=== PATIENT | female | born 1955 | race Caucasian/White ===

== ENCOUNTER → 2016-07-12 | Outpatient (CLI) | payer MEDICARE, MEDICAID ==
[~2016-07-12] MED LIST: ALEN70TA47 PO; ALPR1TAB7 PO; AMLO5TAB2 PO; ASP325TEC; ASPI-587 PO; CLON2TAB3; CLOP75TA; CODE-54 PO; CYCL10TA9 PO; DEXL60CA5 PO; ENAL2.5T; FLUT16SP22 NS; HYDR200T46 PO; IBP600T1 PO; LANS30CA; LINA145C PO; LORA10TA7 PO; METO-333 PO; MULT-974 PO; NIAC1000; NIAC1000 PO; NTR.4SL SL; OMEP20CA12 PO; OMG1KC PO; ONDA4TAB8 PO; Oxycodone Hcl/Acetaminophen PO; PRAV40TA; PRAV80TA2 PO; TIZA4CAP PO; TIZA4TAB55; TOPI25CA2 PO; TRAM-21 PO; VIT400TA2
--- OUTSIDE RECORDS SUMMARY | 2016-07-12 13:10 | XMS REPORT | Continuity of Care Document ---
Author Author [facility] Organization [facility] Address Unknown Phone Unavailable Care Team Providers Care Rn Telephone Triage Name Role Phone Romel Dukes PCP [phone] Source Comments Some departments are not documenting in the electronic medical record. If you do not see the information that you expected, contact Release of Information in the Health Information Management department at [phone] for further assistance in locating additional records.[facility] Active Allergies and Adverse Reactions Allergen Noted Date Severity Reactions Comments Hydrocodone 10/10/2010 High NAUSEA AND VOMITING hydrocodone cause immediate nausea and emesis upon ingestion. Makes her feel 'Funky' for a period of time afterward she says. Current Medications Prescription Sig. Disp. Refills Start End Date Status Date clopidogrel (PLAVIX) 75 Take 75 mg by mouth Active mg PO daily. alendronate (FOSAMAX) 70 Take 70 mg by mouth every Active mg PO tablet 7 days. VITAMIN B COMPLEX (B Take by mouth daily. Active COMPLEX-VITAMIN B12 PO) NIACIN (NIASPAN) 1,000 mg Take by mouth at bedtime Active PO tablet daily. other medication Take 1 Each by mouth as Active Needed. Nitroglycerine 0.4 mg sublingual as needed pravastatin (PRAVACHOL) Take 80 mg by mouth at Active 80 mg PO tablet bedtime daily. acetaminophen/codeine Take 1 Tab by mouth three Active (TYLENOL NO.3) 300/30 mg times daily as needed. PO tablet 0-1-2-3x qd tizanidine (ZANAFLEX) 4 Take 4 mg by mouth twice Active mg PO capsule daily. aspirin 81 mg chewable Take 81 mg by mouth Active tablet daily. loratadine (CLARITIN) 10 Take 10 mg by mouth Active mg tablet daily. fluticasone (FLONASE) 50 Apply 2 Sprays to each Active mcg/actuation nasal spray nostril as directed daily. Dexlansoprazole Take by mouth daily. Active (DEXILANT) 60 mg CpDM DOCOSAHEXANOIC ACID/EPA Take 1,000 mg by mouth Active (FISH OIL PO) twice daily. MULTIVITAMIN PO Take 1 Tab by mouth Active daily. Women's Health Complete Ultra Multivitamin diphenhydrAMINE Take 25 mg by mouth every Active (BENADRYL) 25 mg capsule 6 hours as needed. cyclobenzaprine Take 1 Tab by mouth at 90 Tab 1 07/14/19 Active (FLEXERIL) 10 mg tablet bedtime daily. 14 ACETAMINOPHEN/DIPHENHYDRA Take 1 Tab by mouth at Active MINE (TYLENOL PM PO) bedtime as needed. ALPRAZolam (XANAX) 1 mg Take 1 mg by mouth three Active tablet times daily as needed. 2-3x qd hydroxychloroquine Take 200 mg by mouth as Active (PLAQUENIL) 200 mg tablet Needed. 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 Social History Tobacco Use Types Packs/Day Years Used Date Current Every Day Smoker Cigarettes 0.25 40 Smokeless Tobacco: Never Used Tobacco Cessation: Ready to Quit: No Comments: 6 CIGARETTES PER DAY Alcohol Use Drinks/Week oz/Week Comments Yes once every 3-4 months Last Filed Vital Signs Vital Sign Reading Time Taken Blood Pressure 108/70 07/14/2013 3:44 PM [employer]IVIL DIVISION DEPUTY [employer]ERIFF Pulse 95 07/14/2013 3:44 PM [employer] Temperature 36.4 C (97.6 F) 07/14/2013 3:44 PM [employer]ER[employer] Respiratory Rate 15 07/14/2013 3:44 PM [employer]ER[employer] Height 1.6 m (5' 3") 07/14/2013 3:44 PM [employer] Weight 73.301 kg (161 lb 9.6 oz) 07/14/2013 3:44 PM [employer] Body Mass Index 28.63 07/14/2013 3:44 PM [employer] Oxygen Saturation 98% 05/22/2011 2:33 PM [employer] Plan of Care Health Maintenance Due Date Last Done Comments Physical (Comprehensive) 1961 Exam Pertussis Vaccine 1965 Tetanus Vaccine 1971 Cervical Cancer Screening 1975 Breast Cancer Screening 1994 Colorectal Cancer 2004 Screening Shingles Vaccine 2014 Influenza Vaccine 02/17/2016 Results from Last 3 Months Not on file
--- NOTE | 2016-07-12 13:26 | Diagnostic Imaging Report ---
Indication: Left foot pain x2 months 3 views of the left foot show no fracture, dislocation or other abnormalities. Impression: Negative left foot Dictated by: Dictated on workstation # [id number]
== END ==
LOC: RAD 13:06
PROVIDERS: ATTEND Family Medicine
DX: M79.672 Pain in left foot (principal)
CPT/HCPCS: 73630

== ENCOUNTER 2017-01-29 05:38 | Outpatient (CLI) | payer MEDICARE, MEDICAID ==
[~2017-01-29] VITALS: Ht 160 cm; Wt 67.1 kg
[2017-01-30] MEDS ORDERED: ACET-2469 PO (10:35)
[2017-01-30] MEDS ORDERED: TRAM-42 PO (10:35)
[2017-01-30] MEDS ORDERED: METO-270 PO (10:35)
[2017-01-30] MEDS ORDERED: SUCR1TAB36 PO (11:32)
== END 2017-01-29 11:15 ==
LOC: PREOP 05:38
PROVIDERS: ATTEND Surgery
DX: Z01.818 Encounter for other preprocedural examination (principal); K21.9 Gastro-esophageal reflux disease without esophagitis; Z80.0 Family history of malignant neoplasm of digestive organs

== ENCOUNTER 2017-01-30 10:23 | Day surgery (SDC) | payer MEDICARE, MEDICAID ==
[2017-01-30] MEDS ORDERED: LACTATED RINGERS 1,000 ML IV ONE (10:25)
--- OUTSIDE RECORDS SUMMARY | 2017-01-30 10:27 | XMS REPORT | Clinical Summary ---
Author Author [facility] Organization [facility] Address Unknown Phone Unavailable Care Team Providers Care Mattress And Foundation Sewer Name Role Phone PCP Unavailable Source Comments Some departments are not documenting in the electronic medical record. If you do not see the information that you expected, contact Release of Information in the Health Information Management department at [phone] for further assistance in locating additional records.[facility] Allergies Active Allergy Reactions Severity Noted Date Comments Hydrocodone NAUSEA AND VOMITING High 10/10/2010 hydrocodone cause immediate nausea and emesis upon [...] Tab 1 07/14/19 Active (FLEXERIL) 10 mg bedtime daily. 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 Family History Medical History Relation Name Comments Arthritis-rheumatoid Brother Cancer Father Arthritis-osteo Mother Diabetes Mother Heart Disease Mother Hypertension Mother Hypothyroid Mother Stroke Mother Cancer Sister Diabetes Sister Relation Name Status Comments Brother Father Mother Sister Social History Tobacco Use Types Packs/Day Years Used Date Current Every Day Smoker Cigarettes 0.25 40 Smokeless Tobacco: Never Used Tobacco Cessation: Ready to Quit: No Comments: 6 CIGARETTES PER DAY Alcohol Use Drinks/Week oz/Week Comments Yes once every 3-4 months Sex Assigned at Date Recorded Not on file Last Filed Vital Signs Vital Sign Reading Time Taken Blood Pressure 108/70 07/14/2013 3:44 PM ACLS SPECIALIST Pulse 95 07/14/2013 3:44 PM ACLS SPECIALIST Temperature 36.4 C (97.6 F) 07/14/2013 3:44 PM ACLS SPECIALIST Respiratory Rate 15 07/14/2013 3:44 PM ACLS SPECIALIST Oxygen Saturation 98% 05/22/2011 2:33 PM ACLS SPECIALIST Inhaled Oxygen - - Concentration Weight 73.3 kg (161 lb 9.6 oz) 07/14/2013 3:44 PM ACLS SPECIALIST Height 160 cm (5' 3") 07/14/2013 3:44 PM ACLS SPECIALIST Body Mass Index 28.63 07/14/2013 3:44 PM ACLS SPECIALIST Plan of Treatment Health Maintenance Due Date Last Done Comments HEPATITIS C SCREENING 1954 PHYSICAL (COMPREHENSIVE) 1961 EXAM PERTUSSIS VACCINE 1965 TETANUS VACCINE 1971 CERVICAL CANCER SCREENING 1984 BREAST CANCER SCREENING 1994 COLORECTAL CANCER 2004 SCREENING SHINGLES VACCINE 2014 INFLUENZA VACCINE 02/16/2017 Results Not on filefrom Last 3 Months
[2017-01-30 10:30] VITALS: BP 132/67
--- NOTE | 2017-01-30 10:32 | Progress Note-Pre Operative ---
Pre-Operative Progress Note H&P Reviewed The H&P was reviewed, patient examined and no changes noted. Date Seen by Provider: Jan 30, 2017 Time Seen by Provider: 10:32 Date H&P Reviewed: Jan 30, 2017 Time H&P Reviewed: 10:32 Pre-Operative Diagnosis: GERD, History of Hiatal hernia repair, family history colon cancer SOCO BLANCAS DO Jan 30, 2017 10:32
[2017-01-30] MEDS ORDERED: MIDAZOLAM 2 MG/2 ML (VERSED) VIAL ONE (10:34)
[2017-01-30] MEDS ORDERED: ACET-2469 PO (10:35)
[2017-01-30] MEDS ORDERED: TRAM-42 PO (10:35)
[2017-01-30] MEDS ORDERED: METO-270 PO (10:35)
[2017-01-30] MEDS ORDERED: ONDANSETRON 4 MG/2 ML (SDV) Z0FRAN ONE (10:37)
[2017-01-30] MEDS ORDERED: proPOfol 200 MG/20 ML (DIPRIVAN) VIAL IV ONE (10:38)
[2017-01-30] MEDS ORDERED: ONDANSETRON 4 MG/2 ML (SDV) Z0FRAN IV ONE (10:45)
[2017-01-30] MEDS ORDERED: LACTATED RINGERS 1,000 ML IV SCH (11:00)
[2017-01-30] MEDS ORDERED: HURRICAINE EXT TUBE (BENZOCAINE) XX ONE (11:00)
--- NOTE | 2017-01-30 11:31 | Progress Note-Post Operative ---
Post-Operative Progess Note Surgeon (s)/Ceo & Board Director (s) Surgeon SOCO BLANCAS DO Ceo & Board Director: na Pre-Operative Diagnosis GERD, History of Hiatal hernia repair, family history colon cancer Post-Operative Diagnosis slight gastrtis, descending colon polyp, diverticulosis Procedure & Operative Findings Date of Procedure 01/30/17 Procedure Performed/Findings egd c biopsy and colonoscopy with hot bx polypectomy Anesthesia Type per title i coordinator Estimated Blood Loss Estimated blood loss (mL): none Specimens/Packing Specimens Removed antrum, descending colon polyp SOCO BLANCAS DO Jan 30, 2017 11:31
[2017-01-30] MEDS ORDERED: SUCR1TAB36 PO (11:32)
--- NOTE | 2017-01-30 11:33 | Discharge Inst-Simple/Standard ---
Discharge Inst-Standard Discharge Medications New, Converted or Re-Newed RX: Transmitted to Pharmacy Patient Instructions/Follow Up Plan of Care/Instructions/FU: 2 weeks [place] Activity as Tolerated: Yes Discharge Diet: Regular Diet SOCO BLANCAS DO Jan 30, 2017 11:33
[2017-01-30 12:00] VITALS: BP 121/61
[2017-01-30 12:45] VITALS: BP 124/69
[2017-01-30 13:00] VITALS: BP 124/69
[2017-01-30] MEDS ORDERED: HURRICAINE EXT TUBE (BENZOCAINE) ONE (15:21)
--- NOTE | 2017-01-30 19:29 | OPERATIVE REPORT ---
DATE OF SERVICE: PREOPERATIVE DIAGNOSIS: 1. Gastroesophageal reflux disease. 2. History of hiatal hernia repair. 3. Family history of colon cancer. POSTOPERATIVE DIAGNOSIS: 1. Slight gastritis. 2. Descending colon polyp. 3. Diverticulosis. PROCEDURE: EGD with biopsy and colonoscopy with hot biopsy polypectomy descending colon. SURGEON: Soco Ozuna DO ANESTHESIA: Per BILLING CUSTOMER SERVICE REPRESENTATIVE. ESTIMATED BLOOD LOSS: None. COMPLICATIONS: None. INDICATIONS: The patient is a 61-year-old female with slightly worsening reflux symptoms. She is on Dexilant which does not seem to keep it still under control. She has a family history of colon cancer, is due for colonoscopy. She understands risks, benefits and wishes to proceed. Consent was signed and on the chart. DESCRIPTION OF PROCEDURE: The patient was taken to the endoscopy suite, placed in left lateral recumbent position. Timeout was performed. Scope was inserted in the mouth, down the esophagus, stomach and into the duodenum without difficulty. There were no polyps, mass or ulcerations within the duodenum. Scope was slowly retracted back into the stomach, which had slight erythematous changes. Biopsy of the antrum was obtained. The scope was retroflexed noting no other pathology. Scope was returned to its normal position, slowly withdrawn to the distal esophagus which had no erythematous changes, polyps, masses or ulcerations. Scope was slowly retracted back noting no other pathology until completely removed. Digital rectal exam was performed and there were no palpable polyps, masses or ulcerations. Scope was inserted in the rectum and advanced all the way to the cecum with minimal difficulty. Prep was adequate. Scope was then slowly retracted back. There were no polyps, masses or ulcerations within the cecum, ascending, transverse colon. Within the descending colon near the splenic flexure, a small polyp was present, which hot biopsy polypectomy was performed. Scope was continued to be slowly retracted back to the sigmoid where some minimal amount of diverticulosis was present. There were no polyps, masses or ulcerations. Scope was continued to be slowly retracted back to the rectum, where it was also retroflexed without any other pathology. Scope was returned to its normal position, slowly withdrawn until completely removed. The patient tolerated procedure well without any complications. She was taken to recovery in stable condition. RECOMMENDATIONS: The patient will need high fiber diet. We recommend adding Carafate 1 gram four times a day at this time. We will have her follow up in the office in 3 weeks to discuss pathology and see how her symptoms are doing at that time. The patient will need repeat colonoscopy in 5 years due to family history of colon cancer and polyps. If she has any problems prior to that, she should be reevaluated at that time. Job ID: [id number] DocumentID: [id number] Dictated Date: 01/30/2017 11:36:44 Drinking Water Technician Date: 01/30/2017 19:28:56 Dictated By: SOCO OZUNA DO
== END 2017-01-30 13:00 | disposition home or self-care (01) ==
LOC: ENDO 10:23
PROVIDERS: ATTEND Surgery
DX: Z12.11 Encounter for screening for malignant neoplasm of colon (principal); D12.3 Benign neoplasm of transverse colon; K57.30 Diverticulosis of large intestine without perforation or abscess without bleeding; K21.9 Gastro-esophageal reflux disease without esophagitis; K44.9 Diaphragmatic hernia without obstruction or gangrene; K29.70 Gastritis, unspecified, without bleeding; Z80.0 Family history of malignant neoplasm of digestive organs; I25.10 Atherosclerotic heart disease of native coronary artery without angina pectoris; I10 Essential (primary) hypertension; E78.5 Hyperlipidemia, unspecified; J44.9 Chronic obstructive pulmonary disease, unspecified; F17.210 Nicotine dependence, cigarettes, uncomplicated; Z79.899 Other long term (current) drug therapy; Z95.5 Presence of coronary angioplasty implant and graft

== ENCOUNTER → 2017-04-09 | Outpatient (CLI) | payer MEDICARE, MEDICAID ==
[~2017-04-09] VITALS: Ht 160 cm; Wt 68.0 kg
[~2017-04-09] MED LIST changes: +ACET-2469 PO; +METO-270 PO; +REGADENOSON 0.4 MG/5 ML SYR (LEXISCAN) IV ONE; +SUCR1TAB36 PO; +TRAM-42 PO
[2017-04-09] MEDS: CATHETER FLUSH 10 ML SYR IV PRN ×2 (08:16→09:19)
[2017-04-09 09:16] VITALS: BP 101/64
--- NOTE | 2017-04-10 10:42 | STRESS TEST ---
DATE OF SERVICE: 04/09/2017 LEXISCAN MYOVIEW STRESS TEST REPORT REFERRING PHYSICIAN: Dr. Dukes. TEST DATE: 04/09/2017. Baseline heart rate is 55. Baseline blood pressure 101/64. Baseline EKG is sinus rhythm with no ischemic changes. In summary, the patient was injected with 10.82 mCi of technetium-99 Myoview and the resting images were obtained. Then, the patient received 0.4 mg of Lexiscan, followed by 29.0 mCi of technetium-99 Myoview. Throughout the test, there were no EKG changes. The resting and stress images were reviewed and compared in the short axis, horizontal long axis, and vertical long axis views. Review of the images showed good radiotracer uptake with no significant ischemia or infarction on SPECT images. SSS is 1, SDS 1, TID value 1.11. On the gated images, the left ventricle appeared to be in normal size with normal contractility. Calculated ejection fraction 71%. CONCLUSION: 1. The patient tolerated Lexiscan well. 2. No ischemia or infarction on SPECT images. 3. Normal left ventricular size with normal contractility. Calculated ejection fraction is 71%. Job ID: [id number] DocumentID: [id number] Dictated Date: 04/10/2017 07:23:56 Risk Engineer Date: 04/10/2017 07:53:26 Dictated By: JOAN SEVERINO MD
== END ==
LOC: CARD 07:47
PROVIDERS: ATTEND Physician Assistant
DX: I25.10 Atherosclerotic heart disease of native coronary artery without angina pectoris (principal); I65.23 Occlusion and stenosis of bilateral carotid arteries; I10 Essential (primary) hypertension; E78.4 Other hyperlipidemia
CPT/HCPCS: 78452; 93017

== ENCOUNTER → 2017-04-12 | Outpatient (CLI) | payer MEDICARE, MEDICAID ==
[~2017-04-12] MED LIST changes: -REGADENOSON 0.4 MG/5 ML SYR (LEXISCAN) IV ONE
== END ==
LOC: RAD 08:51
PROVIDERS: ATTEND Family Medicine
DX: Z12.31 Encounter for screening mammogram for malignant neoplasm of breast (principal)
CPT/HCPCS: 77067

== ENCOUNTER → 2017-04-12 | Outpatient (CLI) | payer MEDICARE, MEDICAID | LOC: CARD 08:47 | PROVIDERS: ATTEND Physician Assistant | DX: I25.10 Atherosclerotic heart disease of native coronary artery without angina pectoris (principal); I65.23 Occlusion and stenosis of bilateral carotid arteries; I10 Essential (primary) hypertension; E78.4 Other hyperlipidemia | CPT/HCPCS: 93306 ==

== ENCOUNTER → 2018-05-24 | Outpatient (CLI) | payer MEDICARE, MEDICAID ==
[~2018-05-24] MED LIST changes: -METO-270 PO; +METO-387 PO
--- NOTE | 2018-05-24 15:42 | Diagnostic Imaging Report ---
INDICATION: Chronic bilateral knee pain. TIME OF EXAM: 2:57 p.m. EXAMINATION: Multiple views of bilateral knees were obtained. FINDINGS: Joint spaces are well maintained. The articular surfaces are smooth. No fracture or dislocation is seen. No effusion is detected. There is a small lucency noted in the proximal tibia medial side at the plateau in the left knee which is most likely chronic, as there is no effusion. No other suspicious abnormality is seen. IMPRESSION: There is a lucency in the proximal tibia, medial side of the left knee. This may be a chronic finding but if patient does have pain at this location, CT of the left knee would be useful for further evaluation to rule out an acute fracture. This is unlikely as no joint effusion is present. Dictated by: Dictated on workstation # [id number]
== END ==
LOC: RAD 14:05
PROVIDERS: ATTEND Internal Medicine Rheumatology
DX: M17.0 Bilateral primary osteoarthritis of knee (principal)

== ENCOUNTER → 2018-10-01 | Outpatient (CLI) | payer MEDICARE, MEDICAID ==
--- NOTE | 2018-10-01 16:53 | Diagnostic Imaging Report ---
INDICATION: Headache and positive rheumatoid test. TECHNIQUE: PA and lateral views of the chest were obtained at 1402 hours. COMPARISON: 10/21/2009. FINDINGS: The heart is normal in size. The mediastinal silhouette appears unremarkable. There is hyperinflation, compatible with COPD. There is no focal infiltrate, pneumothorax, or pleural fluid. There are mild chronic appearing increased interstitial markings. There is a stable calcified granuloma in the right middle lobe. IMPRESSION: COPD changes and chronic changes as above. No acute consolidation or pleural fluid. Dictated by: Dictated on workstation # [id number]
== END ==
LOC: RAD 13:39
PROVIDERS: ATTEND Family Medicine
DX: J44.9 Chronic obstructive pulmonary disease, unspecified (principal); J84.10 Pulmonary fibrosis, unspecified; M05.752 Rheumatoid arthritis with rheumatoid factor of left hip without organ or systems involvement
CPT/HCPCS: 71046

== ENCOUNTER → 2018-10-30 | Outpatient (CLI) | payer MEDICARE, MEDICAID ==
--- NOTE | 2018-10-30 12:05 | Diagnostic Imaging Report ---
PROCEDURE: US Gallbladder. TECHNIQUE: Multiple Real-time grayscale images were obtained over the right upper quadrant in various projections. INDICATION: Vomiting. FINDINGS: The previous gallbladder ultrasound exam performed on 07/12/2009 failed to show any evidence for an acute abnormality of the gallbladder. On this study, there is still no evidence for cholelithiasis or acute cholecystitis and the common bile duct is not dilated. The liver and right kidney are generally unremarkable. The pancreas and aorta are obscured by bowel gas. IMPRESSION: 1. There is no evidence for cholelithiasis or acute cholecystitis. 2. If clinical concern regarding an acute abnormality of the gallbladder persists and further imaging is desired, then a Nuclear Medicine hepatobiliary scan would be recommended. Dictated by: Dictated on workstation # [id number]
== END ==
LOC: RAD 07:02
PROVIDERS: ATTEND Family Medicine
DX: R11.2 Nausea with vomiting, unspecified (principal)
CPT/HCPCS: 76705

== ENCOUNTER → 2018-11-18 | Outpatient (CLI) | payer MEDICARE, MEDICAID ==
[~2018-11-18] MED LIST changes: +CATHETER FLUSH 10 ML SYR IV PRN
--- NOTE | 2018-11-18 21:00 | Diagnostic Imaging Report ---
INDICATION: Right upper quadrant pain EXAMINATION: HIDA scan dated 11/18/2018 FINDINGS: Correlation made to sonogram dated 10/30/2018 After uneventful administration of 5.31 mCi of technetium 99m Choletec intravenously subsequent imaging is performed. Prompt homogeneous uptake seen throughout the liver. The gallbladder and small bowel loops are seen in less than 45 minutes. Subsequent administration of 8 ounces of Ensure was ingested and continued imaging performed. An ejection fraction is calculated at 89.5%. IMPRESSION: 1. No obstruction 2. Normal ejection fraction. Dictated by: Dictated on workstation # [id number]
== END ==
LOC: CARD 12:21
PROVIDERS: ATTEND Family Medicine
DX: R10.11 Right upper quadrant pain (principal)
CPT/HCPCS: 78227

== ENCOUNTER 2018-12-12 05:48 | Outpatient (CLI) | payer MEDICARE, MEDICAID ==
[~2018-12-12] VITALS: Ht 160 cm; Wt 59.4 kg
[~2018-12-12 05:48] MED LIST changes: -CATHETER FLUSH 10 ML SYR IV PRN
[2018-12-12] MEDS ORDERED: CETI10TA17 PO (13:51)
[2018-12-12] MEDS ORDERED: NIAC10002 PO (13:51)
[2018-12-12] MEDS ORDERED: ACET-789 PO (13:51)
[2018-12-12] MEDS ORDERED: ALEN70TA2 PO (13:51)
[2018-12-12] MEDS ORDERED: FLUT9.9S NS (13:51)
[2018-12-12] MEDS ORDERED: ASPI-999 PO (13:51)
[2018-12-12] MEDS ORDERED: HYDR200T46 PO (13:51)
[2018-12-12] MEDS ORDERED: TOPI50TA13 PO (13:51)
[2018-12-12] MEDS ORDERED: NITR0.4T39 SL (13:51)
[2018-12-12] MEDS ORDERED: ALPR1TAB7 PO (13:51)
[2018-12-12] MEDS ORDERED: TRAM50TA2 PO (13:51)
[2018-12-12] MEDS ORDERED: DEXL60CA PO (13:51)
[2018-12-12] MEDS ORDERED: ROSU20TA2 PO (13:51)
[2018-12-12] MEDS ORDERED: MULT-178 PO (13:51)
[2018-12-12] MEDS ORDERED: TIZA4TAB3 PO (13:51)
[2018-12-12] MEDS ORDERED: OMEG-160 PO (13:51)
== END 2018-12-12 14:28 | disposition home or self-care (01) ==
LOC: PREOP 05:48
PROVIDERS: ATTEND Surgery
DX: Z01.818 Encounter for other preprocedural examination (principal)

== ENCOUNTER 2018-12-18 08:24 | Day surgery (SDC) | payer MEDICARE, MEDICAID ==
[~2018-12-18] VITALS: Ht 160 cm; Wt 59.4 kg
[2018-12-18] VITALS (11 sets, daily range): BP systolic 86–115; BP diastolic 45–85
[~2018-12-18 08:24] MED LIST changes: +ACET-789 PO; +ALEN70TA2 PO; +ASPI-999 PO; +CETI10TA17 PO; +DEXL60CA PO; +FLUT9.9S NS; +MULT-178 PO; +NIAC10002 PO; +NITR0.4T39 SL; +OMEG-160 PO; +ROSU20TA2 PO; +TIZA4TAB3 PO; +TOPI50TA13 PO; +TRAM50TA2 PO
[2018-12-18] MEDS ORDERED: ceFAZolin INJECTION 1,000 MG in WATER (STERILE) FOR INJECTION 10 ML IV ONE (08:45)
[2018-12-18] MEDS: LACTATED RINGERS 1,000 ML IV PRN ×2 (09:00→12:19)
[2018-12-18 09:07] LABS: BASOPHILS % (AUTO) 1 % (0-10); EOSINOPHILS # (AUTO) 0.3 10^3/uL (0.0-0.3); EOSINOPHILS % (AUTO) 4 % (0-10); HEMATOCRIT 38 % (35-52); HEMOGLOBIN 12.2 G/DL (11.5-16.0); LYMPHOCYTES # (AUTO) 2.5 X 10^3 (1.0-4.0); LYMPHOCYTES % (AUTO) 33 % (12-44); MEAN CORPUSCULAR HEMOGLOBIN 29 PG (25-34); MEAN CORPUSCULAR HGB CONC 32 G/DL (32-36); MEAN CORPUSCULAR VOLUME 90 FL (80-99); MEAN PLATELET VOLUME 9.6 FL (7.4-10.4); MONOCYTES # (AUTO) 0.5 X 10^3 (0.0-1.0); MONOCYTES % (AUTO) 6 % (0-12); NEUTROPHILS # (AUTO) 4.1 X 10^3 (1.8-7.8); NEUTROPHILS % (AUTO) 56 % (42-75); PLATELET COUNT 218 10^3/uL (130-400); RED CELL DISTRIBUTION WIDTH 14.3 % (10.0-14.5); WHITE BLOOD COUNT 7.4 10^3/uL (4.3-11.0)
--- NOTE | 2018-12-18 09:51 | Progress Note-Pre Operative ---
Pre-Operative Progress Note H&P Reviewed The H&P was reviewed, patient examined and no changes noted. Date Seen by Provider: Dec 18, 2018 Time Seen by Provider: 09:49 Date H&P Reviewed: Dec 18, 2018 Time H&P Reviewed: 09:50 Pre-Operative Diagnosis: ruq abdominal pain, nausea, hyperfunctioning gallbladder SOCO LBANCAS DO Dec 18, 2018 09:51
[2018-12-18] MEDS ORDERED: IOPAMIDOL 61% 30 ML (ISOVUE 300) VIAL IV ONE (10:34)
[2018-12-18] MEDS ORDERED: BUP/EPI 0.5% 1:200,000 (SENSORCAINE) 30 ML VIAL ONE (10:34)
[2018-12-18] MEDS ORDERED: fentaNYL INJECTION 100 MCG/2 ML AMP ONE ×2 (10:46→10:55)
[2018-12-18] MEDS ORDERED: ONDANSETRON 4 MG/2 ML (SDV) Z0FRAN ONE ×2 (10:46→10:55)
[2018-12-18] MEDS ORDERED: FAMOTIDINE 20MG/2ML IV (PEPCID) ONE (10:47)
[2018-12-18] MEDS ORDERED: LIDOCAINE PF 2% 5 ML (XYLOCAINE) VIAL ONE (10:55)
[2018-12-18] MEDS ORDERED: DEXAMETHASONE 10 MG/ML (DECADRON) 1 ML VIAL ONE (10:55)
[2018-12-18] MEDS ORDERED: SEVOFLURANE (ULTANE) 15 ML INHAL SOLN ONE (10:55)
[2018-12-18] MEDS ORDERED: MIDAZOLAM 2 MG/2 ML (VERSED) VIAL ONE (10:55)
[2018-12-18] MEDS ORDERED: ROCURONIUM 10 MG/ML 5 ML SYRINGE IV ONE (10:55)
[2018-12-18] MEDS ORDERED: proPOfol 200 MG/20 ML (DIPRIVAN) VIAL IV ONE (10:55)
[2018-12-18] MEDS ORDERED: ONDANSETRON 4 MG/2 ML (SDV) Z0FRAN IV ONE (11:00)
[2018-12-18] MEDS ORDERED: fentaNYL INJECTION 100 MCG/2 ML AMP IV ONE (11:00)
[2018-12-18] MEDS ORDERED: FAMOTIDINE 20MG/2ML IV (PEPCID) IV ONE (11:00)
[2018-12-18] MEDS ORDERED: PHENYLEPHRINE 100 MCG/ML 10 ML (ANESTHESIA) SYR ONE (11:12)
[2018-12-18] MEDS ORDERED: HYDROmorphone 2 MG/ML VIAL (DILAUDID) ONE ×2 (11:24→12:09)
[2018-12-18] MEDS ORDERED: NEOSTIGMINE 3 MG/3 ML VIAL ONE (11:38)
[2018-12-18] MEDS ORDERED: GLYCOPYRROLATE 0.2 MG/ML (ROBINUL) 2 ML VIAL ONE (11:38)
[2018-12-18] MEDS ORDERED: SUGAMMADEX 500 MG/5 ML VIAL (BRIDION) IV ONE (11:42)
--- NOTE | 2018-12-18 11:59 | Progress Note-Post Operative ---
Post-Operative Progess Note Surgeon (s)/Watch Repairer Apprentice (s) Surgeon SOCO BLANCAS DO Watch Repairer Apprentice: Dr. Contreras Pre-Operative Diagnosis ruq abdominal pain, nausea, hyperfunctioning gallbladder Post-Operative Diagnosis same Procedure & Operative Findings Date of Procedure 12/18/18 Procedure Performed/Findings lap mariam c ioc Anesthesia Type gen Estimated Blood Loss Estimated blood loss (mL): min Specimens/Packing Specimens Removed gallbladder SOCO BLANCAS DO Dec 18, 2018 11:59
[2018-12-18] MEDS ORDERED: OXYC1TAB87 PO (12:01)
[2018-12-18] MEDS ORDERED: DOCU-143 PO (12:01)
--- NOTE | 2018-12-18 12:05 | Discharge Inst-Simple/Standard ---
Discharge Inst-Standard Discharge Medications New, Converted or Re-Newed RX: RX on Chart Patient Instructions/Follow Up Plan of Care/Instructions/FU: 2 weeks [place] Activity as Tolerated: No Discharge Diet: Regular Diet Other Inst to Patient Follow up Appt: Make appointment for 2 weeks. Instructions: No lifting greater than 10 pounds. No strenuous activity. May shower in 24 hours, no tub bath or soaking. Use incentive spirometer at home as directed. No Smoking Skin/Wound Care: You have special glue over incisions it will fall off on its own. Symptoms to Report: Appetite Changes, Extremity Discoloration, Numbness/Tingling, Swelling Increased, Bleeding Excessive, Eyesight Changes, Pain Increased, Urine Color Change, Constipation(Persistent), Fever over 101 degree F, Pain/Pressure in chest, Urinating Difficulty, Cough Up/Vomit Blood, Heart Beat Irreg/Pounding, Pain/Pressure in jaw, Vaginal Bleeding Increase, Cramps in feet or legs, Lightheadedness, Pain/Pressure in shoulder, Diarrhea(Persistent), Memory Changes Suddenly, Questions/Concerns, Weight gain consecutive days, Dizziness/Fainting, Nausea/Vomiting, Shortness of Breath, Weight gain over 2 pounds. If eyes or skin turn yellow notify physician. If questions or concerns contact your physician Or seek help at emergency department. SOCO BLANCAS DO Dec 18, 2018 12:04
[2018-12-18] MEDS ORDERED: ONDANSETRON 4 MG/2 ML (SDV) Z0FRAN IVP PRN (12:15)
[2018-12-18] MEDS ORDERED: HYDROmorphone 2 MG/ML VIAL (DILAUDID) IV ONE (12:15)
[2018-12-18] MEDS: PROMETHAZINE INJ 25 MG/ML (PHENERGAN) AMP IVP ONE ×2 (12:25→13:22)
--- NOTE | 2018-12-18 13:31 | Anesthesia-General Post-Op ---
General Patient Condition Mental Status/LOC: Same as Preop Cardiovascular: Satisfactory Nausea/Vomiting: Absent Respiratory: Satisfactory Pain: Controlled Complications: Absent Post Op Complications Complications None Follow Up Care/Instructions Patient Instructions None needed. Anesthesia/Patient Condition Patient Condition Patient is doing well, no complaints, stable vital signs, no apparent adverse anesthesia problems. No complications reported per nursing. CORTNEY CORTEZ CRNA Dec 18, 2018 13:31
--- NOTE | 2018-12-18 13:36 | Diagnostic Imaging Report ---
INDICATION: Abdominal pain. FINDINGS: 8.3 seconds of fluoroscopy and multiple digital images were obtained in surgery during a surgical cholangiogram. Images show cannulation of the cystic duct with contrast injected that passes through the common duct into the duodenum. There was some leak of contrast at the cannulation entry site of the cystic duct. There were no filling defects seen. IMPRESSION: Cystic duct appears to be patent. There are no intraluminal filling defects seen. Dictated by: Dictated on workstation # [id number]
--- NOTE | 2018-12-18 13:40 | NUR ---
minimal drainage noted from umbilical incision, covered with gauze et opsite, and upper abd inicision, covered with bandaid.
--- NOTE | 2018-12-18 19:36 | OPERATIVE REPORT ---
DATE OF SERVICE: 12/18/2018 PREOPERATIVE DIAGNOSES: Right upper quadrant abdominal pain, nausea hyperfunctioning gallbladder. POSTOPERATIVE DIAGNOSES: Right upper quadrant abdominal pain, nausea hyperfunctioning gallbladder. PROCEDURE PERFORMED: Laparoscopic cholecystectomy with intraoperative cholangiogram. SURGEON: Soco Ozuna DO. SURGICAL AIDES TEACHER: Quinton Contreras DO, assisted in retraction, dissection and closure. ANESTHESIA: General. ESTIMATED BLOOD LOSS: Minimal. COMPLICATIONS: None. INDICATIONS: The patient is a 63-year-old female who has been having significant nausea and right upper quadrant abdominal pain. She was found to have a hyperfunctioning gallbladder with ejection fraction greater than 80%. The patient was discussed risks and benefits of having laparoscopic cholecystectomy performed. She understands risks and benefits and wished to proceed with the procedure. DESCRIPTION OF PROCEDURE: The patient was taken to the operating suite. She was prepped and draped in sterile fashion. Timeout was performed. Midline incision was made just above the umbilicus. Cautery was used to dissect down to the fascia, which was then scored, grasped and elevated. Abdomen was entered. An #0 Vicryl was placed in a [id number] fashion for closure at the end of the case. A balloon trocar was inserted into the abdomen and pneumoperitoneum was achieved. Under direct visualization of the laparoscope, a 5-mm trocar was placed in subxiphoid region. Under direct visualization of the laparoscope, two 5-mm trocars were placed in the right upper quadrant. Gallbladder was grasped, elevated. Several adhesions were present to the gallbladder, which were then taken down with [place]. The cystic duct and cystic artery were then dissected around. Clips were placed on the proximal and distal portion of the cystic artery and distal portion of the cystic duct. The duct was then partially transected. Arrow catheter was inserted and cholangiogram was performed. There were no filling defects. Contrast made its way into the duodenum without difficulty. The catheter was removed. Clips were placed on the proximal portion of the cystic duct and then the duct and artery were then transected. Hook cautery was used to dissect the gallbladder from the gallbladder fossa achieving hemostasis. Once removed, it was placed in an Endobag and removed through 12 mm trocar site. Abdomen was inspected noting some intra-abdominal adhesions and the adhesions above the liver. No other pathology noted. The abdomen was then desufflated and the trocars were removed. The #0 Vicryl that was placed beginning of the case was then tied closing the fascial defect. The skin was then closed using 4-0 Monocryl in subcuticular fashion. The abdomen was washed and dried and Skin Affix was placed over the incisions. The patient tolerated procedure well without any complications. She was taken to recovery room in stable condition. Job ID: [id number] DocumentID: [id number] Dictated Date: 12/18/2018 12:09:00 Independent Contractor Date: 12/18/2018 19:35:51 Dictated By: SOCO OZUNA DO
== END 2018-12-18 14:30 | disposition home or self-care (01) ==
LOC: SDC 08:24
PROVIDERS: ATTEND Surgery
DX: K80.10 Calculus of gallbladder with chronic cholecystitis without obstruction (principal); K82.8 Other specified diseases of gallbladder; I25.10 Atherosclerotic heart disease of native coronary artery without angina pectoris; I10 Essential (primary) hypertension; E78.2 Mixed hyperlipidemia; J44.9 Chronic obstructive pulmonary disease, unspecified; K21.9 Gastro-esophageal reflux disease without esophagitis; I65.23 Occlusion and stenosis of bilateral carotid arteries; I73.9 Peripheral vascular disease, unspecified; F17.210 Nicotine dependence, cigarettes, uncomplicated; I25.2 Old myocardial infarction; M19.91 Primary osteoarthritis, unspecified site; F41.9 Anxiety disorder, unspecified; Z11.2 Encounter for screening for other bacterial diseases; Z88.5 Allergy status to narcotic agent; Z80.3 Family history of malignant neoplasm of breast; Z79.899 Other long term (current) drug therapy
CPT/HCPCS: 36415; 85025; 87081; 88304

== ENCOUNTER 2019-01-01 03:36 | Emergency (ER) | payer MEDICARE, MEDICAID ==
[~2019-01-01] VITALS: Ht 160 cm; Wt 56.7 kg
[~2019-01-01 03:36] MED LIST changes: +DOCU-143 PO; +OXYC1TAB87 PO
[2019-01-01] MEDS ORDERED: ASPIRIN 81 MG CHEW (CHILDREN'S ASA) ONE (03:38)
[2019-01-01] MEDS ORDERED: NITROGLYCERIN 0.4 MG SL TABS BTL 25'S SL ONE (03:38)
--- OUTSIDE RECORDS SUMMARY | 2019-01-01 03:43 | XMS REPORT | Clinical Summary ---
Author Author [facility] Organization [facility] Address Unknown Phone Unavailable Care Team Providers Care Marketing Sales Supervisor Name Role Phone Karuna Morales MD Unavailable Nadine Garcia MD Unavailable Trevon Harrison MD Unavailable Romel Dukes MD PCP Source Comments Some departments are not documenting in the electronic medical record. If you d o not see the information that you expected, contact Release of Information in [facility] [employer] Information Management department at [phone] for further assistan ce in locating additional records.[facility] Allergies Comments Active Allergy Reactions Severity Noted Date hydrocodone cause immediate nausea and emesis upon ingestion. Makes her feel 'Funky' for a period of time afterward she says. Hydrocodone NAUSEA AND High 10/10/2010 VOMITING Medications End Date Status Medication Sig Dispensed Refills Start Date Active clopidogrel (PLAVIX) 75 Take 75 mg by 0 mg PO mouth daily. Active alendronate (FOSAMAX) 70 Take 70 mg by 0 mg PO tablet mouth every 7 days. Active VITAMIN B COMPLEX (B Take by 0 COMPLEX-VITAMIN B12 PO) mouth daily. Active NIACIN (NIASPAN) 1,000 mg Take by 0 PO tablet mouth at bedtime daily. Active other medication Take 1 Each 0 by mouth as Needed. Nitroglycerin e 0.4 mg sublingual as needed Active pravastatin (PRAVACHOL) Take 80 mg by 0 80 mg PO tablet mouth at bedtime daily. Active acetaminophen/codeine Take 1 Tab by 0 (TYLENOL NO.3) 300/30 mg mouth three PO tablet times daily as needed. 0-1-2-3x qd Active tizanidine (ZANAFLEX) 4 Take 4 mg by 0 mg PO capsule mouth twice daily. Active aspirin 81 mg chewable Take 81 mg by 0 tablet mouth daily. Active loratadine (CLARITIN) 10 Take 10 mg by 0 mg tablet mouth daily. Active fluticasone (FLONASE) 50 Apply 2 0 mcg/actuation nasal spray Sprays to each nostril as directed daily. Active Dexlansoprazole Take by 0 (DEXILANT) 60 mg CpDM mouth daily. Active DOCOSAHEXANOIC ACID/EPA Take 1,000 mg 0 (FISH OIL PO) by mouth twice daily. Active MULTIVITAMIN PO Take 1 Tab by 0 mouth daily. Women's Health Complete Ultra Multivitamin Active diphenhydrAMINE Take 25 mg by 0 (BENADRYL) 25 mg capsule mouth every 6 hours as needed. Active cyclobenzaprine Take 1 Tab by 90 Tab 1 (FLEXERIL) 10 mg mouth at 4 tabletIndications: Muscle bedtime pain daily. Active ACETAMINOPHEN/DIPHENHYDRA Take 1 Tab by 0 MINE (TYLENOL PM PO) mouth at bedtime as needed. Active ALPRAZolam (XANAX) 1 mg Take 1 mg by 0 tablet mouth three times daily as needed. 2-3x qd Active hydroxychloroquine Take 200 mg 0 (PLAQUENIL) 200 mg tablet by mouth as Needed. 8 tabs q week as of 07-14-13 Active traMADol (ULTRAM) 50 mg TAKE TWO 270 Tab 1 tablet TABLETS BY 4 MOUTH THREE TIMES A DAY Active Problems Problem Noted Date Pruritus of [...] Comments Brother Father Mother Sister Social History Date Tobacco Use Types Packs/Day Years Used Current Every Day Smoker Cigarettes 0.25 40 Smokeless Tobacco: Never Used Tobacco Cessation: Ready to Quit: No Comments: 6 CIGARETTES PER DAY Drinks/Week oz/Week Comments Alcohol Use once every 3-4 months Yes Sex Assigned at Date Recorded Not on file Industry Job Start Date Occupation Not on file Not on file Not on file Travel End Travel History Travel Start No recent travel history available. Last Filed Vital Signs Reading Time Taken Comments Vital Sign 108/70 07/14/2013 3:44 PM IMPROVEMENT ANALYST Blood Pressure 95 07/14/2013 3:44 PM IMPROVEMENT ANALYST Pulse 36.4 C (97.6 F) 07/14/2013 3:44 PM IMPROVEMENT ANALYST Temperature 15 07/14/2013 3:44 PM IMPROVEMENT ANALYST Respiratory Rate 98% 05/22/2011 2:33 PM IMPROVEMENT ANALYST Oxygen Saturation - - Inhaled Oxygen Concentration 73.3 kg (161 lb 9.6 oz) 07/14/2013 3:44 PM IMPROVEMENT ANALYST with shoes Weight 160 cm (5' 3") 07/14/2013 3:44 PM IMPROVEMENT ANALYST Height 28.63 07/14/2013 3:44 PM IMPROVEMENT ANALYST Body Mass Index Plan of Treatment Health Maintenance Due Date Last Done Comments HEPATITIS C SCREENING 1955 PHYSICAL (COMPREHENSIVE) 1961 EXAM HIV SCREENING 1969 DTAP/TDAP VACCINES (1 - 1972 Tdap) CERVICAL CANCER SCREENING 1984 BREAST CANCER SCREENING 1994 COLORECTAL CANCER 2004 SCREENING SHINGLES RECOMBINANT 2004 VACCINE (1 of 2) INFLUENZA VACCINE 03/18/2019 Results Not on filefrom Last 3 Months
[2019-01-01] MEDS ORDERED: ASPIRIN 81 MG CHEW (CHILDREN'S ASA) PO ONE (03:45)
[2019-01-01] MEDS ORDERED: NITROGLYCERIN 0.4 MG SL TABS BTL 25'S SL PRN (03:45)
--- NOTE | 2019-01-01 04:05 | ED Chest Pain ---
General Stated Complaint: CP Source: patient, spouse (MARCELLA ALBA DO) History of Present Illness Date Seen by Provider: Jan 01, 2019 Time Seen by Provider: 03:42 Initial Comments PT ARRIVES VIA POV FROM HOME, WITH C/O CHEST PAIN --WOKE HER UP AT 0245 PT TOOK NTG X 1 AND PAIN EASED, THEN RETURNED, SO CAME TO ER RATES PAIN 9/10 AT WORST, IS NOW 2/10 PAIN OCCASIONALLY RADIATES TO BACK, BETWEEN SHOULDER BLADES NOTHING WORSENS PAIN , IMPROVED WITH NTG SLIGHT SHORTNESS OF BREATH + SWEATS/CLAMMY + NAUSEA, NO VOMITING NO SWELLING IN LEGS./ FEET OR PAIN IN CALVES PT HAS HAD MT X 2 AND STENTS X 4 THIS FEELS SAME HER PRIOR MT'S PT CONTINUES TO SMOKE 1 TO 1 1/2 PPD PT HAD LAP CHOLECYSTECTOMY [address] BLANCAS PCP: DR. WOLF DRAG SAWYER: DR. MATHEW SURGEON: DR. BLANCAS (MARCELLA ALBA DO) Allergies and Home Medications Allergies Coded Allergies: hydrocodone (Verified Allergy, Intermediate, MAKES STOMACH VERY SICK, 12/12/18) Home Medications Alendronate Sodium 70 Mg Tablet, 70 MG PO WEEK, (Reported) Alprazolam 1 Mg Tablet, 1 MG PO TID, (Reported) Aspirin 81 Mg Tab.chew, 81 MG PO DAILY, (Reported) Cetirizine HCl 10 Mg Tablet, 10 MG PO DAILY, (Reported) Dexlansoprazole 60 Mg Justin.bp, 60 MG PO DAILY, (Reported) Docusate Sodium 100 Mg Capsule, 100 MG PO DAILY Prescribed by: SOCO BLANCAS on 12/18/18 1201 Fluticasone Propionate 9.9 Ml Vivian.susp, 2 SPRAY NS DAILY, (Reported) 1 SPRAY EACH NARE DAILY Hydroxychloroquine Sulfate 200 Mg Tablet, 200 MG PO BID, (Reported) Metoprolol Succinate 25 Mg Tab.er.24h, 25 MG PO DAILY, (Reported) Multivitamin 1 Each Tablet, 1 EACH PO DAILY, (Reported) Niacin 1,000 Mg Tablet.er, 1,000 MG PO HS, (Reported) Nitroglycerin 0.4 Mg Tab.subl, 0.4 MG SL UD PRN for CHEST PAIN, (Reported) [place]-3/Dha/Epa/Fish Oil 1 Each Capsule, 1 EACH PO BID, (Reported) Oxycodone HCl/Acetaminophen 1 Each Tablet, 1 TAB PO Q4H Prescribed by: SOCO BLANCAS on 12/18/18 1201 Rosuvastatin Calcium 20 Mg Tablet, 20 MG PO HS, (Reported) Tizanidine HCl 4 Mg Tablet, 4 MG PO TID, (Reported) Topiramate 50 Mg Tablet, 50 MG PO BID, (Reported) Patient Home Medication List Home Medication List Reviewed: Yes (DANIEL KOROMA) Review of Systems Review of Systems Constitutional: no symptoms reported Respiratory: See HPI, Shortness of Air Cardiovascular: See HPI, Chest Pain; Denies Edema, Denies Lightheadedness, Denies Palpitations, Denies Syncope Gastrointestinal: See HPI; Denies Abdominal Pain; Nausea; Denies Vomiting Genitourinary: No Symptoms Reported Musculoskeletal: see HPI, back pain Skin: no symptoms reported Psychiatric/Neurological: No Symptoms Reported Endocrine: No Symptoms Reported Hematologic/Lymphatic: No Symptoms Reported (MARCELLA ALBA DO) Past Ofykxlu-Nsykie-Lsrblp Hx Patient Social History Alcohol Use: Rarely Uses Recreational Drug Use: No Smoking Status: Current Everyday Smoker (1 TO 06 18/2 P PD) Type Used: Cigarettes (1 TO 2 PPD) 2nd Hand Smoke Exposure: Yes Recent Foreign Travel: No Contact w/Someone Who Travel: No Recent Hopitalizations: No (MARCELLA ALBA DO) Seasonal Allergies Seasonal Allergies: Yes (TAKES SHOTS) (MARCELLA ALBA DO) Past Medical History Surgeries: Yes (RIGHT SHOULDER TIGHT-TWICE; FINGER; BILAT FOOT; HIATAL HERNIA REPAIR; CARDIAC CATHS --STENTS X 4 ; EGD/COLONOSCOPY/POLYPECTOMY) Abdominal, Cardiac, Coronary Stent, Gallbladder, Hysterectomy, Orthopedic Respiratory: Yes (MILD) COPD Currently Using CPAP: No Currently Using BIPAP: No Cardiac: Yes (MT X 2 WITH STENTS X 4 ) Coronary Artery Disease, Heart Attack, High Cholesterol, Hypertension Neurological: No 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 Disorders: No Female 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 Disorders: Denies 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 History: Hysterectomy, Menopausal Sexually Transmitted Disease: No HIV/AIDS: No Genitourinary: No Gastrointestinal: Yes (HIATAL HERNIA REPAIR; CHOLECYSTECTOMY 12/2018; EGD/COLONOSCOPY/POLYPECTOMY, DIVERTICULOSIS NOTED ON COLONOSCOPY--NO HX OF ACUTE DIVERTICULITIS) Gastroesophageal Reflux, Chronic Constipation, Diverticulosis, Polyps, Hiatal Hernia, Gall Bladder Disease Musculoskeletal: Yes Osteoporosis, Arthritis, Fibromyalgia, Chronic Back Pain Endocrine: No HEENT: Yes (READING GLASSES) Cataract Loss of Vision: Denies Hearing Impairment: Denies Cancer: No Psychosocial: Yes Anxiety Integumentary: No Blood Disorders: No Adverse Reaction/Blood Tranf: No (N/A) (TIFFANIE,MARCELLA Alanis ) Family Medical History Alcoholism Arthritis 19 MOTHER G8 BROTHER Cancer of mouth 19 FATHER (THROAT CANCER) Cardiovascular disease 19 MOTHER Completed stroke 19 MOTHER Diabetes mellitus 19 MOTHER FH: breast cancer Hypertension G8 BROTHER Thyroid disease 19 MOTHER No Family History of: AIDS Asthma Physical Exam Vital Signs Vital Signs - First Documented 01/01/19 03:40 Temp 96.4 Pulse 64 Resp 16 B/P (MAP) 98/68 (78) O2 Delivery Room Air (DANIEL KOROMA) Vital Signs Capillary Refill : (TIFFANIEMARCELLA Alanis ) Height, Weight, BMI Height: 5'3.00" Weight: 131lbs. 0.0oz. 59.741469qs; 23.2 BMI Method:Stated General Appearance: No Apparent Distress, WD/WN, Other (REEKS OF CIGARETTES) Respiratory: Normal Breath Sounds, No Accessory Muscle Use, No Respiratory Distress Cardiovascular: Regular Rate, Rhythm, No Edema, No JVD, No Murmur, Normal Peripheral Pulses Gastrointestinal: Non Tender, Soft Extremity: Normal Capillary Refill, Normal Inspection, Normal Range of Motion, Non Tender, No Calf Tenderness, No Pedal Edema Neurologic/Psychiatric: Alert, Oriented x3, No Motor/Sensory Deficits, Normal Mood/Affect, evp global multimedia sales II-XII Norm as Tested Skin: Normal Color, Warm/Dry (TIFFANIEMARCELLA Alanis ) Progress/Results/Core Measures Results/Orders Lab Results Laboratory Tests Test 01/01/19 04:30 01/01/19 06:35 Range/Units White Blood Count 8.0 4.3-11.0 10^3/uL Red Blood Count 4.00 L 4.35-5.85 10^6/uL Hemoglobin 11.8 11.5-16.0 G/DL Hematocrit 36 35-52 % Mean Corpuscular Volume 90 80-99 FL Mean Corpuscular Hemoglobin 30 25-34 PG Mean Corpuscular Hemoglobin Concent 33 32-36 G/DL Red Cell Distribution Width 13.8 10.0-14.5 % Platelet Count 219 130-400 10^3/uL Mean Platelet Volume 9.9 7.4-10.4 FL Neutrophils (%) (Auto) 56 42-75 % Lymphocytes (%) (Auto) 35 12-44 % Monocytes (%) (Auto) 7 0-12 % Eosinophils (%) (Auto) 3 0-10 % Basophils (%) (Auto) 0 0-10 % Neutrophils # (Auto) 4.5 1.8-7.8 X 10^3 Lymphocytes # (Auto) 2.8 1.0-4.0 X 10^3 Monocytes # (Auto) 0.5 0.0-1.0 X 10^3 Eosinophils # (Auto) 0.2 0.0-0.3 10^3/uL Basophils # (Auto) 0.0 0.0-0.1 10^3/uL Prothrombin Time 13.0 12.2-14.7 SEC INR Comment 1.0 0.8-1.4 Activated Partial Thromboplast Time 30 24-35 SEC Sodium Level 140 135-145 MMOL/L Potassium Level 3.7 3.6-5.0 MMOL/L Chloride Level 109 H 98-107 MMOL/L Carbon Dioxide Level 20 L 21-32 MMOL/L Anion Gap 11 5-14 MMOL/L Blood Urea Nitrogen 12 7-18 MG/DL Creatinine 0.94 0.60-1.30 MG/DL Estimat Glomerular Filtration Rate 60 BUN/Creatinine Ratio 13 Glucose Level 98 70-105 MG/DL Calcium Level 9.5 8.5-10.1 MG/DL Corrected Calcium 9.3 8.5-10.1 MG/DL Magnesium Level 2.3 1.8-2.4 MG/DL Total Bilirubin 0.2 0.1-1.0 MG/DL Aspartate Amino Transf (AST/SGOT) 26 5-34 U/L Alanine Aminotransferase (ALT/SGPT) 11 0-55 U/L Alkaline Phosphatase 76 40-136 U/L Myoglobin 34.3 10.0-92.0 NG/ML Troponin I < 0.028 < 0.028 <0.028 NG/ML B-Type Natriuretic Peptide 15.3 <100.0 PG/ML Total Protein 6.8 6.4-8.2 GM/DL Albumin 4.2 3.2-4.5 GM/DL Amylase Level 81 25-125 U/L Lipase 22 8-78 U/L (DANIEL KOROMA) Medications Given in ED Current Medications Medications Dose Ordered Sig/Aayush Route Start Time Stop Time Status Last Admin Dose Admin Aspirin 324 mg ONCE ONCE PO 01/01/19 03:45 01/01/19 03:46 DC 01/01/19 03:45 324 MG Ondansetron HCl 4 mg ONCE ONCE IVP 01/01/19 04:45 01/01/19 04:46 DC 01/01/19 04:41 4 MG Sodium Chloride 1,000 ml @ 0 mls/hr Q0M ONCE IV 01/01/19 04:32 01/01/19 04:33 DC 01/01/19 04:40 1,000 MLS/HR (DANIEL KOROMA) Vital Signs/I&O 01/01/19 01/01/19 03:40 03:40 Temp 96.4 Pulse 64 Resp 16 B/P (MAP) 98/68 (78) O2 Delivery Room Air (DANIEL KOROMA) Progress Progress Note : Progress Note INITIAL SYSTOLIC BP 98, SO NTG HELD, GIVEN IV FLUIDS PAIN RESOLVED SHORTLY AFTER ARRIVAL WITHOUT TREATMENT. 1830--CARE TURNED OVER TO DR. KOROMA, REPEAT TROPONIN AND CT CHEST ANGIOGRAM PENDING AT THIS TIME. PT REMAINS SYMPTOM-FREE AT THIS TIME. (MARCELLA ALBA DO) Progress Note #1: Time: 06:31 Progress Note Assumed care of the patient from Dr. Alba. Patient presents to ER for chest pain reminiscent of her previous coronary disease radiating to her back starting at 2:45 AM. Went away with nitroglycerin and then came back. We'll hear the ER she was not given any nitroglycerin because of her borderline blood pressure and her pain is spontaneously resolved. She is comfortable laying in bed without unaddressed concerns at this time. She is status post cholecystectomy to a CT angiogram of the chest was ordered and pending. A 3 hour rule out troponin was ordered and pending @ 0730. Progress Note #2: Time: 07:16 Progress Note The patient is still pain free. We will allow her follow-up with cardiology outpatient. (DANIEL KOROMA) Initial ECG Impression Date: Jan 01, 2019 Initial ECG Impression Time: 03:42 Initial ECG Rate: 60 Initial ECG Rhythm: Normal Sinus Initial ECG Comparisson: Unchanged (EXCEPT FOR DECREASED VOLTAGE OVERALL. ) EKG : EKG Time: 04:51 Rate: 49 Rhythm: Normal Sinus ECG Comparisson: Unchanged (MARCELLA ALBA DO) Diagnostic Imaging Comments CXR--NO ACUTE PROCESS, PENDING RADIOLOGIST REVIEW Reviewed: Reviewed by Me (MARCELLA ALBA DO) Diagonstic Imaging: CT (angiogram) Plain Films/CT/US/NM/MRI: chest Comments No acute mass, pulmonary embolism or cardiopulmonary process. Doses for pulmonary embolism. Extensive centrilobular emphysematous changes particularly of the right lung apex. He does appear to have a slightly progressed from the previous examination. There is dependent ground glass opacities with suggestion of intralobular septal thickening at the lung bases. Findings suggest mild pulmonary vascular congestion. Please correlate clinically. no pleural effusion. [facility] [place], [place] NAME: [facility] REC#: [id number] PT STATUS: REG ER : 1955 PHYSICIAN: MARCELLA ALBA DO ADMIT DATE: 01/01/19/ER Draft Date of Exam:01/01/19 CT ANGIO CHEST W PROCEDURE: CT angiography of the chest with contrast. TECHNIQUE: Multiple contiguous axial images were obtained through the chest after uneventful bolus administration of intravenous contrast. 2D reconstructed CTA MIP acquisitions were also performed. Auto Exposure Controls were utilized during the CT exam to meet ALARA standards for radiation dose reduction. INDICATION: Chest pain There is emphysematous changes present. No mass or infiltrate is seen. There is no effusion or pneumothorax. There is no aortic aneurysm or dissection. There is no pulmonary embolus. There is no acute bony abnormality. IMPRESSION: COPD. No acute abnormality is seen. Dictated on workstation # [id number] Dict: 01/01/19 0645 Trans: 01/01/19 0649 [facility] [id number] Interpreted by: BAKARI ASH MD Electronically signed by: Reviewed: Reviewed Night Mainor Study, Reviewed by Me (DANIEL KOROMA) Departure Impression Primary Impression: Chest pain Qualified Codes: R07.9 - Chest pain, unspecified Disposition: 01 HOME, SELF-CARE Condition: Improved Departure-Patient Inst. Decision time for Depature: 07:16 (DANIEL KOROMA) Referrals: JOAN MATHEW MD, FLOYD R MD (PCP/Family) Primary Care Physician Patient Instructions: Chest Pain (DC) Add. Discharge Instructions: Call Dr. Mathew in his clinic today and request an appointment this week. MARCELLA ALBA DO Jan 01, 2019 04:05 DANIEL KOROMA Jan 01, 2019 06:33
[2019-01-01] MEDS ORDERED: NS IV 1000 ML 1,000 ML IV ONE (04:32)
[2019-01-01 04:38] LABS: BASOPHILS % (AUTO) 0 % (0-10); EOSINOPHILS # (AUTO) 0.2 10^3/uL (0.0-0.3); EOSINOPHILS % (AUTO) 3 % (0-10); HEMATOCRIT 36 % (35-52); HEMOGLOBIN 11.8 G/DL (11.5-16.0); LYMPHOCYTES # (AUTO) 2.8 X 10^3 (1.0-4.0); LYMPHOCYTES % (AUTO) 35 % (12-44); MEAN CORPUSCULAR HEMOGLOBIN 30 PG (25-34); MEAN CORPUSCULAR HGB CONC 33 G/DL (32-36); MEAN CORPUSCULAR VOLUME 90 FL (80-99); MEAN PLATELET VOLUME 9.9 FL (7.4-10.4); MONOCYTES # (AUTO) 0.5 X 10^3 (0.0-1.0); MONOCYTES % (AUTO) 7 % (0-12); NEUTROPHILS # (AUTO) 4.5 X 10^3 (1.8-7.8); NEUTROPHILS % (AUTO) 56 % (42-75); PLATELET COUNT 219 10^3/uL (130-400); RED CELL DISTRIBUTION WIDTH 13.8 % (10.0-14.5)
[2019-01-01] MEDS ORDERED: ONDANSETRON 4 MG/2 ML (SDV) Z0FRAN IVP ONE (04:45)
[2019-01-01 04:59] LABS: ALANINE AMINOTRANSFERASE 11 U/L (0-55); ALBUMIN 4.2 GM/DL (3.2-4.5); ALKALINE PHOSPHATASE 76 U/L (40-136); AMYLASE 81 U/L (25-125); BILIRUBIN,TOTAL 0.2 MG/DL (0.1-1.0); BUN/CREATININE RATIO 13; CALCIUM 9.5 MG/DL (8.5-10.1); CARBON DIOXIDE 20 MMOL/L (21-32); CHLORIDE 109 MMOL/L (98-107); CREATININE SERUM 0.94 MG/DL (0.60-1.30); GFR ESTIMATED 60; GLUCOSE 98 MG/DL (70-105); LIPASE 22 U/L (8-78); MAGNESIUM 2.3 MG/DL (1.8-2.4); POTASSIUM 3.7 MMOL/L (3.6-5.0); SODIUM 140 MMOL/L (135-145); TOTAL PROTEIN 6.8 GM/DL (6.4-8.2)
--- NOTE | 2019-01-01 06:12 | Diagnostic Imaging Report ---
Clinical indication: Patient with chest pain. Exam: Portable chest x-ray upright view. Comparisons: Chest x-ray 2 views dated 10/01/2018. Chest x-rays dated 10/01/2018 and 10/21/2009. Findings: Lungs/pleura: Stable appearance of the lung parenchyma with increased lung markings noted. Stable increased lung markings in the periphery of the right upper lobe region which is also noted on comparison chest x-ray dated 10/01/2018 and chest x-ray dated 10/21/2009. Otherwise, lungs are clear. There is no pneumothorax. There is no pleural effusion. Mediastinum: Unremarkable. Pulmonary vasculature: Unremarkable. Heart: Unremarkable. Bones/extrathoracic soft tissue: There are degenerative spurs involving the thoracic spine. Surgical clips are seen overlying the right upper quadrant which could be related to cholecystectomy changes. Impression: Stable chest x-ray exam with no interval radiographic evidence of acute cardiopulmonary process. Dictated by: Dictated on workstation # [id number]
--- NOTE | 2019-01-01 06:49 | Diagnostic Imaging Report ---
PROCEDURE: CT angiography of the chest with contrast. TECHNIQUE: Multiple contiguous axial images were obtained through the chest after uneventful bolus administration of intravenous contrast. 2D reconstructed CTA MIP acquisitions were also performed. Auto Exposure Controls were utilized during the CT exam to meet ALARA standards for radiation dose reduction. INDICATION: Chest pain There is emphysematous changes present. No mass or infiltrate is seen. There is no effusion or pneumothorax. There is no aortic aneurysm or dissection. There is no pulmonary embolus. There is no acute bony abnormality. IMPRESSION: COPD. No acute abnormality is seen. Dictated by: Dictated on workstation # [id number]
[2019-01-01 07:36] VITALS: BP 100/52
== END 2019-01-01 07:36 | disposition home or self-care (01) ==
LOC: EDUNIT# 03:36 → ER 03:39
DX: R07.9 Chest pain, unspecified (principal); I25.2 Old myocardial infarction; J44.9 Chronic obstructive pulmonary disease, unspecified; I10 Essential (primary) hypertension; E78.00 Pure hypercholesterolemia, unspecified; I25.10 Atherosclerotic heart disease of native coronary artery without angina pectoris; K21.9 Gastro-esophageal reflux disease without esophagitis; M81.0 Age-related osteoporosis without current pathological fracture; M79.7 Fibromyalgia; F41.9 Anxiety disorder, unspecified; F17.210 Nicotine dependence, cigarettes, uncomplicated; Z86.010 Personal history of colon polyps; Z95.5 Presence of coronary angioplasty implant and graft; Z90.49 Acquired absence of other specified parts of digestive tract; Z88.5 Allergy status to narcotic agent; Z79.82 Long term (current) use of aspirin; Z79.51 Long term (current) use of inhaled steroids; Z90.710 Acquired absence of both cervix and uterus; Z98.890 Other specified postprocedural states; Z82.49 Family history of ischemic heart disease and other diseases of the circulatory system; Z80.3 Family history of malignant neoplasm of breast; Z80.8 Family history of malignant neoplasm of other organs or systems
CPT/HCPCS: 36415; 71045; 71275; 80053; 82150; 83690; 83735; 83874; 83880; 84484; 85025; 85610; 85730; 93005; 93041; 96361; 96374

== ENCOUNTER → 2019-01-16 | Outpatient (CLI) | payer MEDICARE, MEDICAID ==
[~2019-01-16] MED LIST changes: -TIZA4TAB3 PO; +TIZA4TAB4 PO
== END ==
LOC: CARD 11:13
PROVIDERS: ATTEND Physician Assistant
DX: I35.8 Other nonrheumatic aortic valve disorders (principal); I25.10 Atherosclerotic heart disease of native coronary artery without angina pectoris; J44.9 Chronic obstructive pulmonary disease, unspecified; I65.29 Occlusion and stenosis of unspecified carotid artery; K21.9 Gastro-esophageal reflux disease without esophagitis; I10 Essential (primary) hypertension
CPT/HCPCS: 93306

== ENCOUNTER → 2019-02-05 | Outpatient (CLI) | payer MEDICARE, MEDICAID ==
[~2019-02-05] VITALS: Ht 160 cm; Wt 57.2 kg
[~2019-02-05] MED LIST changes: +CATHETER FLUSH 10 ML SYR IV PRN; +REGADENOSON 0.4 MG/5 ML SYR (LEXISCAN) IV ONE
[2019-02-05 09:37] VITALS: BP 131/64
[2019-02-05 09:38] VITALS: BP 125/56
--- NOTE | 2019-02-05 15:46 | STRESS TEST ---
DATE OF SERVICE: 02/05/2019 LEXISCAN MYOVIEW STRESS TEST REPORT REFERRING PHYSICIAN: Romel Dukes MD Baseline heart rate is 53. Baseline blood pressure 125/59. Baseline EKG is sinus rhythm with no ischemic changes. In summary, the patient was injected with 10.22 mCi of technetium-99 Myoview and the resting images were obtained. Then, the patient received 0.4 mg of Lexiscan followed by 30.5 mCi of technetium-99 Myoview. Throughout the test, there were no EKG changes. The resting and stress images were reviewed and compared in the short axis, horizontal long axis, and vertical long axis views. Review of the images showed breast attenuation with typical female pattern. No significant ischemia or infarction was seen. SSS is 0. TID value 0.97. On the gated images, the left ventricle appeared to be small with good contractility. Calculated ejection fraction 75%. CONCLUSION: 1. The patient tolerated Lexiscan well. 2. Breast attenuation with typical female pattern. No significant ischemia or infarction on SPECT images. 3. Small left ventricular size with good contractility. Calculated ejection fraction 75%. Job ID: [id number] DocumentID: [id number] Dictated Date: 02/05/2019 15:29:56 Engineer Intern Date: 02/05/2019 15:46:18 Dictated By: JOAN SEVERINO MD
== END ==
LOC: CARD 07:29
PROVIDERS: ATTEND Physician Assistant
DX: I25.10 Atherosclerotic heart disease of native coronary artery without angina pectoris (principal); J44.9 Chronic obstructive pulmonary disease, unspecified; I65.23 Occlusion and stenosis of bilateral carotid arteries; K21.9 Gastro-esophageal reflux disease without esophagitis; I10 Essential (primary) hypertension
CPT/HCPCS: 78452; 93017

== ENCOUNTER → 2019-03-10 | Outpatient (CLI) | payer MEDICARE, MEDICAID ==
[~2019-03-10] MED LIST changes: -CATHETER FLUSH 10 ML SYR IV PRN; -REGADENOSON 0.4 MG/5 ML SYR (LEXISCAN) IV ONE
--- NOTE | 2019-03-10 17:07 | Diagnostic Imaging Report ---
INDICATION: Chest wall pain FINDINGS: Three views of the left ribs do not show any displaced fractures. There is no effusion or pneumothorax. IMPRESSION: Negative left ribs. Dictated by: Dictated on workstation # [id number]
== END ==
LOC: RAD 16:19
PROVIDERS: ATTEND Family Medicine
DX: R07.89 Other chest pain (principal)
CPT/HCPCS: 71100

== ENCOUNTER 2019-03-11 05:35 | Outpatient (CLI) | payer MEDICARE, MEDICAID ==
[~2019-03-11] VITALS: Ht 160 cm; Wt 56.8 kg
== END 2019-03-11 12:27 | disposition home or self-care (01) ==
LOC: PREOP 05:35
PROVIDERS: ATTEND Surgery
DX: Z01.818 Encounter for other preprocedural examination (principal)

== ENCOUNTER 2019-03-18 08:20 | Day surgery (SDC) | payer MEDICARE, MEDICAID ==
[~2019-03-18] VITALS: Ht 165.1 cm; Wt 56.8 kg
[2019-03-18] MEDS ORDERED: LACTATED RINGERS 1,000 ML IV ONE (08:27)
[2019-03-18] MEDS ORDERED: LACTATED RINGERS 1,000 ML IV STA (08:30)
[2019-03-18] MEDS ORDERED: HURRICAINE EXT TUBE (BENZOCAINE) XX PRN (08:30)
[2019-03-18 08:35] VITALS: BP 118/60
[2019-03-18] MEDS ORDERED: TRAM-42 PO (08:52)
[2019-03-18] MEDS ORDERED: AMLO5TAB9 PO (08:52)
[2019-03-18] MEDS ORDERED: ACET-789 PO (08:54)
[2019-03-18] MEDS ORDERED: FAMOTIDINE 20MG/2ML IV (PEPCID) IV ONE (09:15)
[2019-03-18] MEDS ORDERED: ONDANSETRON 4 MG/2 ML (SDV) Z0FRAN IV ONE (09:15)
--- NOTE | 2019-03-18 09:31 | Progress Note-Pre Operative ---
Pre-Operative Progress Note H&P Reviewed The H&P was reviewed, patient examined and no changes noted. Date Seen by Provider: Mar 18, 2019 Time Seen by Provider: 09:31 Date H&P Reviewed: Mar 18, 2019 Time H&P Reviewed: 09:31 Pre-Operative Diagnosis: gerd chest pain SOCO BLANCAS DO Mar 18, 2019 09:31
[2019-03-18] MEDS ORDERED: PROPOFOL INJECTION 50 ML IV ONE (10:22)
[2019-03-18] MEDS ORDERED: ONDANSETRON 4 MG/2 ML (SDV) Z0FRAN ONE (10:23)
[2019-03-18] MEDS ORDERED: MIDAZOLAM 2 MG/2 ML (VERSED) VIAL ONE (10:23)
[2019-03-18] MEDS ORDERED: HURRICAINE EXT TUBE (BENZOCAINE) ONE (10:45)
[2019-03-18 10:55] VITALS: BP 80/47
[2019-03-18 11:00] VITALS: BP 90/50
--- NOTE | 2019-03-18 11:04 | Progress Note-Post Operative ---
Post-Operative Progess Note Surgeon (s)/Medical Radiation Tech (s) Surgeon SOCO BLANCAS DO Medical Radiation Tech: NA Pre-Operative Diagnosis gerd chest pain Post-Operative Diagnosis severe gastritis with linear ulcerations Procedure & Operative Findings Date of Procedure 03/18/19 Procedure Performed/Findings EGD with biopsy at antrum Anesthesia Type Per INTENSIVE CARE UNIT NURSE Estimated Blood Loss Estimated blood loss (mL): scant Specimens/Packing Specimens Removed Biopsy of ulcerations SOCO BLANCAS DO Mar 18, 2019 11:04
[2019-03-18 11:05] VITALS: BP 87/51
[2019-03-18] MEDS ORDERED: SUCR1TAB36 PO (11:11)
--- NOTE | 2019-03-18 11:15 | Discharge Inst-Simple/Standard ---
Discharge Inst-Standard Discharge Medications New, Converted or Re-Newed RX: RX on Chart Patient Instructions/Follow Up Plan of Care/Instructions/FU: 2 weeks Sulma Activity as Tolerated: Yes Discharge Diet: Regular Diet (GERD/ULCER DIET) SOCO BLANCAS DO Mar 18, 2019 11:14
[2019-03-18 11:30] VITALS: BP 101/55
[2019-03-18 11:35] VITALS: BP 101/55
--- NOTE | 2019-03-18 12:47 | Anesthesia-General Post-Op ---
MAC Patient Condition Mental Status/LOC: Same as Preop Cardiovascular: Satisfactory Nausea/Vomiting: Absent Respiratory: Satisfactory Pain: Controlled Complications: Absent Post Op Complications Complications None Follow Up Care/Instructions Patient Instructions None needed. Anesthesiology Discharge Order Discharge Order Patient is doing well, no complaints, stable vital signs, no apparent adverse anesthesia problems. No complications reported per nursing. MOODY KIM CRNA Mar 18, 2019 12:47
--- NOTE | 2019-03-18 15:35 | OPERATIVE REPORT ---
DATE OF SERVICE: 03/18/2019 PREOPERATIVE DIAGNOSES: Gastroesophageal reflux disease and chest pain. POSTOPERATIVE DIAGNOSIS: Severe gastritis with linear ulcerations. PROCEDURE: EGD with biopsy and biopsies of the antrum. SURGEON: Soco Ozuna DO ANESTHESIA: Per WARD NURSE. ESTIMATED BLOOD LOSS: Scant. COMPLICATIONS: None. INDICATIONS: The patient is a 64-year-old female with gastroesophageal reflux and chest pain. She understands risks and benefits of procedure and wished to proceed with procedure. Consent was signed in the chart. DESCRIPTION OF PROCEDURE: The patient was taken to the endoscopy suite, placed in left lateral recumbent position. Timeout was performed. Scope was inserted in mouth, down the esophagus, stomach and into the duodenum without difficulty. There were no polyps, masses or ulcerations within the duodenum. Scope was slowly retracted back into the stomach where it was further insufflation, multiple linear ulcerations and gastritis appearance. Biopsies were obtained. Scope was retroflexed noting no other pathology. Scope was returned to its normal position, slowly withdrawn to the distal esophagus, which had normal appearance. No polyps, masses or ulcerations. Scope was slowly retracted back until completely removed. The patient tolerated procedure well without any complications. She was taken to recovery room in stable condition. RECOMMENDATIONS: The patient will follow up in 2 weeks to discuss pathology results. We will also add Carafate 1 gram four times a day and see how she is doing. At that point, we will continue on Dexilant. Further recommendations pending biopsy results and how she is doing. We will consider repeating EGD in the near future to reevaluate. Job ID: [id number] DocumentID: [id number] Dictated Date: 03/18/2019 11:17:14 Die Designer Date: 03/18/2019 15:34:45 Dictated By: SOCO OZUNA DO [facility]
== END 2019-03-18 11:40 | disposition home or self-care (01) ==
LOC: ENDO 08:20
PROVIDERS: ATTEND Surgery
DX: K25.3 Acute gastric ulcer without hemorrhage or perforation (principal); K21.9 Gastro-esophageal reflux disease without esophagitis; I25.10 Atherosclerotic heart disease of native coronary artery without angina pectoris; I10 Essential (primary) hypertension; E78.2 Mixed hyperlipidemia; J44.9 Chronic obstructive pulmonary disease, unspecified; I73.9 Peripheral vascular disease, unspecified; I65.29 Occlusion and stenosis of unspecified carotid artery; I25.2 Old myocardial infarction; G43.909 Migraine, unspecified, not intractable, without status migrainosus; F41.9 Anxiety disorder, unspecified; M79.7 Fibromyalgia; Z88.6 Allergy status to analgesic agent; Z79.899 Other long term (current) drug therapy; Z79.82 Long term (current) use of aspirin; Z90.710 Acquired absence of both cervix and uterus; Z82.49 Family history of ischemic heart disease and other diseases of the circulatory system; Z80.3 Family history of malignant neoplasm of breast; Z82.3 Family history of stroke; Z83.3 Family history of diabetes mellitus; Z80.8 Family history of malignant neoplasm of other organs or systems; Z95.5 Presence of coronary angioplasty implant and graft; Z90.49 Acquired absence of other specified parts of digestive tract; Z87.891 Personal history of nicotine dependence

== ENCOUNTER 2021-03-26 13:13 | Emergency (ER) | payer MEDICARE, MEDICAID ==
[~2021-03-26] VITALS: Ht 160 cm; Wt 58.0 kg
[~2021-03-26 13:13] MED LIST changes: -ACET-2469 PO; +ACET-3075 PO; +AMLO-250 PO; -METO-387 PO; +MTP25TSR PO; -TRAM50TA2 PO; +TRM50T PO
[2021-03-26 13:30] VITALS: BP 142/59
[2021-03-26] MEDS ORDERED: oxyCODONE/APAP 5/325MG (PERCOCET 5) TABLET PO ONE (14:15)
--- NOTE | 2021-03-26 14:19 | ED Back Pain ---
General Chief Complaint: Back Problems Stated Complaint: BACK PAIN Nursing Triage Note: MID BACK PAIN X3 MONTHS Source of Information: Patient Exam Limitations: No Limitations History of Present Illness Date Seen by Provider: Mar 26, 2021 Time Seen by Provider: 14:16 Initial Comments To ER left-sided back pain for 3 months. It is always present and is worsened by twisting turning and moving. She is been taking ibuprofen without much relief. She denies any cough or shortness of breath. She denies any urinary symptoms. She denies any fevers or chills or personal history of cancer. The pain does not radiate. She has a prescription for tramadol which she has taken a few of but it also does not help. Location: T-Spine Timing/Duration: 1-2 Days Severity: Moderate Pain/Injury Location: Back Method of Injury: Unknown Associated Symptoms: lower back pain Allergies and Home Medications Allergies Coded Allergies: hydrocodone (Verified Allergy, Intermediate, MAKES STOMACH VERY SICK, 03/11/19) Patient Home Medication List Home Medication List Reviewed: Yes Acetaminophen with Codeine (Tylenol with Codeine #3 Tablet) 1 Each Tablet, 1 EACH PO NEEDED PRN for PAIN-MODERATE, (Reported) Entered as Reported by: MAITE HUITRON on 03/18/19 0854 Alendronate Sodium (Fosamax) 70 Mg Tablet, 70 MG PO WEEK, (Reported) Entered as Reported by: CHRISTY SALDANA on 12/12/18 135 Alprazolam (Alprazolam) 1 Mg Tablet, 1 MG PO TID, (Reported) Entered as Reported by: CHRISTY SALDANA on 12/12/18 1351 Amlodipine Besylate (Amlodipine Besylate) 5 Mg Tablet, 5 MG PO DAILY, (Reported) Entered as Reported by: MAITE HUITRON on 03/18/19 0852 Aspirin (Aspirin) 81 Mg Tab.chew, 81 MG PO DAILY, (Reported) Entered as Reported by: CHRISTY SALDANA on 12/12/18 1351 Cetirizine HCl (Cetirizine HCl) 10 Mg Tablet, 10 MG PO DAILY, (Reported) Entered as Reported by: CHRISTY SALDANA on 12/12/18 1351 Dexlansoprazole (Dexilant) 60 Mg , 60 MG PO DAILY, (Reported) Entered as Reported by: CHRISTY SALDANA on 12/12/18 135 Fluticasone Propionate (Flonase Allergy Relief) 9.9 Ml [place].susp, 2 SPRAY NS DAILY, (Reported) Entered as Reported by: CHRISTY SALDANA on 12/12/18 135 Hydroxychloroquine Sulfate (Hydroxychloroquine Sulfate) 200 Mg Tablet, 200 MG PO BID, (Reported) Entered as Reported by: CHRISTY SALDANA on 12/12/18 135 Metoprolol Succinate (Metoprolol Succinate) 25 Mg Tab.er.24h, 25 MG PO DAILY, (Reported) Entered as Reported by: IGOR LAYNE on 01/30/17 1035 Multivitamin (Multiple Vitamins) 1 Each Tablet, 1 EACH PO DAILY, (Reported) Entered as Reported by: CHRISTY SALDANA on 12/12/18 135 Niacin (Niacin) 1,000 Mg Tablet.er, 1,000 MG PO HS, (Reported) Entered as Reported by: CHRISTY SALDANA on 12/12/18 135 Nitroglycerin (Nitroglycerin) 0.4 Mg Tab.subl, 0.4 MG SL UD PRN for CHEST PAIN, (Reported) Entered as Reported by: CHRISTY SALDANA on 12/12/18 135 [place]-3/Dha/Epa/Fish Oil (Fish Oil 1,000 mg Softgel) 1 Each Capsule, 1 EACH PO BID, (Reported) Entered as Reported by: CHRISTY SALDANA on 12/12/18 135 Rosuvastatin Calcium (Crestor) 20 Mg Tablet, 20 MG PO HS, (Reported) Entered as Reported by: CHRISTY SALDANA on 12/12/18 135 Sucralfate (Carafate) 1 Gm Tablet, 1 GM PO QID Prescribed by: SOCO BLANCAS on 03/18/19 1111 Tizanidine HCl (Tizanidine HCl) 4 Mg Tablet, 4 MG PO TID, (Reported) Entered as Reported by: CHRISTY SALDANA on 12/12/18 135 Topiramate (Topiramate) 50 Mg Tablet, 50 MG PO BID, (Reported) Entered as Reported by: CHIRSTY SALDANA on 12/12/18 1351 Tramadol HCl (Ultram) 50 Mg Tablet, 50 MG PO Q4H PRN for PAIN-MODERATE, (Reported) Entered as Reported by: MAITE HUITRON on 03/18/19 0852 Review of Systems Constitutional: see HPI EENTM: see HPI Respiratory: no symptoms reported Cardiovascular: no symptoms reported Genitourinary: no symptoms reported Musculoskeletal: see HPI, back pain Skin: no symptoms reported Psychiatric/Neurological: No Symptoms Reported Past Ixdxkub-Mzccpy-Rzqmkp Hx Patient Social History Smoking Status: Current Everyday Smoker Substance use?: No Alcohol Use?: No Immunizations Up To Date Second COVID19 Vaccination Bogdan: 09/05 COVID19 Vaccine 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: [employer] Seasonal Allergies Seasonal Allergies: Yes (TAKES SHOTS) Past Medical History Surgeries: Yes (BILAT FEET, RIGHT SHOULDER X2, LAP GRAZYNA, BLADDER TIE UP) Abdominal, Cardiac, Coronary Stent, Gallbladder, Hysterectomy, Orthopedic Respiratory: Yes (MILD) COPD Currently Using CPAP: No Currently Using BIPAP: No Cardiac: Yes ([place] X 2 WITH STENTS X 4 ) Coronary Artery Disease, Heart Attack, High Cholesterol, Hypertension Neurological: No 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 Disorders: No Female 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 Disorders: 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, 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 Sexually Transmitted Disease: No HIV/AIDS: No Genitourinary: No Gastrointestinal: Yes Gastroesophageal Reflux, Chronic Constipation, Diverticulosis, Polyps, Hiatal Hernia, Gall Bladder Disease Musculoskeletal: Yes Osteoporosis, Arthritis, Fibromyalgia, Chronic Back Pain Endocrine: No HEENT: Yes (READING GLASSES) Cataract Loss of Vision: Denies Hearing Impairment: Denies Cancer: No Psychosocial: Yes Anxiety Integumentary: No Blood Disorders: No Adverse Reaction/Blood Tranf: No (N/A) Family Medical History Alcoholism Arthritis 19 MOTHER G8 BROTHER Cancer of mouth 19 FATHER (THROAT CANCER) Cardiovascular disease 19 MOTHER Completed stroke 19 MOTHER Diabetes mellitus 19 MOTHER FH: breast cancer Hypertension G8 BROTHER Thyroid disease 19 MOTHER No Family History of: AIDS Asthma Physical Exam Vital Signs Vital Signs - First Documented 03/26/21 13:30 Temp 36.6 Pulse 73 Resp 16 B/P (MAP) 142/59 (86) Pulse Ox 99 O2 Delivery Room Air Capillary Refill : Less Than 3 Seconds Height, Weight, BMI Height: 5'3.00" Weight: 126lbs. 0.0oz. 57.793165rv; 22.00 BMI Method:Stated General Appearance: No Apparent Distress, WD/WN, Thin Neck: Full Range of Motion, Normal Inspection Cardiovascular: Regular Rate, Rhythm, Normal Peripheral Pulses Respiratory: No Accessory Muscle Use, No Respiratory Distress Gastrointestinal: Normal Bowel Sounds, Non Tender, Soft Extremity: Normal Capillary Refill, Normal Inspection Neurologic/Psychiatric: Alert, Oriented x3 Skin: Normal Color, Warm/Dry Progress/Results/Core Measures Results/Orders My Orders Orders - JEZ WATKINS APRN Oxycodone/Apap 5/325mg Tablet (Percocet (03/26/21 14:15) Chest Pa/Lat (2 View) (03/26/21 14:07) T-Spine 3v-Ap, Lat, Swimmers (03/26/21 14:07) Lumbar Spine - 2-3 Views (03/26/21 14:07) Medications Given in ED Current Medications Medications Dose Ordered Sig/Aayush Route Start Time Stop Time Status Last Admin Dose Admin Oxycodone/ Acetaminophen 1 tab ONCE ONCE PO 03/26/21 14:15 03/26/21 14:16 DC 03/26/21 14:41 1 TAB Vital Signs/I&O 03/26/21 13:30 Temp 36.6 Pulse 73 Resp 16 B/P (MAP) 142/59 (86) Pulse Ox 99 O2 Delivery Room Air Blood Pressure Mean: 86 Departure Communication (Admissions) NAME: BLANE [facility]OS[facility] REC#: [id number] PT STATUS: REG ER : 1955 PHYSICIAN: JEZ WATKINS APRN ADMIT DATE: 03/26/21/ER Draft Date of Exam:03/26/21 CHEST PA/LAT (2 VIEW) EXAM: PA and lateral chest at 2:27 INDICATION: Mid back pain The heart size is within normal limits and stable when compared to 10/01/2018. In the interval since the prior study, a faint 1.3 cm area of increased density has developed along the periphery of the right midlung. In reviewing the CTA chest exam of 01/01/2019, there did appear to be a small focus of scar formation in this region. Whether the scar formation correspondences to this finding however is not certain. A nonemergent repeat CT chest exam would be recommended. The lungs are otherwise clear. There is no sign of failure, pneumonia or of pleural effusion. The mediastinum is not widened. The osseous structures are intact. IMPRESSION: 1. There is no acute cardiopulmonary abnormality noted. 2. The small area of increased density along the periphery of the right upper lobe may well be secondary to scar formation. Recommendations as above. Dictated on workstation # [id number] Dict: 03/26/21 1441 Trans: 03/26/21 1454 [facility] [id number] Interpreted by: PATTY ABERNATHY MD Electronically signed by: Impression Primary Impression: Mid back pain on left side Disposition: HOME, SELF-CARE Condition: Stable Departure-Patient Inst. Decision time for Depature: 15:14 Referrals: [facility] (PCP/Family) Primary Care Physician Patient Instructions: Upper Back Pain (DC), Upper Back Pain ED Add. Discharge Instructions: Follow-up with your doctor next week for further evaluation which may include MRI. All discharge instructions reviewed with patient and/or family. Voiced understanding. Scripts Oxycodone HCl/Acetaminophen (Percocet 5-325 mg Tablet) 1 Each Tablet 1 TAB PO Q4H for PAIN-MODERATE MDD 6 TABS for 7 Days, #10 TAB Prov: JEZ WATKINS APRN 03/26/21 Images Torso/Trunk 1 - JEZ WATKINS APRN Mar 26, 2021 14:19
--- NOTE | 2021-03-26 14:54 | Diagnostic Imaging Report ---
EXAM: PA and lateral chest at 2:27 INDICATION: Mid back pain The heart size is within normal limits and stable when compared to 10/01/2018. In the interval since the prior study, a faint 1.3 cm area of increased density has developed along the periphery of the right midlung. In reviewing the CTA chest exam of 01/01/2019, there did appear to be a small focus of scar formation in this region. Whether the scar formation correspondences to this finding however is not certain. The possibility underlying neoplastic mass should still be considered.. A nonemergent repeat CT chest exam would be recommended. The lungs are otherwise clear. There is no sign of failure, pneumonia or of pleural effusion. The mediastinum is not widened. The osseous structures are intact. IMPRESSION: 1. There is no acute cardiopulmonary abnormality noted. 2. The small area of increased density along the periphery of the right upper lobe may well be secondary to scar formation. Neoplastic disease cannot be entirely excluded however. Recommendations as above. Dictated by: Dictated on workstation # [id number]
--- NOTE | 2021-03-26 15:08 | Diagnostic Imaging Report ---
EXAM: Thoracic spine INDICATION: Mid back pain 3 views were obtained. The lateral view shows the vertebral body heights and alignment to be generally within normal limits and similar to the chest exam performed on 10/01/2018. The intervertebral spaces are fairly well-maintained. There is no fracture or acute bony abnormality evident. There is no sign of a paraspinal mass. Incidental note is again made of the irregular parenchymal density along the periphery of the right midlung that was seen on the chest exam performed in conjunction with this study. IMPRESSION: There is no acute bony abnormality of the thoracic spine. Dictated by: Dictated on workstation # [id number]
--- NOTE | 2021-03-26 15:12 | Diagnostic Imaging Report ---
EXAM: Lumbar spine at 2:31 PM INDICATION: Back pain 3 views were obtained. The lateral view shows the vertebral body heights and alignment to be within normal limits and similar to the prior MRI lumbar spine exam of 10/21/2014. There does appear to have been further narrowing of the disc space at L5-S1 in the interval since the prior study. The other intervertebral spaces are well-maintained. There is no fracture, dislocation or acute bony abnormality appreciated. There is no sign of a paraspinal mass. There is mild symmetrical sclerosis of the sacroiliac joints. IMPRESSION: 1. There is no evidence for an acute bony abnormality. 2. The degenerative disc disease at the L5-S1 levels has progressed somewhat since the prior exam. 3. If there is clinical concern regarding spinal stenosis or nerve root encroachment, then MRI would be recommended for additional study. Dictated by: Dictated on workstation # [id number]
[2021-03-26] MEDS ORDERED: OXYC1TAB87 PO (15:15)
== END 2021-03-26 15:23 | disposition home or self-care (01) ==
LOC: EDUNIT# 13:13 → ER 13:14
DX: M54.9 Dorsalgia, unspecified (principal); J44.9 Chronic obstructive pulmonary disease, unspecified; I25.2 Old myocardial infarction; I10 Essential (primary) hypertension; E78.00 Pure hypercholesterolemia, unspecified; I25.10 Atherosclerotic heart disease of native coronary artery without angina pectoris; K21.9 Gastro-esophageal reflux disease without esophagitis; F41.9 Anxiety disorder, unspecified; F17.290 Nicotine dependence, other tobacco product, uncomplicated; Z79.82 Long term (current) use of aspirin; Z79.899 Other long term (current) drug therapy
CPT/HCPCS: 71046; 72072; 72100

== ENCOUNTER → 2021-03-30 | Outpatient (CLI) | payer MEDICARE, MEDICAID ==
--- NOTE | 2021-03-30 13:13 | Diagnostic Imaging Report ---
INDICATION: Mid back pain. TECHNIQUE: Multiplanar, multisequence imaging of the thoracic spine was performed without contrast. FINDINGS: Curvature and alignment of the thoracic spine is normal. There is some edema in the inferior half of the T10 vertebral body, particularly on the left side. Findings are suggestive of an inferior endplate fracture. No volume loss or compression is seen. There is no retropulsion. Remaining vertebrae show normal stature and normal marrow signal. There is some generalized degenerative disc disease with disc desiccation. No focal disc protrusion is identified. There is no central canal or neural foraminal stenosis. The thoracic spinal cord does show normal homogeneous signal intensity and normal morphology. The paraspinous tissues are unremarkable apart from a small cortical cyst in the right kidney. IMPRESSION: Findings suggestive of an inferior endplate fracture of the T10 vertebral body without evidence of retropulsion or volume loss. The study is otherwise unremarkable. Dictated by: Dictated on workstation # [id number]
== END ==
LOC: RAD 12:30
PROVIDERS: ATTEND Internal Medicine
DX: M54.9 Dorsalgia, unspecified (principal)
CPT/HCPCS: 72146

== ENCOUNTER → 2021-05-03 | Outpatient (CLI) | payer MEDICARE, MEDICAID ==
--- NOTE | 2021-05-03 15:12 | Diagnostic Imaging Report ---
INDICATION: Postmenopausal screening COMPARISON: 09/03/2008 FINDINGS: AP Spine L1-L4: [BMD (g/cm2): 0.891] [T-Score: -2.6] [Z-Score: -0.7] [BMD Previous: 0.906] [BMD % Change: -1.7] LT Hip Neck: [BMD (g/cm2): 0.698] [T-Score: -2.4] [Z-Score: -0.7] LT Hip Total: [BMD (g/cm2):0.721] [T-Score:-2.3] [Z-Score: -0.8] [BMD Previous: 0.743] [BMD % Change: -3.0] RT Hip Neck: [BMD (g/cm2):0.673] [T-Score:-2.6] [Z-Score:-0.9] RT Hip Total: [BMD (g/cm2):0.756] [T-score:-2.0] [Z-Score:-0.5] [BMD Previous:0.775] [BMD % Change:-2.5] *Indicates significant change from prior examination based on 95% confidence level. World Health Organization criteria for BMD interpretation classify patients as Normal (T-score at or above -1.0), Osteopenic (T-score between -1.0 and -2.5) or Osteoporotic (T-score at or below -2.5). LIMITATIONS AND MODIFICATION: None. FRACTURE RISK (FRAX SCORE): The ten year probability of (%): Major Osteoporotic Fracture: [13.9] Hip Fracture: [3.6] IMPRESSION: 1. Osteoporosis. 2. No significant change in bone mineral density since prior examination. 3. See below National Osteoporosis Foundation guidelines on when to potentially initiate pharmacologic therapy. Based on the National Osteoporosis Foundation Guidelines, pharmacologic treatment should be initiated in any of the following, unless clinical conditions suggest otherwise: * Any patient with prior fragility fracture of the hip or vertebrae. A spine fracture indicates 5X risk for subsequent spine fracture and 2X risk for subsequent hip fracture. * Osteoporosis (T-score <-2.5). * Postmenopausal women and men age 50 and older with low bone mass/osteopenia (T-score between -1.0 and -2.5) by DXA and 10-year major osteoporotic fracture greater than 20% or a 10-year probability of hip fracture greater than 3%. These fracture risks are supplied above in the FRAX score, if applicable. * Clinician judgement and/or patient preferences may indicate treatment for people with 10-year fracture probabilities above or below these levels. Dictated by: Dictated on workstation # [id number]
== END ==
LOC: RAD 14:30
PROVIDERS: ATTEND Pediatrics
DX: Z13.820 Encounter for screening for osteoporosis (principal); M81.0 Age-related osteoporosis without current pathological fracture; M80.88XA Other osteoporosis with current pathological fracture, vertebra(e), initial encounter for fracture
CPT/HCPCS: 77080

== ENCOUNTER → 2021-05-05 | Outpatient (CLI) | payer MEDICARE, MEDICAID ==
--- NOTE | 2021-05-05 10:58 | Diagnostic Imaging Report ---
PROCEDURE: MRI lumbar spine. TECHNIQUE: Multiplanar, multisequence MRI of the lumbar spine was performed without contrast. INDICATION: Back pain. Radiculopathy. COMPARISON: MR thoracic spine dated 03/30/2021 FINDINGS: For the purposes of this exam, last well-formed disc space is denoted L5-S1 level. Static alignment is maintained. There is no significant anterolisthesis or retrolisthesis. There is no evidence of jumped facets. Vertebral body heights are maintained. Evaluation marrow signal demonstrates moderate-sized area of abnormal signal involving the right pedicle at L4. There is extension into the posterior superior margins of the L4 vertebral body on the right. There is also extension into the superior and inferior articular processes. The lesion in question measures 2.6 x 1.9 cm. Similar-appearing area of abnormal marrow signal is also identified involving the left pedicle of L2. Area in question measures 1.1 x 1.4 cm (image 4, series 4). Note is made of subtle surrounding soft tissue edema at the L4 level. Included portions of the sacrum show 1.1 x 2.2 cm lesion extending across the S2-S3 level (image 11, series 4). Intervertebral disc heights are fairly well-maintained. Visualized portions of distal cord are unremarkable. Conus terminates at approximately the L1 level. No abnormal intrathecal filling defects are seen. Pre and paravertebral soft tissue structures are unremarkable. Axial images show mild multilevel posterior disc bulging as well as multilevel ligamentum flavum laxity and facet arthropathy. There is, however no significant spinal canal or neural foraminal stenosis throughout. IMPRESSION: 1. Abnormal marrow signal involving the sacrum, L2, and L4 vertebral bodies. Findings are most suspicious for metastatic disease. The lesion at L4 does appear amenable to image guided biopsy. Correlation with known primary is recommended. 2. Mild multilevel degenerative changes, but no significant spinal canal or neural foraminal stenosis. Dictated by: Dictated on workstation # [id number]
== END ==
LOC: RAD 09:23
PROVIDERS: ATTEND Internal Medicine
DX: M47.26 Other spondylosis with radiculopathy, lumbar region (principal); M89.9 Disorder of bone, unspecified
CPT/HCPCS: 72148

== ENCOUNTER → 2021-06-17 | Outpatient (CLI) | payer MEDICARE, MEDICAID ==
[~2021-06-17] MED LIST changes: +TIZA-186 PO; -TIZA4TAB4 PO
--- NOTE | 2021-06-17 13:26 | Diagnostic Imaging Report ---
TIME OF EXAM: 06/17/2021 12:30 PM REASON FOR EXAM: Lung cancer screening. 30 pack-year smoking history. COMPARISON: 01/01/2019. TECHNIQUE: Low Dose CT helical images obtained through the chest. Sagittal and coronal reformats were obtained and reviewed. Dose reduction techniques were utilized. CTDI vol: 2.22 mGy FINDINGS: Nodules: -- A) 2.0 x 1.8 cm, spiculated noncalcified solid right upper lobe nodule (image 99, series 2) Lungs: Paraseptal and centrilobular emphysema is seen throughout both lungs, greatest in the apices. Prominent bulla is seen in the right apex. Subpleural reticular opacities are seen throughout the lungs with suggestion of early honeycombing. Mild bronchiectasis is seen in the lung bases. No central endoluminal airway lesion is seen. Heart and Mediastinum: Heart size is within normal limits. Small amount of coronary calcifications are present. Aortic atherosclerosis is present without aneurysm. No pericardial effusion is present. Calcified mediastinal and right hilar lymph nodes are seen. No pathologically enlarged lymphadenopathy in the chest. Normal size and attenuation of the visualized thyroid gland. Pleura: Normal pleural spaces. No effusion or pneumothorax. No pleural nodularity or mass. Abdomen: A hypoattenuating mass is seen in the left lobe of the liver measuring 5.7 x 3.3 cm with associated capsular retraction. Bones and soft tissues: There is a lytic lesion within the right 10th rib laterally. A lytic lesion is seen in the body of the sternum with disruption of the cortex anteriorly. Compression deformities are seen involving the T8 and T10 vertebral bodies with sclerosis throughout these vertebral bodies. There is generalized osteopenia. Old left-sided rib fracture is seen. IMPRESSION: 1. Spiculated soft tissue nodule in the right upper lobe measuring 2.0 x 1.8 cm. This is highly concerning for lung malignancy. Recommend lung biopsy and PET/CT to further evaluate. 2. Findings concerning for osseous metastatic disease with suspicious lesions in the sternum, right 10th rib, and T8 and T10 vertebral bodies. Recommend attention on follow-up. MRI of the thoracic spine with and without contrast may be considered to further evaluate. 3. Suspicious lesion in the left lobe of the liver measuring 5.7 x 3.3 cm, concerning for metastatic disease to the liver. Recommend liver protocol CT or MRI of the abdomen to further evaluate. Result code: Category 4: Suspicious Follow up: PET/CT and/or tissue sampling Dictated by: Dictated on workstation # [id number]
== END ==
LOC: RAD 12:15
PROVIDERS: ATTEND Pediatrics
DX: Z12.2 Encounter for screening for malignant neoplasm of respiratory organs (principal); R91.1 Solitary pulmonary nodule; F17.210 Nicotine dependence, cigarettes, uncomplicated
CPT/HCPCS: 71271

== ENCOUNTER 2021-06-27 00:11 | Emergency (ER) | payer MEDICARE, MEDICAID ==
[2021-06-27] MEDS ORDERED: morphine INJ 10 MG/ML 1ML (SYR OR VIAL) IVP STA ×2 (00:20→00:43)
[2021-06-27] MEDS ORDERED: KETOROLAC 30 MG/ML VIAL IVP ONE (00:30)
--- NOTE | 2021-06-27 01:56 | ED General ---
General Chief Complaint: General Problems/Pain Stated Complaint: BACK PAIN Nursing Triage Note: TO ED [facility]IA [facility] WITH BACK PAIN. HX LUNG CA WITH METS TO BONE. HAS TAKEN 30MG PO MORPHINE AND "1/2 TAB OF OXYCODONE". Source of Information: Patient, Old Records Exam Limitations: No Limitations History of Present Illness Date Seen by Provider: Jun 27, 2021 Time Seen by Provider: 00:17 Initial Comments This is 66-year-old woman with lung cancer with metastatic disease to bone presents to the emergency room with uncontrolled pain. She is [facility] with Dr. Colon. Her pain is primarily in the mid back and wrapping around to the right chest wall. She has been taking her long-acting morphine and took 1/2 tablet of Percocet. Her pain is not controlled with these measures. She has a PET scan scheduled for Sunday and an appointment with Dr. Colon scheduled for Sunday. She reports no associated trauma. Review of prior imaging notes lesions to the sacrum, L2, L4, sternum, right 10th rib, T8, T10, liver, and chest. Allergies and Home Medications Allergies Coded Allergies: hydrocodone (Verified Allergy, Intermediate, MAKES STOMACH VERY SICK, 03/11/19) Patient Home Medication List Home Medication List Reviewed: Yes Acetaminophen with Codeine (Tylenol with Codeine #3 Tablet) 1 Each Tablet, 1 EACH PO NEEDED PRN for PAIN-MODERATE, (Reported) Entered as Reported by: MAITE HUITRON on 03/18/19 0854 Alendronate Sodium (Fosamax) 70 Mg Tablet, 70 MG PO WEEK, (Reported) Entered as Reported by: CHRISTY SALDANA on 12/12/18 1351 Alprazolam (Alprazolam) 1 Mg Tablet, 1 MG PO TID, (Reported) Entered as Reported by: CHRISTY SALDANA on 12/12/18 1351 Amlodipine Besylate (Amlodipine Besylate) 5 Mg Tablet, 5 MG PO DAILY, (Reported) Entered as Reported by: MAITE HUITRON on 03/18/19 0852 Aspirin (Aspirin) 81 Mg Tab.chew, 81 MG PO DAILY, (Reported) Entered as Reported by: CHRISTY SALDANA on 12/12/18 1351 Cetirizine HCl (Cetirizine HCl) 10 Mg Tablet, 10 MG PO DAILY, (Reported) Entered as Reported by: CHRISTY SALDANA on 12/12/18 135 Dexlansoprazole (Dexilant) 60 Mg Justin., 60 MG PO DAILY, (Reported) Entered as Reported by: CHRISTY SALDANA on 12/12/18 135 Fluticasone Propionate (Flonase Allergy Relief) 9.9 Ml [place].susp, 2 SPRAY NS DAILY, (Reported) Entered as Reported by: CHRISTY SALDANA on 12/12/18 135 Hydroxychloroquine Sulfate (Hydroxychloroquine Sulfate) 200 Mg Tablet, 200 MG PO BID, (Reported) Entered as Reported by: CHRISTY SALDANA on 12/12/18 135 Metoprolol Succinate (Metoprolol Succinate) 25 Mg Tab.er.24h, 25 MG PO DAILY, (Reported) Entered as Reported by: IGOR LAYNE on 01/30/17 1035 Multivitamin (Multiple Vitamins) 1 Each Tablet, 1 EACH PO DAILY, (Reported) Entered as Reported by: CHRISTY SALDANA on 12/12/18 135 Niacin (Niacin) 1,000 Mg Tablet.er, 1,000 MG PO HS, (Reported) Entered as Reported by: CHRISTY SALDANA on 12/12/18 135 Nitroglycerin (Nitroglycerin) 0.4 Mg Tab.subl, 0.4 MG SL UD PRN for CHEST PAIN, (Reported) Entered as Reported by: CHRISTY SALDANA on 12/12/18 135 Thendara-3/Dha/Epa/Fish Oil (Fish Oil 1,000 mg Softgel) 1 Each Capsule, 1 EACH PO BID, (Reported) Entered as Reported by: CHRISTY SALDANA on 12/12/18 135 Oxycodone HCl/Acetaminophen (Percocet 5-325 mg Tablet) 1 Each Tablet, 1 TAB PO Q4H Prescribed by: JEZ WATKINS on 03/26/21 1516 Rosuvastatin Calcium (Crestor) 20 Mg Tablet, 20 MG PO HS, (Reported) Entered as Reported by: CHRISTY SALDANA on 12/12/18 135 Sucralfate (Carafate) 1 Gm Tablet, 1 GM PO QID Prescribed by: SOCO BLANCAS on 03/18/19 1111 Tizanidine HCl (Tizanidine HCl) 4 Mg Tablet, 4 MG PO TID, (Reported) Entered as Reported by: CHRISTY SALDANA on 12/12/18 1351 Topiramate (Topiramate) 50 Mg Tablet, 50 MG PO BID, (Reported) Entered as Reported by: CHRISTY SALDANA on 12/12/18 1351 Tramadol HCl (Ultram) 50 Mg Tablet, 50 MG PO Q4H PRN for PAIN-MODERATE, (Reported) Entered as Reported by: MAITE HUITRON on 03/18/19 0852 Review of Systems Review of Systems Constitutional: no symptoms reported EENTM: no symptoms reported Respiratory: see HPI Cardiovascular: no symptoms reported Gastrointestinal: no symptoms reported Genitourinary: no symptoms reported : No Musculoskeletal: see HPI Skin: no symptoms reported Psychiatric/Neurological: No Symptoms Reported Hematologic/Lymphatic: See HPI Immunological/Allergic: see HPI Past Nmdmeot-Wigucc-Gafzre Hx Patient Social History Tobacco Use?: Yes Tobacco type used: Cigarettes Smoking Status: Current Everyday Smoker Substance use?: No Alcohol Use?: No Immunizations Up To Date Second COVID19 Vaccination Bogdan: 09/05 Seasonal Allergies Seasonal Allergies: Yes (TAKES SHOTS) Past Medical History Surgeries: Yes (BILAT FEET, RIGHT SHOULDER X2, LAP GRAZYNA, BLADDER TIE UP) Abdominal, Cardiac, Coronary Stent, Gallbladder, Hysterectomy, Orthopedic Respiratory: Yes (MILD) COPD Currently Using CPAP: No Currently Using BIPAP: No Cardiac: Yes (MA X 2 WITH STENTS X 4 ) Coronary Artery Disease, Heart Attack, High Cholesterol, Hypertension Neurological: No 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 Disorders: No Female 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 Disorders: Denies 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, 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 Sexually Transmitted Disease: No HIV/AIDS: No Genitourinary: No Gastrointestinal: Yes Gastroesophageal Reflux, Chronic Constipation, Diverticulosis, Polyps, Hiatal Hernia, Gall Bladder Disease Musculoskeletal: Yes Osteoporosis, Arthritis, Fibromyalgia, Chronic Back Pain Endocrine: No HEENT: Yes (READING GLASSES) Cataract Loss of Vision: Denies Hearing Impairment: Denies Cancer: Yes Lung (With bone metastases) Psychosocial: Yes Anxiety Integumentary: No Blood Disorders: No Adverse Reaction/Blood Tranf: No (N/A) Family Medical History Alcoholism Arthritis 19 MOTHER G8 BROTHER Cancer of mouth 19 FATHER (THROAT CANCER) Cardiovascular disease 19 MOTHER Completed stroke 19 MOTHER Diabetes mellitus 19 MOTHER FH: breast cancer Hypertension G8 BROTHER Thyroid disease 19 MOTHER No Family History of: AIDS Asthma Physical Exam Vital Signs Vital Signs - First Documented 06/27/21 00:11 Temp 36.8 Pulse 80 Resp 20 B/P (MAP) 112/72 (85) Pulse Ox 92 O2 Delivery Room Air Capillary Refill : Less Than 3 Seconds Height, Weight, BMI Height: 5'3.00" Weight: 126lbs. 0.0oz. 57.432312wt; 22.00 BMI Method:Stated General Appearance: WD/WN, Moderate Distress HEENT: Normal ENT Inspection Neck: Normal Inspection Respiratory: Lungs Clear, Normal Breath Sounds, Other (Right lateral chest wall tender to palpation) Cardiovascular: Regular Rate, Rhythm, No Edema, No Murmur Gastrointestinal: Non Tender, Soft Back: Vertebral Tenderness Extremity: Normal Inspection, No Pedal Edema Neurologic/Psychiatric: Alert, Oriented x3, Normal Mood/Affect, cementer oil well II-XII Norm as Tested, Motor Weakness (Lower extremity weakness, stated as chronic or subacute and unchanged.) Skin: Normal Color, Warm/Dry Progress/Results/Core Measures Suspected Sepsis SIRS Temperature: Pulse: 80 Respiratory Rate: 20 Blood Pressure 112 /72 Mean: 85 Results/Orders My Orders Orders - DARIELA US MD Ketorolac Injection (Toradol Injection) (06/27/21 00:30) Morphine Injection (Morphine Injection (06/27/21 00:20) Morphine Injection (Morphine Injection (06/27/21 00:43) Medications Given in ED Vital Signs/I&O 06/27/21 06/27/21 00:11 02:06 Temp 36.8 36.8 Pulse 80 80 Resp 20 15 B/P (MAP) 112/72 (85) 113/76 Pulse Ox 92 95 O2 Delivery Room Air Room Air Capillary Refill : Less Than 3 Seconds Blood Pressure Mean: 85 Progress Note : Progress Note Patient was treated with Toradol and 2 doses of morphine 5 mg each. This did eventually control her pain. She had no trauma, no neurologic deficits, and imaging scheduled for later in the week. We therefore did not obtain any imaging here. Medication dosage change was adjusted until she can follow-up at the Cancer Center. Departure Impression Primary Impression: Pain of metastatic malignancy Disposition: 01 HOME, SELF-CARE Condition: Improved Departure-Patient Inst. Decision time for Depature: 01:50 Referrals: NEVAEH BLOUNT DPM (PCP) Primary Care Physician [facility]EL[facility] (Family) Primary Care Physician Patient Instructions: Chronic Pain (DC), Cancer Pain Syndromes (DC) Add. Discharge Instructions: Drink plenty of clear liquids to stay well-hydrated and use MiraLAX (polyethylene glycol) to prevent constipation from your pain medication use. Continue to use the long-acting morphine twice daily on a schedule. For breakthrough pain you may use the oxycodone (Percocet) up to 2 tablets every 4 hours as needed. You may also use ibuprofen in the short-term up to 600 mg every 6 hours as needed. Please discuss these medication recommendations with your oncologist at your appointment on Sunday. They may desire to change these dosing recommendations. Call with questions or concerns. Return to the ER if you have worsening symptoms. All discharge instructions reviewed with patient and/or family. Voiced understanding. Copy Copies To 1: JYOTSNA COLON MD Copies To 2: GO BLOUNT JOSHUA T MD Jun 27, 2021 01:56
[2021-06-27 02:06] VITALS: BP 113/76
== END 2021-06-27 02:06 | disposition home or self-care (01) ==
LOC: EDUNIT# 00:12 → ER 00:14
DX: G89.3 Neoplasm related pain (acute) (chronic) (principal); C79.51 Secondary malignant neoplasm of bone; J44.9 Chronic obstructive pulmonary disease, unspecified; I25.2 Old myocardial infarction; I10 Essential (primary) hypertension; E78.00 Pure hypercholesterolemia, unspecified; I25.10 Atherosclerotic heart disease of native coronary artery without angina pectoris; K21.9 Gastro-esophageal reflux disease without esophagitis; F41.9 Anxiety disorder, unspecified; M54.9 Dorsalgia, unspecified; F17.210 Nicotine dependence, cigarettes, uncomplicated; Z79.82 Long term (current) use of aspirin; Z79.891 Long term (current) use of opiate analgesic; Z79.899 Other long term (current) drug therapy
CPT/HCPCS: 96374; 96375; 96376; 99283

== ENCOUNTER → 2021-06-28 | Outpatient (CLI) | payer MEDICARE, MEDICAID ==
--- NOTE | 2021-06-28 16:32 | Diagnostic Imaging Report ---
INDICATION: Lumbar lesion as well as a spiculated lung nodule. This study is performed for further evaluation. TECHNIQUE: The serum blood glucose level at the time of injection was 118 mg/dL. The patient was administered 13.4 mCi of F-18 FDG intravenously and whole body PET imaging was performed. In addition, noncontrast CT was performed for attenuation correction and anatomic correlation. COMPARISON: No prior PET studies are available for comparison. Correlation is made with the recent CT chest screening study from 06/17/2021 as well as prior MRI thoracic and lumbar spine studies in March and April 2021. FINDINGS: There is symmetric activity throughout the brain. There are numerous hypermetabolic lesions involving osseous structures, in particular the cervical spine as well as the thoracic and lumbar spine. There are numerous hypermetabolic lesions involving the iliac bones bilaterally as well as the sacrum and right femur. There is abnormal activity involving bilateral ribs as well as the sternum. Findings are consistent with widespread osseous metastatic disease. A spiculated mass in the right upper lobe is 19 mm in size. This is hypermetabolic with an SUV max of 11.0. There is also a hypermetabolic lesion in the right hilum with an SUV max of 11.3. No other pulmonary parenchymal areas of hypermetabolism are identified. Imaging through the abdomen and pelvis does show a hypermetabolic mass in the left lobe of the liver with an SUV max of approximately 18. A separate mass more inferiorly in the left lobe is also noted which shows hypermetabolic activity. No other suspicious region of hypermetabolism in the abdomen or pelvis is identified. Imaging through the lower extremities does show an indeterminate focus of hypermetabolism in the musculature of the left upper thigh with an SUV max of 8.6; however, no definite CT correlate is identified. The remainder of the lower extremities is unremarkable. IMPRESSION: Hypermetabolic right upper lobe lung mass, consistent with primary lung neoplasm. There are hypermetabolic lymph nodes in the right hilum, consistent with metastatic disease. There is also diffuse osseous metastatic disease as well as hepatic metastatic disease. Dictated by: Dictated on workstation # [id number]
== END ==
LOC: RAD 11:15
PROVIDERS: ATTEND Pediatrics
DX: C34.11 Malignant neoplasm of upper lobe, right bronchus or lung (principal); C77.1 Secondary and unspecified malignant neoplasm of intrathoracic lymph nodes; C78.7 Secondary malignant neoplasm of liver and intrahepatic bile duct; M89.9 Disorder of bone, unspecified
CPT/HCPCS: 78816; A9552

== ENCOUNTER → 2021-07-01 | Outpatient (CLI) | payer MEDICARE, MEDICAID ==
--- NOTE | 2021-07-01 17:53 | Diagnostic Imaging Report ---
EXAMINATION: MRI thoracic spine without contrast. TECHNIQUE: Multiplanar, multisequence MRI of the thoracic spine was performed without intravenous contrast. HISTORY: Tumor, cord compression. COMPARISON: 04/17/2021. FINDINGS: The alignment of the thoracic spine is normal. There is abnormal T1 signal seen throughout the thoracic spine, greatest within the T8 and T10 vertebral bodies. There is a compression fracture of the T8 vertebral body with 50% loss of height. There is mild compression deformity of the T10 vertebral body with 25% loss of height. There is no intra-axial or extra-axial fluid collection or mass. The spinal cord signal intensity is normal. Intervertebral discs have normal height and signal intensity. Limited views of the chest and abdomen show no soft tissue abnormality. The aorta is normal. There is mild central canal stenosis at T7-T8 secondary to retropulsion of the T8 vertebral body. There is moderate central canal stenosis at the level of T10 with infiltrative appearance seen along the posterior aspect of the T10 vertebral body. Moderate left foraminal stenosis at T10-T11. IMPRESSION: 1. Multifocal T1 hypointense lesions throughout the spine which are highly concerning for osseous metastatic disease. 2. Moderate central canal stenosis at T10 secondary to compression from retropulsion and tumor. Evaluation of tumor infiltration is limited without IV contrast. 3. Likely pathologic compression deformities of the T8 and T10 vertebral bodies. Dictated by: Dictated on workstation # [id number]
--- NOTE | 2021-07-01 18:30 | Diagnostic Imaging Report ---
PROCEDURE: MRI lumbar spine. TECHNIQUE: Multiplanar, multisequence MRI of the lumbar spine was performed without contrast. INDICATION: Cord compression, metastatic disease. COMPARISON: 05/05/2021. FINDINGS: Worsening metastatic lesions are now seen in predominantly identified involving the T11, T12, L2, L3, L4 and L5 vertebral bodies. There is a pathologic fracture involving the superior endplates of L4 and L5. There is no retropulsion. There is a large lesion involving the S2 sacral segment which was previously measured at approximately 22 x 10 mm now measures 45 x 17 mm. The visualized conus medullaris and nerve roots are grossly unremarkable. No obvious cord mass or nerve root impingement is identified. There is no inflammatory change or paraspinous fluid collection. IMPRESSION: 1. Worsening metastatic disease involving the visualized thoracic, lumbar and sacral spine. Not mentioned above, there is new involvement involving the spinous process of L4 as well as the bilateral pedicles of L2 and L4. 2. Pathologic fractures involving the superior endplates of L4 and L5. 3. No obvious nerve root impingement or central canal stenosis. Dictated by: Dictated on workstation # [id number]
== END ==
LOC: RAD 16:15
PROVIDERS: ATTEND Nurse Practitioner Family
DX: C53.1 Malignant neoplasm of exocervix (principal); C79.51 Secondary malignant neoplasm of bone; M48.56XA Collapsed vertebra, not elsewhere classified, lumbar region, initial encounter for fracture
CPT/HCPCS: 72146; 72148

== ENCOUNTER → 2021-07-04 | Outpatient (CLI) | payer MEDICARE, MEDICAID ==
[~2021-07-04] MED LIST changes: +GADOTERATE 0.5 MMOL/ML (CLARISCAN) 15 ML VIAL IV ONE
--- NOTE | 2021-07-04 13:54 | Diagnostic Imaging Report ---
PROCEDURE: MR imaging of the brain with and without contrast. TECHNIQUE: Multiplanar, multisequence MR imaging of the brain was performed with and without contrast. INDICATION: Right leg weakness. COMPARISON: none FINDINGS: No acute ischemia, mass, or hemorrhage. No abnormal enhancement. Small amount of scattered T2 hyperintense signal seen in the periventricular and subcortical white matter. The ventricles, cortical sulci, and basilar cisterns are symmetric and unremarkable. The sellar and suprasellar regions have a normal appearance. The brainstem and posterior fossa are unremarkable. The paranasal sinuses and mastoid air cells demonstrate normal signal characteristics. The globes and orbits are symmetric and unremarkable. The scalp and calvarium have a normal appearance. IMPRESSION: 1. No acute ischemia, mass, or hemorrhage. No abnormal enhancement. 2. Small amount of scattered T2 hyperintense signal, which may represent sequelae of migraine and/or chronic microvascular disease. Dictated by: Dictated on workstation # [id number]
== END ==
LOC: RAD 12:30
PROVIDERS: ATTEND Internal Medicine Hematology & Oncology
DX: G83.13 Monoplegia of lower limb affecting right nondominant side (principal)
CPT/HCPCS: 70553

== ENCOUNTER 2021-07-07 08:50 | Outpatient (CLI) | payer MEDICARE, MEDICAID ==
[2021-07-07] VITALS (11 sets, daily range): BP systolic 120–149; BP diastolic 42–74
[~2021-07-07] VITALS: Ht 160 cm; Wt 54.4 kg
[~2021-07-07 08:50] MED LIST changes: -GADOTERATE 0.5 MMOL/ML (CLARISCAN) 15 ML VIAL IV ONE
[2021-07-07] MEDS ORDERED: NS IV 1000 ML 1,000 ML IV STA (09:18)
[2021-07-07 09:25] LABS: BASOPHILS % (AUTO) 0 % (0-10); EOSINOPHILS # (AUTO) 0.4 10^3/uL (0.0-0.3); EOSINOPHILS % (AUTO) 3 % (0-10); HEMATOCRIT 36 % (35-52); HEMOGLOBIN 11.4 g/dL (11.5-16.0); LYMPHOCYTES # (AUTO) 2.4 10^3/uL (1.0-4.0); LYMPHOCYTES % (AUTO) 17 % (12-44); MEAN CORPUSCULAR HEMOGLOBIN 27 pg (25-34); MEAN CORPUSCULAR HGB CONC 32 g/dL (32-36); MEAN CORPUSCULAR VOLUME 86 fL (80-99); MEAN PLATELET VOLUME 9.5 fL (9.0-12.2); MONOCYTES # (AUTO) 0.8 10^3/uL (0.0-1.0); MONOCYTES % (AUTO) 6 % (0-12); NEUTROPHILS # (AUTO) 10.3 10^3/uL (1.8-7.8); NEUTROPHILS % (AUTO) 73 % (42-75); PLATELET COUNT 272 10^3/uL (130-400); WHITE BLOOD COUNT 14.1 10^3/uL (4.3-11.0)
[2021-07-07] MEDS ORDERED: LIDOCAINE 1% INJ 20 ML VIAL INJ ONE (09:30)
[2021-07-07] MEDS ORDERED: fentaNYL INJ 100 MCG/2 ML AMP IVP ONE (09:30)
[2021-07-07] MEDS ORDERED: MIDAZOLAM 2 MG/2 ML (VERSED) VIAL IVP ONE (09:30)
[2021-07-07 09:45] LABS: PROTHROMBIN TIME PATIENT 13.4 SEC (12.2-14.7)
[2021-07-07 10:09] LABS: BAND NEUTROPHILS 0 %; BASOPHILS % (MANUAL) 0 %; EOSINOPHILS % (MANUAL) 2 %; LYMPHOCYTES % (MANUAL) 19 %; MONOCYTES % (MANUAL) 3 %; MYELOCYTES % 2 %; NEUTROPHILS % (MANUAL) 74 %
[2021-07-07 10:10] LABS: ELLIPT/OVALOCYTES SLIGHT
[2021-07-07] MEDS ORDERED: fentaNYL INJ 100 MCG/2 ML AMP ONE (10:13)
[2021-07-07] MEDS ORDERED: NS IV 1000 ML 1,000 ML ONE (10:14)
[2021-07-07] MEDS ORDERED: MIDAZOLAM 2 MG/2 ML (VERSED) VIAL ONE (10:14)
[2021-07-07] MEDS ORDERED: LIDOCAINE 1% INJ 20 ML VIAL ONE (10:14)
[2021-07-07] MEDS ORDERED: HYDROcodone/APAP 5 MG/325 MG (LORTAB) TAB PO PRN (11:00)
--- NOTE | 2021-07-07 12:41 | Diagnostic Imaging Report ---
INDICATION: RT ILIAC BONE BX TECHNIQUE: All CT scans use one or more of the following dose optimizing techniques: automated exposure control, MA and/or KvP adjustment based on patient size and exam type or iterative reconstruction. The patient was brought to the CT suite, placed on the table in the supine position. Axial imaging through the pelvis was performed to evaluate appropriate entry site. The procedure was performed utilizing conscious sedation with radiology nursing and constant patient monitoring. The patient was given a total of 2 mg of Versed intravenously and 100 mcg of fentanyl intravenously. Total procedure time was approximately 15 minutes. The right lower quadrant was prepped and draped in the usual sterile fashion. A small amount of 1% lidocaine was utilized for local anesthesia. An 18-gauge coaxial Temno needle was advanced into the destructive lytic lesion in the right iliac bone. Numerous core biopsies were obtained. The needle was then repositioned and additional core biopsies were performed. The needle was removed and hemostasis was obtained. The patient tolerated the procedure well and left the department in stable condition. IMPRESSION: Successful CT-guided core biopsy of a destructive lytic lesion in the right iliac bone, utilizing conscious sedation. Pathology results are currently pending. Dictated by: Dictated on workstation # [id number]
== END 2021-07-07 14:05 ==
LOC: SDC 08:50
PROVIDERS: ATTEND Internal Medicine Hematology & Oncology
DX: C80.1 Malignant (primary) neoplasm, unspecified (principal); C78.7 Secondary malignant neoplasm of liver and intrahepatic bile duct; M89.9 Disorder of bone, unspecified
CPT/HCPCS: 36415; 77012; 85007; 85027; 85610; 85730

== ENCOUNTER → 2021-07-18 | Outpatient (RCR) | payer MEDICARE, MEDICAID ==
[2021-07-01 13:33] LABS: BASOPHILS # (AUTO) 0.1 10^3/uL (0.0-0.1); BASOPHILS % (AUTO) 1 % (0-10); EOSINOPHILS # (AUTO) 0.2 10^3/uL (0.0-0.3); EOSINOPHILS % (AUTO) 2 % (0-10); HEMATOCRIT 34 % (35-52); LYMPHOCYTES # (AUTO) 1.7 10^3/uL (1.0-4.0); LYMPHOCYTES % (AUTO) 17 % (12-44); MEAN CORPUSCULAR HEMOGLOBIN 28 pg (25-34); MEAN CORPUSCULAR HGB CONC 32 g/dL (32-36); MEAN CORPUSCULAR VOLUME 87 fL (80-99); MEAN PLATELET VOLUME 9.7 fL (9.0-12.2); MONOCYTES # (AUTO) 0.6 10^3/uL (0.0-1.0); MONOCYTES % (AUTO) 6 % (0-12); NEUTROPHILS # (AUTO) 7.4 10^3/uL (1.8-7.8); NEUTROPHILS % (AUTO) 74 % (42-75); PLATELET COUNT 257 10^3/uL (130-400); WHITE BLOOD COUNT 10.1 10^3/uL (4.3-11.0)
[2021-07-01 13:56] LABS: ALBUMIN 3.9 GM/DL (3.2-4.5); BILIRUBIN,TOTAL 0.2 MG/DL (0.1-1.0); CALCIUM 9.7 MG/DL (8.5-10.1); CREATININE SERUM 1.08 MG/DL (0.60-1.30); POTASSIUM 3.8 MMOL/L (3.6-5.0); TOTAL PROTEIN 7.2 GM/DL (6.4-8.2)
--- NOTE | 2021-07-07 12:05 | Pre-Op Note & Conscious Sedat ---
Pre-Operative Progress Note H&P Reviewed The H&P was reviewed, patient examined and no changes noted. Date H&P Reviewed: Jul 07, 2021 Time H&P Reviewed: 10:00 Pre-Op Diagnosis: Iliac bone lesion Conscious Sedation Pre-Proced Time 10:00 ASA Score 2 For ASA 3 and 4: Consider anesthesia and medical clearance. Also, for patients with a history of failed moderate sedation consider anesthesia. Airway Lungs Heart ASA score ASA 1: a normal healthy patient ASA 2: a patient with a mild systemic disease (mid diabetes, controlled hypertension, obesity ASA 3: a patient with a severe systemic disease that limits activity (angina, COPD, prior Myocardial infarction) ASA 4: a patient with an incapacitating disease that is a constant threat to life (CHF, renal failure) ASA 5: a moribund patient not expected to survive 24 hrs. (ruptured aneurysm) ASA 6: a declared brain- patient whose organs are being harvested. For emergent operations, add the letter E after the classification Mallampati Classification Grade 2 Sedation Plan Analgesia, Amnesia, Plan communicated to team members, Discussed options with p atient/fam, Discussed risks with patient/fam The patient is an appropriate candidate to undergo the planned procedure, sedation, and anesthesia. The patient immediately re-assessed prior to indication. SINGH EUGENE MD Jul 07, 2021 12:04
[~2021-07-18] MED LIST changes: +LOSA25TA41 PO; +morphine er
== END | disposition home or self-care (01) ==
LOC: ONC 07-01 13:07
PROVIDERS: ATTEND Internal Medicine Hematology & Oncology
DX: Z51.0 Encounter for antineoplastic radiation therapy (principal); C34.11 Malignant neoplasm of upper lobe, right bronchus or lung; C79.51 Secondary malignant neoplasm of bone; C78.7 Secondary malignant neoplasm of liver and intrahepatic bile duct; I25.10 Atherosclerotic heart disease of native coronary artery without angina pectoris; E78.2 Mixed hyperlipidemia; I10 Essential (primary) hypertension; E66.9 Obesity, unspecified; K21.9 Gastro-esophageal reflux disease without esophagitis; Z90.710 Acquired absence of both cervix and uterus
CPT/HCPCS: 80053; 82378; 85025; G0463; 77290; 77295; 77300; 77334; 77336; 77417; 77470; 99204; 99214

== ENCOUNTER 2021-07-19 13:35 | Outpatient (RCR) | payer MEDICARE, MEDICAID ==
[~2021-07-19 13:35] MED LIST changes: -LOSA25TA41 PO; -morphine er
[2021-07-20] MEDS ORDERED: morphine er (16:07)
[2021-07-21] MEDS ORDERED: LOSA25TA41 PO (12:37)
== END 2021-08-15 | disposition home or self-care (01) ==
LOC: ONC 13:35
PROVIDERS: ATTEND Internal Medicine Hematology & Oncology
DX: C34.90 Malignant neoplasm of unspecified part of unspecified bronchus or lung (principal); C79.51 Secondary malignant neoplasm of bone; C78.7 Secondary malignant neoplasm of liver and intrahepatic bile duct; I25.10 Atherosclerotic heart disease of native coronary artery without angina pectoris; J44.9 Chronic obstructive pulmonary disease, unspecified; E78.2 Mixed hyperlipidemia; I10 Essential (primary) hypertension; E66.9 Obesity, unspecified; K21.9 Gastro-esophageal reflux disease without esophagitis; Z90.710 Acquired absence of both cervix and uterus

== ENCOUNTER 2021-07-20 15:38 | Outpatient (CLI) | payer MEDICARE, MEDICAID ==
[~2021-07-20] VITALS: Ht 160 cm; Wt 50.3 kg
[2021-07-20] MEDS ORDERED: morphine er (16:07)
[2021-07-21] MEDS ORDERED: LOSA25TA41 PO (12:37)
== END 2021-07-20 16:27 | disposition home or self-care (01) ==
LOC: PREOP 15:38
PROVIDERS: ATTEND Surgery
DX: Z01.818 Encounter for other preprocedural examination (principal)

== ENCOUNTER 2021-07-21 11:15 | Day surgery (SDC) | payer MEDICARE, MEDICAID ==
[2021-07-21] VITALS (8 sets, daily range): BP systolic 92–111; BP diastolic 47–73
[~2021-07-21] VITALS: Ht 160 cm; Wt 50.3 kg
[~2021-07-21 11:15] MED LIST changes: +morphine er
--- NOTE | 2021-07-21 11:38 | Progress Note-Pre Operative ---
Pre-Operative Progress Note H&P Reviewed The H&P was reviewed, patient examined and no changes noted. Date Seen by Provider: Jul 21, 2021 Time Seen by Provider: 11:38 Date H&P Reviewed: Jul 21, 2021 Time H&P Reviewed: 11:38 Pre-Operative Diagnosis: lung cancer SOCO BLANCAS DO Jul 21, 2021 11:38
[2021-07-21] MEDS ORDERED: ceFAZolin INJECTION 1,000 MG VIAL IV ONE ×2 (11:45→12:00)
[2021-07-21] MEDS ORDERED: LACTATED RINGERS 1,000 ML IV PRN (12:00)
[2021-07-21] MEDS ORDERED: FAMOTIDINE 20MG/2ML IV (PEPCID) ONE (12:28)
[2021-07-21] MEDS ORDERED: ONDANSETRON 4 MG/2 ML (SDV) Z0FRAN ONE (12:28)
[2021-07-21] MEDS ORDERED: ONDANSETRON 4 MG/2 ML (SDV) Z0FRAN IVP ONE (12:30)
[2021-07-21] MEDS ORDERED: FAMOTIDINE 20MG/2ML IV (PEPCID) IVP ONE (12:30)
[2021-07-21] MEDS ORDERED: LOSA25TA41 PO (12:37)
--- NOTE | 2021-07-21 14:23 | Discharge Inst-Simple/Standard ---
Discharge Inst-Standard Patient Instructions/Follow Up Plan of Care/Instructions/FU: 2 weeks otto Activity as Tolerated: No Discharge Diet: Regular Diet Other Inst to Patient Follow up Appt: Make appointment for 2 week. Instructions: No lifting greater than 10 pounds. No strenuous activity. May shower in 24 hours, no tub bath or soaking. Use incentive spirometer at home as directed. No Smoking Skin/Wound Care: You have special glue over your incision that will fall off on it's own. Symptoms to Report: Appetite Changes, Extremity Discoloration, Numbness/Tingling, Swelling Increased, Bleeding Excessive, Eyesight Changes, Pain Increased, Urine Color Change, Constipation(Persistent), Fever over 101 degree F, Pain/Pressure in chest, Urinating Difficulty, Cough Up/Vomit Blood, Heart Beat Irreg/Pounding, Pain/Pressure in jaw, Vaginal Bleeding Increase, Cramps in feet or legs, Lightheadedness, Pain/Pressure in shoulder, Diarrhea(Persistent), Memory Changes Suddenly, Questions/Concerns, Weight gain consecutive days, Dizziness/Fainting, Nausea/Vomiting, Shortness of Breath, Weight gain over 2 pounds If questions or concerns contact your physician Or seek help at emergency department. SOCO BLANCAS DO Jul 21, 2021 14:23
--- NOTE | 2021-07-21 14:25 | Progress Note-Post Operative ---
Post-Operative Progess Note Surgeon (s)/Sewing Machine Adjuster (s) Surgeon SOCO BLANCAS DO Sewing Machine Adjuster: na Pre-Operative Diagnosis lung cancer Post-Operative Diagnosis same Procedure & Operative Findings Date of Procedure 07/21/21 Procedure Performed/Findings PROCEDURE: Right internal jugular port placement using ultrasound guidance. COMPLICATIONS: None. INDICATIONS: The patient is a 66 year old female with lung cancer. Patient understands the risks and benefits of port placement and wished to proceed with the procedure. Consent was signed on the chart. PROCEDURE: The patient was taken to the operating suite, was prepped and draped in the sterile fashion. A surgical pause was performed. Ultrasound was used to locate the internal jugular vein. Once located anesthetic was infiltrated above it. Using micro-access kit, the right internal vein was accessed. Dark nonpulsatile blood was withdrawn. The wire was inserted. Fluoroscopy assured proper placement. The needle was removed. The micro-access dilator was advanced over the wire and the wire was removed. The regular wire was inserted and fluoroscopy assured proper placement. The wire was then secured. Local anesthetic was used to anesthetize from the neck for tunneling down to the right chest and for pocket creation. A 15 blade scalpel was used to make an incision over the right chest. Cautery was used to dissect down to the pectoral fascia. A pocket was created with blunt dissection. The dilator sheath was then advanced over the wire under fluoroscopy and the dilator and wire were removed. The Groshong catheter was inserted through the sheath and the sheath was then removed. The Groshong wire was removed. The catheter was then tunneled to the right chest pocket. Fluoroscopy was used to cut to length and this was then attached to the port which was then placed within the pocket. The port was then accessed without difficulty. It was then flushed with saline and then heparin. The subcutaneous tissues were then reapproximated using 3-0 Vicryl. The areas were then washed and dried. Skin Affix was placed over incision. The insertion point of the neck Skin Affix was placed over the incision. The patient tolerated the procedure well without complication and was taken to recovery room in stable condition. Chest x-ray is pending. Anesthesia Type mac c local Estimated Blood Loss Estimated blood loss (mL): minimal Specimens/Packing Specimens Removed SOCO Veronica DO Jul 21, 2021 14:25
[2021-07-21] MEDS ORDERED: ONDANSETRON 4 MG/2 ML (SDV) Z0FRAN IVP PRN (14:30)
[2021-07-21] MEDS ORDERED: morphine INJ 10 MG/ML 1ML (SYR OR VIAL) IVP ONE (14:30)
--- NOTE | 2021-07-21 14:30 | Anesthesia-General Post-Op ---
MAC Patient Condition Mental Status/LOC: Same as Preop Cardiovascular: Satisfactory Nausea/Vomiting: Absent Respiratory: Satisfactory Pain: Controlled Complications: Absent Post Op Complications Complications None Follow Up Care/Instructions Patient Instructions None needed. Anesthesiology Discharge Order Discharge Order Patient is doing well, no complaints, stable vital signs, no apparent adverse anesthesia problems. NAHEED BAUM DO Jul 21, 2021 14:30
[2021-07-21] MEDS ORDERED: morphine INJ 10 MG/ML 1ML (SYR OR VIAL) ONE (14:32)
--- NOTE | 2021-07-21 14:40 | Diagnostic Imaging Report ---
INDICATION: Fluoroscopy for port placement. Fluoroscopy was provided in the OR during port placement. 20 seconds of fluoroscopic time was utilized. A single image was obtained demonstrating right chest wall port with tip overlying SVC. IMPRESSION: Fluoroscopy for port placement. Dictated by: Dictated on workstation # [id number]
--- NOTE | 2021-07-21 14:45 | Diagnostic Imaging Report ---
INDICATION: Port placement. TIME OF EXAM: 02:44 p.m. COMPARISON: Correlation is made with prior radiograph from 01/01/2019. FINDINGS: Right chest wall port has tip at the SVC-right atrial junction. No pneumothorax is identified. There appears to be some minimal infiltrate in the right midlung field and left base. No effusion is identified. IMPRESSION: Right chest wall port placement, as described. No pneumothorax is detected. Dictated by: Dictated on workstation # [id number]
== END 2021-07-21 15:35 ==
LOC: SDC 11:15
PROVIDERS: ATTEND Surgery
DX: C34.90 Malignant neoplasm of unspecified part of unspecified bronchus or lung (principal); I87.2 Venous insufficiency (chronic) (peripheral); C78.7 Secondary malignant neoplasm of liver and intrahepatic bile duct; I10 Essential (primary) hypertension; I25.10 Atherosclerotic heart disease of native coronary artery without angina pectoris; J44.9 Chronic obstructive pulmonary disease, unspecified; F17.210 Nicotine dependence, cigarettes, uncomplicated; M19.90 Unspecified osteoarthritis, unspecified site; Z79.899 Other long term (current) drug therapy; Z95.5 Presence of coronary angioplasty implant and graft; Z79.891 Long term (current) use of opiate analgesic; Z79.82 Long term (current) use of aspirin
CPT/HCPCS: 36561; 71045; 76000; 87081; C1788

== ENCOUNTER 2021-08-17 22:07 | Emergency (ER) | payer MEDICARE, MEDICAID ==
[~2021-08-17] VITALS: Ht 160 cm; Wt 50.3 kg
[~2021-08-17 22:07] MED LIST changes: +LOSA25TA41 PO
[2021-08-17] MEDS ORDERED: ONDANSETRON 4 MG/2 ML (SDV) Z0FRAN IVP ONE (22:15)
[2021-08-17] MEDS ORDERED: LACTATED RINGERS 1,000 ML IV ONE (22:15)
[2021-08-17 22:42] LABS: BASOPHILS % (AUTO) 0 % (0-10); EOSINOPHILS % (AUTO) 0 % (0-10); HEMATOCRIT 32 % (35-52); HEMOGLOBIN 10.1 g/dL (11.5-16.0); LYMPHOCYTES # (AUTO) 0.6 10^3/uL (1.0-4.0); LYMPHOCYTES % (AUTO) 6 % (12-44); MEAN CORPUSCULAR HEMOGLOBIN 27 pg (25-34); MEAN CORPUSCULAR HGB CONC 32 g/dL (32-36); MEAN CORPUSCULAR VOLUME 85 fL (80-99); MEAN PLATELET VOLUME 9.5 fL (9.0-12.2); MONOCYTES # (AUTO) 0.7 10^3/uL (0.0-1.0); MONOCYTES % (AUTO) 6 % (0-12); NEUTROPHILS # (AUTO) 9.1 10^3/uL (1.8-7.8); NEUTROPHILS % (AUTO) 87 % (42-75); PLATELET COUNT 257 10^3/uL (130-400); WHITE BLOOD COUNT 10.4 10^3/uL (4.3-11.0)
[2021-08-17 22:51] LABS: ALBUMIN 3.3 GM/DL (3.2-4.5)
[2021-08-17 22:52] LABS: POTASSIUM 3.6 MMOL/L (3.6-5.0)
[2021-08-17 22:53] LABS: CALCIUM 8.3 MG/DL (8.5-10.1)
[2021-08-17 22:54] LABS: TOTAL PROTEIN 6.3 GM/DL (6.4-8.2)
[2021-08-17 22:56] LABS: BILIRUBIN,TOTAL 0.4 MG/DL (0.1-1.0)
[2021-08-17 22:57] LABS: ANISOCYTOSIS MODERATE; BAND NEUTROPHILS 1 %; BASOPHILS % (MANUAL) 0 %; EOSINOPHILS % (MANUAL) 0 %; LYMPHOCYTES % (MANUAL) 4 %; METAMYELOCYTES % 1 %; MICROCYTOSIS SLIGHT; MONOCYTES % (MANUAL) 4 %; NEUTROPHILS % (MANUAL) 90 %; POLYCHROMASIA SLIGHT
[2021-08-17 22:58] LABS: CREATININE SERUM 0.57 MG/DL (0.60-1.30); ELLIPT/OVALOCYTES SLIGHT
[2021-08-17 23:00] LABS: MAGNESIUM 1.9 MG/DL (1.6-2.4)
[2021-08-17] MEDS ORDERED: PROMETHAZINE INJ 25 MG/ML (PHENERGAN) AMP IVP ONE (23:00)
--- NOTE | 2021-08-17 23:04 | ED GI ---
General Chief Complaint: Abdominal/GI Problems Stated Complaint: VOMITING, DIARRHEA Nursing Triage Note: n/v/d decreased po intake x1 day. Source of Information: Patient Exam Limitations: No Limitations (BRITNI VEE STUDENT) History of Present Illness Date Seen by Provider: Aug 17, 2021 Time Seen by Provider: 22:40 Initial Comments This is a 66 YO female with lung cancer who presents to the ED with N/V/D and diffuse abdominal pain for the past 24 hours. States she can only keep a few sips of liquid down without vomiting. Denies sick contacts or unusual foods. Has not taken any OTC medications for her symptoms. Last chemo treatment was 3 weeks ago and was due for chemo today, but rescheduled due to feeling ill. Denies CP, SOB, or fever but notes chills and foul-smelling urine. Timing/Duration: 24 Hours Location: Generalized Abdomen (BRITNI VEE STUDENT) Allergies and Home Medications Allergies Coded Allergies: hydrocodone (Verified Allergy, Intermediate, MAKES STOMACH VERY SICK, 03/11/19) Patient Home Medication List Home Medication List Reviewed: Yes (DARIELA US MD) Alendronate Sodium (Fosamax) 70 Mg Tablet, 70 MG PO WEEK, (Reported) Entered as Reported by: CHRITSY SALDANA on 12/12/18 135 Alprazolam (Alprazolam) 1 Mg Tablet, 1 MG PO TID, (Reported) Entered as Reported by: CHRISTY SALDANA on 12/12/18 135 Aspirin (Aspirin) 81 Mg Tab.chew, 81 MG PO DAILY, (Reported) Entered as Reported by: CHRISTY SALDANA on 12/12/18 1351 Cefdinir (Cefdinir) 300 Mg Capsule, 300 MG PO BID Prescribed by: DARIELA GEORGES on 08/18/21 0007 Dexlansoprazole (Dexilant) 60 Mg , 60 MG PO DAILY, (Reported) Entered as Reported by: CHRISTY SALDANA on 12/12/18 135 Fluticasone Propionate (Flonase Allergy Relief) 9.9 Ml [place].susp, 2 SPRAY NS DAILY, (Reported) Entered as Reported by: CHRISTY SALDANA on 12/12/18 1351 Hydroxychloroquine Sulfate (Hydroxychloroquine Sulfate) 200 Mg Tablet, 200 MG PO BID, (Reported) Entered as Reported by: CHRISTY SALDANA on 12/12/18 1351 Losartan Potassium (Losartan Potassium) 25 Mg Tablet, 25 MG PO DAILY, (Reported) Entered as Reported by: KIP ENRIQUE on 07/21/21 1237 Metoprolol Succinate (Metoprolol Succinate) 25 Mg Tab.er.24h, 25 MG PO DAILY, (Reported) Entered as Reported by: IGOR LAYNE on 01/30/17 1035 Nitroglycerin (Nitroglycerin) 0.4 Mg Tab.subl, 0.4 MG SL UD PRN for CHEST PAIN, (Reported) Entered as Reported by: CHRISTY SALDANA on 12/12/18 1351 [place]-3/Dha/Epa/Fish Oil (Fish Oil 1,000 mg Softgel) 1 Each Capsule, 1 EACH PO BID, (Reported) Entered as Reported by: CHRISTY SALDANA on 12/12/18 1351 Oxycodone HCl/Acetaminophen (Percocet 5-325 mg Tablet) 1 Each Tablet, 1 TAB PO Q4H Prescribed by: JEZ WATKINS on 03/26/21 1516 Rosuvastatin Calcium (Crestor) 20 Mg Tablet, 20 MG PO HS, (Reported) Entered as Reported by: CHRISTY SALDANA on 12/12/18 1351 [morphine er] , 60, (Reported) Entered as Reported by: GILDA BROUSSARD on 07/20/21 1607 Review of Systems Review of Systems Constitutional: chills; No fever EENTM: No Blurred Vision, No Double Vision Respiratory: Denies Cough, Denies Shortness of Air Cardiovascular: Denies Chest Pain, Denies Edema Gastrointestinal: See HPI, Abdominal Pain, Diarrhea, Nausea, Vomiting Genitourinary: See HPI; Denies Burning; Other (foul-smelling urine) Musculoskeletal: No back pain, No joint pain Skin: No pruritus, No rash Psychiatric/Neurological: Denies Headache, Denies Numbness Endocrine: No Symptoms Reported Hematologic/Lymphatic: See HPI (BRITNI VEE MED STUDENT) All Other Systems Reviewed Negative Unless Noted: Yes (Negative excepted noted.) (BRITNI VEE MED STUDENT) Past Aynpdmj-Srelbh-Nsxkqj Hx Patient Social History Tobacco Use?: Yes Use of E-Cig and/or Vaping dev: No Substance use?: No Alcohol Use?: No Pt feels they are or have been: No (BRITNI VEE STUDENT) Immunizations Up To Date First/Initial COVID19 Vaccinat: STATES 2 VACCINES PLUS BOOSTER Second COVID19 Vaccination Bogdan: STATES 2 VACCINES PLUS BOOSTER Third COVID19 Vaccination Date: STATES 2 VACCINES PLUS BOOSTER COVID19 Vaccine Popcorn Candy Maker: jesse (BRITNI VEE) Seasonal Allergies Seasonal Allergies: Yes (BRITNI VEE) Past Medical History Surgery/Hospitalization HX: lung ca, port placement, hypotension Surgeries: Yes (BILAT FEET, RIGHT SHOULDER X2, LAP GRAZYNA, BLADDER TIE UP) Abdominal, Cardiac, Coronary Stent, Gallbladder, Hysterectomy, Orthopedic Respiratory: Yes (MILD) COPD Currently Using CPAP: No Currently Using BIPAP: No Cardiac: Yes (DE X 2 WITH STENTS X 4 ) Coronary Artery Disease, Heart Attack, High Cholesterol, Hypertension Neurological: No 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 Disorders: No Female 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 Disorders: Denies 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, Menopausal Sexually Transmitted Disease: No HIV/AIDS: No Genitourinary: No Gastrointestinal: Yes Gastroesophageal Reflux, Chronic Constipation, Diverticulosis, Polyps, Hiatal Hernia, Gall Bladder Disease Musculoskeletal: Yes Osteoporosis, Arthritis, Fibromyalgia, Chronic Back Pain Endocrine: No HEENT: Yes (READING GLASSES) Cataract Loss of Vision: Denies Hearing Impairment: Denies Cancer: Yes Lung Psychosocial: Yes Anxiety, Depression Integumentary: No Blood Disorders: No Adverse Reaction/Blood Tranf: No (N/A) (BRITNI VEE) Family Medical History Alcoholism Arthritis 19 MOTHER G8 BROTHER Cancer of mouth 19 FATHER (THROAT CANCER) Cardiovascular disease 19 MOTHER Completed stroke 19 MOTHER Diabetes mellitus 19 MOTHER FH: breast cancer Hypertension G8 BROTHER Thyroid disease 19 MOTHER No Family History of: AIDS Asthma Physical Exam Vital Signs Vital Signs - First Documented 08/17/21 22:12 Temp 36.2 Pulse 108 Resp 18 B/P (MAP) 120/87 (98) Pulse Ox 99 O2 Delivery Room Air (DARIELA US MD) Vital Signs Capillary Refill : Less Than 3 Seconds (BRITNI VEE STUDENT) Height/Weight/BMI Height: 5'3.00" Weight: 126lbs. 0.0oz. [id number]; 19.00 BMI Method:Stated General Appearance: mild distress, cachetic HEENT: PERRL/EOMI; No scleral icterus (R), No scleral icterus (L) Neck: supple, normal inspection Respiratory: lungs clear, normal breath sounds, no respiratory distress, no accessory muscle use, other (port in place in right chest wall; incision well- healing with no surrounding erythema or drainage) Cardiovascular: no edema, no murmur, tachycardia Gastrointestinal: non tender, soft; No distended, No guarding, No rebound Extremities: normal range of motion, normal inspection Neurologic/Psychiatric: no motor/sensory deficits, alert, normal mood/affect, oriented x 3 Skin: normal color, warm/dry (BRITNI VEE MED STUDENT) Progress/Results/Core Measures Results/Orders Lab Results Laboratory Tests Test 08/17/21 22:25 08/17/21 23:25 Range/Units White Blood Count 10.4 4.3-11.0 10^3/uL Red Blood Count 3.75 L 3.80-5.11 10^6/uL Hemoglobin 10.1 L 11.5-16.0 g/dL Hematocrit 32 L 35-52 % Mean Corpuscular Volume 85 80-99 fL Mean Corpuscular Hemoglobin 27 25-34 pg Mean Corpuscular Hemoglobin Concent 32 32-36 g/dL Red Cell Distribution Width 19.3 H 10.0-14.5 % Platelet Count 257 130-400 10^3/uL Mean Platelet Volume 9.5 9.0-12.2 fL Immature Granulocyte % (Auto) 1 % Neutrophils (%) (Auto) 87 H 42-75 % Lymphocytes (%) (Auto) 6 L 12-44 % Monocytes (%) (Auto) 6 0-12 % Eosinophils (%) (Auto) 0 0-10 % Basophils (%) (Auto) 0 0-10 % Neutrophils # (Auto) 9.1 H 1.8-7.8 10^3/uL Lymphocytes # (Auto) 0.6 L 1.0-4.0 10^3/uL Monocytes # (Auto) 0.7 0.0-1.0 10^3/uL Eosinophils # (Auto) 0.0 0.0-0.3 10^3/uL Basophils # (Auto) 0.0 0.0-0.1 10^3/uL Immature Granulocyte # (Auto) 0.1 0.0-0.1 10^3/uL Neutrophils % (Manual) 90 % Lymphocytes % (Manual) 4 % Monocytes % (Manual) 4 % Eosinophils % (Manual) 0 % Basophils % (Manual) 0 % Metamyelocytes % 1 % Band Neutrophils 1 % Smudge Cells SLIGHT Polychromasia SLIGHT Anisocytosis MODERATE Microcytosis SLIGHT Macrocytosis SLIGHT Elliptocytes SLIGHT Sodium Level 138 135-145 MMOL/L Potassium Level 3.6 3.6-5.0 MMOL/L Chloride Level 104 98-107 MMOL/L Carbon Dioxide Level 19 L 21-32 MMOL/L Anion Gap 15 H 5-14 MMOL/L Blood Urea Nitrogen 16 7-18 MG/DL Creatinine 0.57 L 0.60-1.30 MG/DL Estimat Glomerular Filtration Rate 100 BUN/Creatinine Ratio 28 Glucose Level 140 H 70-105 MG/DL Calcium Level 8.3 L 8.5-10.1 MG/DL Corrected Calcium 8.9 8.5-10.1 MG/DL Magnesium Level 1.9 1.6-2.4 MG/DL Total Bilirubin 0.4 0.1-1.0 MG/DL Aspartate Amino Transf (AST/SGOT) 21 5-34 U/L Alanine Aminotransferase (ALT/SGPT) 12 0-55 U/L Alkaline Phosphatase 172 H 40-136 U/L Total Protein 6.3 L 6.4-8.2 GM/DL Albumin 3.3 3.2-4.5 GM/DL Urine Color YELLOW Urine Clarity CLEAR Urine pH 6.0 5-9 Urine Specific [place] >=1.030 1.016-1.022 Urine Protein 2+ H NEGATIVE Urine Glucose (UA) NEGATIVE NEGATIVE Urine Ketones TRACE H NEGATIVE Urine Nitrite POSITIVE H NEGATIVE Urine Bilirubin 1+ H NEGATIVE Urine Urobilinogen 1.0 < = 1.0 MG/DL Urine Leukocyte Esterase TRACE H NEGATIVE Urine RBC (Auto) TRACE-I H NEGATIVE Urine RBC NONE /HPF Urine WBC 10-25 H /HPF Urine Squamous Epithelial Cells RARE /HPF Urine Crystals NONE /LPF Urine Bacteria LARGE H /HPF Urine Casts NONE /LPF Urine Mucus SMALL H /LPF Urine Culture Indicated YES (DARIELA US MD) My Orders Orders - DARIELA US MD Cbc With Automated Diff (08/17/21 22:10) Comprehensive Metabolic Panel (08/17/21 22:10) Magnesium (08/17/21 22:10) Ed Iv/Invasive Line Start (08/17/21 22:10) Lactated Ringers (Lr 1000 Ml Iv Solution (08/17/21 22:15) Ondansetron Injection (Zofran Injectio (08/17/21 22:15) Ua Culture If Indicated (08/17/21 22:26) Manual Differential (08/17/21 22:25) Promethazine Injection (Phenergan Injec (08/17/21 23:00) Urine Culture (08/17/21 23:25) Ceftriaxone 1 Gm Pre-Mix (Rocephin 1 Gm (08/17/21 23:56) Lorazepam Injection (Ativan Injection) (08/18/21 00:15) (DARIELA US MD) Medications Given in ED (DARIELA US MD) Vital Signs/I&O 08/17/21 08/18/21 22:12 00:14 Temp 36.2 36.3 Pulse 108 95 Resp 18 18 B/P (MAP) 120/87 (98) 121/59 Pulse Ox 99 99 O2 Delivery Room Air Room Air 08/18/21 00:00 Intake Total 1000 ml Balance 1000 ml (DARIELA US MD) Blood Pressure Mean: 98 Progress Progress Note : Progress Note Patient was treated with IVF and Zofran. She had rebound nausea and phenergan was added. She was given Ativan for agitation. UTI was identified and treated with Rocephin. She was stable for discharge. (DARIELA US MD) Departure Impression Primary Impression: Nausea vomiting and diarrhea Additional Impressions: Urinary tract infection Qualified Codes: N39.0 - Urinary tract infection, site not specified Lung cancer Qualified Codes: C34.90 - Malignant neoplasm of unspecified part of unspecified bronchus or lung Disposition: 01 HOME, SELF-CARE Condition: Improved Departure-Patient Inst. Decision time for Depature: 00:06 (DARIELA US MD) Referrals: GO BLOUNT DO (PCP/Family) Primary Care Physician Patient Instructions: Urinary Tract Infection, Adult ED Add. Discharge Instructions: Start with a clear liquid diet and gradually advance your diet with small quantities of bland food as tolerated. Avoid dairy products, fatty foods, and greasy foods for the next few days. Use Zofran and/or Phenergan as previously prescribed for your nausea and vomiting. Complete your antibiotics as prescribed. Follow-up with your oncologist or primary care provider on Sunday to review urine culture results. Call with questions or concerns. Return to the ER if you have worsening symptoms despite following these instructions. All discharge instructions reviewed with patient and/or family. Voiced understanding. Scripts Cefdinir (Cefdinir) 300 Mg Capsule 300 MG PO BID, #14 CAP Prov: DARIELA US MD 08/18/21 Medical Student Attestation and Attending Note: I have personally interviewed and examined this patient along with Britni Vee, MS 4. I have reviewed student documentation including history, physical, and assessments. I agree with the documentation except where otherwise noted. Exam: General: Alert, oriented, mild acute distress, well developed, thin HEENT: Normocephalic and atraumatic Heart: Regular rate and rhythm without murmur Lungs: Clear to auscultation bilaterally with normal effort Abdomen: Soft, nontender, nondistended, normal bowel sounds Neuropsych: Alert, oriented, no focal deficits Skin: Warm and dry without rashes (DARIELA US MD) Copy Copies To 1: GO BLOUNT CHRISTINE MED STUDENT Aug 17, 2021 23:04 DARIELA US MD Aug 18, 2021 00:08
[2021-08-17 23:39] LABS: CLARITY,URINE CLEAR; COLOR,URINE YELLOW; GLUCOSE, URINE (UA) NEGATIVE (NEGATIVE); KETONES,URINE TRACE (NEGATIVE); LEUKOCYTE ESTERASE ,URINE TRACE (NEGATIVE); NITRITE,URINE POSITIVE (NEGATIVE); PROTEIN,URINE 2+ (NEGATIVE)
[2021-08-17 23:47] LABS: BACTERIA,URINE LARGE /HPF; BILIRUBIN,URINE 1+ (NEGATIVE); SQUAMOUS EPITHELIAL CELL,UR RARE /HPF
[2021-08-17] MEDS ORDERED: cefTRIAXone 1 GM PRE-MIX 50 ML IV STA (23:56)
[2021-08-18] MEDS ORDERED: CEFD300C3 PO (00:07)
[2021-08-18 00:14] VITALS: BP 121/59
[2021-08-18] MEDS ORDERED: LORazepam INJ 2 MG/ML (ATIVAN) VIAL IVP ONE (00:15)
== END 2021-08-18 00:20 | disposition home or self-care (01) ==
LOC: EDUNIT# 22:07 → ER 22:09
DX: C34.90 Malignant neoplasm of unspecified part of unspecified bronchus or lung (principal); R11.2 Nausea with vomiting, unspecified; R19.7 Diarrhea, unspecified; N39.0 Urinary tract infection, site not specified; Z72.0 Tobacco use
CPT/HCPCS: 36415; 80053; 81000; 83735; 85007; 85027; 87077; 87088; 87186

== ENCOUNTER → 2021-08-30 | Outpatient (CLI) | payer MEDICARE, MEDICAID ==
[~2021-08-30] MED LIST changes: +CEFD300C3 PO
== END ==
LOC: WOUNDCARE 12:29
PROVIDERS: ATTEND Family Medicine
DX: L89.812 Pressure ulcer of head, stage 2 (principal); I25.10 Atherosclerotic heart disease of native coronary artery without angina pectoris; R64 Cachexia; R23.3 Spontaneous ecchymoses
CPT/HCPCS: A6212; G0463; 99211

== ENCOUNTER → 2021-09-15 | Outpatient (RCR) | payer MEDICARE, MEDICAID | LOC: ONC 10:52 | PROVIDERS: ATTEND Radiology Radiation Oncology | DX: C34.90 Malignant neoplasm of unspecified part of unspecified bronchus or lung (principal); C79.51 Secondary malignant neoplasm of bone; C78.7 Secondary malignant neoplasm of liver and intrahepatic bile duct; I25.10 Atherosclerotic heart disease of native coronary artery without angina pectoris; J44.9 Chronic obstructive pulmonary disease, unspecified; E78.2 Mixed hyperlipidemia; I10 Essential (primary) hypertension; E66.9 Obesity, unspecified; K21.9 Gastro-esophageal reflux disease without esophagitis; Z90.710 Acquired absence of both cervix and uterus | CPT/HCPCS: 99213 ==

== ENCOUNTER 2021-09-20 00:33 | Emergency (ER) | payer MEDICARE, MEDICAID ==
[~2021-09-20 00:33] MED LIST changes: -GADOTERATE 0.5 MMOL/ML (CLARISCAN) 15 ML VIAL IV ONE
[2021-09-20 00:45] VITALS: BP 103/60
[2021-09-20] MEDS ORDERED: LACTATED RINGERS 1,000 ML IV ONE (01:00)
[2021-09-20] MEDS ORDERED: ONDANSETRON 4 MG/2 ML (SDV) Z0FRAN IVP ONE (01:00)
[2021-09-20 01:32] LABS: BASOPHILS % (AUTO) 0 % (0-10); EOSINOPHILS % (AUTO) 0 % (0-10); HEMATOCRIT 29 % (35-52); HEMOGLOBIN 9.3 g/dL (11.5-16.0); LYMPHOCYTES # (AUTO) 0.2 10^3/uL (1.0-4.0); LYMPHOCYTES % (AUTO) 9 % (12-44); MEAN CORPUSCULAR HEMOGLOBIN 28 pg (25-34); MEAN CORPUSCULAR HGB CONC 32 g/dL (32-36); MEAN CORPUSCULAR VOLUME 88 fL (80-99); MEAN PLATELET VOLUME 9.2 fL (9.0-12.2); MONOCYTES # (AUTO) 0.2 10^3/uL (0.0-1.0); MONOCYTES % (AUTO) 7 % (0-12); NEUTROPHILS # (AUTO) 2.4 10^3/uL (1.8-7.8); NEUTROPHILS % (AUTO) 84 % (42-75); PLATELET COUNT 99 10^3/uL (130-400); WHITE BLOOD COUNT 2.8 10^3/uL (4.3-11.0)
[2021-09-20 01:36] LABS: ALBUMIN 3.8 GM/DL (3.2-4.5)
[2021-09-20 01:37] LABS: CALCIUM 8.4 MG/DL (8.5-10.1)
[2021-09-20 01:38] LABS: TOTAL PROTEIN 6.4 GM/DL (6.4-8.2)
[2021-09-20 01:40] LABS: BILIRUBIN,TOTAL 0.6 MG/DL (0.1-1.0)
[2021-09-20 01:42] LABS: CREATININE SERUM 0.58 MG/DL (0.60-1.30)
[2021-09-20 01:45] LABS: MAGNESIUM 1.9 MG/DL (1.6-2.4)
--- NOTE | 2021-09-20 02:29 | ED General ---
General Chief Complaint: General Problems/Pain Stated Complaint: VOMITING,DIARRHEA,LIMBS NUMB Nursing Triage Note: PT TO ER BY WC WITH WITH C/O NOT EATING OR DRINKING IN APPROX 5 DAYS AND NAUSEA. PT WAS SEEN YESTERDAY AT DR REGAN OFFICE AND GIVEN IV FLUIDS, MAG, AND K+ Source of Information: Patient, Spouse () History of Present Illness Date Seen by Provider: Sep 20, 2021 Time Seen by Provider: 00:48 Initial Comments PT ARRIVES VIA POV FROM HOME WITH , NEEDS WHEELCHAIR ON ARRIVAL PT STATES SHE WAS DX WITH METASTATIC LUNG CANCER IN JUNE OF THIS YEAR PT HAD HER 3RD ROUND OF CHEMO LAST Sunday09/13/21 PT HAS HAD NAUSEA AND VOMITING SINCE THEN, AND HAS NOT HAD ANYTHING TO EAT OR DRINK AT ALL FOR 5 DAYS PT HAS NOT URINATED IN 24 HOURS NO FEVER NO ABDOMINAL PAIN LAST BM--WAS YESTERDAY MORNING. PT HAS ZOFRAN AND PHENERGAN AT HOME, BUT WON'T TAKE IT-- REPORTS THAT HE HAS OFFERED IT TO HER AND SHE REFUSES TO TAKE IT IS HER ONLY CAREGIVER PT DOES NOT HAVE HOME HEALTH OR HOSPICE, ETC. PT WAS AT DR. RAMSEY'S OFFICE YESTERDAY FOR THIS PROBLEM AND GIVEN IV FLUIDS AND ELECTROLYTES PT WAS HERE IN ER 08/17/21 FOR SAME, GIVEN RX FOR CEFDINIR FOR UTI. PT HAD REPORTED SHE HAD ZOFRAN AND PHENERGAN AT HOME AT THAT VISIT ALSO. PCP: ROXANE BLOUNT WITH [facility] CUSTOMER ACCOUNTS ADVISOR: DR. SEVERINO ONCOLOGIST: DR. RAMSEY Allergies and Home Medications Allergies Coded Allergies: hydrocodone (Verified Allergy, Intermediate, MAKES STOMACH VERY SICK, 03/11/19) Patient Home Medication List Home Medication List Reviewed: Yes Alendronate Sodium (Fosamax) 70 Mg Tablet, 70 MG PO WEEK, (Reported) Entered as Reported by: CHRISTY SALDANA on 12/12/18 135 Alprazolam (Alprazolam) 1 Mg Tablet, 1 MG PO TID, (Reported) Entered as Reported by: CHRISTY SALDANA on 12/12/18 1351 Aspirin (Aspirin) 81 Mg Tab.chew, 81 MG PO DAILY, (Reported) Entered as Reported by: CHRISTY SALDANA on 12/12/18 1351 Cefdinir (Cefdinir) 300 Mg Capsule, 300 MG PO BID Prescribed by: DARIELA GEORGES on 08/18/21 0007 Dexlansoprazole (Dexilant) 60 Mg bp, 60 MG PO DAILY, (Reported) Entered as Reported by: CHRISTY SALDANA on 12/12/18 135 Fluticasone Propionate (Flonase Allergy Relief) 9.9 Ml [place].susp, 2 SPRAY NS DAILY, (Reported) Entered as Reported by: CHRISTY SALDANA on 12/12/18 135 Hydroxychloroquine Sulfate (Hydroxychloroquine Sulfate) 200 Mg Tablet, 200 MG PO BID, (Reported) Entered as Reported by: CHRISTY SALDANA on 12/12/18 135 Losartan Potassium (Losartan Potassium) 25 Mg Tablet, 25 MG PO DAILY, (Reported) Entered as Reported by: KIP ENRIQUE on 07/21/21 1237 Metoprolol Succinate (Metoprolol Succinate) 25 Mg Tab.er.24h, 25 MG PO DAILY, (Reported) Entered as Reported by: IGOR LAYNE on 01/30/17 1035 Nitroglycerin (Nitroglycerin) 0.4 Mg Tab.subl, 0.4 MG SL UD PRN for CHEST PAIN, (Reported) Entered as Reported by: CHRISTY SALDANA on 12/12/18 135 [place]-3/Dha/Epa/Fish Oil (Fish Oil 1,000 mg Softgel) 1 Each Capsule, 1 EACH PO BID, (Reported) Entered as Reported by: CHRISTY SALDANA on 12/12/18 135 Oxycodone HCl/Acetaminophen (Percocet 5-325 mg Tablet) 1 Each Tablet, 1 TAB PO Q4H Prescribed by: JEZ WATKINS on 03/26/21 1516 Rosuvastatin Calcium (Crestor) 20 Mg Tablet, 20 MG PO HS, (Reported) Entered as Reported by: CHRISTY SALDANA on 12/12/18 1351 [morphine er] , 60, (Reported) Entered as Reported by: GILDA BROUSSARD on 07/20/21 1607 Review of Systems Review of Systems Constitutional: malaise, weakness EENTM: no symptoms reported Respiratory: no symptoms reported; No cough, No short of breath Cardiovascular: no symptoms reported Gastrointestinal: see HPI; No abdominal pain; constipation, loss of appetite, nausea, vomiting Genitourinary: see HPI, decreased output Musculoskeletal: no symptoms reported Skin: no symptoms reported Psychiatric/Neurological: Other (FORGETFUL) Hematologic/Lymphatic: No Symptoms Reported Immunological/Allergic: no symptoms reported Past Tsnsewh-Czxpni-Jqirjr Hx Patient Social History Tobacco Use?: Yes Tobacco type used: Cigarettes Smoking Status: Current Everyday Smoker Smokeless Tobacco Frequency: Current Everyday User Substance use?: No Alcohol Use?: No Pt feels they are or have been: No Immunizations Up To Date First/Initial COVID19 Vaccinat: 08/11 Second COVID19 Vaccination Bogdan: 09/05 Third COVID19 Vaccination Date: STATES 2 VACCINES PLUS BOOSTER 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: [employer] Seasonal Allergies Seasonal Allergies: Yes Past Medical History Surgery/Hospitalization HX: lung ca, port placement, hypotension PORT RIGHT CHEST 07/21/21 BIOPSY RIGHT ILIAC BONE 07/07/21 Surgeries: Yes (BILAT FEET, RIGHT SHOULDER X2, LAP GRAZYNA, BLADDER TIE UP;STENTS X 4) Abdominal, Cardiac, Coronary Stent, Gallbladder, Hysterectomy, Orthopedic Respiratory: Yes (METASTATIC LUNG CANCER) COPD Currently Using CPAP: No Currently Using BIPAP: No Cardiac: Yes (DC X 2 WITH STENTS X 4 ) Coronary Artery Disease, Heart Attack, High Cholesterol, Hypertension Neurological: No 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 Disorders: Yes Female 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 Disorders: Denies 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, 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 Sexually Transmitted Disease: No HIV/AIDS: No Genitourinary: No Gastrointestinal: Yes Gastroesophageal Reflux, Chronic Constipation, Diverticulosis, Polyps, Hiatal Hernia, Gall Bladder Disease Musculoskeletal: Yes Osteoporosis, Arthritis, Fibromyalgia, Chronic Back Pain Endocrine: No HEENT: Yes (READING GLASSES) Cataract Loss of Vision: Denies Hearing Impairment: Denies Cancer: Yes Lung Did You Recieve Any Treatments: Yes What Type of Treatment Did You: Chemotherapy Psychosocial: Yes Anxiety, Depression Integumentary: No Blood Disorders: No Adverse Reaction/Blood Tranf: No (N/A) Family Medical History Alcoholism Arthritis 19 MOTHER G8 BROTHER Cancer of mouth 19 FATHER (THROAT CANCER) Cardiovascular disease 19 MOTHER Completed stroke 19 MOTHER Diabetes mellitus 19 MOTHER FH: breast cancer Hypertension G8 BROTHER Thyroid disease 19 MOTHER No Family History of: AIDS Asthma SOCIAL HISTORY: -SMOKES 1 1/2 PPD -ETOH--RARELY USES -DRUGS--DENIES USE PAST SURGICAL HISTORY: -PORT RIGHT CHEST 07/21/[address] BLANCAS -RIGHT ILIAC BONE BIOPSY 07/07/21 -RIGHT SHOULDER SURGERY X 2 -FINGER SURGERY -BILATERAL FOOT SURGERY -HIATAL HERNIA REPAIR -CARDIAC CATHS--STENTS X 3 -EGD/COLONOSCOPY/POLYPECTOMY -CHOLECYSTECTOMY 12/[address] BLANCAS -HYSTERECTOMY/BILATERAL [place]-OOPHORECTOMY Physical Exam Vital Signs Vital Signs - First Documented 09/20/21 00:45 Temp 36.2 Pulse 119 Resp 20 B/P (MAP) 103/60 (74) Capillary Refill : Height, Weight, BMI Height: 5'3.00" Weight: 126lbs. 0.0oz. 57.357940fk; 19.00 BMI Method:Stated General Appearance: No Apparent Distress, Cachetic HEENT: Other (DRY ORAL MUCOSA) Neck: Normal Inspection Respiratory: Normal Breath Sounds, No Accessory Muscle Use, No Respiratory Distress Cardiovascular: Regular Rate, Rhythm, No Edema, No JVD, No Murmur, Normal Peripheral Pulses Gastrointestinal: Soft, Abnormal Bowel Sounds (RARE) Back: No CVA Tenderness Extremity: No Pedal Edema Neurologic/Psychiatric: Alert, Oriented x3 (BUT LIMITED MEMORY), No Motor/S ensory Deficits, risk and compliance analytics director II-XII Norm as Tested Skin: Warm/Dry, Pallor, Tattoos/Piercings (TATTOOS) Progress/Results/Core Measures Suspected Sepsis SIRS Temperature: Pulse: 119 Respiratory Rate: 20 Laboratory Tests 09/20/21 01:20: White Blood Count 2.8L Blood Pressure 103 /60 Mean: 74 Laboratory Tests 09/20/21 01:20: Creatinine 0.58L, Platelet Count 99L, Total Bilirubin 0.6 Results/Orders Lab Results Laboratory Tests Test 09/20/21 01:20 09/20/21 02:06 Range/Units White Blood Count 2.8 L 4.3-11.0 10^3/uL Red Blood Count 3.29 L 3.80-5.11 10^6/uL Hemoglobin 9.3 L 11.5-16.0 g/dL Hematocrit 29 L 35-52 % Mean Corpuscular Volume 88 80-99 fL Mean Corpuscular Hemoglobin 28 25-34 pg Mean Corpuscular Hemoglobin Concent 32 32-36 g/dL Red Cell Distribution Width 22.1 H 10.0-14.5 % Platelet Count 99 L 130-400 10^3/uL Mean Platelet Volume 9.2 9.0-12.2 fL Immature Granulocyte % (Auto) 0 % Neutrophils (%) (Auto) 84 H 42-75 % Lymphocytes (%) (Auto) 9 L 12-44 % Monocytes (%) (Auto) 7 0-12 % Eosinophils (%) (Auto) 0 0-10 % Basophils (%) (Auto) 0 0-10 % Neutrophils # (Auto) 2.4 1.8-7.8 10^3/uL Lymphocytes # (Auto) 0.2 L 1.0-4.0 10^3/uL Monocytes # (Auto) 0.2 0.0-1.0 10^3/uL Eosinophils # (Auto) 0.0 0.0-0.3 10^3/uL Basophils # (Auto) 0.0 0.0-0.1 10^3/uL Immature Granulocyte # (Auto) 0.0 0.0-0.1 10^3/uL Sodium Level 136 135-145 MMOL/L Potassium Level 3.0 L 3.6-5.0 MMOL/L Chloride Level 94 L 98-107 MMOL/L Carbon Dioxide Level 19 L 21-32 MMOL/L Anion Gap 23 H 5-14 MMOL/L Blood Urea Nitrogen 9 7-18 MG/DL Creatinine 0.58 L 0.60-1.30 MG/DL Estimat Glomerular Filtration Rate 99 BUN/Creatinine Ratio 16 Glucose Level 157 H 70-105 MG/DL Calcium Level 8.4 L 8.5-10.1 MG/DL Corrected Calcium 8.6 8.5-10.1 MG/DL Magnesium Level 1.9 1.6-2.4 MG/DL Total Bilirubin 0.6 0.1-1.0 MG/DL Aspartate Amino Transf (AST/SGOT) 34 5-34 U/L Alanine Aminotransferase (ALT/SGPT) 12 0-55 U/L Alkaline Phosphatase 144 H 40-136 U/L Total Protein 6.4 6.4-8.2 GM/DL Albumin 3.8 3.2-4.5 GM/DL Amylase Level 50 25-125 U/L Lipase 16 8-78 U/L Influenza Type A (RT-PCR) Not Detected Not Detecte Influenza Type B (RT-PCR) Not Detected Not Detecte SARS-CoV-2 RNA (RT-PCR) Not Detected Not Detecte My Orders Orders - MARCELLA MORENO DO Ed Iv/Invasive Line Start (09/20/21 00:47) Monitor-Rhythm Ecg Trace Only (09/20/21 00:47) Amylase (09/20/21 00:47) Cbc With Automated Diff (09/20/21 00:47) Comprehensive Metabolic Panel (09/20/21 00:47) Lipase (09/20/21 00:47) Magnesium (09/20/21 00:47) Ua Culture If Indicated (09/20/21 00:47) Covid 19 Inhouse Test (09/20/21 00:47) Influenza A And B By Pcr (09/20/21 00:47) Isolation Central Supply Req (09/20/21 00:47) Ed Iv/Invasive Line Start (09/20/21 00:47) Lactated Ringers (Lr 1000 Ml Iv Solution (09/20/21 01:00) Ondansetron Injection (Zofran Injectio (09/20/21 01:00) Catheter(Urinary) Insert & Ass 03,15 (09/20/21 00:56) Medications Given in ED Current Medications Medications Dose Ordered Sig/Aayush Route Start Time Stop Time Status Last Admin Dose Admin Lactated Ringer's 1,000 ml @ 0 mls/hr Q0M ONCE IV 09/20/21 01:00 09/20/21 01:01 DC 09/20/21 01:19 1,000 MLS/HR Ondansetron HCl 4 mg ONCE ONCE IVP 09/20/21 01:00 09/20/21 01:01 DC 09/20/21 01:19 4 MG Vital Signs/I&O 09/20/21 00:45 Temp 36.2 Pulse 119 Resp 20 B/P (MAP) 103/60 (74) Capillary Refill : Blood Pressure Mean: 74 Progress Note : Progress Note GIVEN IV FLUIDS AND ZOFRAN NO VOMITING AT ANY TIME DURING ER STAY NO VOID DURING ER STAY, AND PT REFUSES CATHETER. PT WAS ADVISED ON ARRIVAL THAT SHE WOULD LIKELY NEED TO BE ADMITTED, SHE HAS FAILED OUTPATIENT TREATMENT, AND BOTH PT AND AGREE. 0220--PT NOW ADAMANTLY REFUSES ADMIT AND WANTS TO GO HOME. AMA PAPERS SIGNED. RISKS/BENEFITS DISCUSSED. Departure Communication (Admissions) 0213--SPOKE WITH DR. TRAYLOR, HOSPITALIST FOR [facility], ACCEPTS PT FOR ADMIT. Impression Primary Impression: Left against medical advice Disposition: 07 AGAINST MEDICAL ADVICE Condition: Against Medical Advice Departure-Patient Inst. Referrals: GO BLOUNT DO (PCP/Family) Primary Care Physician MARCELLA MORENO DO Sep 20, 2021 02:28
== END 2021-09-20 02:41 | disposition left against medical advice (07) ==
LOC: EDUNIT# 00:33 → ER 00:36
DX: C78.00 Secondary malignant neoplasm of unspecified lung (principal); F17.210 Nicotine dependence, cigarettes, uncomplicated; Z20.822 Contact with and (suspected) exposure to COVID-19
CPT/HCPCS: 36415; 80053; 82150; 83690; 83735; 85025; 87636; 93041

== ENCOUNTER → 2021-09-20 | Outpatient (CLI) | payer MEDICARE, MEDICAID ==
[~2021-09-20] MED LIST changes: +GADOTERATE 0.5 MMOL/ML (CLARISCAN) 15 ML VIAL IV ONE
--- NOTE | 2021-09-20 13:38 | Diagnostic Imaging Report ---
PROCEDURE: MR imaging of the brain with and without contrast. TECHNIQUE: Multiplanar, multisequence MR imaging of the brain was performed with and without contrast. INDICATION: History of lung cancer. Confusion. Evaluate for metastatic disease to the brain. COMPARISON: 07/04/2021. FINDINGS: No acute ischemia, mass, or hemorrhage. No abnormal enhancement. Stable small amount of focal T2 hyperintense signal seen in the subcortical white matter. The ventricles, cortical sulci, and basilar cisterns are symmetric and unremarkable. The sellar and suprasellar regions have a normal appearance. The brainstem and posterior fossa are unremarkable. The paranasal sinuses and mastoid air cells demonstrate normal signal characteristics. Bilateral lens implants are seen. The globes and orbits are symmetric and unremarkable. The scalp and calvarium have a normal appearance. IMPRESSION: 1. No acute ischemia, mass, or hemorrhage. No abnormal enhancement. 2. Scattered T2 hyperintense signal in the subcortical white matter, favored to represent sequelae of migraine and/or chronic microvascular disease. This appears stable compared to the prior exam. Dictated by: Dictated on workstation # [id number]
== END ==
LOC: RAD 11:43
PROVIDERS: ATTEND Internal Medicine Hematology & Oncology
DX: R41.0 Disorientation, unspecified (principal); Z85.118 Personal history of other malignant neoplasm of bronchus and lung
CPT/HCPCS: 70553

== ENCOUNTER → 2021-10-03 | Outpatient (CLI) | payer MEDICARE, MEDICAID ==
--- NOTE | 2021-10-03 16:36 | Diagnostic Imaging Report ---
Indication: Lung carcinoma. Patient was administered 25.5 mCi technetium 99m MDP intravenously and whole-body imaging was performed after a three-hour delay. No prior bone scans are available for comparison. There is uptake of activity by the axial and appendicular skeleton. There is uptake by the kidneys with excretion to the urinary bladder. There appears to be abnormal uptake involving thoracic and lumbar vertebrae. There is some uptake involving bilateral ribs. There also appears to be some uptake involving the right iliac bone. Features are suspicious for osseous metastatic disease. There is some uptake involving the right hip which is suspicious as well in the region of the greater trochanter. Uptake in the lower cervical spine on the right side could potentially be degenerative. IMPRESSION: Multiple abnormal foci, as described, concerning for osseous metastatic disease. Dictated by: Dictated on workstation # [id number]
== END ==
LOC: CARD 10:12
PROVIDERS: ATTEND Internal Medicine Hematology & Oncology
DX: C34.11 Malignant neoplasm of upper lobe, right bronchus or lung (principal); C76.51 Malignant neoplasm of right lower limb; C78.7 Secondary malignant neoplasm of liver and intrahepatic bile duct
CPT/HCPCS: 78306; A9503

== ENCOUNTER → 2021-10-07 | Outpatient (CLI) | payer MEDICARE, MEDICAID ==
[~2021-10-07] MED LIST changes: +CATHETER FLUSH 10 ML SYR IV PRN; +HOLD METFORMIN - RECEIVED CONTRAST 20 ML VIAL IV SCH; +IOHEXOL 350 MG/ML 150 ML (OMNIPAQUE 350) VIAL IV ONE; +NS 100 ML (IVPB) BAG IV ONE
--- NOTE | 2021-10-07 15:22 | Diagnostic Imaging Report ---
INDICATION: Right foot and toe discoloration and blackening. Peripheral vascular disease. COMPARISON: I have no previous contrast-enhanced exams for direct comparison. Correlation limited to metabolic CT fusion PET dated 06/28/2021. That exam showing features suspect for lung cancer as well as soft tissue and bony metastatic disease. There is extensive mixed soft and hard irregular plaque throughout the abdominal aorta but no hemodynamically significant degree of aortic luminal stenosis. The celiac and the superior mesenteric arteries patent. The MEAGAN is small caliber but patent. There is occlusion of the right common iliac with distal reconstitution at the very small caliber right external iliac. There is diffuse disease in the left common internal and external iliacs but no segmental occlusion. Right leg: There is a small caliber atherosclerotic common femoral artery without focal stenosis. The profundus is patent. The SFA is diffusely small but patent and showed no focal abnormality. The popliteal is patent. The common tibioperoneal trunk patent. Proximally there was a three-vessel runoff; however, the posterior tibial occludes proximally. There is a two-vessel runoff via the peroneal and dorsalis pedis to the level of the ankle. No lower extremity dissection. No soft plaque in the right leg. Left leg: Atherosclerotic disease without significant stenosis at the common femoral arterial level. The profunda widely patent. The left SFA was nonfocal and patent throughout the thigh. The popliteal patent. The common tibioperoneal trunk patent and there is a three-vessel runoff to the ankle. Gallbladder surgically absent. There is some stable mild intra and extrahepatic biliary ductal ectasia, likely on a senescent and reservoir effect postcholecystectomy. Spleen and adrenals unremarkable. Multifocal metabolically active liver metastases showed substantial improvements from prior. The dominant left lobe lesion is much smaller measuring 2.2 cm today, previously 5.2 cm. The remaining lesions are imperceptible. Renal cyst chronic. There is no abdominal, pelvic, mesenteric or retroperitoneal lymphadenopathy. Irregular lytic bone disease to the right iliac bone shows some sclerotic partial healing. There has also been some new sclerosis, presumed at least partial healing of multiple lumbar and sacral lesions. IMPRESSION: 1. Right iliac occlusion distal reconstitution. Two vessel runoff to the right ankle with posterior tibial occlusion in the proximal calf. 2. Three vessel runoff to the left ankle with no hemodynamically significant femoropopliteal stenosis in either leg. 3. Diffuse aortic atherosclerotic disease, mixed soft and hard plaque, with no hemodynamically significant aortic stenosis. No dissection, aneurysm or vessel rupture. 4. When correlated with previous metabolic PET CT there has likely been improvements in metastatic disease to the liver and bony structures with no obvious adverse neoplastic development. Dictated by: Dictated on workstation # [id number]
== END ==
LOC: RAD 13:15
PROVIDERS: ATTEND Internal Medicine Cardiovascular Disease
DX: I74.5 Embolism and thrombosis of iliac artery (principal); I70.0 Atherosclerosis of aorta; I70.8 Atherosclerosis of other arteries; I10 Essential (primary) hypertension; I25.10 Atherosclerotic heart disease of native coronary artery without angina pectoris
CPT/HCPCS: 75635

== ENCOUNTER → 2021-10-14 | Day surgery (SDC) | payer MEDICARE, MEDICAID ==
[~2021-10-14] VITALS: Ht 160 cm; Wt 45.4 kg
[~2021-10-14] MED LIST changes: +ALPRAZolam 0.5 MG (XANAX) TAB PO ONE; +APIX5TAB PO; -CATHETER FLUSH 10 ML SYR IV PRN; +CLOP75TA28 PO; +HEParin (CATH LAB) 0 ML IV ONE; -HOLD METFORMIN - RECEIVED CONTRAST 20 ML VIAL IV SCH; -IOHEXOL 350 MG/ML 150 ML (OMNIPAQUE 350) VIAL IV ONE; +LIDOCAINE 1% INJ 20 ML VIAL ONE; +MAGN400T39 PO; -NS 100 ML (IVPB) BAG IV ONE; +NS IV 1000 ML 1,000 ML IV SCH; +NS IV 1000 ML 1,000 ML ONE; +ONDA-106 PO; +ONDANSETRON 4 MG/2 ML (SDV) Z0FRAN IVP ONE; +ONDANSETRON 4 MG/2 ML (SDV) Z0FRAN ONE; +PANT40SU PO; +POTA10TA37 PO; -morphine er; +morphine er PO
[2021-10-14 09:49] LABS: HEMATOCRIT 29 % (35-52); HEMOGLOBIN 9.1 g/dL (11.5-16.0); MEAN CORPUSCULAR HEMOGLOBIN 29 pg (25-34); MEAN CORPUSCULAR HGB CONC 31 g/dL (32-36); MEAN CORPUSCULAR VOLUME 94 fL (80-99); MEAN PLATELET VOLUME 9.6 fL (9.0-12.2); PLATELET COUNT 111 10^3/uL (130-400); WHITE BLOOD COUNT 3.9 10^3/uL (4.3-11.0)
--- NOTE | 2021-10-14 09:49 | Diagnostic Imaging Report ---
INDICATION: Nonhealing wound of foot. Comparison with 07/21/2021. FINDINGS: Port-A-Cath is again noted on the right unchanged. The lungs are well-aerated. There are chronic interstitial changes noted bilaterally. No acute consolidated infiltrates are seen on today's exam. No evidence of pneumothorax or pleural effusion. IMPRESSION: Findings consistent with chronic interstitial lung disease. Dictated by: Dictated on workstation # [id number]
[2021-10-14 09:52] VITALS: BP 126/70
[2021-10-14 10:01] LABS: INR 0.9 (0.8-1.4)
[2021-10-14 10:17] LABS: ALBUMIN 3.4 GM/DL (3.2-4.5); BILIRUBIN,TOTAL 0.3 MG/DL (0.1-1.0); CALCIUM 9.2 MG/DL (8.5-10.1); CREATININE SERUM 0.66 MG/DL (0.60-1.30); POTASSIUM 4.3 MMOL/L (3.6-5.0); TOTAL PROTEIN 6.3 GM/DL (6.4-8.2)
[2021-10-14 10:25] LABS: BILIRUBIN,URINE NEGATIVE (NEGATIVE); CLARITY,URINE CLEAR; COLOR,URINE YELLOW; GLUCOSE, URINE (UA) NEGATIVE (NEGATIVE); KETONES,URINE NEGATIVE (NEGATIVE); LEUKOCYTE ESTERASE ,URINE TRACE (NEGATIVE); NITRITE,URINE NEGATIVE (NEGATIVE); PROTEIN,URINE NEGATIVE (NEGATIVE)
[2021-10-14 10:36] LABS: AMORPHOUS SEDIMENT,UR MOD AMOR URATES /LPF; BACTERIA,URINE FEW /HPF; WBC,URINE 0-2 /HPF
== END ==
LOC: CATH 11:00
PROVIDERS: ATTEND Internal Medicine Cardiovascular Disease
DX: R94.30 Abnormal result of cardiovascular function study, unspecified (principal); S91.301A Unspecified open wound, right foot, initial encounter; I73.9 Peripheral vascular disease, unspecified; Z53.8 Procedure and treatment not carried out for other reasons
CPT/HCPCS: 36415; 71045; 80053; 81000; 85027; 85610; 85730; 87081; 93005

== ENCOUNTER 2021-10-17 08:00 | Day surgery (SDC) | payer MEDICARE, MEDICAID ==
[2021-10-17] VITALS (13 sets, daily range): BP systolic 118–149; BP diastolic 64–88
[~2021-10-17] VITALS: Ht 160 cm; Wt 45.4 kg
[~2021-10-17 08:00] MED LIST changes: -ALPRAZolam 0.5 MG (XANAX) TAB PO ONE; -CLOP75TA28 PO; -HEParin (CATH LAB) 0 ML IV ONE; +HEParin (CATH LAB) 2,000 ML IV ONE; +MIDAZOLAM 5 MG/5 ML (VERSED) VIAL ONE; -ONDANSETRON 4 MG/2 ML (SDV) Z0FRAN IVP ONE; -ONDANSETRON 4 MG/2 ML (SDV) Z0FRAN ONE; -PANT40SU PO; +fentaNYL INJ 100 MCG/2 ML AMP ONE
[2021-10-17] MEDS ORDERED: HEParin 1000 UNIT/ML (10ML VIAL) FOR BOLUS ONE (08:35)
[2021-10-17] MEDS ORDERED: LIDOCAINE 1% INJ 20 ML VIAL ONE (08:36)
[2021-10-17] MEDS ORDERED: NITRO DRIP 25000 MCG/D5W 0 ML IV ONE (09:02)
--- NOTE | 2021-10-17 09:38 | Conscious Sedation/ASA ---
Conscious Sedation Pre-Proced Time 08:00 ASA Score 3 For ASA 3 and 4: Consider anesthesia and medical clearance. Also, for patients with a history of failed moderate sedation consider anesthesia. Airway Lungs Heart ASA score ASA 1: a normal healthy patient ASA 2: a patient with a mild systemic disease (mid diabetes, controlled hypertension, obesity x ASA 3: a patient with a severe systemic disease that limits activity (angina, COPD, prior Myocardial infarction) ASA 4: a patient with an incapacitating disease that is a constant threat to life (CHF, renal failure) ASA 5: a moribund patient not expected to survive 24 hrs. (ruptured aneurysm) ASA 6: a declared brain- patient whose organs are being harvested. For emergent operations, add the letter E after the classification Mallampati Classification Grade 3 Sedation Plan Analgesia, Amnesia, Plan communicated to team members, Discussed options with patient/fam, Discussed risks with patient/fam The patient is an appropriate candidate to undergo the planned procedure, sedation, and anesthesia. The patient immediately re-assessed prior to indication. JOAN SEVERINO MD October 17, 2021 09:38
[2021-10-17] MEDS ORDERED: ASPIRIN 325 MG (5 GR) TABLET ONE (09:40)
[2021-10-17] MEDS ORDERED: CLOPIDOGREL 300 MG (PLAVIX) TABLET PO ONE (09:40)
[2021-10-17] MEDS ORDERED: NITROGLYCERIN 0.4 MG SL TABS BTL 25'S SL PRN (09:45)
[2021-10-17] MEDS ORDERED: oxyCODONE/APAP 5/325MG (PERCOCET 5) TABLET PO SCH (09:45)
[2021-10-17] MEDS ORDERED: NON-FORMULARY MEDICATION 1 EA EA (Ondansetron HCl 8 MG) PO PRN (09:45)
[2021-10-17] MEDS ORDERED: NON-FORMULARY MEDICATION 1 EA EA (Alendronate Sodium (Fosamax) 70 MG) PO SCH (09:45)
[2021-10-17] MEDS ORDERED: NS IV 1000 ML 1,000 ML IV SCH (09:45)
[2021-10-17] MEDS ORDERED: PATIENT MAY USE OWN MEDS, ALL PO SCH (09:45)
--- NOTE | 2021-10-17 09:50 | Peripheral Report ---
Peripheral Report Physician (s)/Sink Maker (s) Physician JOAN SEVERINO MD Pre-Procedure Diagnosis Pre-Procedure Diagnosis: Gangrene on the right foot Post-Procedure Note Procedure Start Date: October 17, 2021 Name of Procedure: Bilateral lower extremities runoff Catheter placement in the abdominal aorta Bilateral kissing iliac stents Findings/Procedure Note PROCEDURE NOTE: 66-year-old lady with history of lung cancer, had gangrene on her toe, had abnormal MALINDA and CT angiogram showed total occlusion of the iliac artery scheduled for peripheral angiogram After explaining the procedure to the patient, all pros and cons were explained, all questions were answered. The patient signed the consent and then she was placed on the cardiac catheterization laboratory. The patient was placed on the cardiac catheterization laboratory. Groin was prepped SL fashion local anesthesia was used. Sheath placed in the left femoral artery, I advanced a rim catheter to the abdominal aorta at the ostium of the iliac artery and did runoff to the right leg, total occlusion at the ostium of the iliac artery. I exchanged the catheter and used 6 Salvadorean catheter advanced IM curved guide and attempted to cross the lesion with a command 18 wire without success. I proceeded with placement of a second sheath in the right femoral artery and I advanced a straight catheter then I was able to cross with difficulty with a command 18 and I advanced the straight catheter over the wire to the abdominal aorta did angiogram established then that the catheter is in the true lumen without dissection. Then I exchanged the wire and used short J- wire and advanced a J-wire through the left sheath then I proceeded with deployment of kissing iliac stents using Omnilink Elite 7 x 29 deployed simultaneously, then I advanced a pigtail catheter to the abdominal aorta and did abdominal aortogram with bilateral runoff below the kidney just at the bifurcation level then I did runoff through the right sheath to the right lower extremity then runoff through the left sheath through the left extremity. The left sheath position was suitable for closure device which was deployed The right sheath was sutured in place. 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 Post deployment of kissing iliac stent using Omnilink Elite 7 x 29 in both iliac artery, excellent results with resolution of the occlusion with excellent flow CONCLUSIONS: 1. 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 Otherwise mild disease down to the foot DISCUSSION AND RECOMMENDATIONS: Patient was started on aspirin and Plavix, I am holding Eliquis today, planning to resume Eliquis and aspirin and evaluate tolerance to Plavix Anesthesia Type: Conscious Sedation Estimated blood loss (mL): 30 ml Contrast Amount: 65 ml Total Radiation Dose: 71 mGy Post-Procedure Diagnosis Post-operative diagnosis: Critical limb ischemia Peripheral arterial disease Paroxysmal atrial fibrillation Hypertension JOAN SEVERINO MD October 17, 2021 09:50
[2021-10-17] MEDS ORDERED: ONDANSETRON 4 MG (ZOFRAN) ORAL DISSOLVE TAB PO PRN (11:00)
[2021-10-17] MEDS ORDERED: fentaNYL INJ 100 MCG/2 ML AMP ONE (11:11)
[2021-10-17] MEDS: fentaNYL INJ 100 MCG/2 ML AMP IVP PRN ×2 (11:11→17:27)
[2021-10-17] MEDS ORDERED: ALPRAZolam 1 MG (XANAX) TAB PO SCH (13:00)
[2021-10-17] MEDS ORDERED: ATROPINE INJECTION 1 MG/10 ML SYR (ABBOTT) ONE (14:01)
[2021-10-17] MEDS ORDERED: PANT40SU PO (17:45)
[2021-10-17] MEDS ORDERED: CLOP75TA28 PO (17:45)
--- NOTE | 2021-10-17 17:46 | Discharge Inst-Post CATH ---
Discharge Inst-CATH/EP Problems Reviewed?: Yes Post Cardiac Cath/EP D/C Inst Follow Up/Plan Appointment with Dr Mathew in 2-4 weeks <b>CARDIAC CATH/EP PROCEDURE DISCHARGE INSTRUCTIONS</b> ACTIVITY * Go Home directly and rest. * Limit activity of the leg (or wrist if it was used) for 7 days including aerobics, swimming, jogging, bicycling, etc. * Restrict stair-climbing for 7 days if possible, if not, climb up with your non-cath leg, then bring together on the same step. * Avoid lifting, pushing, pulling or excessive movement of the affected extremity for 7 days. * Customary sexual activity may be resumed after 2 days-use caution not to use a position that strains or causes pain to the affected extremity. * No driving for 24 hours. * NO SMOKING. * Avoid straining for bowel movements for 7 days. * Gentle walking on level ground is allowed. * Returning to work will depend on the type of procedure and the results. Your doctor will discuss this with you. CALL YOUR DOCTOR FOR ANY OF THE FOLLOWING: *If bleeding from the puncture site occurs- Apply gentle pressure to site with clean cloth and call your doctor or EMS. * If a knot or lump forms under the skin, increases in size, or causes pain. * If bruising appears to be worsening or moving further down your leg instead of disappearing. * Temperature above 101 F. CARE OF YOUR GROIN INCISION; * Bruising or purple discoloration of the skin near the puncture site is common. * You may shower only, no bathtub bathing for 5 days. Be careful to avoid slipping as your leg may feel stiff. * If a closure device was used on your femoral artery, please see the attached guide regarding care of the device and your leg. * Leave dressing on FOR 24 hours. CARE OF YOUR WRIST INCISION; * Bruising or purple discoloration of the skin near the puncture site is common. * You may shower. * DO NOT submerge wrist. * Leave dressing on FOR 24 hours. JOAN MATHEW MD October 17, 2021 17:46
[2021-10-17] MEDS ORDERED: HYDROXYCHLOROQUINE 200 MG (PLAQUENIL) TAB PO SCH (18:00)
[2021-10-17] MEDS ORDERED: MORPHINE 60 MG PO SCH (21:00)
[2021-10-17] MEDS ORDERED: morphine ER 30 MG (MS CONTIN) TAB PO SCH (21:00)
[2021-10-18] MEDS ORDERED: KCL 10 MEQ TAB (MICRO K) PO SCH (07:00)
[2021-10-18] MEDS ORDERED: MAGNESIUM OXIDE (MAG-OX)400 MG TAB PO SCH (08:00)
[2021-10-18] MEDS ORDERED: PANTOPRAZOLE 40 MG (PROTONIX) TAB PO SCH (09:00)
[2021-10-18] MEDS ORDERED: NON-FORMULARY MEDICATION 1 EA EA (Potassium Chloride 10 MEQ) PO SCH (09:00)
[2021-10-18] MEDS ORDERED: NON-FORMULARY MEDICATION 1 EA EA (Dexlansoprazole (Dexilant) 60 MG) PO SCH (09:00)
[2021-10-18] MEDS ORDERED: CLOPIDOGREL 75 MG (PLAVIX) TABLET PO SCH (09:00)
[2021-10-18] MEDS ORDERED: NON-FORMULARY MEDICATION 1 EA EA (Magnesium Oxide (Magnesium) 400 MG) PO SCH (09:00)
[2021-10-18] MEDS ORDERED: ASPIRIN E.C. 81 MG (ECOTRIN) TAB PO SCH (09:00)
[2021-10-18] MEDS ORDERED: NON-FORMULARY MEDICATION 1 EA EA (Fluticasone Propionate (Flonase Allergy Relief) 2 SPRAY) NS SCH (09:00)
[2021-10-18] MEDS ORDERED: ASPIRIN 81 MG CHEW (CHILDREN'S ASA) PO SCH (09:00)
== END 2021-10-17 19:08 | disposition home or self-care (01) ==
LOC: CATH 08:00 → ICU 10:10 → CATH 19:08
PROVIDERS: ATTEND Internal Medicine Cardiovascular Disease
DX: I70.269 Atherosclerosis of native arteries of extremities with gangrene, unspecified extremity (principal); I70.92 Chronic total occlusion of artery of the extremities; I48.0 Paroxysmal atrial fibrillation; I10 Essential (primary) hypertension
CPT/HCPCS: 36200; 37221; 75716; 85730; C1725; C1760; C1769 ×2; C1876; C1887 ×4; C1894 ×2; 36415

== ENCOUNTER → 2021-12-12 | Outpatient (CLI) | payer MEDICARE, MEDICAID ==
[~2021-12-12] MED LIST changes: +CLOP75TA28 PO; -HEParin (CATH LAB) 2,000 ML IV ONE; -LIDOCAINE 1% INJ 20 ML VIAL ONE; -MIDAZOLAM 5 MG/5 ML (VERSED) VIAL ONE; -NS IV 1000 ML 1,000 ML IV SCH; -NS IV 1000 ML 1,000 ML ONE; +PANT40SU PO; -fentaNYL INJ 100 MCG/2 ML AMP ONE
== END ==
LOC: WOUNDCARE 13:19
PROVIDERS: ATTEND Family Medicine
DX: L97.518 Non-pressure chronic ulcer of other part of right foot with other specified severity (principal); I70.235 Atherosclerosis of native arteries of right leg with ulceration of other part of foot; F17.210 Nicotine dependence, cigarettes, uncomplicated
CPT/HCPCS: 99212

== ENCOUNTER → 2021-12-23 | Outpatient (CLI) | payer MEDICARE, MEDICAID ==
--- NOTE | 2021-12-26 08:48 | Diagnostic Imaging Report ---
Exam: Nuclear medicine whole body bone scan. Date: December 23, 2021. Indication: 66-year-old female, history of right upper lobe lung cancer. Evaluation for bone metastasis. Comparison: Nuclear medicine whole body bone scan October 03, 2021. MRI lumbar spine and thoracic spine July 01, 2021. CT chest June 17, 2021. PET/CT June 28, 2021. Findings: 26.20 mCi of technetium labeled MDP was administered. Subsequent delayed whole body bone scan images were subsequently obtained. There is a radiotracer uptake in a mid right-sided rib as well as more inferiorly located left-sided ribs. There are also radiotracer avid foci at the level of the lower cervical spine, sternum, thoracic spine, and lumbar spine. There is also radiotracer uptake in the region of the right greater trochanter and radiotracer avid lesions of the pelvis. Overall, the number of lesions appears essentially unchanged. Impression: 1. Redemonstrated multiple osteoblastic bone metastasis without identified new lesion. Overall appearance is largely similar to October 03, 2021. Dictated by: Dictated on workstation # [id number]
== END ==
LOC: CARD 11:44
PROVIDERS: ATTEND Nurse Practitioner Adult Health
DX: C34.11 Malignant neoplasm of upper lobe, right bronchus or lung (principal); C79.51 Secondary malignant neoplasm of bone; C78.7 Secondary malignant neoplasm of liver and intrahepatic bile duct
CPT/HCPCS: 78306; A9503

== ENCOUNTER → 2021-12-28 | Outpatient (CLI) | payer MEDICARE, MEDICAID ==
[~2021-12-28] VITALS: Ht 160 cm; Wt 47.0 kg
[~2021-12-28] MED LIST changes: +GABA300C PO; +RIVA20TA PO
== END | disposition home or self-care (01) ==
LOC: PREOP 15:11
PROVIDERS: ATTEND Surgery
DX: Z01.818 Encounter for other preprocedural examination (principal)

== ENCOUNTER 2021-12-29 11:17 | Day surgery (SDC) | payer MEDICARE, MEDICAID ==
[2021-12-29] VITALS (8 sets, daily range): BP systolic 102–112; BP diastolic 53–64
[~2021-12-29] VITALS: Ht 160 cm; Wt 47.0 kg
[2021-12-29] MEDS ORDERED: ceFAZolin 2 GM IV Premixed 50 ML ONE (11:39)
--- NOTE | 2021-12-29 12:09 | Progress Note-Pre Operative ---
Pre-Operative Progress Note H&P Reviewed The H&P was reviewed, patient examined and no changes noted. Date Seen by Provider: Dec 29, 2021 Time Seen by Provider: 12:09 Date H&P Reviewed: Dec 29, 2021 Time H&P Reviewed: 12:09 Pre-Operative Diagnosis: wound right 4th toe SOCO BLANCAS DO Dec 29, 2021 12:09
[2021-12-29] MEDS ORDERED: ONDANSETRON 4 MG/2 ML (SDV) Z0FRAN ONE (12:30)
[2021-12-29] MEDS ORDERED: LACTATED RINGERS 1,000 ML IV PRN (12:30)
[2021-12-29] MEDS ORDERED: MIDAZOLAM 2 MG/2 ML (VERSED) VIAL ONE (12:30)
[2021-12-29] MEDS ORDERED: ceFAZolin 2 GM IV Premixed 50 ML IV ONE (12:30)
[2021-12-29] MEDS ORDERED: ONDANSETRON 4 MG/2 ML (SDV) Z0FRAN IVP ONE (12:45)
[2021-12-29] MEDS ORDERED: MIDAZOLAM 2 MG/2 ML (VERSED) VIAL IVP ONE (12:45)
[2021-12-29] MEDS ORDERED: LIDOCAINE 1% INJ 20 ML VIAL ONE (12:55)
[2021-12-29] MEDS ORDERED: LIDOCAINE/EPI 2% 1:100,00 (XYLOCAINE) 20 ML VIAL ONE (12:55)
--- NOTE | 2021-12-29 13:46 | Discharge Inst-Simple/Standard ---
Discharge Inst-Standard Patient Instructions/Follow Up Plan of Care/Instructions/FU: 2 weeks Sulma (suture removal) Activity as Tolerated: No Discharge Diet: Regular Diet Other Inst to Patient Follow up Appt: Make appointment for 2 week. Instructions: No lifting greater than 10 pounds. No strenuous activity. May shower in 24 hours, no tub bath or soaking. Use incentive spirometer at home as directed. No Smoking Skin/Wound Care: Keep area clean and dry. Symptoms to Report: Appetite Changes, Extremity Discoloration, Numbness/Tingling, Swelling Increased, Bleeding Excessive, Eyesight Changes, Pain Increased, Urine Color Change, Constipation(Persistent), Fever over 101 degree F, Pain/Pressure in c hest, Urinating Difficulty, Cough Up/Vomit Blood, Heart Beat Irreg/Pounding, Pain/Pressure in jaw, Vaginal Bleeding Increase, Cramps in feet or legs, Lightheadedness, Pain/Pressure in shoulder, Diarrhea(Persistent), Memory Changes Suddenly, Questions/Concerns, Weight gain consecutive days, Dizziness/Fainting, Nausea/Vomiting, Shortness of Breath, Weight gain over 2 pounds If questions or concerns contact your physician Or seek help at emergency department. SOCO BLANCAS DO Dec 29, 2021 13:46
--- NOTE | 2021-12-29 13:48 | Progress Note-Post Operative ---
Post-Operative Progess Note Surgeon (s)/Histopathologist (s) Surgeon SOCO BLANCAS DO Histopathologist: na Pre-Operative Diagnosis wound right 4th toe Post-Operative Diagnosis same Procedure & Operative Findings Date of Procedure 12/29/21 Procedure Performed/Findings right foot block, right 4th toe amputation Anesthesia Type mac c local Estimated Blood Loss Estimated blood loss (mL): minimal Specimens/Packing Specimens Removed right 4th toe SOCO BLANCAS DO Dec 29, 2021 13:48
--- NOTE | 2021-12-30 05:07 | OPERATIVE REPORT ---
DATE OF SERVICE: 12/29/2021 PREOPERATIVE DIAGNOSIS: Wound, left fourth toe. POSTOPERATIVE DIAGNOSIS: Wound, left fourth toe. PROCEDURE: Right foot block and right fourth toe amputation. SURGEON: Soco Ozuna DO. ANESTHESIA: MAC with local. ESTIMATED BLOOD LOSS: Minimal. COMPLICATIONS: None. INDICATIONS: The patient is a 66-year-old female who has had a wound to the right fourth toe causing pain. 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 She wanted to discuss other options. She wishes to have amputation performed. She understands risks and benefits of procedure and wishes to proceed. Consent was signed in the chart. DESCRIPTION OF PROCEDURE: The patient was taken to the operating suite. She was prepped and draped in sterile fashion. Surgical pause was performed. Right foot block was performed on the medial, lateral, and posterior tibia and fibula. The nerves were blocked and also to the dorsum of the foot, which was fanned across the dorsum of the foot achieving a total foot block. Once anesthetic effect took place, 15-blade scalpel was used to make a teardrop incision over the right fourth toe encompassing around the fourth toe itself. Cautery was used to dissect down through the subcutaneous tissues into the metatarsal head and the wounds were dissected through with cautery the toe entirely. The wound was then irrigated. Hemostasis was achieved. Skin was then closed using 3-0 Prolene in a simple running fashion. The area was then washed and dried, and sterile bandage was applied. The patient tolerated procedure well without any complications. She was taken to recovery room in stable condition. Job ID: [id number] DocumentID: [id number] Dictated Date: 12/29/2021 22:52:57 [employer] Rock Installation Helper Date: 12/30/2021 05:05:54 Dictated By: SOCO OZUNA DO
== END 2021-12-29 15:00 ==
LOC: SDC 11:17
PROVIDERS: ATTEND Surgery
DX: L97.509 Non-pressure chronic ulcer of other part of unspecified foot with unspecified severity (principal); E66.9 Obesity, unspecified; F17.210 Nicotine dependence, cigarettes, uncomplicated; C41.9 Malignant neoplasm of bone and articular cartilage, unspecified
CPT/HCPCS: 87081

== ENCOUNTER → 2022-01-24 | Outpatient (CLI) | payer MEDICARE, MEDICAID | LOC: CARD 13:00 | PROVIDERS: ATTEND Internal Medicine Cardiovascular Disease | DX: I11.9 Hypertensive heart disease without heart failure (principal); I08.3 Combined rheumatic disorders of mitral, aortic and tricuspid valves; I25.10 Atherosclerotic heart disease of native coronary artery without angina pectoris | CPT/HCPCS: 93306 ==

== ENCOUNTER 2022-02-15 22:41 | Inpatient (IN) | payer MEDICARE, MEDICAID ==
[~2022-02-15] VITALS: Ht 160 cm; Wt 49.0 kg
[~2022-02-15 22:41] MED LIST changes: +POTA-177 PO; -POTA10TA37 PO
[2022-02-15] MEDS ORDERED: fentaNYL INJ 100 MCG/2 ML AMP IVP ONE (23:00)
[2022-02-15] MEDS ORDERED: LACTATED RINGERS 1,000 ML IV ONE (23:00)
[2022-02-15] MEDS ORDERED: ONDANSETRON 4 MG/2 ML (SDV) Z0FRAN IVP ONE (23:00)
[2022-02-15] MEDS ORDERED: PANTOPRAZOLE 40 MG (PROTONIX) VIAL IV ONE (23:00)
--- NOTE | 2022-02-15 23:07 | ED GI ---
General Stated Complaint: VOMITING Source of Information: Patient Exam Limitations: No Limitations History of Present Illness Date Seen by Provider: Feb 15, 2022 Time Seen by Provider: 22:38 Initial Comments Patient to the ER by private conveyance for chief complaint of nausea vomiting without diarrhea fevers or chills starting about noon today. She took chemotherapy last week. She follows with Dr. Young for oncology and Dr. Blount at [facility] for primary care. 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 She has been using ondansetron at home without any success. She says Phenergan makes her crazy and hydrocodone makes her nauseated. She is having some pain in her abdomen in the suprapubic region but has had decreased urinary output and denies any dysuria. Allergies and Home Medications Allergies Coded Allergies: hydrocodone (Verified Allergy, Intermediate, MAKES STOMACH VERY SICK, 12/29/21) promethazine (Verified Allergy, Unknown, 12/29/21) Patient Home Medication List Home Medication List Reviewed: Yes Alprazolam (Alprazolam) 1 Mg Tablet, 1 MG PO TID, (Reported) Entered as Reported by: CHRISTY SALDANA on 12/12/181350 Last Action: Reviewed Aspirin (Aspirin) 81 Mg Tab.chew, 81 MG PO DAILY, (Reported) Entered as Reported by: CHRISTY SALDANA on 12/12/181350 Last Action: Reviewed Cholecalciferol (Vitamin D3) (D3-50) 1,250 Mcg (94079 Unit) Capsule, 1,250 MCG PO WEEK, (Reported) Entered as Reported by: GO TEJADA on 02/16/221251 Last Action: Reviewed Clopidogrel Bisulfate (Clopidogrel) 75 Mg Tablet, 75 MG PO DAILY, (Reported) Entered as Reported by: GO TEJADA on 02/16/221251 Last Action: Reviewed Dexlansoprazole (Dexlansoprazole Dr) 60 Mg Justin., 60 MG PO DAILY, (Reported) Entered as Reported by: GO TEJADA on 02/16/221251 Last Action: Reviewed Folic Acid (Folic Acid) 1 Mg Tablet, 1 MG PO DAILY, (Reported) Entered as Reported by: GO TEJADA on 02/16/221251 Last Action: Reviewed Gabapentin (Neurontin) 300 Mg Capsule, 300 MG PO BID, (Reported) Entered as Reported by: GO TEJADA on 02/16/221251 Last Action: Reviewed Hydroxychloroquine Sulfate (Hydroxychloroquine Sulfate) 200 Mg Tablet, 200 MG PO BID, (Reported) Entered as Reported by: CHRISTY SALDANA on 12/12/18 135 Last Action: Reviewed Meloxicam (Meloxicam) 15 Mg Tablet, 15 MG PO DAILY, (Reported) Entered as Reported by: GO TEJADA on 02/16/221251 Last Action: Reviewed Morphine Sulfate (Morphine Sulfate ER) 100 Mg Tablet.er, 100 MG PO Q12H, (Reported) Entered as Reported by: GO TEJADA on 02/16/221251 Last Action: Reviewed Nitroglycerin (Nitroglycerin) 0.4 Mg Tab.subl, 0.4 MG SL UD PRN for CHEST PAIN, (Reported) Entered as Reported by: CHRISTY SALDANA on 12/12/181350 Last Action: Reviewed Ondansetron HCl (Ondansetron HCl) 8 Mg Tablet, 8 MG PO TID PRN for NAUSEA/VOMITING-1ST LINE, (Reported) Entered as Reported by: ISAMAR LINO on 10/14/211031 Last Action: Reviewed Oxycodone HCl (Oxycodone HCl) 10 Mg Tablet, 10 MG PO Q6H PRN for PAIN-SEVERE (8- 10), (Reported) Entered as Reported by: GO TEJADA on 02/16/221251 Last Action: Reviewed Pembrolizumab (Keytruda) 100 Mg/4 Ml (25 Mg/Ml) Vial, 200 MG IV EVERY 3 WEEKS, (Reported) Entered as Reported by: GO TEJADA on 02/16/221251 Last Action: Reviewed Polyethylene Glycol 3350 (Gavilax) 17 Gram/Dose Powder, 17 GM PO DAILY PRN for CONSTIPATION-2ND LINE, (Reported) Entered as Reported by: GO TEJADA on 02/16/221251 Last Action: Reviewed Potassium Chloride (Potassium Chloride) 10 Meq Tab.er.prt, 10 MEQ PO DAILY, (Reported) Entered as Reported by: ISAMAR LINO on 10/14/211031 Last Action: Reviewed Rivaroxaban (Xarelto) 20 Mg Tablet, 20 MG PO HS, (Reported) Entered as Reported by: GILDA BROUSSARD on 12/28/21 1556 Last Action: Reviewed Discontinued Medications Alendronate Sodium (Fosamax) 70 Mg Tablet, 70 MG PO WEEK, (Reported) Discontinued Reason: No Longer Taking Entered as Reported by: CHRISTY SALDANA on 12/12/18 1351 Last Action: Discontinued Clopidogrel Bisulfate (Clopidogrel) 75 Mg Tablet, 75 MG PO DAILY Discontinued Reason: No Longer Taking Prescribed by: JOAN SEVERINO on 10/17/21 1745 Last Action: Discontinued Dexlansoprazole (Dexilant) 60 Mg Justin., 60 MG PO DAILY, (Reported) Discontinued Reason: Duplicate Order Entered as Reported by: CHRISTY SALDANA on 12/12/18 135 Last Action: Discontinued Fluticasone Propionate (Flonase Allergy Relief) 9.9 Ml [place].susp, 2 SPRAY NS DAILY, (Reported) Discontinued Reason: No Longer Taking Entered as Reported by: CHRISTY SALDANA on 12/12/18 1351 Last Action: Discontinued Gabapentin (Neurontin) 300 Mg Capsule, 300 MG PO TID, (Reported) Discontinued Reason: No Longer Taking Entered as Reported by: GILDA BROUSSARD on 12/28/21 1556 Last Action: Discontinued Magnesium Oxide (Magnesium) 400 Mg Magnesium Tablet, 400 MG PO DAILY, (Reported) Discontinued Reason: No Longer Taking Entered as Reported by: ISAMAR LINO on 10/14/21 1032 Last Action: Discontinued Oxycodone HCl/Acetaminophen (Percocet 5-325 mg Tablet) 1 Each Tablet, 1 TAB PO Q4H Discontinued Reason: No Longer Taking Prescribed by: JEZ WATKINS on 03/26/21 1516 Last Action: Discontinued [morphine er] , 90 MG PO BID, (Reported) Discontinued Reason: No Longer Taking Entered as Reported by: GILDA BROUSSARD on 07/20/21 1607 Last Action: Discontinued Review of Systems Review of Systems Constitutional: No chills, No diaphoresis EENTM: No Blurred Vision, No Double Vision Respiratory: Denies Cough, Denies Orthopnea Cardiovascular: Denies Chest Pain, Denies Edema Gastrointestinal: See HPI, Abdominal Pain; Denies Constipated, Denies Diarrhea; Nausea, Poor Fluid Intake, Vomiting Genitourinary: Denies Burning, Denies Discharge Musculoskeletal: No back pain, No joint pain All Other Systems Reviewed Negative Unless Noted: Yes Past Kglljtw-Vdhwnd-Wzgsio Hx Patient Social History Tobacco Use?: No Use of E-Cig and/or Vaping dev: No Substance use?: No Immunizations Up To Date First/Initial COVID19 Vaccinat: 07/2020 Second COVID19 Vaccination Bogdan: 08/2020 Third COVID19 Vaccination Date: 2021 Seasonal Allergies Seasonal Allergies: Yes Past Medical History Surgery/Hospitalization HX: lung ca, port placement, hypotension PORT RIGHT CHEST 07/21/21 BIOPSY RIGHT ILIAC BONE 07/07/21 Surgeries: Yes (BILAT FEET, RIGHT SHOULDER X2, LAP GRAZYNA, BLADDER TIE UP;STENTS X 4) Appendectomy, Gallbladder, Hysterectomy, Orthopedic Respiratory: Yes (METASTATIC LUNG CANCER) COPD Currently Using CPAP: No Currently Using BIPAP: No Cardiac: Yes (MA X 2 , WITH STENTS X 4 ) Coronary Artery Disease Neurological: No 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 Disorders: Yes Female 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 Disorders: 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, 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 Sexually Transmitted Disease: No HIV/AIDS: No Genitourinary: No Gastrointestinal: Yes Gastroesophageal Reflux Musculoskeletal: Yes (WOUND RIGHT TOE) Osteoporosis, Arthritis, Fibromyalgia, Chronic Back Pain Endocrine: No HEENT: Yes (READING GLASSES) Cataract Loss of Vision: Denies Hearing Impairment: Denies Cancer: Yes Lung Did You Recieve Any Treatments: Yes What Type of Treatment Did You: Chemotherapy Psychosocial: Yes Anxiety, Depression Integumentary: No Blood Disorders: No Adverse Reaction/Blood Tranf: No (N/A) Family Medical History Alcoholism Arthritis 19 MOTHER G8 BROTHER Cancer of mouth 19 FATHER (THROAT CANCER) Cardiovascular disease 19 MOTHER Completed stroke 19 MOTHER Diabetes mellitus 19 MOTHER FH: breast cancer Hypertension G8 BROTHER Thyroid disease 19 MOTHER No Family History of: AIDS Asthma SOCIAL HISTORY: -SMOKES 1 1/2 PPD -ETOH--RARELY USES -DRUGS--DENIES USE PAST SURGICAL HISTORY: -PORT RIGHT CHEST 07/21/[address] BLANCAS -RIGHT ILIAC BONE BIOPSY 07/07/21 -RIGHT SHOULDER SURGERY X 2 -FINGER SURGERY -BILATERAL FOOT SURGERY -HIATAL HERNIA REPAIR -CARDIAC CATHS--STENTS X 3 -EGD/COLONOSCOPY/POLYPECTOMY -CHOLECYSTECTOMY 12/[address] BLANCAS -HYSTERECTOMY/BILATERAL SALPINGO-OOPHORECTOMY Physical Exam Vital Signs Vital Signs - First Documented Capillary Refill : Height/Weight/BMI Height: 5'3.00" Weight: 126lbs. 0.0oz. 57.297359zh; 18.35 BMI Method:Stated General Appearance: WD/WN, no apparent distress HEENT: PERRL/EOMI, pharynx normal Neck: full range of motion, supple, normal inspection Respiratory: lungs clear, normal breath sounds, no respiratory distress, no accessory muscle use Cardiovascular: normal peripheral pulses, regular rate, rhythm, no murmur Peripheral Pulses: 2+ Radial Pulses (R), 2+ Radial Pulses (L) Gastrointestinal: normal bowel sounds, soft, no organomegaly, tenderness (Super) Extremities: non-tender, normal inspection, normal capillary refill Neurologic/Psychiatric: alert, normal mood/affect, oriented x 3 Skin: normal color, warm/dry Focused Exam Lactate Level 02/15/22 23:00: Lactic Acid Level 1.89 Lactic Acid Level Laboratory Tests Test 02/15/22 23:00 Lactic Acid Level 1.89 MMOL/L (0.50-2.00) Progress/Results/Core Measures Results/Orders Lab Results Laboratory Tests Test 02/15/22 23:00 02/15/22 23:08 02/16/22 00:33 Range/Units White Blood Count 11.1 H 4.3-11.0 10^3/uL Red Blood Count 4.08 3.80-5.11 10^6/uL Hemoglobin 10.8 L 11.5-16.0 g/dL Hematocrit 34 L 35-52 % Mean Corpuscular Volume 83 80-99 fL Mean Corpuscular Hemoglobin 27 25-34 pg Mean Corpuscular Hemoglobin Concent 32 32-36 g/dL Red Cell Distribution Width 14.7 H 10.0-14.5 % Platelet Count 330 130-400 10^3/uL Mean Platelet Volume 8.7 L 9.0-12.2 fL Immature Granulocyte % (Auto) 0 % Neutrophils (%) (Auto) 91 H 42-75 % Lymphocytes (%) (Auto) 6 L 12-44 % Monocytes (%) (Auto) 2 0-12 % Eosinophils (%) (Auto) 0 0-10 % Basophils (%) (Auto) 0 0-10 % Neutrophils # (Auto) 10.1 H 1.8-7.8 10^3/uL Lymphocytes # (Auto) 0.7 L 1.0-4.0 10^3/uL Monocytes # (Auto) 0.3 0.0-1.0 10^3/uL Eosinophils # (Auto) 0.0 0.0-0.3 10^3/uL Basophils # (Auto) 0.0 0.0-0.1 10^3/uL Immature Granulocyte # (Auto) 0.0 0.0-0.1 10^3/uL Neutrophils % (Manual) 85 % Lymphocytes % (Manual) 3 % Monocytes % (Manual) 0 % Eosinophils % (Manual) 0 % Band Neutrophils 12 % Polychromasia SLIGHT Hypochromasia SLIGHT Anisocytosis SLIGHT Prothrombin Time 14.8 H 12.2-14.7 SEC INR Comment 1.1 0.8-1.4 Activated Partial Thromboplast Time 32 24-35 SEC Sodium Level 135 135-145 MMOL/L Potassium Level 3.7 3.6-5.0 MMOL/L Chloride Level 99 98-107 MMOL/L Carbon Dioxide Level 23 21-32 MMOL/L Anion Gap 13 5-14 MMOL/L Blood Urea Nitrogen 21 H 7-18 MG/DL Creatinine 0.66 0.60-1.30 MG/DL Estimat Glomerular Filtration Rate 96 BUN/Creatinine Ratio 32 Glucose Level 146 H 70-105 MG/DL Lactic Acid Level 1.89 0.50-2.00 MMOL/L Calcium Level 8.7 8.5-10.1 MG/DL Corrected Calcium 9.1 8.5-10.1 MG/DL Total Bilirubin 0.4 0.1-1.0 MG/DL Aspartate Amino Transf (AST/SGOT) 15 5-34 U/L Alanine Aminotransferase (ALT/SGPT) 21 0-55 U/L Alkaline Phosphatase 82 40-136 U/L C-Reactive Protein High Sensitivity 7.36 H 0.00-0.50 MG/DL Total Protein 6.3 L 6.4-8.2 GM/DL Albumin 3.5 3.2-4.5 GM/DL Lipase 4 L 8-78 U/L Influenza Type A (RT-PCR) Not Detected Not Detecte Influenza Type B (RT-PCR) Not Detected Not Detecte SARS-CoV-2 RNA (RT-PCR) Detected H Not Detecte Urine Color YELLOW Urine Clarity CLEAR Urine pH 8.0 5-9 Urine Specific [place] 1.020 1.016-1.022 Urine Protein NEGATIVE NEGATIVE Urine Glucose (UA) NEGATIVE NEGATIVE Urine Ketones NEGATIVE NEGATIVE Urine Nitrite NEGATIVE NEGATIVE Urine Bilirubin NEGATIVE NEGATIVE Urine Urobilinogen 1.0 < = 1.0 MG/DL Urine Leukocyte Esterase NEGATIVE NEGATIVE Urine RBC (Auto) NEGATIVE NEGATIVE Urine RBC NONE /HPF Urine WBC RARE /HPF Urine Squamous Epithelial Cells RARE /HPF Urine Crystals NONE /LPF Urine Bacteria TRACE /HPF Urine Casts NONE /LPF Urine Mucus NEGATIVE /LPF Urine Culture Indicated CULTURE PENDING Micro Results Microbiology 02/15/22 Blood Culture - Preliminary, Resulted No growth 02/15/22 Blood Culture - Preliminary, Resulted No growth My Orders Orders - DANIEL KOROMA Ed Iv/Invasive Line Start (02/15/22 22:59) Lactated Ringers (Lr 1000 Ml Iv Solution (02/15/22 23:00) Cbc With Automated Diff (02/15/22 22:59) Comprehensive Metabolic Panel (02/15/22 22:59) Hs C Reactive Protein (02/15/22 22:59) Ondansetron Injection (Zofran Injectio (02/15/22 23:00) Fentanyl Inj (Sublimaze Injection) (02/15/22 23:00) Pantoprazole Injection (Protonix Injecti (02/15/22 23:00) Ct Abdomen/Pelvis W (02/15/22 23:07) Lipase (02/15/22 23:07) Blood Culture (02/15/22 23:07) Urinalysis (02/15/22 23:07) Urine Culture (02/15/22 23:07) Protime With Inr (02/15/22 23:07) Partial Thromboplastin Time (02/15/22 23:07) Chest 1 View, Ap/Pa Only (02/15/22 23:07) Ed Iv/Invasive Line Start (02/15/22 23:07) Ed Iv/Invasive Line Start (02/15/22 23:07) Vital Signs Adult Sepsis Patie Q15M (02/15/22 23:07) O2 (02/15/22 23:07) Remove Rings In Anticipation O (02/15/22 23:07) Lactic Acid Analyzer (02/15/22 23:07) Ed Iv/Invasive Line Start (02/15/22 23:07) Ns Iv 500 Ml (Sodium Chloride 0.9%) (02/15/22 23:15) Manual Differential (02/15/22 23:00) Covid 19 Inhouse Test (02/15/22 23:30) Influenza A And B By Pcr (02/15/22 23:30) Iohexol Injection (Omnipaque 350 Mg/Ml 1 (02/16/22 00:00) Ns (Ivpb) (Sodium Chloride 0.9% Ivpb Bag (02/16/22 00:00) Bebtelovimab (Bebtelovimab) (02/16/22 00:00) Catheter(Urinary) Insert & Ass 03,15 (02/16/22 00:17) Prochlorperazine Injection (Compazine In (02/16/22 00:30) Diphenhydramine Injection (Benadryl Inje (02/16/22 00:30) Ed Iv/Invasive Line Start (02/16/22 00:17) Ns Iv 500 Ml (Sodium Chloride 0.9%) (02/16/22 00:30) Piperacillin Sodium/Tazobactam (Zosyn Vi (02/16/22 01:15) Vancomycin Injection (Vancomycin Injecti (02/16/22 01:15) Ketamine Syringe (Ketamine Syringe) (02/16/22 01:30) Fluconazole 100 Mg/50 Ml (Diflucan Iv) (02/16/22 01:30) Fentanyl Inj (Sublimaze Injection) (02/16/22 01:30) Medications Given in ED Vital Signs/I&O 02/15/22 02/15/22 23:00 23:00 Temp 36.4 Pulse 109 Resp 20 B/P (MAP) 139/69 (92) Pulse Ox 96 96 O2 Delivery Room Air Room Air Progress Progress Note #1: Time: 23:06 Progress Note She has no fever but she is tachycardic so we will go ahead and start a septic work-up give her a liter of fluids and collect COVID and flu. We will hold off on antibiotics at as she does not meet sepsis criteria. Progress Note #2: Time: 00:20 Progress Note Patient has a prominent bladder on CT scan and unable to empty her bladder since 1800. Suspect she has urinary retention so we will put a Roca catheter in place. We discussed use of bebteloviMab and its authorization emergently by the FDA for the treatment of COVID-19. At this time the patient's not having any shortness of air and her tachycardia has improved. Maintaining oxygen saturations 96% on room air nonlabored. Occasional dry nonproductive cough. Patient is in agreement to use the monoclonal antibody infusion. She does not want to stay in the hospital. We will get her urine out and set her up with urology. Diagnostic Imaging Diagonstic Imaging: CT Plain Films/CT/US/NM/MRI: abdomen, pelvis Comments There is small amount of pneumoperitoneum under the diaphragm. There is a diffuse edema throughout the pelvis involving multiple loops of small bowel as well as the sigmoid colon. There is a roughly 3 to 4 cm cluster of gas bubbles which appear to be extraluminal between bowel and the dome of the diaphragm. The cause of bowel perforation is unclear. No well-defined abscess is seen. There is free fluid in the pelvis. 2.2 cm low-density lesion in the periphery of the right liver lobe is nonspecific. This may be new since previous image which would suggest a metastasis. Recommend correlation to other more complete imaging studies of the abdomen. [facility]. [place], [place] NAME: BLANE JOSHI [facility] REC#: [id number] PT STATUS: ADM IN : 1955 PHYSICIAN: DANIEL KOROMA MD ADMIT DATE: 02/16/22/ICU Signed Date of Exam:02/15/22 CT ABDOMEN/PELVIS W PROCEDURE: CT abdomen and pelvis with contrast. TECHNIQUE: Multiple contiguous axial images were obtained through the abdomen and pelvis after administration of intravenous contrast. Auto Exposure Controls were utilized during the CT exam to meet ALARA standards for radiation dose reduction. All CT scans use one or more of the following dose optimizing techniques: automated exposure control, MA and/or KvP adjustment based on patient size and exam type or iterative reconstruction. INDICATION: 66-year-old female with history of metastatic CA, has suprapubic pain. COMPARISONS: 10/07/2021 FINDINGS: Lung bases show severe COPD with chronic parenchymal changes. There is no consolidation, effusion or pneumothorax. There is a calcified granuloma in the right middle lobe. Cardiac contour is normal. Coronary calcifications are present. Liver shows a 2 cm low density in the periphery of the segment 7 of the right lobe. Gallbladder surgically absent. Spleen and GE junction are grossly unremarkable. Stomach and duodenal sweep are also grossly normal. Pancreas shows sharp margins. Adrenals are normal. Kidneys show a 1 cm Bosniak classification 2 cyst in the right kidney. There is otherwise symmetrical perfusion of contrast. There is some very mild right pelvic caliectasis. There is no renal or ureteral calculi. Both ureters are seen intermittently through their course and appear grossly unremarkable. Filled bladder is also grossly normal. The nonopacified proximal loops of small bowel are decompressed. The mid and distal loops show fluid-filled loops with air-fluid levels. There is a focus of distal small bowel centered near the midline pelvis which shows focal mucosal thickening. There is free air suggesting perforated viscus of the mid to distal small bowel. Large bowel contains fecal material and gas with a moderate amount of fecal load. Nonaneurysmal aortic calcifications extend to the iliac and femoral arteries. There is free fluid within the pelvis. IMPRESSION: 1. There is free air in the abdomen due to a perforated viscus. This is most likely at the level of the mid to distal small bowel where there is mucosal thickening as well as surrounding edema. 2. There is moderate amount of fecal load in the colon. 3. There is free pelvic fluid possibly organizing abscess. 4. A 2 cm low density lesion on the periphery of the right lobe of the liver is new since the prior CT and may be metastatic lesion. 5. There is prominence of the common duct and intrahepatic ducts most likely due to the postcholecystectomy state and the patient's age. Ampullary stenosis is not entirely excluded. Additional nonemergent findings as described above. Agree with [facility] report. Dictated by: Dictated on workstation # [id number] Dict: 02/16/22 0418 Trans: 02/16/22706 [id number] [id number] Interpreted by: MARLENE CINTRON MD Electronically signed by: MARLENE CINTRON MD 02/16/22706 Reviewed: Reviewed by [place] Diagonstic Imaging: Xray Plain Films/CT/US/NM/MRI: chest Comments [facility], [place] NAME: BLANE JOSHI [facility] REC#: [id number] PT STATUS: ADM IN : 1955 PHYSICIAN: DANIEL KOROMA MD ADMIT DATE: 02/16/22/ICU Signed Date of Exam:02/15/22 CHEST 1 VIEW, AP/PA ONLY INDICATION: 66-year-old female presents with chest pain, metastatic CA, sepsis. COMPARISONS: 10/14/2021 FINDINGS: Single view of the chest shows the cardiac contour to be normal. Chest is otherwise senescent with prominent chronic parenchymal changes. Mild central venous congestion is noted. Superimposed scattered predominantly interstitial infiltrates are present but no confluent consolidations. There is a 1.6 cm scarlike density in the right lateral upper chest which appears to be more prominent when compared to prior study. Right IJ Mediport is stable with the tip projected over the SVC. Soft tissues and bony thorax are unchanged. IMPRESSION: 1. Senescent chest with COPD and chronic parenchymal changes. 2. Mild central venous congestion. There are scattered alveolar infiltrates but no confluent consolidations. 3. A 1.6 cm lateral right upper lobe lung nodule. CT chest is recommended. Dictated by: Dictated on workstation # [id number] Dict: 02/16/22 0308 Trans: 02/16/22 0707 OLGA [id number] Interpreted by: MARLENE CINTRON MD Electronically signed by: MARLENE CINTRON MD 02/16/22706 Reviewed: Reviewed by Me Departure Communication (Admissions) Time/Spoke to Admitting Phy: Discussed the case with Dr. Farmer who agrees to admit the patient to the ICU with surgical consult. Time/Spoke to Consulting Phy: : Discussed the case with Dr. BRIGHT who agrees to see the patient in the morning. He wants Zosyn and fluconazole. eICU 0140: Discussed the case with the eICU doctor and he agrees to consult on the case. Impression Primary Impression: Bladder outlet obstruction Additional Impressions: COVID-19 Constipation Qualified Codes: K59.03 - Drug induced constipation Mild dehydration Nausea & vomiting Qualified Codes: R11.2 - Nausea with vomiting, unspecified Large bowel perforation Disposition: HOME, SELF-CARE Condition: Stable Admissions Decision to Admit Reason: Admit from ER (General) Decision to Admit/Date: Feb 16, 2022 Time/Decision to Admit Time: 01:15 Departure-Patient Inst. Referrals: GO BLOUNT DO (PCP/Family) Primary Care Physician Patient Instructions: Bebtelovimab FDA Fact Sheet DANIEL KOROMA Feb 15, 2022 23:07
[2022-02-15 23:12] LABS: BASOPHILS % (AUTO) 0 % (0-10); EOSINOPHILS % (AUTO) 0 % (0-10); HEMATOCRIT 34 % (35-52); HEMOGLOBIN 10.8 g/dL (11.5-16.0); LYMPHOCYTES # (AUTO) 0.7 10^3/uL (1.0-4.0); LYMPHOCYTES % (AUTO) 6 % (12-44); MEAN CORPUSCULAR HEMOGLOBIN 27 pg (25-34); MEAN CORPUSCULAR HGB CONC 32 g/dL (32-36); MEAN CORPUSCULAR VOLUME 83 fL (80-99); MEAN PLATELET VOLUME 8.7 fL (9.0-12.2); MONOCYTES # (AUTO) 0.3 10^3/uL (0.0-1.0); MONOCYTES % (AUTO) 2 % (0-12); NEUTROPHILS # (AUTO) 10.1 10^3/uL (1.8-7.8); NEUTROPHILS % (AUTO) 91 % (42-75); PLATELET COUNT 330 10^3/uL (130-400); WHITE BLOOD COUNT 11.1 10^3/uL (4.3-11.0)
[2022-02-15] MEDS ORDERED: NS IV 500 ML 500 ML IV ONE (23:15)
[2022-02-15 23:21] LABS: ALBUMIN 3.5 GM/DL (3.2-4.5); POTASSIUM 3.7 MMOL/L (3.6-5.0)
[2022-02-15 23:22] LABS: CALCIUM 8.7 MG/DL (8.5-10.1)
[2022-02-15 23:23] LABS: TOTAL PROTEIN 6.3 GM/DL (6.4-8.2)
[2022-02-15 23:24] LABS: INR 1.1 (0.8-1.4); PROTHROMBIN TIME PATIENT 14.8 SEC (12.2-14.7)
[2022-02-15 23:25] LABS: BILIRUBIN,TOTAL 0.4 MG/DL (0.1-1.0)
[2022-02-15 23:27] LABS: CREATININE SERUM 0.66 MG/DL (0.60-1.30)
[2022-02-15 23:31] LABS: ANISOCYTOSIS SLIGHT; BAND NEUTROPHILS 12 %; EOSINOPHILS % (MANUAL) 0 %; HYPOCHROMASIA SLIGHT; LYMPHOCYTES % (MANUAL) 3 %; MONOCYTES % (MANUAL) 0 %; NEUTROPHILS % (MANUAL) 85 %; POLYCHROMASIA SLIGHT
[2022-02-16] VITALS (11 sets, daily range): BP systolic 111–192; BP diastolic 65–94
[2022-02-16] MEDS ORDERED: BEBTELOVIMAB 175 MG/2 ML VIAL IV ONE
[2022-02-16] MEDS ORDERED: IOHEXOL 350 MG/ML 100 ML (OMNIPAQUE 350) VIAL IV ONE
[2022-02-16] MEDS ORDERED: NS 100 ML (IVPB) BAG IV ONE
[2022-02-16] MEDS ORDERED: diphenhydrAMINE 50 MG/ML INJ (BENADRYL) IVP ONE (00:30)
[2022-02-16] MEDS ORDERED: NS IV 500 ML 500 ML IV ONE (00:30)
[2022-02-16] MEDS ORDERED: PROCHLORPERAZINE 10 MG/2ML INJ (COMPAZINE) IV ONE (00:30)
[2022-02-16 00:39] LABS: BILIRUBIN,URINE NEGATIVE (NEGATIVE); CLARITY,URINE CLEAR; COLOR,URINE YELLOW; GLUCOSE, URINE (UA) NEGATIVE (NEGATIVE); KETONES,URINE NEGATIVE (NEGATIVE); LEUKOCYTE ESTERASE ,URINE NEGATIVE (NEGATIVE); NITRITE,URINE NEGATIVE (NEGATIVE); PROTEIN,URINE NEGATIVE (NEGATIVE)
[2022-02-16 00:44] LABS: BACTERIA,URINE TRACE /HPF; SQUAMOUS EPITHELIAL CELL,UR RARE /HPF; WBC,URINE RARE /HPF
[2022-02-16] MEDS ORDERED: PIPERACILLIN SODIUM/TAZOBACTAM 4.5 GM in NS (IVPB) 100 ML IV ONE (01:15)
[2022-02-16] MEDS ORDERED: VANCOMYCIN INJECTION 1,000 MG in NS (IVPB) 250 ML IV ONE (01:15)
[2022-02-16] MEDS ORDERED: FLUCONAZOLE 100 MG/50 ML 50 ML IV ONE (01:30)
[2022-02-16] MEDS ORDERED: fentaNYL INJ 100 MCG/2 ML AMP IVP ONE (01:30)
[2022-02-16] MEDS ORDERED: KETAMINE 50 MG/5 ML SYRINGE IV ONE (01:30)
[2022-02-16] MEDS ORDERED: LACTATED RINGERS 1,000 ML IV ONE (02:22)
[2022-02-16] MEDS: LACTATED RINGERS 1,000 ML IV SCH ×4 (02:26→18:31)
[2022-02-16] MEDS: ONDANSETRON 4 MG/2 ML (SDV) Z0FRAN IV PRN ×2 (02:30→10:31)
[2022-02-16] MEDS ORDERED: EPINEPHrine 1 MG INJECTION 4 MG in NS (IVPB) 248 ML IV SCH (02:30)
[2022-02-16] MEDS: fentaNYL INJ 100 MCG/2 ML AMP IV PRN ×4 (02:31→12:07)
[2022-02-16] MEDS: NOREPINEPHRINE 8 MG/250 ML 250 ML IV SCH (02:50)
[2022-02-16] MEDS: VASOPRESSIN INJECTION 20 UNIT in NS (IVPB) 100 ML IV SCH ×2 (02:50→13:55)
[2022-02-16] MEDS ORDERED: NS IV 500 ML 500 ML IV PRN (03:00)
[2022-02-16] MEDS: PIPERACILLIN SODIUM/TAZOBACTAM 4.5 GM in NS (IVPB) 100 ML IV SCH ×3 (04:18→21:33)
[2022-02-16 04:27] LABS: BASOPHILS % (AUTO) 0 % (0-10); EOSINOPHILS % (AUTO) 0 % (0-10); HEMATOCRIT 33 % (35-52); HEMOGLOBIN 10.7 g/dL (11.5-16.0); LYMPHOCYTES # (AUTO) 0.8 10^3/uL (1.0-4.0); LYMPHOCYTES % (AUTO) 5 % (12-44); MEAN CORPUSCULAR HEMOGLOBIN 27 pg (25-34); MEAN CORPUSCULAR HGB CONC 33 g/dL (32-36); MEAN CORPUSCULAR VOLUME 82 fL (80-99); MEAN PLATELET VOLUME 8.9 fL (9.0-12.2); MONOCYTES # (AUTO) 0.2 10^3/uL (0.0-1.0); MONOCYTES % (AUTO) 2 % (0-12); NEUTROPHILS # (AUTO) 13.5 10^3/uL (1.8-7.8); NEUTROPHILS % (AUTO) 93 % (42-75); PLATELET COUNT 322 10^3/uL (130-400); WHITE BLOOD COUNT 14.6 10^3/uL (4.3-11.0)
[2022-02-16 04:44] LABS: ALBUMIN 3.1 GM/DL (3.2-4.5); POTASSIUM 3.6 MMOL/L (3.6-5.0)
[2022-02-16 04:45] LABS: CALCIUM 8.2 MG/DL (8.5-10.1)
[2022-02-16 04:47] LABS: TOTAL PROTEIN 5.7 GM/DL (6.4-8.2)
[2022-02-16 04:48] LABS: BILIRUBIN,TOTAL 0.6 MG/DL (0.1-1.0)
--- NOTE | 2022-02-16 04:49 | Diagnostic Imaging Report ---
INDICATION: 66-year-old female presents with chest pain, metastatic CA, sepsis. COMPARISONS: 10/14/2021 FINDINGS: Single view of the chest shows the cardiac contour to be normal. Chest is otherwise senescent with prominent chronic parenchymal changes. Mild central venous congestion is noted. Superimposed scattered predominantly interstitial infiltrates are present but no confluent consolidations. There is a 1.6 cm scarlike density in the right lateral upper chest which appears to be more prominent when compared to prior study. Right IJ Mediport is stable with the tip projected over the SVC. Soft tissues and bony thorax are unchanged. IMPRESSION: 1. Senescent chest with COPD and chronic parenchymal changes. 2. Mild central venous congestion. There are scattered alveolar infiltrates but no confluent consolidations. 3. A 1.6 cm lateral right upper lobe lung nodule. CT chest is recommended. Dictated by: Dictated on workstation # [id number]
[2022-02-16 04:50] LABS: CREATININE SERUM 0.61 MG/DL (0.60-1.30); PHOSPHORUS 3.8 MG/DL (2.3-4.7)
[2022-02-16 04:52] LABS: ANISOCYTOSIS SLIGHT; BAND NEUTROPHILS 6 %; BASOPHILS % (MANUAL) 0 %; EOSINOPHILS % (MANUAL) 0 %; LYMPHOCYTES % (MANUAL) 3 %; MONOCYTES % (MANUAL) 1 %; NEUTROPHILS % (MANUAL) 90 %
[2022-02-16 04:53] LABS: MAGNESIUM 1.4 MG/DL (1.6-2.4)
[2022-02-16] MEDS: MAGNESIUM 1 GM/100 ML IVPB 100 ML IV SCH ×3 (05:03→06:20)
[2022-02-16] MEDS: POTASSIUM CL 10MEQ/50ML IVPB 50 ML IV SCH ×3 (05:03→06:20)
[2022-02-16] MEDS: KCL 20 MEQ TAB (K-DUR) PO SCH (05:03)
--- NOTE | 2022-02-16 06:03 | Diagnostic Imaging Report ---
PROCEDURE: CT abdomen and pelvis with contrast. TECHNIQUE: Multiple contiguous axial images were obtained through the abdomen and pelvis after administration of intravenous contrast. Auto Exposure Controls were utilized during the CT exam to meet ALARA standards for radiation dose reduction. All CT scans use one or more of the following dose optimizing techniques: automated exposure control, MA and/or KvP adjustment based on patient size and exam type or iterative reconstruction. INDICATION: 66-year-old female with history of metastatic CA, has suprapubic pain. COMPARISONS: 10/07/2021 FINDINGS: Lung bases show severe COPD with chronic parenchymal changes. There is no consolidation, effusion or pneumothorax. There is a calcified granuloma in the right middle lobe. Cardiac contour is normal. Coronary calcifications are present. Liver shows a 2 cm low density in the periphery of the segment 7 of the right lobe. Gallbladder surgically absent. Spleen and GE junction are grossly unremarkable. Stomach and duodenal sweep are also grossly normal. Pancreas shows sharp margins. Adrenals are normal. Kidneys show a 1 cm Bosniak classification 2 cyst in the right kidney. There is otherwise symmetrical perfusion of contrast. There is some very mild right pelvic caliectasis. There is no renal or ureteral calculi. Both ureters are seen intermittently through their course and appear grossly unremarkable. Filled bladder is also grossly normal. The nonopacified proximal loops of small bowel are decompressed. The mid and distal loops show fluid-filled loops with air-fluid levels. There is a focus of distal small bowel centered near the midline pelvis which shows focal mucosal thickening. There is free air suggesting perforated viscus of the mid to distal small bowel. Large bowel contains fecal material and gas with a moderate amount of fecal load. Nonaneurysmal aortic calcifications extend to the iliac and femoral arteries. There is free fluid within the pelvis. IMPRESSION: 1. There is free air in the abdomen due to a perforated viscus. This is most likely at the level of the mid to distal small bowel where there is mucosal thickening as well as surrounding edema. 2. There is moderate amount of fecal load in the colon. 3. There is free pelvic fluid possibly organizing abscess. 4. A 2 cm low density lesion on the periphery of the right lobe of the liver is new since the prior CT and may be metastatic lesion. 5. There is prominence of the common duct and intrahepatic ducts most likely due to the postcholecystectomy state and the patient's age. Ampullary stenosis is not entirely excluded. Additional nonemergent findings as described above. Agree with Dottiek report. Dictated by: Dictated on workstation # [id number]
--- NOTE | 2022-02-16 10:00 | Tele-ICU Consult ---
History of Present Illness History of Present Illness Date Seen by Provider: Feb 16, 2022 Time Seen by Provider: 09:59 Date of Admission (Tele-ICU Physician , consultation) Available chart/ vitals / labs / Images reviewed H&P is from ER notes Patient's information available about PMH, Shx, Fhx allergy reviewed inEMR. ROS as per chart and RN report Now in ICU, hemodynamically stable Video assessment done using teleICU camera, rest of exam as per RN Discussed with RN. Consultants: Hospital course: A/P Perforated viscus/ free air on abd CT ( " likely at the level of the mid to distal small bowel" - sx consulted - NPO , ABX , hydration Leukocytosis to above - abx started Zosyn PAIN - fentanyl / morphine Covid + - vaccinated ( moderna x2 + buster Anemia - stable ECHO 01/24/22 -EF 60% -pulm htrn RVSP 60 mmHg Lung CA , reportedly stage 4 - oncololy is in other hospital PAD - s/p stenting right - on plavix - ON HOLD Lines : port right , (Central Line Necessity Reviewed) Roca: + OG: Nutrition: Analgesia: Anxiety/ delirium VTE Prophylaxis: SCD for now , high risk with h/o CA Stress Ulcer Prophylaxis: Plans in collaboration with bedside consultants and IM MDs. Discussed with RN to reach out if any questions or concerns A total of 33 minutes of critical care time was devoted to this patient today, required to treat and/or prevent further deterioration of critical care condition ( as above ) . Allergies and Home Medications Allergies Coded Allergies: hydrocodone (Verified Allergy, Intermediate, MAKES STOMACH VERY SICK, 12/29/21) promethazine (Verified Allergy, Unknown, 12/29/21) Home Medications Alendronate Sodium 70 Mg Tablet, 70 MG PO WEEK, (Reported) Alprazolam 1 Mg Tablet, 1 MG PO TID, (Reported) Aspirin 81 Mg Tab.chew, 81 MG PO DAILY, (Reported) Clopidogrel Bisulfate 75 Mg Tablet, 75 MG PO DAILY Prescribed by: JOAN SEVERINO on 10/17/211744 Dexlansoprazole 60 Mg , 60 MG PO DAILY, (Reported) Fluticasone Propionate 9.9 Ml [place].susp, 2 SPRAY NS DAILY, (Reported) 1 SPRAY EACH NARE DAILY Gabapentin 300 Mg Capsule, 300 MG PO TID, (Reported) Hydroxychloroquine Sulfate 200 Mg Tablet, 200 MG PO BID, (Reported) Magnesium Oxide 400 Mg Magnesium Tablet, 400 MG PO DAILY, (Reported) Nitroglycerin 0.4 Mg Tab.subl, 0.4 MG SL UD PRN for CHEST PAIN, (Reported) Ondansetron HCl 8 Mg Tablet, 8 MG PO TID PRN for NAUSEA/VOMITING, (Reported) Oxycodone HCl/Acetaminophen 1 Each Tablet, 1 TAB PO Q4H Prescribed by: JEZ WATKINS on 03/26/21 1516 Potassium Chloride 10 Meq Tab.er.prt, 10 MEQ PO DAILY, (Reported) Rivaroxaban 20 Mg Tablet, 20 MG PO UD, (Reported) [morphine er] , 90 MG PO BID, (Reported) Past Medical/Social/Family Hx Patient Social History Tobacco Use?: Yes Tobacco type used: Cigarettes Smoking Status: Current Everyday Smoker Use of E-Cig and/or Vaping dev: No Substance use?: No Alcohol Use?: No Pt stated abuse/neglect: No Immunizations Up To Date First/Initial COVID19 Vaccinat: 07/2020 Second COVID19 Vaccination Bogdan: 08/2020 Tetanus Booster (TDap): More Than 5 Years Current Status Advance Directives: No Primary Language: Cameroonian Preferred Spoken Language: Cameroonian Sensory deficits: Vision impairment Implanted or [employer] D: Orthopedic hardware, Port-a-cath, Stents Family Medical History Family Hx: SOCIAL HISTORY: -SMOKES 1 06/19 PPD -ETOH--RARELY USES -DRUGS--DENIES USE PAST SURGICAL HISTORY: -PORT RIGHT CHEST 07/21/[address] BLANCAS -RIGHT ILIAC BONE BIOPSY 07/07/21 -RIGHT SHOULDER SURGERY X 2 -FINGER SURGERY -BILATERAL FOOT SURGERY -HIATAL HERNIA REPAIR -CARDIAC CATHS--STENTS X 3 -EGD/COLONOSCOPY/POLYPECTOMY -CHOLECYSTECTOMY 12/[address] BLANCAS -HYSTERECTOMY/BILATERAL SALPINGO-OOPHORECTOMY Review of Systems Constitutional: see HPI Focused Exam Lactate Level 02/15/22 23:00: Lactic Acid Level 1.89 Height, Weight, BMI Height: 5'3.00" Weight: 126lbs. 0.0oz. [id number]; 20.15 BMI Method:Stated Exam Exam Patient acknowledged, consented, and participated in this virtual visit which wa s conducted using real time audio/video Vital Signs Date Time Temp Pulse Resp B/P (MAP) Pulse Ox O2 Delivery O2 Flow Rate FiO2 02/16/22 09:00 113 6 127/68 (87) 94 Room Air 02/16/22 08:00 37.6 122 18 140/77 (98) 94 Room Air 02/16/22 08:00 94 Room Air 02/16/22 08:00 110 21 144/76 (98) 93 Room Air 02/16/22 07:06 108 02/16/22 07:00 122 11 142/75 (97) 94 Room Air 02/16/22 06:00 121 21 144/72 (96) 93 Room Air 02/16/22 05:00 123 21 139/58 (81) 93 Room Air 02/16/22 04:40 37.8 02/16/22 04:00 95 Room Air 02/16/22 04:00 121 15 156/89 (94) 94 Room Air 02/16/22 03:45 116 21 146/81 (100) 92 Room Air 02/16/22 03:30 118 20 163/80 (107) 93 Room Air 02/16/22 03:15 117 149/77 (102) 93 Room Air 02/16/22 03:00 111 18 144/73 (95) 95 Room Air 02/16/22 02:50 132/67 02/16/22 02:50 132/67 02/16/22 02:45 110 37 132/67 (88) 94 Room Air 02/16/22 02:30 110 24 157/78 (100) 95 Room Air 02/16/22 02:24 120 14 155/78 (100) 94 Room Air 02/16/22 02:20 114 02/16/22 02:05 95 Room Air 02/16/22 02:05 37.2 Room Air 02/15/22 23:00 96 Room Air 02/15/22 23:00 36.4 109 20 139/69 (92) 96 Room Air I & O 02/16/22 07:00 Intake Total 2750 ml Output Total 475 ml Balance 2275 ml Height & Weight Height: 5'3.00" Weight: 126lbs. 0.0oz. [id number]; 20.15 BMI Method:Stated General Appearance: No Apparent Distress Capillary Refill: Less Than 3 Seconds Peripheral Pulses: 2+ Radial Pulses (R), 2+ Radial Pulses (L) Gastrointestinal: normal bowel sounds, soft, no organomegaly, tenderness (Super) Results Lab Laboratory Tests 02/15/22 23:00 02/16/22 04:20 Assessment/Plan Assessment/Plan 1 ROSALIE HUNG MD Feb 16, 2022 10:00
[2022-02-16] MEDS: morphine INJ 4 MG/ML 1 ML (VIAL/SYRINGE) IVP PRN ×2 (10:27→12:56)
[2022-02-16] MEDS ORDERED: MELO15TA39 PO (12:52)
[2022-02-16] MEDS ORDERED: OXYC10TA7 PO (12:52)
[2022-02-16] MEDS ORDERED: MORP100T47 PO (12:52)
[2022-02-16] MEDS ORDERED: POLY238P10 PO (12:52)
[2022-02-16] MEDS ORDERED: PEMB100V IV (12:52)
[2022-02-16] MEDS ORDERED: CLOP75TA28 PO (12:52)
[2022-02-16] MEDS ORDERED: DEXL60CA6 PO (12:52)
[2022-02-16] MEDS ORDERED: FOLI1TAB33 PO (12:52)
[2022-02-16] MEDS ORDERED: CHOL50005 PO (12:52)
[2022-02-16] MEDS ORDERED: GABA300C PO (12:52)
--- NOTE | 2022-02-16 13:38 | Consultation - Surgery ---
History of Present Illness History of Present Illness Patient Consulted On(dmei/time) 02/16/22 13:32 Date Seen by Provider: Feb 16, 2022 Time Seen by Provider: 13:32 History of Present Illness 66 year old female who started having severe abdominal pain yesterday around noon. Having nausea and emesis. Pain continued to worsen. Movement makes worse. Holding still makes better. Not able to take meds last two days. Went to ER for further evaluation. She has small cell lung c mets. She had CT scan showin. There is free air in the abdomen due to a perforated viscus. This is most likely at the level of the mid to distal small bowel where there is mucosal thickening as well as surrounding edema. 2. There is moderate amount of fecal load in the colon. 3. There is free pelvic fluid possibly organizing abscess. 4. A 2 cm low density lesion on the periphery of the right lobe of the liver is new since the prior CT and may be metastatic lesion. 5. There is prominence of the common duct and intrahepatic ducts most likely due to the postcholecystectomy state and the patient's age. Ampullary stenosis is not entirely excluded. Additional nonemergent findings as described above. Allergies and Home Medications Allergies Coded Allergies: hydrocodone (Verified Allergy, Intermediate, MAKES STOMACH VERY SICK, 12/29/21) promethazine (Verified Allergy, Unknown, 12/29/21) Patient Home Medication List Home Medication List Reviewed: Yes Alprazolam (Alprazolam) 1 Mg Tablet, 1 MG PO TID, (Reported) Entered as Reported by: CHRISTY SALDANA on 12/12/18 1351 Last Action: Reviewed Aspirin (Aspirin) 81 Mg Tab.chew, 81 MG PO DAILY, (Reported) Entered as Reported by: CHRISTY SALDANA on 12/12/18 1351 Last Action: Reviewed Cholecalciferol (Vitamin D3) (D3-50) 1,250 Mcg (17646 Unit) Capsule, 1,250 MCG PO WEEK, (Reported) Entered as Reported by: GO TEJADA on 02/16/22 1252 Last Action: Reviewed Clopidogrel Bisulfate (Clopidogrel) 75 Mg Tablet, 75 MG PO DAILY, (Reported) Entered as Reported by: GO TEJADA on 02/16/22 1252 Last Action: Reviewed Dexlansoprazole (Dexlansoprazole Dr) 60 Mg Justin.bp, 60 MG PO DAILY, (Reported) Entered as Reported by: GO TEJADA on 02/16/221251 Last Action: Reviewed Folic Acid (Folic Acid) 1 Mg Tablet, 1 MG PO DAILY, (Reported) Entered as Reported by: GO TEJADA on 02/16/221251 Last Action: Reviewed Gabapentin (Neurontin) 300 Mg Capsule, 300 MG PO BID, (Reported) Entered as Reported by: GO TEJADA on 02/16/221251 Last Action: Reviewed Hydroxychloroquine Sulfate (Hydroxychloroquine Sulfate) 200 Mg Tablet, 200 MG PO BID, (Reported) Entered as Reported by: CHRISTY SALDANA on 12/12/18 135 Last Action: Reviewed Meloxicam (Meloxicam) 15 Mg Tablet, 15 MG PO DAILY, (Reported) Entered as Reported by: GO TEJADA on 02/16/221251 Last Action: Reviewed Morphine Sulfate (Morphine Sulfate ER) 100 Mg Tablet.er, 100 MG PO Q12H, (Rep orted) Entered as Reported by: GO TEJADA on 02/16/221251 Last Action: Reviewed Nitroglycerin (Nitroglycerin) 0.4 Mg Tab.subl, 0.4 MG SL UD PRN for CHEST PAIN, (Reported) Entered as Reported by: CHRISTY SALDANA on 12/12/18 135 Last Action: Reviewed Ondansetron HCl (Ondansetron HCl) 8 Mg Tablet, 8 MG PO TID PRN for NAUSEA/VOMITING-1ST LINE, (Reported) Entered as Reported by: ISAMAR LINO on 10/14/21 1032 Last Action: Reviewed Oxycodone HCl (Oxycodone HCl) 10 Mg Tablet, 10 MG PO Q6H PRN for PAIN-SEVERE (8- 10), (Reported) Entered as Reported by: GO TEJADA on 02/16/221251 Last Action: Reviewed Pembrolizumab (Keytruda) 100 Mg/4 Ml (25 Mg/Ml) Vial, 200 MG IV EVERY 3 WEEKS, (Reported) Entered as Reported by: GO TEJADA on 02/16/221251 Last Action: Reviewed Polyethylene Glycol 3350 (Gavilax) 17 Gram/Dose Powder, 17 GM PO DAILY PRN for CONSTIPATION-2ND LINE, (Reported) Entered as Reported by: GO TEJADA on 02/16/22 1252 Last Action: Reviewed Potassium Chloride (Potassium Chloride) 10 Meq Tab.er.prt, 10 MEQ PO DAILY, (Reported) Entered as Reported by: ISAMAR LINO on 10/14/21 1032 Last Action: Reviewed Rivaroxaban (Xarelto) 20 Mg Tablet, 20 MG PO HS, (Reported) Entered as Reported by: GILDA BROUSSARD on 12/28/21 155 Last Action: Reviewed Discontinued Medications Alendronate Sodium (Fosamax) 70 Mg Tablet, 70 MG PO WEEK, (Reported) Discontinued Reason: No Longer Taking Entered as Reported by: CHRISTY SALDANA on 12/12/18 1351 Last Action: Discontinued Clopidogrel Bisulfate (Clopidogrel) 75 Mg Tablet, 75 MG PO DAILY Discontinued Reason: No Longer Taking Prescribed by: JOAN SEVERINO on 10/17/21 9135 Last Action: Discontinued Dexlansoprazole (Dexilant) 60 Mg , 60 MG PO DAILY, (Reported) Discontinued Reason: Duplicate Order Entered as Reported by: CHRISTY SALDANA on 12/12/18 1351 Last Action: Discontinued Fluticasone Propionate (Flonase Allergy Relief) 9.9 Ml [place].susp, 2 SPRAY NS DAILY, (Reported) Discontinued Reason: No Longer Taking Entered as Reported by: CHRISTY SALDANA on 12/12/18 1351 Last Action: Discontinued Gabapentin (Neurontin) 300 Mg Capsule, 300 MG PO TID, (Reported) Discontinued Reason: No Longer Taking Entered as Reported by: GILDA BROUSSARD on 12/28/21 155 Last Action: Discontinued Magnesium Oxide (Magnesium) 400 Mg Magnesium Tablet, 400 MG PO DAILY, (Reported) Discontinued Reason: No Longer Taking Entered as Reported by: ISAMAR LINO on 10/14/21 1032 Last Action: Discontinued Oxycodone HCl/Acetaminophen (Percocet 5-325 mg Tablet) 1 Each Tablet, 1 TAB PO Q4H Discontinued Reason: No Longer Taking Prescribed by: JEZ WATKINS on 03/26/21 1516 Last Action: Discontinued [morphine er] , 90 MG PO BID, (Reported) Discontinued Reason: No Longer Taking Entered as Reported by: GILDA BROUSSARD on 07/20/21 1607 Last Action: Discontinued Past Rffuijp-Tfjptk-Jiaqht Hx Patient Social History Smoking Status: Current Everyday Smoker Type Used: Cigarettes 2nd Hand Smoke Exposure: Yes Recent Hopitalizations: No Alcohol Use?: No Seasonal Allergies Seasonal Allergies: Yes Surgeries History of Surgeries: Yes (BILAT FEET, RIGHT SHOULDER X2, LAP GRAZYNA, BLADDER TIE UP;STENTS X 4) Surgeries: Appendectomy, Gallbladder, Hysterectomy, Orthopedic Respiratory History of Respiratory Disorde: Yes (METASTATIC LUNG CANCER) Respiratory Disorders: COPD Cardiovascular History of Cardiac Disorders: Yes (ME X 2 2001/2006, WITH STENTS X 4 ) Cardiac Disorders: Coronary Artery Disease Neurological History of Neurological Disord: No 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 System Hx 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 Disorders: Yes Sexually Transmitted Disease: No HIV/AIDS: No Female 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 Disorders: Denies [employer]LECT[employer]IC [employer]OR [employer]ER History: Hysterectomy, Menopausal Genitourinary History of Genitourinary Disor: No Gastrointestinal History of Gastrointestinal Di: Yes Gastrointestinal Disorders: Gastroesophageal Reflux Musculoskeletal History of Musculoskeletal Dis: Yes (WOUND RIGHT TOE) Musculoskeletal Disorders: Osteoporosis, Arthritis, Fibromyalgia, Chronic Back Pain Endocrine History of Endocrine Disorders: No HEENT History of HEENT Disorders: Yes (READING GLASSES) HEENT Disorders: Cataract Loss of Vision: Denies Hearing Impairment: Denies Cancer History of Cancer: Yes Cancer: Lung Psychosocial History of Psychiatric Problem: Yes Behavioral Health Disorders: Anxiety, Depression Integumentary History of Skin or Integumenta: No Blood Transfusions History of Blood Disorders: No Adverse Reaction to a Blood Tr: No (N/A) Reviewed Nursing Assessment Reviewed/Agree w Nursing PMH: Yes Family Medical History Significant Family History: No Pertinent Family Hx Family Medial History: Alcoholism Arthritis 19 MOTHER G8 BROTHER Cancer of mouth 19 FATHER (THROAT CANCER) Cardiovascular disease 19 MOTHER Completed stroke 19 MOTHER Diabetes mellitus 19 MOTHER FH: breast cancer Hypertension G8 BROTHER Thyroid disease 19 MOTHER No Family History of: AIDS Asthma Review of Systems-General Constitutional: No diaphoresis; weakness EENTM: No blurred vision, No double vision Respiratory: No cough, No dyspnea on exertion Cardiovascular: No chest pain Gastrointestinal: abdominal pain (diffuse), diarrhea, nausea, vomiting Genitourinary: decreased output; No discharge Musculoskeletal: No joint pain, No joint swelling Skin: No change in color, No change in hair/nails Psychiatric/Neurological: Denies Anxiety, Denies Depressed, Denies Emotional Problems All Other Systems Reviewed Negative Unless Noted: Yes (Negative excepted noted.) Physical Exam-General Problems Physical Exam Vital Signs Vital Signs - First Documented Capillary Refill : Less Than 3 Seconds General Appearance: mild distress, thin HEENT: PERRL/EOMI, normal ENT inspection Neck: non-tender, supple Respiratory: chest non-tender, no respiratory distress, no accessory muscle use Cardiovascular: no JVD, tachycardia Gastrointestinal: distended, tenderness (diffuse) Rectal: deferred Back: no CVA tenderness, no vertebral tenderness Extremities: non-tender, other (previous toe ampuation) Neurologic/Psychiatric: alert, normal mood/affect, oriented x 3 Skin: normal color, warm/dry Lymphatic: no adenopathy Data Review Labs Laboratory Tests 02/15/22 23:00: White Blood Count 11.1H, Red Blood Count 4.08, Hemoglobin 10.8L, Hematocrit 34L, Mean Corpuscular Volume 83, Mean Corpuscular Hemoglobin 27, Mean Corpuscular Hemoglobin Concent 32, Red Cell Distribution Width 14.7H, Platelet Count 330, Mean Platelet Volume 8.7L, Immature Granulocyte % (Auto) 0, Neutrophils (%) (Auto) 91H, Lymphocytes (%) (Auto) 6L, Monocytes (%) (Auto) 2, Eosinophils (%) (Auto) 0, Basophils (%) (Auto) 0, Neutrophils # (Auto) 10.1H, Lymphocytes # (Auto) 0.7L, Monocytes # (Auto) 0.3, Eosinophils # (Auto) 0.0, Basophils # (Auto) 0.0, Immature Granulocyte # (Auto) 0.0, Neutrophils % (Manual) 85, Lymphocytes % (Manual) 3, Monocytes % (Manual) 0, Eosinophils % (Manual) 0, Band Neutrophils 12, Polychromasia SLIGHT, Hypochromasia SLIGHT, Anisocytosis SLIGHT, Prothrombin Time 14.8H, INR Comment 1.1, Activated Partial Thromboplast Time 32, Sodium Level 135, Potassium Level 3.7, Chloride Level 99, Carbon Dioxide Level 23, Anion Gap 13, Blood Urea Nitrogen 21H, Creatinine 0.66, Estimat Glomerular Filtration Rate 96, BUN/Creatinine Ratio 32, Glucose Level 146H, Lactic Acid Level 1.89, Calcium Level 8.7, Corrected Calcium 9.1, Total Bilirubin 0.4, Aspartate Amino Transf (AST/SGOT) 15, Alanine Aminotransferase (ALT/SGPT) 21, Alkaline Phosphatase 82, C-Reactive Protein High Sensitivity 7.36H, Total Protein 6.3L, Albumin 3.5, Lipase 4L 02/15/22 23:08: Influenza Type A (RT-PCR) Not Detected, Influenza Type B (RT-PCR) Not Detected, SARS-CoV-2 RNA (RT-PCR) DetectedH 02/16/22 00:33: Urine Color YELLOW, Urine Clarity CLEAR, Urine pH 8.0, Urine Specific [place] 1.020, Urine Protein NEGATIVE, Urine Glucose (UA) NEGATIVE, Urine Ketones NEGATIVE, Urine Nitrite NEGATIVE, Urine Bilirubin NEGATIVE, Urine Urobilinogen 1.0, Urine Leukocyte Esterase NEGATIVE, Urine RBC (Auto) NEGATIVE, Urine RBC NONE, Urine WBC RARE, Urine Squamous Epithelial Cells RARE, Urine Crystals NONE, Urine Bacteria TRACE, Urine Casts NONE, Urine Mucus NEGATIVE, Urine Culture Indicated CULTURE PENDING 02/16/22 04:20: White Blood Count 14.6H, Red Blood Count 3.97, Hemoglobin 10.7L, Hematocrit 33L, Mean Corpuscular Volume 82, Mean Corpuscular Hemoglobin 27, Mean Corpuscular Hemoglobin Concent 33, Red Cell Distribution Width 14.7H, Platelet Count 322, Mean Platelet Volume 8.9L, Immature Granulocyte % (Auto) 0, Neutrophils (%) (Auto) 93H, Lymphocytes (%) (Auto) 5L, Monocytes (%) (Auto) 2, Eosinophils (%) (Auto) 0, Basophils (%) (Auto) 0, Neutrophils # (Auto) 13.5H, Lymphocytes # (Auto) 0.8L, Monocytes # (Auto) 0.2, Eosinophils # (Auto) 0.0, Basophils # (Auto) 0.0, Immature Granulocyte # (Auto) 0.1, Neutrophils % (Manual) 90, Lymphocytes % (Manual) 3, Monocytes % (Manual) 1, Eosinophils % (Manual) 0, Band Neutrophils 6, Anisocytosis SLIGHT, Sodium Level 134L, Potassium Level 3.6, Chloride Level 101, Carbon Dioxide Level 22, Anion Gap 11, Blood Urea Nitrogen 17, Creatinine 0.61, Estimat Glomerular Filtration Rate 98, BUN/Creatinine Ratio 28, Glucose Level 105, Calcium Level 8.2L, Corrected Calcium 8.9, Total Bilirubin 0.6, Aspartate Amino Transf (AST/SGOT) 14, Alanine Aminotransferase (ALT/SGPT) 19, Alkaline Phosphatase 72, Total Protein 5.7L, Albumin 3.1L, Basophils % (Manual) 0, Phosphorus Level 3.8, Magnesium Level 1.4L Assessment/Plan Assessment/Plan Assessment/Plan pneumoperitoneum nauea and vomiting diffuse abdominal pain sepsis secondary to perforated viscus Covid + half-way anticoagulation/antiplatelet small cell lung ca c mets Patient with perforation, we discussed risks and benefits of exploratory laparotomy all other indicated procedures she and family understand may need to remain intubated postoperatively They wish to proceed. NPO Will give platelets prior to procedure due to plavix. type and screen TO OR soon. SOCO BLANCAS DO Feb 16, 2022 13:38
[2022-02-16] MEDS ORDERED: proPOfol 200 MG/20 ML (DIPRIVAN) VIAL IV ONE (14:21)
[2022-02-16] MEDS ORDERED: MIDAZOLAM 2 MG/2 ML (VERSED) VIAL ONE (14:21)
[2022-02-16] MEDS ORDERED: ONDANSETRON 4 MG/2 ML (SDV) Z0FRAN ONE (14:21)
[2022-02-16] MEDS ORDERED: fentaNYL INJ 100 MCG/2 ML AMP ONE (14:21)
[2022-02-16] MEDS ORDERED: SEVOFLURANE (ULTANE) 15 ML INHAL SOLN ONE ×2 (14:21→17:00)
[2022-02-16] MEDS ORDERED: SUCCINYLCHOLINE INJ 100 MG/5 ML SYR/VIAL ONE (14:26)
[2022-02-16] MEDS ORDERED: LIDOCAINE PF 1% 5 ML (XYLOCAINE) AMP ONE (14:27)
[2022-02-16] MEDS: LACTATED RINGERS 1,000 ML IV PRN ×2 (15:25→16:08)
[2022-02-16] MEDS ORDERED: PHENYLEPHRINE 100 MCG/ML 10 ML (ANESTHESIA) SYR ONE (16:04)
[2022-02-16] MEDS ORDERED: ROCURONIUM 50 MG/5 ML (ZEMURON) VIAL IV ONE (16:26)
--- NOTE | 2022-02-16 17:50 | Progress Note-Post Operative ---
Post-Operative Progess Note Surgeon (s)/Control Center Operator (s) Surgeon SOCO BLANCAS DO Control Center Operator: Dr. Contreras Pre-Operative Diagnosis pneumoperitoneum Post-Operative Diagnosis perforated colon Procedure & Operative Findings Date of Procedure 02/16/22 Procedure Performed/Findings ex lap with vonda procedure Anesthesia Type general Estimated Blood Loss Estimated blood loss (mL): 50mL Specimens/Packing Specimens Removed rectosigmoid SOCO BLANCAS DO Feb 16, 2022 17:50
[2022-02-16] MEDS: PROPOFOL DRIP (ICU) 100 ML IV SCH (18:03)
--- NOTE | 2022-02-16 18:06 | Tele-ICU Progress Note ---
Progress Note back from OR - s/p ex lap with vonda procedure intubated , still paralyzed , on 30 #% fio2 , not on pressors as per RN - EBL 30 cc, received 1800 crystalloids , and 1 u PLT abg, cxr , propofol , fentanyl , PPI and SCD ordered , ABX already started Sx plans to keep on vent overning , as per RN report Focused Exam Lactate Level 02/15/22 23:00: Lactic Acid Level 1.89 Height, Weight, BMI Height: 5'3.00" Weight: 126lbs. 0.0oz. 57.668338no; 20.15 BMI Method:Stated ROSALIE HUNG MD Feb 16, 2022 18:06
[2022-02-16] MEDS: PANTOPRAZOLE 40 MG (PROTONIX) VIAL IV SCH (18:27)
[2022-02-16 18:36] LABS: ABG BASE EXCESS -3.5 MMOL/L (-2.5-2.5); ABG OXYGEN SATURATION 92 % (94-100); ABG PCO2 61 MMHG (35-45); ABG PO2 87 MMHG (79-93); ABG TCO2 25.2 MMOL/L (21.0-31.0)
[2022-02-16 18:37] LABS: ABG PH 7.21 (7.37-7.43); ALLENS TEST YES-POS; INSPIRED O2 18; PATIENT TEMP 36.2; VENTILATOR YES
--- NOTE | 2022-02-16 18:49 | Diagnostic Imaging Report ---
INDICATION: ET tube placement EXAMINATION: Chest 02/16/2022 COMPARISON: 02/15/2022. FINDINGS: Lucency at the right lung apex is noted and could be caused by an adjacent skinfold. Repeat imaging to include the entire right lung apex recommended. Otherwise, there is mild infiltrate or atelectasis in both mid lungs with a more nodular density in the right mid lung less pronounced than on recent examination. There are no effusions. There is an enteric tube coursing beneath the diaphragm with the tip in the left upper quadrant. ET tube tip just past the thoracic inlet. There is a chest port on the right with tip in the SVC. IMPRESSION: 1. Tubes and lines as above. 2. Lucency in the right apex likely caused by a skinfold. Repeat imaging to include the entire right lung apex is suggested to help exclude a small pneumothorax. Other findings as above. Dictated by: Dictated on workstation # [id number]
[2022-02-16] MEDS ORDERED: fentaNYL DRIP PRE-MIX 250 ML IV ONE (19:48)
[2022-02-16] MEDS: fentaNYL DRIP PRE-MIX 250 ML IV SCH (19:58)
[2022-02-16] MEDS: FLUCONAZOLE 100 MG/50 ML IVPB IV SCH (20:03)
--- NOTE | 2022-02-16 22:29 | Diagnostic Imaging Report ---
EXAMINATION: Chest radiograph, portable AP view. DATE: 02/16/2022 9:45 PM INDICATION: 66-year-old female, chest pain. COMPARISON: February 16, 2022. FINDINGS: The endotracheal tube is approximately 6.8 cm above the oumou. The nasogastric tube is in the stomach. There is a right-sided port catheter with tip overlying the lower SVC. Heart size and mediastinal contours are unchanged. There is no identified pneumothorax. There is no large pleural effusion. There is airspace consolidation in the right mid lung as well as streaky opacities in the left mid to upper lung zone. There are additional areas of streaky opacities in the lower lobes, bilaterally. This is largely unchanged. IMPRESSION: 1. Unchanged multifocal streaky bilateral lung opacities. 2. Support lines and tubes as above. Dictated by: Dictated on workstation # [id number]
--- NOTE | 2022-02-16 22:37 | History & Physical ---
HPI History of Present Illness: 66 yo F that presented with severe abdominal pain that started suddenly yesterday. She is currently in treatment for stage 4 small cell lung ca with mets. Last treatment was 02/09. States that she has never had a pain like this before. She tested positive for covid on this admission. Denies any cough or shortness of breath. She has had normal bowel movements. Some N/V. No recent sick contacts. Source: patient Exam Limitations: no limitations Date seen by provider: Feb 16, 2022 Time Seen by Provider: 10:05 Attending Physician Cody Love DO PCP Admitting Physician: Jasmyne Fitch MD Attending Physician: Jasmyne Fitch MD Consult Date of Admission Feb 16, 2022 at 01:30 Home Medications Home Medications Reviewed patient Home Medication Reconciliation performed by pharmacy medication reconciliations medic technician and/or nursing. Patients Allergies have been reviewed. Allergies Coded Allergies: hydrocodone (Verified Allergy, Intermediate, MAKES STOMACH VERY SICK, 12/29/21) promethazine (Verified Allergy, Unknown, 12/29/21) [id number] Hx Patient Social History Smoking Status: Current Everyday Smoker 2nd Hand Smoke Exposure: Yes Recent Hopitalizations: No Alcohol Use?: No Tobacco type used: Cigarettes Immunizations Up To Date First/Initial COVID19 Vaccinat: 07/2020 Second COVID19 Vaccination Bogdan: 08/2020 Third COVID19 Vaccination Date: 2021 Past Medical History Small Cell Lung Ca Family Medical History Significant Family History: No Pertinent Family Hx Other Significan Family Hx: SOCIAL HISTORY: -SMOKES 1 1/2 PPD -ETOH--RARELY USES -DRUGS--DENIES USE PAST SURGICAL HISTORY: -PORT RIGHT CHEST 07/21/[address] BLANCAS -RIGHT ILIAC BONE BIOPSY 07/07/21 -RIGHT SHOULDER SURGERY X 2 -FINGER SURGERY -BILATERAL FOOT SURGERY -HIATAL HERNIA REPAIR -CARDIAC CATHS--STENTS X 3 -EGD/COLONOSCOPY/POLYPECTOMY -CHOLECYSTECTOMY 12/[address] BLANCAS -HYSTERECTOMY/BILATERAL SALPINGO-OOPHORECTOMY Family History: Alcoholism Arthritis 19 MOTHER G8 BROTHER Cancer of mouth 19 FATHER (THROAT CANCER) Cardiovascular disease 19 MOTHER Completed stroke 19 MOTHER Diabetes mellitus 19 MOTHER FH: breast cancer Hypertension G8 BROTHER Thyroid disease 19 MOTHER No Family History of: AIDS Asthma Review of Systems ([facility]) Constitutional: malaise, weakness EENTM: no symptoms reported; No mouth pain, No nose congestion, No nose pain Respiratory: no symptoms reported; No cough, No dyspnea on exertion Cardiovascular: no symptoms reported; No chest pain Gastrointestinal: abdominal pain, loss of appetite, nausea, vomiting Genitourinary: no symptoms reported Musculoskeletal: no symptoms reported Skin: no symptoms reported Psychiatric/Neurological: No Symptoms Reported Reviewed Test Results Reviewed Test Results Lab Laboratory Tests Test 02/15/22 23:00 02/15/22 23:08 02/16/22 00:33 02/16/22 04:20 Range/Units White Blood Count 11.1 H 14.6 H 4.3-11.0 10^3/uL Red Blood Count 4.08 3.97 3.80-5.11 10^6/uL Hemoglobin 10.8 L 10.7 L 11.5-16.0 g/dL Hematocrit 34 L 33 L 35-52 % Mean Corpuscular Volume 83 82 80-99 fL Mean Corpuscular Hemoglobin 27 27 25-34 pg Mean Corpuscular Hemoglobin Concent 32 33 32-36 g/dL Red Cell Distribution Width 14.7 H 14.7 H 10.0-14.5 % Platelet Count 330 322 130-400 10^3/uL Mean Platelet Volume 8.7 L 8.9 L 9.0-12.2 fL Immature Granulocyte % (Auto) 0 0 % Neutrophils (%) (Auto) 91 H 93 H 42-75 % Lymphocytes (%) (Auto) 6 L 5 L 12-44 % Monocytes (%) (Auto) 2 2 0-12 % Eosinophils (%) (Auto) 0 0 0-10 % Basophils (%) (Auto) 0 0 0-10 % Neutrophils # (Auto) 10.1 H 13.5 H 1.8-7.8 10^3/uL Lymphocytes # (Auto) 0.7 L 0.8 L 1.0-4.0 10^3/uL Monocytes # (Auto) 0.3 0.2 0.0-1.0 10^3/uL Eosinophils # (Auto) 0.0 0.0 0.0-0.3 10^3/uL Basophils # (Auto) 0.0 0.0 0.0-0.1 10^3/uL Immature Granulocyte # (Auto) 0.0 0.1 0.0-0.1 10^3/uL Neutrophils % (Manual) 85 90 % Lymphocytes % (Manual) 3 3 % Monocytes % (Manual) 0 1 % Eosinophils % (Manual) 0 0 % Band Neutrophils 12 6 % Polychromasia SLIGHT Hypochromasia SLIGHT Anisocytosis SLIGHT SLIGHT Prothrombin Time 14.8 H 12.2-14.7 SEC INR Comment 1.1 0.8-1.4 Activated Partial Thromboplast Time 32 24-35 SEC Sodium Level 135 134 L 135-145 MMOL/L Potassium Level 3.7 3.6 3.6-5.0 MMOL/L Chloride Level 99 101 98-107 MMOL/L Carbon Dioxide Level 23 22 21-32 MMOL/L Anion Gap 13 11 5-14 MMOL/L Blood Urea Nitrogen 21 H 17 7-18 MG/DL Creatinine 0.66 0.61 0.60-1.30 MG/DL Estimat Glomerular Filtration Rate 96 98 BUN/Creatinine Ratio 32 28 Glucose Level 146 H 105 70-105 MG/DL Lactic Acid Level 1.89 0.50-2.00 MMOL/L Calcium Level 8.7 8.2 L 8.5-10.1 MG/DL Corrected Calcium 9.1 8.9 8.5-10.1 MG/DL Total Bilirubin 0.4 0.6 0.1-1.0 MG/DL Aspartate Amino Transf (AST/SGOT) 15 14 5-34 U/L Alanine Aminotransferase (ALT/SGPT) 21 19 0-55 U/L Alkaline Phosphatase 82 72 40-136 U/L C-Reactive Protein High Sensitivity 7.36 H 0.00-0.50 MG/DL Total Protein 6.3 L 5.7 L 6.4-8.2 GM/DL Albumin 3.5 3.1 L 3.2-4.5 GM/DL Lipase 4 L 8-78 U/L Influenza Type A (RT-PCR) Not Detected Not Detecte Influenza Type B (RT-PCR) Not Detected Not Detecte SARS-CoV-2 RNA (RT-PCR) Detected H Not Detecte Urine Color YELLOW Urine Clarity CLEAR Urine pH 8.0 5-9 Urine Specific Gaffney 1.020 1.016-1.022 Urine Protein NEGATIVE NEGATIVE Urine Glucose (UA) NEGATIVE NEGATIVE Urine Ketones NEGATIVE NEGATIVE Urine Nitrite NEGATIVE NEGATIVE Urine Bilirubin NEGATIVE NEGATIVE Urine Urobilinogen 1.0 < = 1.0 MG/DL Urine Leukocyte Esterase NEGATIVE NEGATIVE Urine RBC (Auto) NEGATIVE NEGATIVE Urine RBC NONE /HPF Urine WBC RARE /HPF Urine Squamous Epithelial Cells RARE /HPF Urine Crystals NONE /LPF Urine Bacteria TRACE /HPF Urine Casts NONE /LPF Urine Mucus NEGATIVE /LPF Urine Culture Indicated CULTURE PENDING Basophils % (Manual) 0 % Phosphorus Level 3.8 2.3-4.7 MG/DL Magnesium Level 1.4 L 1.6-2.4 MG/DL Test 02/16/22 18:22 Range/Units Blood Gas Puncture Site L RADIAL Blood Gas Patient Temperature 36.2 Arterial Blood pH 7.21 *L 7.37-7.43 Arterial Blood Partial Pressure CO2 61 H 35-45 MMHG Arterial Blood Partial Pressure O2 87 79-93 MMHG Arterial Blood HCO3 23 23-27 MMOL/L Arterial Blood Total CO2 25.2 21.0-31.0 MMOL/L Arterial Blood Oxygen Saturation 92 L 94-100 % Arterial Blood Base Excess -3.5 L -2.5-2.5 MMOL/L Isidoro Test YES-POS Blood Gas Ventilator Setting YES Blood Gas Inspired Oxygen 18 Physical Exam-([facility]) Physical Exam Vital Signs VS - Last 72 Hours, by Label 02/15/22 02/15/22 02/16/22 02/16/22 23:00 23:00 02:05 02:05 Temp 36.4 37.2 Pulse 109 Resp 20 B/P (MAP) 139/69 (92) Pulse Ox 96 96 95 O2 Delivery Room Air Room Air Room Air Room Air 02/16/22 02/16/22 02/16/22 02/16/22 02:20 02:24 02:30 02:45 Pulse 114 120 110 110 Resp 14 24 37 B/P (MAP) 155/78 (100) 157/78 (100) 132/67 (88) Pulse Ox 94 95 94 O2 Delivery Room Air Room Air Room Air 02/16/22 02/16/22 02/16/22 02/16/22 02:50 02:50 03:00 03:15 Pulse 111 117 Resp 18 B/P (MAP) 132/67 132/67 144/73 (95) 149/77 (102) Pulse Ox 95 93 O2 Delivery Room Air Room Air 02/16/22 02/16/22 02/16/22 02/16/22 03:30 03:45 04:00 04:00 Pulse 118 116 121 Resp 20 21 15 B/P (MAP) 163/80 (107) 146/81 (100) 156/89 (94) Pulse Ox 93 92 94 95 O2 Delivery Room Air Room Air Room Air Room Air 02/16/22 02/16/22 02/16/22 02/16/22 04:40 05:00 06:00 07:00 Temp 37.8 Pulse 123 121 122 Resp 21 21 11 B/P (MAP) 139/58 (81) 144/72 (96) 142/75 (97) Pulse Ox 93 93 94 O2 Delivery Room Air Room Air Room Air 02/16/22 02/16/22 02/16/22 02/16/22 07:06 08:00 08:00 08:00 Temp 37.6 Pulse 108 110 122 Resp 21 18 B/P (MAP) 144/76 (98) 140/77 (98) Pulse Ox 93 94 94 O2 Delivery Room Air Room Air Room Air 02/16/22 02/16/22 02/16/22 02/16/22 09:00 10:00 11:00 12:00 Temp 36.2 Pulse 113 124 122 Resp 6 12 7 B/P (MAP) 127/68 (87) 147/78 (101) 137/63 (87) Pulse Ox 94 96 95 O2 Delivery Room Air Room Air Room Air 02/16/22 02/16/22 02/16/22 02/16/22 12:00 12:00 13:00 13:15 Pulse 118 120 117 Resp 21 30 B/P (MAP) 138/73 (94) 125/67 (86) Pulse Ox 94 94 92 O2 Delivery Room Air Room Air Room Air 02/16/22 02/16/22 02/16/22 02/16/22 14:00 14:26 14:30 14:42 Temp 38.1 38.1 38.0 Pulse 120 119 110 Resp 27 20 20 B/P (MAP) 129/71 (90) 138/86 139/77 Pulse Ox 93 95 94 O2 Delivery Room Air Room Air Room Air 02/16/22 02/16/22 02/16/22 02/16/22 15:00 15:15 15:17 17:30 Temp 38.0 Pulse 113 117 112 125 Resp 15 20 20 B/P (MAP) 129/57 (81) 147/80 (102) 147/80 179/88 (118) Pulse Ox 95 95 94 O2 Delivery Room Air Room Air Room Air Mechanical Ventilator 02/16/22 02/16/22 02/16/22 02/16/22 17:35 17:35 17:45 17:45 Temp 36.9 Pulse 128 Resp 18 18 18 B/P (MAP) 162/70 (100) 179/88 (118) Pulse Ox 100 92 96 O2 Delivery Mechanical Ventilator Mechanical Ventilator Mechanical Ventilator FiO2 40 02/16/22 02/16/22 02/16/22 02/16/22 17:50 17:55 18:00 18:03 Pulse 117 122 Resp 18 B/P (MAP) 191/94 (126) 192/88 (122) 183/86 Pulse Ox 90 88 O2 Delivery Mechanical Ventilator Mechanical Ventilator Mechanical Ventilator O2 Flow Rate 40.00 02/16/22 02/16/22 02/16/22 02/16/22 18:05 18:05 18:15 18:20 Resp 18 18 B/P (MAP) 183/86 (118) 192/88 (122) Pulse Ox 100 95 O2 Delivery Mechanical Ventilator Mechanical Ventilator Mechanical Ventilator Mechanical Ventilator 02/16/22 02/16/22 02/16/22 02/16/22 18:25 18:25 19:00 19:00 Temp 36.2 Pulse 123 123 Resp 18 18 B/P (MAP) 169/83 (111) 162/78 (102) Pulse Ox 97 96 O2 Delivery Mechanical Ventilator Mechanical Ventilator Mechanical Ventilator O2 Flow Rate 40.00 02/16/22 02/16/22 02/16/22 02/16/22 19:58 20:00 20:00 20:35 Temp 35.5 Pulse 122 137 117 Resp 18 B/P (MAP) 169/83 130/86 (106) 192/88 (122) Pulse Ox 88 100 88 O2 Delivery Mechanical Ventilator Mechanical Ventilator Mechanical Ventilator O2 Flow Rate 40.00 40.00 FiO2 40 02/16/22 02/16/22 21:00 22:03 Pulse 122 122 Resp 18 B/P (MAP) 114/67 (83) 114/67 Pulse Ox 100 O2 Delivery Mechanical Ventilator O2 Flow Rate 40.00 Capillary Refill : Less Than 3 Seconds General Appearance: moderate distress Neck: non-tender, full range of motion Respiratory: chest non-tender, no respiratory distress, wheezing Cardiovascular: regular rate, rhythm, no murmur Gastrointestinal: distended, guarding, tenderness Extremities: no pedal edema, no calf tenderness, normal capillary refill Neurologic/Psychiatric: speed reading teacher II-XII nml as tested, alert, oriented x 3 Skin: normal color, warm/dry Assessment/Plan Assessment/Plan Admission Status: Inpatient Order (span 2 midnights) Reason for Inpatient Admission: High risk of decompensation (1) Large bowel perforation Status: Acute Assessment & Plan: - General Surgery consulted, appreciate recommendations, patient to go to surgery later today (2) COVID-19 Status: Acute Assessment & Plan: - Patient w/o acute symptoms (3) Nausea & vomiting Status: Acute Qualifiers: Qualified Codes: R11.2 - Nausea with vomiting, unspecified (4) Lung cancer Assessment & Plan: - Patient under treatment for small cell lung Cancer with mets to multiple locations, Last treatment 02/09 Qualifiers: Qualified Codes: C34.90 - Malignant neoplasm of unspecified part of unspecified bronchus or lung JASMYNE FITCH MD Feb 16, 2022 22:37
[2022-02-16 22:47] LABS: ABG BASE EXCESS -4.1 MMOL/L (-2.5-2.5); ABG OXYGEN SATURATION 97 % (94-100); ABG PCO2 29 MMHG (35-45); ABG PH 7.44 (7.37-7.43); ABG PO2 113 MMHG (79-93); ABG TCO2 20.5 MMOL/L (21.0-31.0); ALLENS TEST YES-POS
[2022-02-16 22:48] LABS: INSPIRED O2 40%; PATIENT TEMP 35.8; VENTILATOR YES
[2022-02-17] MEDS: VASOPRESSIN INJECTION 20 UNIT in NS (IVPB) 100 ML IV SCH ×3 (00:44→22:58)
[2022-02-17] MEDS: LACTATED RINGERS 1,000 ML IV SCH ×6 (00:45→18:41)
[2022-02-17] MEDS: NOREPINEPHRINE 8 MG/250 ML 250 ML IV SCH (02:30)
[2022-02-17] MEDS: PROPOFOL DRIP (ICU) 100 ML IV SCH (02:44)
[2022-02-17 03:02] VITALS: BP 129/67
[2022-02-17 04:40] LABS: ABG BASE EXCESS -2.7 MMOL/L (-2.5-2.5); ABG OXYGEN SATURATION 95 % (94-100); ABG PCO2 31 MMHG (35-45); ABG PH 7.44 (7.37-7.43); ABG PO2 77 MMHG (79-93); ABG TCO2 21.7 MMOL/L (21.0-31.0)
[2022-02-17 04:41] LABS: ALLENS TEST YES-POS; BASOPHILS % (AUTO) 0 % (0-10); EOSINOPHILS % (AUTO) 0 % (0-10); HEMATOCRIT 27 % (35-52); HEMOGLOBIN 8.8 g/dL (11.5-16.0); INSPIRED O2 40%; LYMPHOCYTES # (AUTO) 0.5 10^3/uL (1.0-4.0); LYMPHOCYTES % (AUTO) 2 % (12-44); MEAN CORPUSCULAR HEMOGLOBIN 27 pg (25-34); MEAN CORPUSCULAR HGB CONC 33 g/dL (32-36); MEAN CORPUSCULAR VOLUME 81 fL (80-99); MEAN PLATELET VOLUME 9.1 fL (9.0-12.2); MONOCYTES # (AUTO) 0.4 10^3/uL (0.0-1.0); MONOCYTES % (AUTO) 2 % (0-12); NEUTROPHILS # (AUTO) 22.2 10^3/uL (1.8-7.8); NEUTROPHILS % (AUTO) 95 % (42-75); PATIENT TEMP 37.2; PLATELET COUNT 315 10^3/uL (130-400); VENTILATOR YES; WHITE BLOOD COUNT 23.2 10^3/uL (4.3-11.0)
[2022-02-17 04:55] LABS: ALBUMIN 2.7 GM/DL (3.2-4.5); POTASSIUM 3.4 MMOL/L (3.6-5.0)
[2022-02-17 04:56] LABS: CALCIUM 7.8 MG/DL (8.5-10.1)
[2022-02-17 04:57] LABS: TOTAL PROTEIN 5.1 GM/DL (6.4-8.2)
[2022-02-17 04:59] LABS: BILIRUBIN,TOTAL 0.4 MG/DL (0.1-1.0)
[2022-02-17 05:00] LABS: PHOSPHORUS 3.4 MG/DL (2.3-4.7)
[2022-02-17 05:01] LABS: CREATININE SERUM 0.6 MG/DL (0.60-1.30)
[2022-02-17 05:04] LABS: MAGNESIUM 1.7 MG/DL (1.6-2.4)
[2022-02-17] MEDS: MAGNESIUM 1 GM/100 ML IVPB 100 ML IV SCH (05:08)
[2022-02-17] MEDS ORDERED: POTASSIUM CL 10MEQ/50ML IVPB 100 ML IV ONE (05:08)
[2022-02-17] MEDS: POTASSIUM CL 10MEQ/50ML IVPB 50 ML IV SCH ×2 (05:08→05:41)
[2022-02-17] MEDS: KCL 20 MEQ TAB (K-DUR) PO SCH (05:09)
[2022-02-17] MEDS: PIPERACILLIN SODIUM/TAZOBACTAM 4.5 GM in NS (IVPB) 100 ML IV SCH ×3 (05:41→21:55)
[2022-02-17 06:49] VITALS: BP 132/66
[2022-02-17 07:22] LABS: MAGNESIUM 1.7 MG/DL (1.6-2.4)
[2022-02-17 07:47] VITALS: BP 132/66
--- NOTE | 2022-02-17 07:53 | Tele-ICU Progress Note ---
Subjective Date Seen by a Provider: Feb 17, 2022 Time Seen by a Provider: 07:53 Subjective/Events-last exam Perforated viscus/ free air on abd CT ( " likely at the level of the mid to distal small bowel" - sx consulted - NPO , ABX , hydration Went to surgery yesterday and had explor lap with Munoz procedure for per forated colon Wound looks ok I reviewed CXR from yesterday, looks clear, ET ok ABG 7.44 WBC up to 23k, Hb went from 10 to 8, plt ok, Na 132, K 3.4 HCO3 19, Cr/BUN ok, glu 146 Today did well on SBT and was extubated, now on 4 lpm NC with SpO2 97%, no stridor Leukocytosis to above - abx started Zosyn and Fluconazole PAIN - fentanyl drip at 50 mcg/h, will continue-good pain control Covid + - vaccinated ( moderna x2 + booster], having no Sx Anemia - stable Sepsis Event Evaluation Height, Weight, BMI Height: 5'3.00" Weight: 126lbs. 0.0oz. 57.507244me; 22.89 BMI Method:Stated Focused Exam Lactate Level 02/15/22 23:00: Lactic Acid Level 1.89 Exam Exam Patient acknowledged, consented, and participated in this virtual visit which was conducted using real time audio/video Vital Signs Date Time Temp Pulse Resp B/P (MAP) Pulse Ox O2 Delivery O2 Flow Rate FiO2 02/17/22 06:49 105 30 100 30 02/17/22 06:00 105 18 145/71 (95) 97 Mechanical Ventilator 40.00 02/17/22 06:00 37.2 02/17/22 05:00 98 18 132/76 (96) 93 Mechanical Ventilator 40.00 02/17/22 04:00 97 Mechanical Ventilator 40 02/17/22 04:00 37.2 02/17/22 04:00 109 18 134/72 (95) 96 Mechanical Ventilator 40.00 02/17/22 03:02 101 20 97 30 02/17/22 03:00 95 18 129/67 (91) 97 Mechanical Ventilator 40.00 02/17/22 02:44 144 117/70 02/17/22 02:00 101 18 137/74 (95) 100 Mechanical Ventilator 40.00 02/17/22 01:45 36.3 02/17/22 01:00 101 02/17/22 01:00 101 18 122/71 (88) 98 Mechanical Ventilator 40.00 02/17/22 00:00 144 02/17/22 00:00 102 18 117/70 (86) 99 Mechanical Ventilator 40.00 02/16/22 23:59 97 Mechanical Ventilator 40 02/16/22 23:58 144 111/65 02/16/22 23:00 106 18 103/70 (80) 97 Mechanical Ventilator 40.00 02/16/22 22:38 110 23 98 40 02/16/22 22:03 122 114/67 02/16/22 22:00 110 18 98/70 (77) 100 Mechanical Ventilator 40.00 02/16/22 21:00 122 18 114/67 (83) 100 Mechanical Ventilator 40.00 02/16/22 20:35 35.5 117 192/88 (122) 88 Mechanical Ventilator 40.00 02/16/22 20:00 137 18 130/86 (106) 100 Mechanical Ventilator 40.00 02/16/22 20:00 88 Mechanical Ventilator 40 02/16/22 19:58 122 169/83 02/16/22 19:57 40 02/16/22 19:00 123 18 162/78 (102) 96 Mechanical Ventilator 40.00 02/16/22 19:00 123 02/16/22 18:25 Mechanical Ventilator 02/16/22 18:25 36.2 18 169/83 (111) 97 Mechanical Ventilator 02/16/22 18:20 Mechanical Ventilator 02/16/22 18:15 18 192/88 (122) 95 Mechanical Ventilator 02/16/22 18:05 18 183/86 (118) 100 Mechanical Ventilator 02/16/22 18:05 Mechanical Ventilator 02/16/22 18:03 122 183/86 02/16/22 18:00 117 192/88 (122) 88 Mechanical Ventilator 40.00 02/16/22 17:55 18 191/94 (126) 90 Mechanical Ventilator 02/16/22 17:50 Mechanical Ventilator 02/16/22 17:45 128 18 96 40 02/16/22 17:45 18 179/88 (118) 92 Mechanical Ventilator 02/16/22 17:35 Mechanical Ventilator 02/16/22 17:35 36.9 18 162/70 (100) 100 Mechanical Ventilator 02/16/22 17:30 125 179/88 (118) Mechanical Ventilator 02/16/22 15:17 38.0 112 20 147/80 94 Room Air 02/16/22 15:15 117 20 147/80 (102) 95 Room Air 02/16/22 15:00 113 15 129/57 (81) 95 Room Air 02/16/22 14:42 38.0 110 20 139/77 94 Room Air 02/16/22 14:30 38.1 02/16/22 14:26 38.1 119 20 138/86 95 Room Air 02/16/22 14:00 120 27 129/71 (90) 93 Room Air 02/16/22 13:15 117 02/16/22 13:00 120 30 125/67 (86) 92 Room Air 02/16/22 12:00 94 Room Air 02/16/22 12:00 118 21 138/73 (94) 94 Room Air 02/16/22 12:00 36.2 02/16/22 11:00 122 7 137/63 (87) 95 Room Air 02/16/22 10:00 124 12 147/78 (101) 96 Room Air 02/16/22 09:00 113 6 127/68 (87) 94 Room Air 02/16/22 08:00 37.6 122 18 140/77 (98) 94 Room Air 02/16/22 08:00 94 Room Air 02/16/22 08:00 110 21 144/76 (98) 93 Room Air I & O 02/17/22 07:00 Intake Total 2250 ml Output Total 2460 ml Balance -210 ml Height & Weight Height: 5'3.00" Weight: 126lbs. 0.0oz. 57.522602ru; 22.89 BMI Method:Stated General Appearance: No Apparent Distress Respiratory: Lungs Clear, Decreased Breath Sounds Cardiovascular: Regular Rate, Rhythm Capillary Refill: Less Than 3 Seconds Peripheral Pulses: 2+ Radial Pulses (R), 2+ Radial Pulses (L) Gastrointestinal: normal bowel sounds, soft, no organomegaly, tenderness (Super), other (would looks ok but MAYDA draining sanguinous fluid, ) Results Lab Laboratory Tests 02/15/22 23:00 02/16/22 04:20 02/17/22 04:32 Assessment/Plan Assessment/Plan pod 2 after explor lap, Munoz's procedure for perforated colon Now extubated and tolerating well will continue pain control, having bowel movements Will try to increase mobility Critical Care: Critically Ill Patient Time spent with patient (mins): 30 SOLO JENNINGS MD Feb 17, 2022 07:53
--- NOTE | 2022-02-17 07:58 | Progress Note - Surgery ---
MICHAEL MUNIZ 02/17/22 0757: Subjective Date Seen by a Provider: Feb 17, 2022 Time Seen by a Provider: 07:56 Subjective/Events-last exam Patient is awake, but unable to give much of a history due to being unable to speak. Patient communicated with writing. Patient reports no new issues. Focused Exam Lactate Level 02/15/22 23:00: Lactic Acid Level 1.89 Objective Exam Vital Signs Date Time Temp Pulse Resp B/P (MAP) Pulse Ox O2 Delivery O2 Flow Rate FiO2 02/17/22 07:47 101 23 96 30 02/17/22 06:49 105 30 100 30 02/17/22 06:00 105 18 145/71 (95) 97 Mechanical Ventilator 40.00 02/17/22 06:00 37.2 02/17/22 05:00 98 18 132/76 (96) 93 Mechanical Ventilator 40.00 02/17/22 04:00 97 Mechanical Ventilator 40 02/17/22 04:00 37.2 02/17/22 04:00 109 18 134/72 (95) 96 Mechanical Ventilator 40.00 02/17/22 03:02 101 20 97 30 02/17/22 03:00 95 18 129/67 (91) 97 Mechanical Ventilator 40.00 02/17/22 02:44 144 117/70 02/17/22 02:00 101 18 137/74 (95) 100 Mechanical Ventilator 40.00 02/17/22 01:45 36.3 02/17/22 01:00 101 02/17/22 01:00 101 18 122/71 (88) 98 Mechanical Ventilator 40.00 02/17/22 00:00 144 02/17/22 00:00 102 18 117/70 (86) 99 Mechanical Ventilator 40.00 02/16/22 23:59 97 Mechanical Ventilator 40 02/16/22 23:58 144 111/65 02/16/22 23:00 106 18 103/70 (80) 97 Mechanical Ventilator 40.00 02/16/22 22:38 110 23 98 40 02/16/22 22:03 122 114/67 02/16/22 22:00 110 18 98/70 (77) 100 Mechanical Ventilator 40.00 02/16/22 21:00 122 18 114/67 (83) 100 Mechanical Ventilator 40.00 02/16/22 20:35 35.5 117 192/88 (122) 88 Mechanical Ventilator 40.00 02/16/22 20:00 137 18 130/86 (106) 100 Mechanical Ventilator 40.00 02/16/22 20:00 88 Mechanical Ventilator 40 02/16/22 19:58 122 169/83 02/16/22 19:57 40 02/16/22 19:00 123 18 162/78 (102) 96 Mechanical Ventilator 40.00 02/16/22 19:00 123 02/16/22 18:25 Mechanical Ventilator 02/16/22 18:25 36.2 18 169/83 (111) 97 Mechanical Ventilator 02/16/22 18:20 Mechanical Ventilator 02/16/22 18:15 18 192/88 (122) 95 Mechanical Ventilator 02/16/22 18:05 18 183/86 (118) 100 Mechanical Ventilator 02/16/22 18:05 Mechanical Ventilator 02/16/22 18:03 122 183/86 02/16/22 18:00 117 192/88 (122) 88 Mechanical Ventilator 40.00 02/16/22 17:55 18 191/94 (126) 90 Mechanical Ventilator 02/16/22 17:50 Mechanical Ventilator 02/16/22 17:45 128 18 96 40 02/16/22 17:45 18 179/88 (118) 92 Mechanical Ventilator 02/16/22 17:35 Mechanical Ventilator 02/16/22 17:35 36.9 18 162/70 (100) 100 Mechanical Ventilator 02/16/22 17:30 125 179/88 (118) Mechanical Ventilator 02/16/22 15:17 38.0 112 20 147/80 94 Room Air 02/16/22 15:15 117 20 147/80 (102) 95 Room Air 02/16/22 15:00 113 15 129/57 (81) 95 Room Air 02/16/22 14:42 38.0 110 20 139/77 94 Room Air 02/16/22 14:30 38.1 02/16/22 14:26 38.1 119 20 138/86 95 Room Air 02/16/22 14:00 120 27 129/71 (90) 93 Room Air 02/16/22 13:15 117 02/16/22 13:00 120 30 125/67 (86) 92 Room Air 02/16/22 12:00 94 Room Air 02/16/22 12:00 118 21 138/73 (94) 94 Room Air 02/16/22 12:00 36.2 02/16/22 11:00 122 7 137/63 (87) 95 Room Air 02/16/22 10:00 124 12 147/78 (101) 96 Room Air 02/16/22 09:00 113 6 127/68 (87) 94 Room Air 02/16/22 08:00 37.6 122 18 140/77 (98) 94 Room Air 02/16/22 08:00 94 Room Air 02/16/22 08:00 110 21 144/76 (98) 93 Room Air I & O 02/17/22 07:00 Intake Total 2250 ml Output Total 2460 ml Balance -210 ml Capillary Refill : Less Than 3 Seconds General Appearance: Mild Distress, Thin HEENT: Normal ENT Inspection, Moist Mucous Membranes Neck: Non Tender, Supple Respiratory: Accessory Muscle Use, Wheezing Cardiovascular: No Edema, No JVD Peripheral Pulses: 2+ Radial Pulses (R), 2+ Radial Pulses (L) Gastrointestinal: normal bowel sounds, soft, no organomegaly, tenderness (Super) Extremity: Normal Inspection, Non Tender Neurologic/Psychiatric: Alert, Oriented x3 Skin: Normal Color, Cool Results Lab Laboratory Tests 02/16/22 18:22: Blood Gas Puncture Site L RADIAL, Blood Gas Patient Temperature 36.2, Arterial Blood pH 7.21*L, Arterial Blood Partial Pressure CO2 61H, Arterial Blood Partial Pressure O2 87, Arterial Blood HCO3 23, Arterial Blood Total CO2 25.2, Arterial Blood Oxygen Saturation 92L, Arterial Blood Base Excess -3.5L, Isidoro Test YES- POS, Blood Gas Ventilator Setting YES, Blood Gas Inspired Oxygen 18 02/16/22 22:33: Blood Gas Puncture Site LEFT RADIAL, Blood Gas Patient Temperature 35.8, Arterial Blood pH 7.44H, Arterial Blood Partial Pressure CO2 29L, Arterial Blood Partial Pressure O2 113H, Arterial Blood HCO3 20L, Arterial Blood Total CO2 20.5L, Arterial Blood Oxygen Saturation 97, Arterial Blood Base Excess -4.1L, Isidoro Test YES-POS, Blood Gas Ventilator Setting YES, Blood Gas Inspired Oxygen 40% 02/17/22 04:32: Blood Gas Puncture Site LEFT RADIAL, Blood Gas Patient Temperature 37.2, Arterial Blood pH 7.44H, Arterial Blood Partial Pressure CO2 31L, Arterial Blood Partial Pressure O2 77L, Arterial Blood HCO3 21L, Arterial Blood Total CO2 21.7, Arterial Blood Oxygen Saturation 95, Arterial Blood Base Excess -2.7L, Isidoro Test YES-POS, Blood Gas Ventilator Setting YES, Blood Gas Inspired Oxygen 40%, White Blood Count 23.2H, Red Blood Count 3.28L, Hemoglobin 8.8L, Hematocrit 27L, Mean Corpuscular Volume 81, Mean Corpuscular Hemoglobin 27, Mean Corpuscular Hemoglobin Concent 33, Red Cell Distribution Width 14.6H, Platelet Count 315, Mean Platelet Volume 9.1, Immature Granulocyte % (Auto) 1, Neutrophils (%) (Auto) 95H, Lymphocytes (%) (Auto) 2L, Monocytes (%) (Auto) 2, Eosinophils (%) (Auto) 0, Basophils (%) (Auto) 0, Neutrophils # (Auto) 22.2H, Lymphocytes # (Auto) 0.5L, Monocytes # (Auto) 0.4, Eosinophils # (Auto) 0.0, Basophils # (Auto) 0.0, Immature Granulocyte # (Auto) 0.1, Sodium Level 132L, Potassium Level 3.4L, Chloride Level 100, Carbon Dioxide Level 19L, Anion Gap 13, Blood Urea Nitrogen 15, Creatinine 0.60, Estimat Glomerular Filtration Rate 98, BUN/Creatinine Ratio 25, Glucose Level 146H, Calcium Level 7.8L, Corrected Calcium 8.8, Phosphorus Level 3.4, Magnesium Level 1.7, Total Bilirubin 0.4, Aspartate Amino Transf (AST/SGOT) 23, Alanine Aminotransferase (ALT/SGPT) 20, Alkaline Phosphatase 67, Total Protein 5.1L, Albumin 2.7L Microbiology 02/15/22 Blood Culture - Preliminary, Resulted No growth Assessment/Plan Assessment/Plan Assessment/Plan pneumoperitoneum nauea and vomiting diffuse abdominal pain sepsis secondary to perforated viscus Covid + alf anticoagulation/antiplatelet small cell lung ca c mets Patient underwent a Niles's procedure yesterday. NPO Will give platelets prior to procedure due to plavix. type and screen TO OR soon. SOCO BLANCAS DO 02/17/222133: Subjective Subjective/Events-last exam Patient just extubated. Pain controlled but sore. No flatus or bm through colostomy. Nader drain bloody slight serous. Denies any new complaints. Currently no n/v fever sweats chills shortness of breath or chest pain. Adequate urine output. Objective Exam General Appearance: No Apparent Distress, Chronically ill; No Mild Distress; Thin HEENT: PERRL/EOMI, Normal ENT Inspection Neck: Non Tender, Supple Respiratory: Chest Non Tender, No Accessory Muscle Use, No Respiratory Distress Cardiovascular: Regular Rate, Rhythm, No JVD Gastrointestinal: soft, tenderness (incisional, c/d/i), other (colostomy pink, no ischemia no output) Extremity: Normal Inspection, Non Tender Neurologic/Psychiatric: Alert, Oriented x3 Skin: Normal Color, Warm/Dry Lymphatic: No Adenopathy Assessment/Plan Assessment/Plan Assessment/Plan pneumoperitoneum nauea and vomiting diffuse abdominal pain sepsis secondary to perforated viscus Covid + alf anticoagulation/antiplatelet small cell lung ca c mets s/p ex lap with blackmon procedure pod 1 Just extubated NPO if begins having flatus or bm through colostomy start clears. Zosyn Pain control Roca for accurate i/o Recent plavix use and anticoagulation on hold- Nader drain more bloody than serous, will continue to monitor and repeat labs. If worsened may need more platelets and prbc No dvt prophylaxis due to anemia currently.except scd's Supervisory-Addendum Brief Verification & Attestation Participated in pt care: history, MDM, physical Personally performed: exam, history, MDM, supervision of care Care discussed with: Medical Student Procedures: n/a Results interpretation: Verified all documentation Verification and Attestation of Medical Student E/M Service A medical student performed and documented this service in my presence. I reviewed and verified all information documented by the medical student and made modifications to such information, when appropriate. I personally performed the physical exam and medical decision making. Soco Blancas, Feb 17, 2022,21:36 MICHAEL MUNIZ Feb 17, 2022 07:57 SOCO BLANCAS DO Feb 17, 2022 21:34
[2022-02-17 08:50] LABS: ABG BASE EXCESS -2.2 MMOL/L (-2.5-2.5); ABG OXYGEN SATURATION 91 % (94-100); ABG PCO2 29 MMHG (35-45); ABG PH 7.47 (7.37-7.43); ABG PO2 61 MMHG (79-93); ABG TCO2 21.8 MMOL/L (21.0-31.0)
[2022-02-17 08:51] LABS: ALLENS TEST YES-POS
[2022-02-17 08:52] LABS: INSPIRED O2 30%; PATIENT TEMP 37.1; VENTILATOR YES
--- NOTE | 2022-02-17 09:23 | OPERATIVE REPORT ---
DATE OF SERVICE: 02/16/2022 PREOPERATIVE DIAGNOSIS: Pneumoperitoneum. POSTOPERATIVE DIAGNOSIS: Perforated colon. PROCEDURE: Exploratory laparotomy with Niles procedure (rectosigmoid resection with end colostomy). SURGEON: Nestor Ozuna DO CALL CENTER TEAM LEADER: Dr. Contreras, assisted in retraction, dissection and closure. ANESTHESIA: General. ESTIMATED BLOOD LOSS: 50 mL. COMPLICATIONS: None. 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 She began having pain yesterday and seek evaluation at the Emergency Department. She had a CT scan performed, which demonstrated pneumoperitoneum and fluid within the pelvis. She has discussed risks and benefits along with her life partner who understand risks and benefits of procedure and wished to proceed. Consent was signed in the chart. DESCRIPTION OF PROCEDURE: The patient was taken to the operating suite. She was prepped and draped in sterile fashion. Timeout was performed. Midline incision was made. Cautery was used to dissect down through the subcutaneous tissue and the fascia was then divided and the abdomen was entered. A lot of murky fluid within the abdomen. The small bowel appeared slightly dilated, small bowel was then brought out of the abdomen and running. This was adhered significantly down to the pelvis, but was able to be finger fractured gently to remove the small bowel from the colon. Small bowel was then ran from the cecum all the way to the ligament of Treitz. There is just some exudative material in the small bowel without any pathological findings. Cecum was then ran around visualizing the colon, which did have a fair amount of hard stool throughout the colon, but also noting the perforation around the rectosigmoid area. Distal to this, the colon was dissected around and proximal to the area of perforation was small over the colon appeared to be viable was dissected around. A linear stapler was then fired across the proximal portion. A contour stapler was fired across the distal portion. LigaSure was used to divide the mesentery and specimen was removed. The colon was mobilized along the white line of Toldt. This was for creating the colostomy layer. The abdomen was then irrigated with copious amounts of irrigation and suctioned. A 19 Mingo drain was placed in the pelvis and brought out through the incision in the right lower quadrant. Stomach was visualized. No evidence of any pathology. Right liver, saw a large mass felt slightly ulcerations on the right lobe of the liver. At this point, the colostomy was then created in the left lower quadrant, which the skin was removed circular fashion along with some subcutaneous tissues. The anterior fascia was then cut in a cruciate fashion. The muscle was divided, and the posterior fascia was divided, and the colon was then brought up through it. The fascia was then scored using 1-0 looped PDS. The wound was irrigated, and skin was then stapled closed. The colostomy was then brooked with 3-0 Vicryl suture and colostomy appliance was applied along with sterile bandages. The patient tolerated procedure well. She was taken back to the Intensive Care Unit, remaining intubated in guarded condition. Job ID: [id number] DocumentID: [id number] Dictated Date: 02/16/2022 23:55:37 Surgical Device Sales Representative Date: 02/17/2022 09:22:15 Dictated By: DO JIGAR LOW
[2022-02-17] MEDS: PANTOPRAZOLE 40 MG (PROTONIX) VIAL IV SCH (09:59)
--- NOTE | 2022-02-17 10:50 | Physical Therapy Evaluation ---
PT Evaluation-General Medical Diagnosis Admission Date Feb 16, 2022 at 01:30 Medical Diagnosis: Covid/bowel perforation Onset Date: Feb 16, 2022 Therapy Diagnosis Therapy Diagnosis: generalized weakness/debility Height/Weight Height (Feet): 5 Height (Inches): 3.00 Weight (Pounds): 126 Weight (Ounces): 0.0 Precautions Precautions/Isolations: Airborne Isolation, Fall Prevention Weight Bear Status Right Lower Extremity: Right Partial Weight Bearing Left Lower Extremity: Left Partial Weight Bearing weight bearing as tolerated Referral Physician: Thomas Reason for Referral: Evaluation/Treatment Medical History Pertinent Medical History: CAD, COPD, CT, Smoking Current History ER secondary to N&V (had chemo recently) Reviewed History: Yes Social History Home: Single Level Prior Prior Level of Function SCALE: Activities may be completed with or without assistive devices. 7-Qdvcxqfnoj-sauxvah completes the activity by him/herself with no assistance from a helper. 5-Set-up or Clean-up Assistance-helper sets up or cleans up; patient completes activity. Ball assists only prior to or following the activity. 4-Supervision or Touching Assistance-helper provides verbal cues and/or touching/steadying and/or contact guard assistance as patient completes activ ity. Assistance may be provided throughout the activity or intermittently. 3-Partial/Moderate Assistance-helper does LESS THAN HALF the effort. Ball lifts, holds or supports trunk or limbs, but provides less than half the effort. 2-Substantial/Maximal Assistance-helper does MORE THAN HALF the effort. Ball lifts or holds trunk or limbs and provides more than half the effort. 8-Hpxbdugfb-mhatgw does ALL the effort. Patient does none of the effort to complete the activity. Or, the assistance of 2 or more helpers is required for the patient to complete the activity. If activity was not attempted, code reason: 7-Patient Refused. 9-Not Applicable-not attempted and the patient did not perform the activity before the current illness, exacerbation or injury. 10-Not Attempted due to Environmental Limitations-(lack of equipment, weather restraints, etc.). 88-Not Attempted due to Medical Conditions or Safety Concerns. Bed Mobility: 6 Transfers (B,C,W/C): 6 Gait: 6 Indoor Mobility (Ambulation): Independent Prior Devices Use: Walker (4WW) PT Evaluation-Current Subjective Patient agrees to up to recliner. Pain Numeric Pain Scale: 10-Worst Possible Pain Location: Medial, Lower Location Body Site: Abdomen Pain Description: Acute Objective Patient Orientation: Normal For Age Attachments: NG Tube, Drains, Roca Catheter, IV ROM/Strength ROM Lower Extremities bilateral LE WFL Strength Lower Extremities 3+/5 grossly bilateral LE all planes Integumentary/Posture Integumentary refer to nursing notes Bladder Incontinence: Roca Cath Posture WFL Neuromuscular (Tone, Coordination, Reflexes) grossly intact Sensory Vision: Functional Hearing: Functional Transfers Roll Left to Right (QC): 2 Lying to Sitting/Side of Bed(Q: 2 Sit to Stand (QC): 3 Chair/Tsd-nz-Tyonu Xfer(QC): 3 Gait Does the Patient Walk?: No and Walking Goal IS indicated Mode of Locomotion: Walk Anticipated Mode of Locomotion: Walk Distance: 5 steps Balance Sitting Static: Fair Sitting Dynamic: Fair Standing Static: Fair Standing Dynamic: Fair Assessment/Needs 66 y.o. female, will benefit from skilled PT to address functional strength and mobility to improve current LOF to safely return to home at maximum LOF. Rehab Potential: Guarded PT Nursing Home Goals Nursing Home Goals PT Manufacturing Teacher Goals Time Frame: Mar 11, 2022 Roll Left & Right (QC): 6 Sit to Lying (QC): 6 Lying-Sitting on Side/Bed(QC): 6 Sit to Stand (QC): 6 Chair/Ysv-ab-Ozxoo Xfer(QC): 6 Toilet Transfer (QC): 6 Walk 10 feet (QC): 6 Walk 50ft with 2 Turns (QC): 6 Walk 150 ft (QC): 6 PT Plan Problem List Problem List: Activity Tolerance, Functional Strength, Safety, Balance, Gait, Transfer, Bed Mobility Treatment/Plan Treatment Plan: Continue Plan of Care Treatment Plan: Bed Mobility, Education, Functional Activity Marco A, Functional Strength, Gait, Safety, Therapeutic Exercise, Transfers Treatment Duration: Mar 11, 2022 Frequency: 6 times per week Estimated Hrs Per Day: .25 hour per day Patient and/or Family Agrees t: Yes Time/GCodes Time In: 1000 Time Out: 1011 Total Billed Treatment Time: 11 [facility] Feb 17, 2022 10:50
[2022-02-17] MEDS: ONDANSETRON 4 MG/2 ML (SDV) Z0FRAN IV PRN ×3 (14:39→22:32)
--- NOTE | 2022-02-17 14:52 | Anesthesia-General Post-Op ---
General Patient Condition Mental Status/LOC: Same as Preop Cardiovascular: Satisfactory Nausea/Vomiting: Absent Respiratory: Satisfactory Pain: Controlled Complications: Absent Post Op Complications Complications None Follow Up Care/Instructions Patient Instructions None needed. Anesthesia/Patient Condition Patient Condition Patient is doing well, stable vital signs, extubated this am and doing well, no apparent adverse anesthesia problems. No complications reported per nursing. CORTNEY CORTEZ CRNA Feb 17, 2022 14:51
[2022-02-17] MEDS: inSUlin ASPART (NovoLOG) 1 UNIT/0.01 ML (CHARGE PER UNIT) SC SCH ×2 (16:00→21:00)
--- NOTE | 2022-02-17 16:31 | Progress Note - Hospitalist ---
MIKECELINA 02/17/22 1631: Subjective HPI/CC On Admission Date Seen by Provider: Feb 17, 2022 Time Seen by Provider: 08:12 Subjective/Events-last exam Patient is s/p resection of rectosigmoid colon w/diverting colostomy. She was extubated early this morning and is resting in her chair with minimal abdominal pain. She denies any nausea/vomiting, sweats or chills. Review of Systems General: No Chills, No Night Sweats Pulmonary: No Dyspnea Gastrointestinal: No: Nausea, Vomiting, Abdominal Pain Focused Exam Lactate Level 02/15/22 23:00: Lactic Acid Level 1.89 Objective Exam Vital Signs Vital Signs Date Time Temp Pulse Resp B/P (MAP) Pulse Ox O2 Delivery O2 Flow Rate FiO2 02/17/22 16:00 93 16 137/61 (86) 97 Nasal Cannula 4.00 02/17/22 11:47 37.0 02/17/22 08:00 40 Capillary Refill : Less Than 3 Seconds General Appearance: Chronically ill HEENT: PERRL/EOMI, Other (NG tube in place w/suction) Neck: Supple Respiratory: Lungs Clear, Normal Breath Sounds, No Accessory Muscle Use, No Respiratory Distress Cardiovascular: Regular Rate, Rhythm, No Murmur Gastrointestinal: Soft, Abnormal Bowel Sounds (decreased), Tenderness (near incisions) Extremity: No Calf Tenderness, No Pedal Edema Neurologic/Psychiatric: Alert, Oriented x3 Skin: Normal Color, Warm/Dry Results/Procedures Lab Laboratory Tests 02/17/22 04:32 Patient resulted labs reviewed. Assessment/Plan Assessment and Plan Assess & Plan/Chief Complaint Large bowel perforation Nausea/vomiting Leukocytosis s/p resection of rectosigmoid colon w/diverting colostomy POD#1 Care being coordinated with pts surgeon, Dr. Ozuna She is currently NPO with an NG tube in place Continue IV fluids and abx Encourage use of IS PT/OT Anemia 8.8 today, will trend COVID Receiving 4L O2 No severe respiratory sxs at the time, will continue to monitor closely Diabetes Sliding scale insulin Novolog HTN Lung Cancer Patient under treatment for small cell lung Cancer with mets to multiple locations, Last treatment 02/09 TYESHA TRAYLOR DO 02/18/22 0605: Subjective Subjective/Events-last exam Pt is doing a lot better Pt has Covid Post-op day number 1 Extubated this morning Zosyn maintained empirically NG tube is in place IS used Colostomy good output Review of Systems Gastrointestinal: Abdominal Pain Objective Exam General Appearance: No Apparent Distress, WD/WN, Chronically ill Respiratory: Lungs Clear, Normal Breath Sounds Cardiovascular: Regular Rate, Rhythm Neurologic/Psychiatric: Alert, Oriented x3 Assessment/Plan Assessment and Plan Assess & Plan/Chief Complaint supportive care IS Supervisory-Addendum Brief Verification & Attestation Participated in pt care: history, MDM, physical Personally performed: exam, history, MDM, supervision of care Care discussed with: Medical Student Procedures: n/a Results interpretation: Verified all documentation Verification and Attestation of Medical Student E/M Service A medical student performed and documented this service in my presence. I reviewed and verified all information documented by the medical student and made modifications to such information, when appropriate. I personally performed the physical exam and medical decision making. Tyesha Traylor, Feb 18, 2022,06:05 CELINA MCKEON Feb 17, 2022 16:31 TYESHA TRAYLOR DO Feb 18, 2022 06:05
[2022-02-17] MEDS: fentaNYL DRIP PRE-MIX 250 ML IV SCH (18:42)
[2022-02-17] MEDS: FLUCONAZOLE 100 MG/50 ML IVPB IV SCH (20:51)
[2022-02-18] VITALS (8 sets, daily range): BP systolic 135–156; BP diastolic 57–82
[2022-02-18] MEDS: LACTATED RINGERS 1,000 ML IV SCH ×6 (02:02→21:15)
[2022-02-18] MEDS: PROPOFOL DRIP (ICU) 100 ML IV SCH ×2 (02:18→18:29)
[2022-02-18] MEDS: NOREPINEPHRINE 8 MG/250 ML 250 ML IV SCH (02:30)
[2022-02-18] MEDS: ONDANSETRON 4 MG/2 ML (SDV) Z0FRAN IV PRN ×3 (04:37→23:17)
[2022-02-18 04:43] LABS: BASOPHILS % (AUTO) 0 % (0-10); EOSINOPHILS % (AUTO) 0 % (0-10); LYMPHOCYTES # (AUTO) 0.8 10^3/uL (1.0-4.0); LYMPHOCYTES % (AUTO) 4 % (12-44); MEAN CORPUSCULAR HEMOGLOBIN 27 pg (25-34); MEAN CORPUSCULAR HGB CONC 33 g/dL (32-36); MEAN CORPUSCULAR VOLUME 82 fL (80-99); MEAN PLATELET VOLUME 9.2 fL (9.0-12.2); MONOCYTES # (AUTO) 0.5 10^3/uL (0.0-1.0); MONOCYTES % (AUTO) 3 % (0-12); NEUTROPHILS # (AUTO) 15.9 10^3/uL (1.8-7.8); NEUTROPHILS % (AUTO) 92 % (42-75); PLATELET COUNT 225 10^3/uL (130-400); WHITE BLOOD COUNT 17.2 10^3/uL (4.3-11.0)
[2022-02-18 04:47] LABS: HEMATOCRIT 20 % (35-52); HEMOGLOBIN 6.5 g/dL (11.5-16.0)
[2022-02-18 04:57] LABS: ALBUMIN 2.5 GM/DL (3.2-4.5)
[2022-02-18 04:58] LABS: POTASSIUM 3.3 MMOL/L (3.6-5.0)
[2022-02-18 04:59] LABS: CALCIUM 7.6 MG/DL (8.5-10.1)
[2022-02-18 05:00] LABS: TOTAL PROTEIN 4.7 GM/DL (6.4-8.2)
[2022-02-18 05:02] LABS: BILIRUBIN,TOTAL 0.5 MG/DL (0.1-1.0)
[2022-02-18 05:03] LABS: PHOSPHORUS 2.1 MG/DL (2.3-4.7)
[2022-02-18 05:04] LABS: CREATININE SERUM 0.56 MG/DL (0.60-1.30)
[2022-02-18 05:06] LABS: MAGNESIUM 1.6 MG/DL (1.6-2.4)
[2022-02-18] MEDS: POTASSIUM CL 10MEQ/50ML IVPB 50 ML IV SCH ×9 (05:29→18:34)
[2022-02-18] MEDS: KCL 20 MEQ TAB (K-DUR) PO SCH (05:30)
[2022-02-18] MEDS ORDERED: NS IV 500 ML 500 ML IV SCH ×2 (05:30)
[2022-02-18] MEDS: fentaNYL DRIP PRE-MIX 250 ML IV SCH ×3 (05:53→20:57)
[2022-02-18] MEDS: PIPERACILLIN SODIUM/TAZOBACTAM 4.5 GM in NS (IVPB) 100 ML IV SCH ×3 (05:55→21:42)
[2022-02-18] MEDS: inSUlin ASPART (NovoLOG) 1 UNIT/0.01 ML (CHARGE PER UNIT) SC SCH ×4 (06:00→21:00)
[2022-02-18 06:33] LABS: INR 1.2 (0.8-1.4); PROTHROMBIN TIME PATIENT 15.5 SEC (12.2-14.7)
--- NOTE | 2022-02-18 08:08 | Progress Note - Hospitalist ---
Subjective HPI/CC On Admission Date Seen by Provider: Feb 18, 2022 Time Seen by Provider: 10:30 Subjective/Events-last exam Not doing well Refused biPAP and now DNR Pain is an issue Morphine ordered Review of Systems Pulmonary: Dyspnea Gastrointestinal: Abdominal Pain Focused Exam Lactate Level 02/15/22 23:00: Lactic Acid Level 1.89 Objective Exam Vital Signs Vital Signs Date Time Temp Pulse Resp B/P (MAP) Pulse Ox O2 Delivery O2 Flow Rate FiO2 02/18/22 16:00 80 18 103/52 (69) 92 Nasal Cannula 8.00 02/18/22 12:07 36.8 02/17/22 08:00 40 Capillary Refill : Less Than 3 Seconds General Appearance: Anxious, Chronically ill, Mild Distress, Thin Respiratory: Accessory Muscle Use, Decreased Breath Sounds Cardiovascular: Regular Rate, Rhythm Results/Procedures Lab Laboratory Tests 02/18/22 04:20 02/18/22 14:13 Patient resulted labs reviewed. Assessment/Plan Assessment and Plan Assess & Plan/Chief Complaint Assessment: Perforated intestinal s/p repair COVID Hypoxia Poor reserve Plan: Pain control DNR Critical Care Critically Ill Patient FORTINO TRAYLOR DO Feb 18, 2022 08:08
[2022-02-18] MEDS: MAGNESIUM 1 GM/100 ML IVPB 100 ML IV SCH ×3 (08:27→11:33)
[2022-02-18] MEDS: PANTOPRAZOLE 40 MG (PROTONIX) VIAL IV SCH (09:34)
--- NOTE | 2022-02-18 10:07 | Tele-ICU Progress Note ---
Subjective Date Seen by a Provider: Feb 18, 2022 Time Seen by a Provider: 10:07 Subjective/Events-last exam (Tele-ICU Physician , consultation) Available chart/ vitals / labs / Images reviewed H&P is from ER notes Patient's information available about PMH, Shx, Fhx allergy reviewed inEMR. ROS as per chart and RN report Now in ICU, hemodynamically stable Video assessment done using teleICU camera, rest of exam as per RN Discussed with RN. Consultants: sx Hospital course: (02/16) 66yr old female admitted with Covid 19, n/v, bowel perf, and urinary retention. s/p Emergent Ex Laparotomy, Munoz's Procedure. Intubated from OR. (02/17) Extubated. 02/18 -hb drop to 6.5 from 8.8 - transfusion 2 U pRBC 02/18 A/P Perforated viscus/ free air on abd CT ( " likely at the level of the mid to distal small bowel" - s/p Emergent Ex Laparotomy, Munoz's Procedure 02/16 - abx started Zosyn 02/16 Anemia - hb drop to 6.5 from 8.8 - transfusion 2 U pRBC 02/18 planned for today - vital stable , has some MAYDA bleeding --> await for Sx to eval PAIN - fentanyl / morphine - controlled Hypoxia - most liklely non cardiogenic pulm edema + pulm htn in face of VO - will stop IVF today , might need lasix after trnasfusion Covid + - vaccinated ( moderna x2 + buster ECHO 01/24/22 -EF 60% -pulm htrn RVSP 60 mmHg Lung CA , reportedly stage 4 - oncololy is in other hospital PAD - s/p stenting right - on plavix - ON HOLD npo d 3 - monitor Lines : port right , (Central Line Necessity Reviewed) Roca: + OG: Nutrition: npo d 3 Analgesia: Anxiety/ delirium VTE Prophylaxis: SCD for now , high risk with h/o CA Stress Ulcer Prophylaxis: Plans in collaboration with bedside consultants and IM MDs. Discussed with RN to reach out if any questions or concerns A total of 33 minutes of critical care time was devoted to this patient today, required to treat and/or prevent further deterioration of critical care condition ( as above ) . Sepsis Event Evaluation Height, Weight, BMI Height: 5'3.00" Weight: 126lbs. 0.0oz. 57.029413fm; 23.35 BMI Method:Stated Focused Exam Lactate Level 02/15/22 23:00: Lactic Acid Level 1.89 Exam Exam Patient acknowledged, consented, and participated in this virtual visit which was conducted using real time audio/video Vital Signs Date Time Temp Pulse Resp B/P (MAP) Pulse Ox O2 Delivery O2 Flow Rate FiO2 02/18/22 09:25 36.8 81 18 147/71 93 Nasal Cannula 4.00 02/18/22 09:09 36.6 81 18 151/65 94 Nasal Cannula 4.00 02/18/22 09:00 79 20 143/64 (90) 91 Nasal Cannula 4.00 02/18/22 08:50 36.2 86 18 141/59 94 Nasal Cannula 4.00 02/18/22 08:46 36.2 87 18 142/65 94 Nasal Cannula 4.00 02/18/22 08:00 98 Nasal Cannula 4.00 02/18/22 08:00 36.6 02/18/22 08:00 80 13 150/67 (94) 92 Nasal Cannula 4.00 02/18/22 07:00 94 22 138/65 (89) 92 Nasal Cannula 4.00 02/18/22 07:00 36.7 78 10 135/65 95 Nasal Cannula 4.00 02/18/22 07:00 82 02/18/22 06:45 36.1 79 18 136/57 95 Nasal Cannula 4.00 02/18/22 06:00 75 20 142/68 (92) 98 Nasal Cannula 4.00 02/18/22 05:53 80 134/64 02/18/22 05:00 78 18 134/73 (98) 95 Nasal Cannula 4.00 02/18/22 04:25 36.3 02/18/22 04:00 97 Nasal Cannula 4.00 02/18/22 04:00 90 9 137/74 (90) 96 Nasal Cannula 4.00 02/18/22 03:00 74 17 135/64 (94) 99 Nasal Cannula 4.00 02/18/22 02:00 78 26 140/63 (94) 97 Nasal Cannula 4.00 02/18/22 01:00 81 18 132/67 (89) 95 Nasal Cannula 4.00 02/18/22 01:00 81 02/18/22 00:20 75 137/64 02/18/22 00:15 36.5 02/18/22 00:00 75 18 137/64 (96) 100 Nasal Cannula 4.00 02/17/22 23:59 99 Nasal Cannula 4.00 02/17/22 23:00 82 24 128/58 (79) 99 Nasal Cannula 4.00 02/17/22 22:42 76 141/65 02/17/22 22:00 86 22 136/65 (88) 100 Nasal Cannula 4.00 02/17/22 22:00 86 136/65 02/17/22 21:00 96 24 134/73 (93) 97 Nasal Cannula 4.00 02/17/22 20:00 99 Room Air 02/17/22 20:00 88 22 137/70 (95) 98 Nasal Cannula 4.00 02/17/22 20:00 Nasal Cannula 4.00 02/17/22 19:00 90 02/17/22 19:00 90 25 143/74 (96) 96 Nasal Cannula 4.00 02/17/22 18:42 86 139/66 02/17/22 18:00 89 16 145/69 (94) 97 Nasal Cannula 4.00 02/17/22 18:00 36.9 02/17/22 17:00 90 16 147/67 (93) 100 Nasal Cannula 4.00 02/17/22 16:00 99 Nasal Cannula 4.00 02/17/22 16:00 93 16 137/61 (86) 97 Nasal Cannula 4.00 02/17/22 15:00 90 23 159/73 (101) 100 Nasal Cannula 4.00 02/17/22 14:00 86 15 148/73 (98) 100 Nasal Cannula 4.00 02/17/22 13:00 87 17 158/74 (102) 100 Nasal Cannula 4.00 02/17/22 12:52 91 02/17/22 12:00 99 Nasal Cannula 4.00 02/17/22 12:00 87 17 161/76 (104) 99 Nasal Cannula 4.00 02/17/22 11:47 37.0 02/17/22 11:00 96 12 159/79 (105) 100 Nasal Cannula 4.00 I & O 02/18/22 07:00 Intake Total 1450 ml Output Total 2070 ml Balance -620 ml Height & Weight Height: 5'3.00" Weight: 126lbs. 0.0oz. 57.453226jf; 23.35 BMI Method:Stated General Appearance: No Apparent Distress, WD/WN, Chronically ill HEENT: PERRL/EOMI, Normal ENT Inspection Neck: Non Tender, Supple Respiratory: Lungs Clear, Normal Breath Sounds Cardiovascular: Regular Rate, Rhythm Capillary Refill: Less Than 3 Seconds Peripheral Pulses: 2+ Radial Pulses (R), 2+ Radial Pulses (L) Gastrointestinal: soft, tenderness (incisional, c/d/i), other (colostomy pink, no ischemia no output) Extremity: Normal Inspection, Non Tender Neurologic/Psychiatric: Alert, Oriented x3 Skin: Normal Color, Warm/Dry Lymphatic: No Adenopathy Results Lab Laboratory Tests 02/17/22 04:32 02/18/22 04:20 Assessment/Plan Assessment/Plan 1 ROSALIE HUNG MD Feb 18, 2022 10:07
[2022-02-18] MEDS: VASOPRESSIN INJECTION 20 UNIT in NS (IVPB) 100 ML IV SCH ×2 (10:30→21:00)
[2022-02-18] MEDS ORDERED: morphine INJ 4 MG/ML 1 ML (VIAL/SYRINGE) IVP PRN (11:00)
--- NOTE | 2022-02-18 11:14 | Physical Therapy Progress Note ---
Therapy Progress Note Pt refused treatment, but requested to be pulled up in the bed and rolled to the (R). Her nurse was present and we moved her up and positioned a pillow behind her. [id number] FERNANDO CEBALLOS PT Feb 18, 2022 11:14
[2022-02-18] MEDS ORDERED: SCOPOLAMINE 1.5 MG (TRANSDERM-SCOP) PATCH TD ONE (11:15)
--- NOTE | 2022-02-18 11:55 | Progress Note - Surgery ---
JOSAFAT CARRILLO 02/18/22 1155: Subjective Date Seen by a Provider: Feb 18, 2022 Time Seen by a Provider: 08:50 Subjective/Events-last exam Patient claims she is not feeling well today. She is having constant nausea and back pain. She is receiving her second unit of blood this AM after her hgb drop ped to 6.5. She is having gross blood into her MAYDA drain, minimal output from her colostomy. Review of Systems General: Chills; No Night Sweats HEENT: Head Aches Pulmonary: No Dyspnea Cardiovascular: No: Chest Pain Gastrointestinal: Nausea; No: Vomiting, Abdominal Pain Musculoskeletal: back pain Focused Exam Lactate Level 02/15/22 23:00: Lactic Acid Level 1.89 Objective Exam Vital Signs Date Time Temp Pulse Resp B/P (MAP) Pulse Ox O2 Delivery O2 Flow Rate FiO2 02/18/22 11:00 93 11 144/74 (97) 90 Nasal Cannula 5.00 02/18/22 10:00 84 23 149/70 (96) 90 Nasal Cannula 4.00 02/18/22 09:53 80 147/66 02/18/22 09:25 36.8 81 18 147/71 93 Nasal Cannula 4.00 02/18/22 09:09 36.6 81 18 151/65 94 Nasal Cannula 4.00 02/18/22 09:00 79 20 143/64 (90) 91 Nasal Cannula 4.00 02/18/22 08:50 36.2 86 18 141/59 94 Nasal Cannula 4.00 02/18/22 08:46 36.2 87 18 142/65 94 Nasal Cannula 4.00 02/18/22 08:00 98 Nasal Cannula 4.00 02/18/22 08:00 36.6 02/18/22 08:00 80 13 150/67 (94) 92 Nasal Cannula 4.00 02/18/22 07:00 94 22 138/65 (89) 92 Nasal Cannula 4.00 02/18/22 07:00 36.7 78 10 135/65 95 Nasal Cannula 4.00 02/18/22 07:00 82 02/18/22 06:45 36.1 79 18 136/57 95 Nasal Cannula 4.00 02/18/22 06:00 75 20 142/68 (92) 98 Nasal Cannula 4.00 02/18/22 05:53 80 134/64 02/18/22 05:00 78 18 134/73 (98) 95 Nasal Cannula 4.00 02/18/22 04:25 36.3 02/18/22 04:00 97 Nasal Cannula 4.00 02/18/22 04:00 90 9 137/74 (90) 96 Nasal Cannula 4.00 02/18/22 03:00 74 17 135/64 (94) 99 Nasal Cannula 4.00 02/18/22 02:00 78 26 140/63 (94) 97 Nasal Cannula 4.00 02/18/22 01:00 81 18 132/67 (89) 95 Nasal Cannula 4.00 02/18/22 01:00 81 02/18/22 00:20 75 137/64 02/18/22 00:15 36.5 02/18/22 00:00 75 18 137/64 (96) 100 Nasal Cannula 4.00 02/17/22 23:59 99 Nasal Cannula 4.00 02/17/22 23:00 82 24 128/58 (79) 99 Nasal Cannula 4.00 02/17/22 22:42 76 141/65 02/17/22 22:00 86 22 136/65 (88) 100 Nasal Cannula 4.00 02/17/22 22:00 86 136/65 02/17/22 21:00 96 24 134/73 (93) 97 Nasal Cannula 4.00 02/17/22 20:00 99 Room Air 02/17/22 20:00 88 22 137/70 (95) 98 Nasal Cannula 4.00 02/17/22 20:00 Nasal Cannula 4.00 02/17/22 19:00 90 02/17/22 19:00 90 25 143/74 (96) 96 Nasal Cannula 4.00 02/17/22 18:42 86 139/66 02/17/22 18:00 89 16 145/69 (94) 97 Nasal Cannula 4.00 02/17/22 18:00 36.9 02/17/22 17:00 90 16 147/67 (93) 100 Nasal Cannula 4.00 02/17/22 16:00 99 Nasal Cannula 4.00 02/17/22 16:00 93 16 137/61 (86) 97 Nasal Cannula 4.00 02/17/22 15:00 90 23 159/73 (101) 100 Nasal Cannula 4.00 02/17/22 14:00 86 15 148/73 (98) 100 Nasal Cannula 4.00 02/17/22 13:00 87 17 158/74 (102) 100 Nasal Cannula 4.00 02/17/22 12:52 91 02/17/22 12:00 99 Nasal Cannula 4.00 02/17/22 12:00 87 17 161/76 (104) 99 Nasal Cannula 4.00 I & O 02/18/22 07:00 Intake Total 1450 ml Output Total 2070 ml Balance -620 ml Capillary Refill : Less Than 3 Seconds General Appearance: Chronically ill, Mild Distress, Thin Respiratory: Lungs Clear, Normal Breath Sounds Cardiovascular: Regular Rate, Rhythm, No Murmur Peripheral Pulses: 2+ Radial Pulses (R), 2+ Radial Pulses (L) Gastrointestinal: soft, other (No signs of ischemia at ostomy) Neurologic/Psychiatric: Alert, Oriented x3 Results Lab Laboratory Tests 02/17/22 16:19: Glucometer 121H 02/17/22 21:53: Glucometer 108 02/18/22 03:55: Glucometer 92 02/18/22 04:20: White Blood Count 17.2H, Red Blood Count 2.43L, Hemoglobin 6.5#*L, Hematocrit 20*L, Mean Corpuscular Volume 82, Mean Corpuscular Hemoglobin 27, Mean Corpuscular Hemoglobin Concent 33, Red Cell Distribution Width 14.6H, Platelet Count 225, Mean Platelet Volume 9.2, Immature Granulocyte % (Auto) 1, Neutrophils (%) (Auto) 92H, Lymphocytes (%) (Auto) 4L, Monocytes (%) (Auto) 3, Eosinophils (%) (Auto) 0, Basophils (%) (Auto) 0, Neutrophils # (Auto) 15.9H, Lymphocytes # (Auto) 0.8L, Monocytes # (Auto) 0.5, Eosinophils # (Auto) 0.0, Basophils # (Auto) 0.0, Immature Granulocyte # (Auto) 0.1, Sodium Level 134L, Potassium Level 3.3L, Chloride Level 101, Carbon Dioxide Level 20L, Anion Gap 13, Blood Urea Nitrogen 11, Creatinine 0.56L, Estimat Glomerular Filtration Rate 100, BUN/Creatinine Ratio 20, Glucose Level 97, Calcium Level 7.6L, Corrected Calcium 8.8, Phosphorus Level 2.1L, Magnesium Level 1.6, Total Bilirubin 0.5, Aspartate Amino Transf (AST/SGOT) 22, Alanine Aminotransferase (ALT/SGPT) 18, Alkaline Phosphatase 55, Total Protein 4.7L, Albumin 2.5L 02/18/22 06:00: Prothrombin Time 15.5H, INR Comment 1.2, Activated Partial Thromboplast Time 32 02/18/22 10:56: Glucometer 89 Microbiology 02/16/22 MRSA Screen - Final, Complete MRSA not isolated 02/16/22 Urine Culture - Final, Complete NO GROWTH 02/15/22 Blood Culture - Preliminary, Resulted No growth Assessment/Plan Assessment/Plan Assessment/Plan pneumoperitoneum nauea and vomiting diffuse abdominal pain sepsis secondary to perforated viscus Covid + custodial anticoagulation/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 Give patient zofran Q2H IV for worsening nausea. Continue IV zosyn. Add IV morphine for control of back pain. Leave ramos in to monitor I&O. QUINTON VALDIVIA DO 02/18/22 1238: Subjective Time Seen by a Provider: 10:10 Subjective/Events-last exam Pt seen and examined, her main complaint is back pain. Review of Systems General: Chills; No Night Sweats; Fatigue HEENT: Head Aches Pulmonary: No Dyspnea Cardiovascular: No: Chest Pain Gastrointestinal: Nausea; No: Vomiting, Abdominal Pain Musculoskeletal: back pain Objective Exam General Appearance: Chronically ill, Mild Distress, Thin Respiratory: Lungs Clear, Normal Breath Sounds Cardiovascular: Regular Rate, Rhythm, No Murmur Gastrointestinal: soft, other (ostomy pink and viable, nurse noted fecal material last night. Incision c/d/I) Assessment/Plan Assessment/Plan Assessment/Plan s/p ex lap with blackmon procedure pod #1 Continue the patient NPO. Give patient zofran Q2H IV for worsening nausea. Continue IV zosyn. Add IV morphine for control of back pain. Leave ramos in to monitor I&O. Supervisory-Addendum Brief Verification & Attestation Participated in pt care: history, MDM, physical Personally performed: exam, history, MDM, supervision of care Care discussed with: Medical Student Procedures: n/a Verification and Attestation of Medical Student E/M Service A medical student performed and documented this service. I then reviewed and verified all information documented by the medical student and made modifications to such information, when appropriate. I personally performed a physical exam, medical decision making and then discussed any differences between the notes and made revisions as necessary to create one note. Quinton Valdivia , 02/18/22 , 12:47 JOSAFAT CARRILLO Feb 18, 2022 11:55 QUINTON VALDIVIA DO Feb 18, 2022 12:38
[2022-02-18] MEDS ORDERED: FUROSEMIDE 40 MG/4 ML INJ (LASIX) IVP ONE ×2 (12:30→18:00)
--- NOTE | 2022-02-18 13:28 | Diagnostic Imaging Report ---
EXAMINATION: Chest 1 view HISTORY: Hypoxia COMPARISON: 02/16/2022 FINDINGS: Heart size is normal. There is enlargement of the pulmonary vessels which can be seen with pulmonary vascular congestion. Increasing patchy interstitial opacities throughout both lungs. No pneumothorax. Trace bilateral pleural effusions. Right-sided port catheter is unchanged. Enteric catheter is unchanged. The endotracheal tube has been removed. The osseous structures are intact. IMPRESSION: 1. Increasing interstitial opacities throughout the lungs concerning for worsening edema or pneumonia. Dictated by: Dictated on workstation # [id number]
[2022-02-18] MEDS ORDERED: MAGNESIUM 2 GM/50 ML IVPB 50 ML IV ONE (14:30)
[2022-02-18] MEDS ORDERED: DexMEDEtomidine 250 ML DRIP 250 ML IV SCH (14:30)
[2022-02-18 14:31] LABS: HEMATOCRIT 32 % (35-52); MEAN CORPUSCULAR HEMOGLOBIN 28 pg (25-34); MEAN CORPUSCULAR HGB CONC 34 g/dL (32-36); MEAN CORPUSCULAR VOLUME 82 fL (80-99); MEAN PLATELET VOLUME 9.5 fL (9.0-12.2); PLATELET COUNT 243 10^3/uL (130-400); WHITE BLOOD COUNT 20.1 10^3/uL (4.3-11.0)
[2022-02-18] MEDS ORDERED: FUROSEMIDE 40 MG/4 ML INJ (LASIX) ONE (18:18)
[2022-02-18] MEDS: FLUCONAZOLE 100 MG/50 ML IVPB IV SCH (20:20)
[2022-02-19] MEDS: NOREPINEPHRINE 8 MG/250 ML 250 ML IV SCH (02:30)
[2022-02-19 04:07] LABS: BASOPHILS % (AUTO) 0 % (0-10); EOSINOPHILS % (AUTO) 0 % (0-10); HEMATOCRIT 30 % (35-52); HEMOGLOBIN 10.4 g/dL (11.5-16.0); LYMPHOCYTES # (AUTO) 0.8 10^3/uL (1.0-4.0); LYMPHOCYTES % (AUTO) 7 % (12-44); MEAN CORPUSCULAR HEMOGLOBIN 28 pg (25-34); MEAN CORPUSCULAR HGB CONC 34 g/dL (32-36); MEAN CORPUSCULAR VOLUME 81 fL (80-99); MEAN PLATELET VOLUME 9.4 fL (9.0-12.2); MONOCYTES # (AUTO) 0.5 10^3/uL (0.0-1.0); MONOCYTES % (AUTO) 4 % (0-12); NEUTROPHILS # (AUTO) 9.9 10^3/uL (1.8-7.8); NEUTROPHILS % (AUTO) 88 % (42-75); PLATELET COUNT 246 10^3/uL (130-400); WHITE BLOOD COUNT 11.2 10^3/uL (4.3-11.0)
[2022-02-19 04:24] LABS: ALBUMIN 2.8 GM/DL (3.2-4.5); POTASSIUM 2.9 MMOL/L (3.6-5.0)
[2022-02-19 04:25] LABS: CALCIUM 7.6 MG/DL (8.5-10.1)
[2022-02-19 04:26] LABS: TOTAL PROTEIN 5.3 GM/DL (6.4-8.2)
[2022-02-19 04:28] LABS: BILIRUBIN,TOTAL 0.8 MG/DL (0.1-1.0)
[2022-02-19 04:29] LABS: PHOSPHORUS 3.2 MG/DL (2.3-4.7)
[2022-02-19 04:30] LABS: CREATININE SERUM 0.64 MG/DL (0.60-1.30)
[2022-02-19] MEDS: LACTATED RINGERS 1,000 ML IV SCH ×5 (04:40→19:30)
[2022-02-19] MEDS: POTASSIUM CL 10MEQ/50ML IVPB 50 ML IV SCH ×6 (05:15→11:08)
[2022-02-19] MEDS: fentaNYL DRIP PRE-MIX 250 ML IV SCH ×3 (05:26→18:53)
[2022-02-19] MEDS: MAGNESIUM 1 GM/100 ML IVPB 100 ML IV SCH (05:50)
[2022-02-19] MEDS: KCL 20 MEQ TAB (K-DUR) PO SCH (05:50)
[2022-02-19] MEDS: inSUlin ASPART (NovoLOG) 1 UNIT/0.01 ML (CHARGE PER UNIT) SC SCH ×4 (06:00→20:10)
[2022-02-19] MEDS: PIPERACILLIN SODIUM/TAZOBACTAM 4.5 GM in NS (IVPB) 100 ML IV SCH ×3 (06:24→22:37)
--- NOTE | 2022-02-19 06:49 | Progress Note - Hospitalist ---
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 Patient is on MS Contin and oxycodone at home chronically Supportive care will continue Prognosis poor DNR Review of Systems Gastrointestinal: Abdominal Pain Objective Exam Vital Signs Vital Signs Date Time Temp Pulse Resp B/P (MAP) Pulse Ox O2 Delivery O2 Flow Rate FiO2 02/19/22 17:00 58 16 127/61 (83) 99 Nasal Cannula 6.00 02/19/22 12:26 36.3 02/17/22 08:00 40 Capillary Refill : Less Than 3 Seconds General Appearance: No Apparent Distress, WD/WN, Chronically ill, Thin Respiratory: Lungs Clear, Normal Breath Sounds Cardiovascular: Regular Rate, Rhythm Neurologic/Psychiatric: Alert, Oriented x3, Depressed Affect Results/Procedures Lab Laboratory Tests 02/19/22 03:55 Patient resulted labs reviewed. Assessment/Plan Assessment and Plan Assess & Plan/Chief Complaint Assessment: Perforated intestinal s/p repair COVID Hypoxia Poor reserve Plan: Pain control DNR Critical Care Critically Ill Patient FORTINO TRAYLOR DO Feb 19, 2022 06:49
--- NOTE | 2022-02-19 07:51 | Diagnostic Imaging Report ---
HISTORY: Hypoxia TECHNIQUE: Frontal view of the chest COMPARISON: 02/18/2022 FINDINGS: There are diffuse interstitial opacities throughout the lungs bilaterally with mild basilar airspace opacities. Overall aeration is moderately improved. An enteric tube projects over the stomach. The right Port-A-Cath appears stable. Multiple leads overlie the chest. There is no pleural effusion or pneumothorax. The cardiac silhouette is stable in size. IMPRESSION: 1. Interstitial and airspace opacities, may be due to edema or infection. Overall aeration is moderately improved compared to the prior study. Dictated by: Dictated on workstation # [id number]
--- NOTE | 2022-02-19 08:06 | Tele-ICU Progress Note ---
Progress Note video rounds completed 66 y/o female admitted with Covid PNA and pneumoperitoneum. Has hx of SCC of the lung Taken to OR for exp lap and had perforated sigmoid diverticulitis Had Munoz's procedure with end colostomy Now extubated PE: looks comfortable Pulse: 59 NSR BP: 125/70 General surgery following for colostomy and exp lap On zosyn Colostomy not working yet Focused Exam Height, Weight, BMI Height: 5'3.00" Weight: 126lbs. 0.0oz. 57.857678qs; 21.87 BMI Method:Stated Labs Laboratory Tests 02/18/22 14:13 02/19/22 03:55 Results Results/Procedures Labs Laboratory Tests 02/18/22 04:20 02/18/22 14:13 02/19/22 03:55 Patient resulted labs reviewed. Results Labs Labs Laboratory Tests 02/18/22 10:56: Glucometer 89 02/18/22 14:13: White Blood Count 20.1H, Red Blood Count 3.93, Hemoglobin 11.0#L, Hematocrit 32L , Mean Corpuscular Volume 82, Mean Corpuscular Hemoglobin 28, Mean Corpuscular Hemoglobin Concent 34, Red Cell Distribution Width 14.7H, Platelet Count 243, Mean Platelet Volume 9.5 02/18/22 16:39: Glucometer 100 02/18/22 17:54: Triglycerides Level 120 02/18/22 20:54: Glucometer 101 02/19/22 03:55: White Blood Count 11.2H, Red Blood Count 3.75L, Hemoglobin 10.4L, Hematocrit 30L , Mean Corpuscular Volume 81, Mean Corpuscular Hemoglobin 28, Mean Corpuscular Hemoglobin Concent 34, Red Cell Distribution Width 14.4, Platelet Count 246, Mean Platelet Volume 9.4, Immature Granulocyte % (Auto) 0, Neutrophils (%) (Auto) 88H, Lymphocytes (%) (Auto) 7L, Monocytes (%) (Auto) 4, Eosinophils (%) (Auto) 0, Basophils (%) (Auto) 0, Neutrophils # (Auto) 9.9H, Lymphocytes # (Auto) 0.8L, Monocytes # (Auto) 0.5, Eosinophils # (Auto) 0.0, Basophils # (Auto) 0.0, Immature Granulocyte # (Auto) 0.1, Sodium Level 131L, Potassium Level 2.9L, Chloride Level 91L, Carbon Dioxide Level 25, Anion Gap 15H, Blood Urea Nitrogen 11, Creatinine 0.64, Estimat Glomerular Filtration Rate 97, BUN/Creatinine Ratio 17, Glucose Level 81, Calcium Level 7.6L, Corrected Calcium 8.6, Phosphorus Level 3.2, Magnesium Level 2.0, Total Bilirubin 0.8, Aspartate Amino Transf (AST/SGOT) 23, Alanine Aminotransferase (ALT/SGPT) 18, Alkaline Phosphatase 56, Total Protein 5.3L, Albumin 2.8L 02/19/22 06:31: Glucometer 89 Microbiology 02/16/22 MRSA Screen - Final, Complete MRSA not isolated 02/16/22 Urine Culture - Final, Complete NO GROWTH 02/15/22 Blood Culture - Preliminary, Resulted No growth SOLO KUMAR MD Feb 19, 2022 08:06
[2022-02-19] MEDS: VASOPRESSIN INJECTION 20 UNIT in NS (IVPB) 100 ML IV SCH ×2 (08:13→19:26)
[2022-02-19] MEDS: PANTOPRAZOLE 40 MG (PROTONIX) VIAL IV SCH (08:14)
[2022-02-19] MEDS ORDERED: FUROSEMIDE 40 MG/4 ML INJ (LASIX) IVP SCH (09:00)
--- NOTE | 2022-02-19 10:51 | Progress Note - Surgery ---
JOSAFAT CARRILLO 02/19/22 1051: Subjective Date Seen by a Provider: Feb 19, 2022 Time Seen by a Provider: 09:45 Subjective/Events-last exam Patient is feeling better today. She is still experiencing nausea but not as bad as yesterday. NG tube still draining so patient remains NPO. Still has no pain in her abdomen except when being moved, complains of pain in her back which is chronic. MAYDA drain has gross blood, colostomy has minimal output. Review of Systems General: Chills; No Night Sweats Pulmonary: No Dyspnea; Cough Cardiovascular: No: Chest Pain Gastrointestinal: Nausea, Abdominal Pain (when being moved only); No: Vomiting Objective Exam Vital Signs Date Time Temp Pulse Resp B/P (MAP) Pulse Ox O2 Delivery O2 Flow Rate FiO2 02/19/22 10:00 58 17 122/60 (80) 97 Nasal Cannula 6.00 02/19/22 09:00 59 15 124/63 (83) 92 Nasal Cannula 6.00 02/19/22 08:17 60 135/82 02/19/22 08:00 70 13 125/70 (88) 98 Nasal Cannula 6.00 02/19/22 07:56 36.6 02/19/22 07:55 93 Nasal Cannula 6.00 02/19/22 07:00 60 12 125/62 (83) 97 Nasal Cannula 6.00 02/19/22 07:00 60 02/19/22 06:00 58 12 136/74 (94) 95 Nasal Cannula 6.00 02/19/22 05:00 62 14 127/70 (89) 94 Nasal Cannula 6.00 02/19/22 04:00 95 Nasal Cannula 6.00 02/19/22 04:00 64 17 137/71 (93) 95 Nasal Cannula 6.00 02/19/22 03:00 62 14 129/71 (90) 98 Nasal Cannula 6.00 02/19/22 02:00 64 17 118/60 (79) 98 Nasal Cannula 6.00 02/19/22 01:00 68 17 118/60 (79) 98 Nasal Cannula 6.00 02/19/22 00:00 67 15 139/75 (96) 94 Nasal Cannula 6.00 02/18/22 23:59 98 Nasal Cannula 6.00 02/18/22 23:00 84 10 138/67 (90) 95 Nasal Cannula 6.00 02/18/22 22:00 82 19 153/78 (103) 92 Nasal Cannula 6.00 02/18/22 21:00 82 22 159/84 (109) 96 Nasal Cannula 6.00 02/18/22 20:00 80 14 137/69 (91) 92 Nasal Cannula 6.00 02/18/22 20:00 94 Nasal Cannula 6.00 02/18/22 19:00 73 02/18/22 19:00 72 16 134/77 (96) 92 Nasal Cannula 6.00 02/18/22 18:00 67 19 124/63 (83) 92 Nasal Cannula 6.00 02/18/22 17:00 84 15 118/61 (80) 91 Nasal Cannula 6.00 02/18/22 16:38 77 101/53 02/18/22 16:00 80 18 103/52 (69) 92 Nasal Cannula 8.00 02/18/22 16:00 95 Nasal Cannula 6.00 02/18/22 15:24 95 100/76 02/18/22 15:00 99 22 168/83 (111) 90 Nasal Cannula 8.00 02/18/22 14:00 97 21 164/87 (112) 98 NIV Bilevel 60.00 02/18/22 13:07 80 26 93 60.00 02/18/22 13:00 85 19 156/82 (106) 85 Nasal Cannula 8.00 02/18/22 12:40 90 02/18/22 12:38 98 161/78 02/18/22 12:07 36.8 91 18 151/67 90 Nasal Cannula 6.00 02/18/22 12:00 89 16 151/67 (95) 88 Nasal Cannula 5.00 02/18/22 12:00 98 Nasal Cannula 5.00 02/18/22 12:00 36.9 02/18/22 11:00 93 11 144/74 (97) 90 Nasal Cannula 5.00 I & O 02/19/22 07:00 Intake Total 860 ml Output Total 5910 ml Balance -5050 ml Capillary Refill : Less Than 3 Seconds General Appearance: Chronically ill, Mild Distress, Thin Respiratory: Lungs Clear, No Accessory Muscle Use, No Respiratory Distress Cardiovascular: Regular Rate, Rhythm, No Murmur Peripheral Pulses: 2+ Radial Pulses (R), 2+ Radial Pulses (L) Gastrointestinal: soft, other (ostomy pink and viable, fecal material this AM. Incision c/d/I) Neurologic/Psychiatric: Alert, Oriented x3 Results Lab Laboratory Tests 02/18/22 10:56: Glucometer 89 02/18/22 14:13: White Blood Count 20.1H, Red Blood Count 3.93, Hemoglobin 11.0#L, Hematocrit 32L , Mean Corpuscular Volume 82, Mean Corpuscular Hemoglobin 28, Mean Corpuscular Hemoglobin Concent 34, Red Cell Distribution Width 14.7H, Platelet Count 243, Mean Platelet Volume 9.5 02/18/22 16:39: Glucometer 100 02/18/22 17:54: Triglycerides Level 120 02/18/22 20:54: Glucometer 101 02/19/22 03:55: White Blood Count 11.2H, Red Blood Count 3.75L, Hemoglobin 10.4L, Hematocrit 30L , Mean Corpuscular Volume 81, Mean Corpuscular Hemoglobin 28, Mean Corpuscular Hemoglobin Concent 34, Red Cell Distribution Width 14.4, Platelet Count 246, Mean Platelet Volume 9.4, Immature Granulocyte % (Auto) 0, Neutrophils (%) (Auto) 88H, Lymphocytes (%) (Auto) 7L, Monocytes (%) (Auto) 4, Eosinophils (%) (Auto) 0, Basophils (%) (Auto) 0, Neutrophils # (Auto) 9.9H, Lymphocytes # (Auto) 0.8L, Monocytes # (Auto) 0.5, Eosinophils # (Auto) 0.0, Basophils # (Auto) 0.0, Immature Granulocyte # (Auto) 0.1, Sodium Level 131L, Potassium Level 2.9L, Chloride Level 91L, Carbon Dioxide Level 25, Anion Gap 15H, Blood Urea Nitrogen 11, Creatinine 0.64, Estimat Glomerular Filtration Rate 97, BUN/Creatinine Ratio 17, Glucose Level 81, Calcium Level 7.6L, Corrected Calcium 8.6, Phosphorus Level 3.2, Magnesium Level 2.0, Total Bilirubin 0.8, Aspartate Amino Transf (AST/SGOT) 23, Alanine Aminotransferase (ALT/SGPT) 18, Alkaline Phosphatase 56, Total Protein 5.3L, Albumin 2.8L 02/19/22 06:31: Glucometer 89 Microbiology 02/16/22 MRSA Screen - Final, Complete MRSA not isolated 02/16/22 Urine Culture - Final, Complete NO GROWTH 02/15/22 Blood Culture - Preliminary, Resulted No growth Assessment/Plan Assessment/Plan Assessment/Plan s/p ex lap with blackmon procedure pod #2 Continue the patient NPO. Keep NG tube placed as it continues to have output. Give patient zofran Q2H IV for nausea. Continue IV zosyn. Add IV morphine for control of back pain. Leave ramos in to monitor I&O. QUINTON VALDIVIA DO 02/19/226: Subjective Time Seen by a Provider: 12:09 Subjective/Events-last exam Pt seen and examined, states she is hungry and has minimal abd pain. Minimal serous fluid in ostomy. Review of Systems General: Chills; No Night Sweats; Fatigue Pulmonary: No Dyspnea; Cough Cardiovascular: No: Chest Pain Gastrointestinal: Nausea, Abdominal Pain (when being moved only); No: Vomiting Objective Exam General Appearance: Chronically ill, Mild Distress, Thin Respiratory: Lungs Clear, No Accessory Muscle Use, No Respiratory Distress Cardiovascular: Regular Rate, Rhythm, No Murmur Gastrointestinal: soft, tenderness, other (ostomy pink and viable, fecal material this AM. Incision c/d/I) Neurologic/Psychiatric: Alert, Oriented x3 Assessment/Plan Assessment/Plan Assessment/Plan S/P ex lap with blackmon procedure pod #2 Will clamp NG tube and have pt try some clears. Give patient zofran Q2H IV for nausea. Continue IV zosyn. Add IV morphine for control of back pain. Leave ramos in to monitor I&O. Encouraged pt to ambulate and use IS. Supervisory-Addendum Brief Verification & Attestation Participated in pt care: history, MDM, physical Personally performed: exam, history, MDM, supervision of care Care discussed with: Medical Student Procedures: n/a Verification and Attestation of Medical Student E/M Service A medical student performed and documented this service. I then reviewed and verified all information documented by the medical student and made modifications to such information, when appropriate. I personally performed a physical exam, medical decision making and then discussed any differences between the notes and made revisions as necessary to create one note. Quinton Valdivia , 02/19/22 , 18:56 JOSAFAT CARRILLO Feb 19, 2022 10:51 QUINTON VALDIVIA DO Feb 19, 2022 18:56
[2022-02-19] MEDS: PROPOFOL DRIP (ICU) 100 ML IV SCH (11:08)
[2022-02-19] MEDS: FLUCONAZOLE 100 MG/50 ML IVPB IV SCH (20:10)
--- NOTE | 2022-02-19 22:57 | Tele-ICU Progress Note ---
Progress Note Called by the nurse with marginal U/O. POST OP . Will resume IVF maintenance at 40 ml/hr. D/W the bedside nurse. Labs and chart reviewed. Interventions Minor-Other: Decrease in U/O Focused Exam Height, Weight, BMI Height: 5'3.00" Weight: 126lbs. 0.0oz. 57.422015es; 21.87 BMI Method:Stated GRICELDA DANIEL MD Feb 19, 2022 22:57
[2022-02-19] MEDS ORDERED: LACTATED RINGERS 1,000 ML IV SCH (23:00)
[2022-02-20] MEDS: fentaNYL DRIP PRE-MIX 250 ML IV SCH (01:08)
[2022-02-20] MEDS: LACTATED RINGERS 1,000 ML IV SCH ×5 (02:00→20:36)
[2022-02-20] MEDS: NOREPINEPHRINE 8 MG/250 ML 250 ML IV SCH (02:30)
[2022-02-20] MEDS: PROPOFOL DRIP (ICU) 100 ML IV SCH (02:45)
[2022-02-20 05:10] LABS: BASOPHILS % (AUTO) 0 % (0-10); EOSINOPHILS % (AUTO) 0 % (0-10); HEMATOCRIT 29 % (35-52); HEMOGLOBIN 9.9 g/dL (11.5-16.0); LYMPHOCYTES # (AUTO) 0.8 10^3/uL (1.0-4.0); LYMPHOCYTES % (AUTO) 6 % (12-44); MEAN CORPUSCULAR HEMOGLOBIN 28 pg (25-34); MEAN CORPUSCULAR HGB CONC 34 g/dL (32-36); MEAN CORPUSCULAR VOLUME 83 fL (80-99); MEAN PLATELET VOLUME 9.5 fL (9.0-12.2); MONOCYTES # (AUTO) 0.5 10^3/uL (0.0-1.0); MONOCYTES % (AUTO) 4 % (0-12); NEUTROPHILS # (AUTO) 12.5 10^3/uL (1.8-7.8); NEUTROPHILS % (AUTO) 90 % (42-75); PLATELET COUNT 226 10^3/uL (130-400); WHITE BLOOD COUNT 13.9 10^3/uL (4.3-11.0)
[2022-02-20 05:21] LABS: ALBUMIN 2.8 GM/DL (3.2-4.5)
[2022-02-20 05:22] LABS: POTASSIUM 3.1 MMOL/L (3.6-5.0)
[2022-02-20 05:23] LABS: CALCIUM 7.8 MG/DL (8.5-10.1)
[2022-02-20 05:24] LABS: TOTAL PROTEIN 5.1 GM/DL (6.4-8.2)
[2022-02-20 05:27] LABS: PHOSPHORUS 2.3 MG/DL (2.3-4.7)
[2022-02-20 05:28] LABS: CREATININE SERUM 0.55 MG/DL (0.60-1.30)
[2022-02-20 05:30] LABS: MAGNESIUM 1.8 MG/DL (1.6-2.4)
[2022-02-20] MEDS: POTASSIUM CL 10MEQ/50ML IVPB 50 ML IV SCH ×9 (05:48→16:12)
[2022-02-20] MEDS: MAGNESIUM 1 GM/100 ML IVPB 100 ML IV SCH (05:48)
[2022-02-20] MEDS: KCL 20 MEQ TAB (K-DUR) PO SCH (05:49)
[2022-02-20] MEDS: PIPERACILLIN SODIUM/TAZOBACTAM 4.5 GM in NS (IVPB) 100 ML IV SCH ×2 (05:53→20:36)
[2022-02-20] MEDS: inSUlin ASPART (NovoLOG) 1 UNIT/0.01 ML (CHARGE PER UNIT) SC SCH (06:00)
[2022-02-20] MEDS: VASOPRESSIN INJECTION 20 UNIT in NS (IVPB) 100 ML IV SCH (06:33)
--- NOTE | 2022-02-20 07:00 | Progress Note - Hospitalist ---
Subjective HPI/CC On Admission Date Seen by Provider: Feb 20, 2022 Time Seen by Provider: 11:00 Subjective/Events-last exam Patient was hallucinating requiring antipsychotic Very anxious NGT still in place SVT occurred requiring Cardiology consultation along with EICU DNR maintained Patient getting more complicated I DC the order to move to 4th floor due to SVT Review of Systems General: Fatigue Gastrointestinal: Abdominal Pain Neurological: Confusion Objective Exam Vital Signs Vital Signs Date Time Temp Pulse Resp B/P (MAP) Pulse Ox O2 Delivery O2 Flow Rate FiO2 02/20/22 16:00 87 14 168/81 (110) 99 Nasal Cannula 5.00 02/20/22 16:00 37.6 02/17/22 08:00 40 Capillary Refill : Less Than 3 Seconds General Appearance: Anxious, Chronically ill, Mild Distress Respiratory: No Accessory Muscle Use, No Respiratory Distress, Decreased Breath Sounds Cardiovascular: Regular Rate, Rhythm Neurologic/Psychiatric: Alert, Disoriented Results/Procedures Lab Laboratory Tests 02/20/22 05:00 Patient resulted labs reviewed. Assessment/Plan Assessment and Plan Assess & Plan/Chief Complaint Assessment: Perforated intestinal s/p repair COVID Hypoxia Poor reserve Episode of SVT Hallucinations Chronic pain as outpatient Plan: Pain control DNR Critical Care Critically Ill Patient FORTINO TRAYLOR DO Feb 20, 2022 07:00
--- NOTE | 2022-02-20 07:54 | Progress Note - Surgery ---
JOSAFAT CARRILLO 02/20/22 0754: Subjective Date Seen by a Provider: Feb 20, 2022 Time Seen by a Provider: 06:45 Subjective/Events-last exam Patient says she is feeling better this AM. She is more tired than yesterday but attributes that to getting up and moving to the chair. Her NG tube was clamped overnight and she has been drinking clear liquids. Her pain is well controlled. She still has ramos in. Review of Systems General: Chills; No Night Sweats; Fatigue (from moving to chair) HEENT: No Head Aches; Sore Throat (only when swallowing, says better than yesterday) Pulmonary: No Dyspnea, No Cough Cardiovascular: Lt Headedness (mildly lightheaded when getting up to move to chair); No: Chest Pain Gastrointestinal: No: Nausea, Vomiting, Abdominal Pain Genitourinary: No Dysuria (ramos still in), No Hematuria Musculoskeletal: No: neck pain, shoulder pain, back pain Neurological: No: Weakness, Numbness, Confusion Objective Exam Vital Signs Date Time Temp Pulse Resp B/P (MAP) Pulse Ox O2 Delivery O2 Flow Rate FiO2 02/20/22 07:48 37.2 02/20/22 06:00 68 15 156/75 (102) 95 Nasal Cannula 5.00 02/20/22 05:00 78 23 109/86 (94) 94 Nasal Cannula 5.00 02/20/22 04:00 62 20 128/59 (82) 97 Nasal Cannula 5.00 02/20/22 04:00 97 Nasal Cannula 5.00 02/20/22 03:00 61 18 135/65 (88) 96 Nasal Cannula 5.00 02/20/22 02:00 60 18 139/70 (93) 94 Nasal Cannula 5.00 02/20/22 01:00 55 17 119/53 (75) 94 Nasal Cannula 5.00 02/20/22 01:00 55 02/20/22 00:00 72 17 126/72 (90) 90 Nasal Cannula 5.00 02/19/22 23:59 95 Nasal Cannula 5.00 02/19/22 23:00 51 17 121/63 (82) 95 Nasal Cannula 5.00 02/19/22 22:00 48 17 118/58 (78) 97 Nasal Cannula 5.00 02/19/22 21:00 52 15 117/61 (79) 91 Nasal Cannula 6.00 02/19/22 20:00 52 16 96 Nasal Cannula 6.00 02/19/22 20:00 36.4 02/19/22 20:00 96 Nasal Cannula 5.00 02/19/22 19:22 Nasal Cannula 6.00 02/19/22 19:00 56 14 114/52 (72) 95 Nasal Cannula 6.00 02/19/22 19:00 60 02/19/22 18:00 73 20 114/47 (69) 99 Nasal Cannula 6.00 02/19/22 17:00 58 16 127/61 (83) 99 Nasal Cannula 6.00 02/19/22 16:00 91 Nasal Cannula 6.00 02/19/22 16:00 52 14 98 Nasal Cannula 6.00 02/19/22 16:00 36.7 02/19/22 15:00 50 14 105/70 (82) 97 Nasal Cannula 6.00 02/19/22 14:00 64 16 130/74 (92) 98 Nasal Cannula 6.00 02/19/22 13:00 58 11 111/58 (75) 97 Nasal Cannula 6.00 02/19/22 12:32 60 02/19/22 12:27 125/60 02/19/22 12:26 36.3 02/19/22 12:00 59 118/63 (81) 99 Nasal Cannula 6.00 02/19/22 12:00 94 Nasal Cannula 6.00 02/19/22 11:00 56 14 115/65 (82) 95 Nasal Cannula 6.00 02/19/22 10:00 58 17 122/60 (80) 97 Nasal Cannula 6.00 02/19/22 09:00 59 15 124/63 (83) 92 Nasal Cannula 6.00 02/19/22 08:17 60 135/82 02/19/22 08:00 70 13 125/70 (88) 98 Nasal Cannula 6.00 02/19/22 07:56 36.6 02/19/22 07:55 93 Nasal Cannula 6.00 I & O 02/20/22 07:00 Intake Total 1570 ml Output Total 845 ml Balance 725 ml Capillary Refill : Less Than 3 Seconds General Appearance: No Apparent Distress, Chronically ill, Thin HEENT: PERRL/EOMI; No Pale Conjunctivae (L), No Pale Conjunctivae (R) Neck: Non Tender, Supple Respiratory: Lungs Clear, Normal Breath Sounds, No Accessory Muscle Use, No Respiratory Distress Cardiovascular: Regular Rate, Rhythm, No Murmur Peripheral Pulses: 2+ Dorsalis Pedis (R), 2+ Left Dors-Pedis (L), 2+ Radial Pulses (R), 2+ Radial Pulses (L) Gastrointestinal: non tender, soft, other (ostomy pink and viable, minimalfluid out of ostomy this AM. Incision c/d/I) Extremity: Non Tender, No Calf Tenderness, No Pedal Edema Neurologic/Psychiatric: Alert, Oriented x3 Skin: Cool, Other (dark brown lesion on right anterior chest wall near clavicle) Lymphatic: No Adenopathy Results Lab Laboratory Tests 02/19/22 11:51: Glucometer 83 02/19/22 17:37: Glucometer 86 02/19/22 20:06: Glucometer 102 02/20/22 05:00: White Blood Count 13.9H, Red Blood Count 3.52L, Hemoglobin 9.9L, Hematocrit 29L, Mean Corpuscular Volume 83, Mean Corpuscular Hemoglobin 28, Mean Corpuscular Hemoglobin Concent 34, Red Cell Distribution Width 14.5, Platelet Count 226, Mean Platelet Volume 9.5, Immature Granulocyte % (Auto) 1, Neutrophils (%) (Auto) 90H, Lymphocytes (%) (Auto) 6L, Monocytes (%) (Auto) 4, Eosinophils (%) (Auto) 0, Basophils (%) (Auto) 0, Neutrophils # (Auto) 12.5H, Lymphocytes # (Auto) 0.8L, Monocytes # (Auto) 0.5, Eosinophils # (Auto) 0.0, Basophils # (Auto) 0.0, Immature Granulocyte # (Auto) 0.1, Sodium Level 134L, Potassium Level 3.1L, Chloride Level 96L, Carbon Dioxide Level 22, Anion Gap 16H, Blood Urea Nitrogen 19H, Creatinine 0.55L, Estimat Glomerular Filtration Rate 100, BUN/Creatinine Ratio 35, Glucose Level 90, Calcium Level 7.8L, Corrected Calcium 8.8, Phosphorus Level 2.3, Magnesium Level 1.8, Total Bilirubin 1.0, Aspartate Amino Transf (AST/SGOT) 24, Alanine Aminotransferase (ALT/SGPT) 19, Alkaline Phosphatase 56, Total Protein 5.1L, Albumin 2.8L 02/20/22 05:52: Glucometer 97 Microbiology 02/16/22 MRSA Screen - Final, Complete MRSA not isolated 02/16/22 Urine Culture - Final, Complete NO GROWTH 02/15/22 Blood Culture - Preliminary, Resulted No growth Assessment/Plan Assessment/Plan Assessment/Plan S/P ex lap with blackmon procedure pod #3 Hypokalemia Patient is tolerating clear liquid diet well, advance as tolerated. Scopalamine patch for nausea. Continue IV zosyn. Continue IV morphine for control of back pain. Leave ramos in to monitor I&O. Encouraged pt to ambulate and use IS. Discontinue lasix and add give 50meq KCl for potassium replacement. QUINTON VALDIVIA DO 02/20/22 1256: Subjective Time Seen by a Provider: 11:37 Subjective/Events-last exam Pt seen and examined, appears a little confused. She is sitting up in chair. Denied nausea or vomiting. Review of Systems General: Chills; No Night Sweats; Fatigue (from moving to chair) HEENT: No Head Aches Pulmonary: No Dyspnea, No Cough Cardiovascular: No: Chest Pain Gastrointestinal: Nausea, Abdominal Pain (very minimal); No: Vomiting Genitourinary: No Dysuria (ramos still in), No Hematuria Neurological: Confusion Objective Exam General Appearance: No Apparent Distress, Chronically ill, Thin Respiratory: Lungs Clear, Normal Breath Sounds, No Accessory Muscle Use, No Respiratory Distress Cardiovascular: Regular Rate, Rhythm, No Murmur Gastrointestinal: non tender, soft, other (ostomy viable, minimal fluid in ostomy this AM, no flatus or fecal material. Incision c/d/I) Assessment/Plan Assessment/Plan Assessment/Plan S/P ex lap with blackmon procedure pod #3 Hypokalemia Patient is tolerating clear liquid diet well, advance to soft and D/C NGT. Scopalamine patch for nausea. Continue IV zosyn. Continue IV morphine for control of back pain. Leave ramos in to monitor I&O. Encouraged pt to ambulate and use IS. Discontinue lasix and add give 50meq KCl for potassium replacement. Supervisory-Addendum Brief Verification & Attestation Participated in pt care: history, MDM, physical Personally performed: exam, history, MDM, supervision of care Care discussed with: Medical Student Procedures: n/a Verification and Attestation of Medical Student E/M Service A medical student performed and documented this service. I then reviewed and verified all information documented by the medical student and made modifications to such information, when appropriate. I personally performed a physical exam, medical decision making and then discussed any differences between the notes and made revisions as necessary to create one note. Quinton Valdivia , 02/20/22 , 12:56 JOSAFAT CARRILLO Feb 20, 2022 07:54 QUINTON VALDIVIA DO Feb 20, 2022 12:56
[2022-02-20] MEDS: PANTOPRAZOLE 40 MG (PROTONIX) VIAL IV SCH (08:37)
--- NOTE | 2022-02-20 10:15 | Tele-ICU Progress Note ---
Subjective Date Seen by a Provider: Feb 20, 2022 Time Seen by a Provider: 10:15 Subjective/Events-last exam (Tele-ICU Physician , Progress Note ) Available chart/ vitals / labs / Images reviewed Video assessment done using teleICU camera, rest of exam as per RN Discussed with RN Events overnight : Afebrile hemodynamically stable Respiratory - 5L I/O = 40 LR Drips: Pressors- no Consultants: sx Hospital course: (02/16) 66yr old female admitted with Covid 19, n/v, bowel perf, and urinary retention. s/p Emergent Ex Laparotomy, Munoz's Procedure. Intubated from OR. (02/17) Extubated. 02/18 -hb drop to 6.5 from 8.8 - transfusion 2 U pRBC 02/18 02/18 - Hypoxia , responded to diuresis , did not tolerated BIPAP 02/20 - 5 L o2 A/P Perforated viscus/ free air on abd CT ( " likely at the level of the mid to dis bekah small bowel" - s/p Emergent Ex Laparotomy, Munoz's Procedure 02/16 - abx started Zosyn 02/16 Acute resp failure \\-with VO on 02/18 - Hypoxia , responded to diuresis , did not tolerated BIPAP - on 5 L now Confusion - most likely TME , trying to keep off opioids and precedex , IF _ WILL TRY SEROQUEL Anemia - hb drop to 6.5 from 8.8 - transfusion 2 U pRBC 02/18 - stable 02/19-5 PAIN - fentanyl / morphine - STOPPED due to confusion Covid + - vaccinated ( moderna x2 + booster ECHO 01/24/22 -EF 60% -Pulm htrn -RVSP 60 mmHg Lung CA , reportedly stage 4 - oncololy is in other hospital PAD - s/p stenting right - on plavix - ON HOLD Lines : port right , (Central Line Necessity Reviewed) Roca: + OG: Nutrition: npo d 3 Analgesia: Anxiety/ delirium VTE Prophylaxis: SCD for now , high risk with h/o CA - WILL START LOVENOCX TOMORROW IF HB STABLE Stress Ulcer Prophylaxis: ppi Plans in collaboration with bedside consultants and IM MDs. Discussed with RN to reach out if any questions or concerns A total of 31 minutes of critical care time was devoted to this patient today, required to treat and/or prevent further deterioration of critical care condition ( as above ) . Sepsis Event Evaluation Height, Weight, BMI Height: 5'3.00" Weight: 126lbs. 0.0oz. 57.503135bi; 23.35 BMI Method:Stated Exam Exam Patient acknowledged, consented, and participated in this virtual visit which was conducted using real time audio/video Vital Signs Date Time Temp Pulse Resp B/P (MAP) Pulse Ox O2 Delivery O2 Flow Rate FiO2 02/20/22 08:00 98 Nasal Cannula 5.00 02/20/22 08:00 76 11 163/80 (107) 94 Nasal Cannula 5.00 02/20/22 07:48 37.2 02/20/22 07:14 64 02/20/22 07:00 71 8 131/68 (89) 90 Nasal Cannula 5.00 02/20/22 06:00 68 15 156/75 (102) 95 Nasal Cannula 5.00 02/20/22 05:00 78 23 109/86 (94) 94 Nasal Cannula 5.00 02/20/22 04:00 62 20 128/59 (82) 97 Nasal Cannula 5.00 02/20/22 04:00 97 Nasal Cannula 5.00 02/20/22 03:00 61 18 135/65 (88) 96 Nasal Cannula 5.00 02/20/22 02:00 60 18 139/70 (93) 94 Nasal Cannula 5.00 02/20/22 01:00 55 17 119/53 (75) 94 Nasal Cannula 5.00 02/20/22 01:00 55 02/20/22 00:00 72 17 126/72 (90) 90 Nasal Cannula 5.00 02/19/22 23:59 95 Nasal Cannula 5.00 02/19/22 23:00 51 17 121/63 (82) 95 Nasal Cannula 5.00 02/19/22 22:00 48 17 118/58 (78) 97 Nasal Cannula 5.00 02/19/22 21:00 52 15 117/61 (79) 91 Nasal Cannula 6.00 02/19/22 20:00 52 16 96 Nasal Cannula 6.00 02/19/22 20:00 36.4 02/19/22 20:00 96 Nasal Cannula 5.00 02/19/22 19:22 Nasal Cannula 6.00 02/19/22 19:00 56 14 114/52 (72) 95 Nasal Cannula 6.00 02/19/22 19:00 60 02/19/22 18:00 73 20 114/47 (69) 99 Nasal Cannula 6.00 02/19/22 17:00 58 16 127/61 (83) 99 Nasal Cannula 6.00 02/19/22 16:00 91 Nasal Cannula 6.00 02/19/22 16:00 52 14 98 Nasal Cannula 6.00 02/19/22 16:00 36.7 02/19/22 15:00 50 14 105/70 (82) 97 Nasal Cannula 6.00 02/19/22 14:00 64 16 130/74 (92) 98 Nasal Cannula 6.00 02/19/22 13:00 58 11 111/58 (75) 97 Nasal Cannula 6.00 02/19/22 12:32 60 02/19/22 12:27 125/60 02/19/22 12:26 36.3 02/19/22 12:00 59 118/63 (81) 99 Nasal Cannula 6.00 02/19/22 12:00 94 Nasal Cannula 6.00 02/19/22 11:00 56 14 115/65 (82) 95 Nasal Cannula 6.00 I & O 02/20/22 07:00 Intake Total 1570 ml Output Total 845 ml Balance 725 ml Height & Weight Height: 5'3.00" Weight: 126lbs. 0.0oz. 57.682765lz; 23.35 BMI Method:Stated General Appearance: No Apparent Distress, Chronically ill, Thin HEENT: PERRL/EOMI; No Pale Conjunctivae (L), No Pale Conjunctivae (R) Neck: Non Tender, Supple Respiratory: Lungs Clear, Normal Breath Sounds, No Accessory Muscle Use, No Respiratory Distress Cardiovascular: Regular Rate, Rhythm, No Murmur Capillary Refill: Less Than 3 Seconds Peripheral Pulses: 2+ Dorsalis Pedis (R), 2+ Left Dors-Pedis (L), 2+ Radial Pulses (R), 2+ Radial Pulses (L) Gastrointestinal: non tender, soft, other (ostomy pink and viable, minimalfluid out of ostomy this AM. Incision c/d/I) Extremity: Non Tender, No Calf Tenderness, No Pedal Edema Neurologic/Psychiatric: Alert, Oriented x3 Skin: Cool, Other (dark brown lesion on right anterior chest wall near clavicle) Lymphatic: No Adenopathy Results Lab Laboratory Tests 02/18/22 14:13 02/19/22 03:55 02/20/22 05:00 Assessment/Plan Assessment/Plan 1 ROSALIE HUNG MD Feb 20, 2022 10:15
[2022-02-20] MEDS ORDERED: ZIPRASIDONE 20 MG INJ (GEODON) VIAL IM PRN (12:00)
[2022-02-20] MEDS ORDERED: WATER (STERILE) FOR INJ 10 ML BTL INJ SCH (12:00)
[2022-02-20] MEDS ORDERED: ZIPRASIDONE 20 MG INJ (GEODON) VIAL IM NR (12:30)
[2022-02-20] MEDS ORDERED: WATER (STERILE) FOR INJ 10 ML BTL INJ NR (12:30)
[2022-02-20] MEDS ORDERED: ADENOSINE 6 MG/2 ML (ADENOCARD) VIAL IV ONE (13:32)
--- NOTE | 2022-02-20 13:41 | Physical Therapy Progress Note ---
Therapy Progress Note Patient refused treatment stating "I've been sick all day, I don't want to do anything." Patient encouraged to perform LE exercises if nothing else, and educated on the benefits of activity for healing. Patient continued to refuse. Will attempt treatment again tomorrow. JOSE LUIS MEDINA PT Feb 20, 2022 13:41
[2022-02-20] MEDS ORDERED: MAGNESIUM 2 GM/50 ML IVPB 50 ML IV ONE (13:45)
[2022-02-20] MEDS ORDERED: DIGOXIN 0.25 MG/ML (LANOXIN) 2 ML AMP ONE (13:52)
[2022-02-20] MEDS ORDERED: CALC GLUC 1 GM/100 ML IVPB 100 ML IV ONE ×2 (13:54→14:00)
--- NOTE | 2022-02-20 13:58 | Tele-ICU Progress Note ---
Progress Note Called by RN: patient wotj HR 170s ( BP stable , symptomatic ) reviewed using camera - intermittent sinus in 80s/ intemitttent a flatter - hold on adenosine will replace K , IV Mg and calcium will gove one dose of dig Focused Exam Height, Weight, BMI Height: 5'3.00" Weight: 126lbs. 0.0oz. 57.717836ct; 23.35 BMI Method:Stated ROSALIE HUNG MD Feb 20, 2022 13:58
[2022-02-20] MEDS ORDERED: DIGOXIN 0.25 MG/ML (LANOXIN) 2 ML AMP IV NR (14:00)
[2022-02-20] MEDS: MAGNESIUM 1 GM/D5W 100 ML IVPB IV SCH ×2 (14:02→14:58)
[2022-02-20] MEDS ORDERED: AMIODARONE FOR BOLUS 150 MG in NS (IVPB) 100 ML IV SCH (14:34)
--- NOTE | 2022-02-20 15:32 | Consultation-Cardiology ---
HPI-Cardiology Cardiology Consultation: Date of Consultation 02/20/22 Time Seen by a Provider: 14:45 Date of Admission Attending Physician Go Love DO Admitting Physician Admitting Physician: Ora Fitch MD Attending Physician: Tyesha Farmer DO Consulting Physician DULCE SULLIVAN MD, MA, FACP, FACC, FSCAI, CCDS Physician requesting consult: Dr Farmer Primary bow tacker: Dr Mathew HPI: Chief Complaint: Reason for consultation: intermittent tachycardia 66 yo woman Review of Systems-Cardiology All Other Systems Reviewed Negative Unless Noted: Yes (Negative excepted noted.) XZA-[id number] Hx Patient Social History Smoking Status: Current Everyday Smoker 2nd Hand Smoke Exposure: Yes Alcohol Use?: No Pt feels they are or have been: No Tobacco type used: Cigarettes Past Medical History PMH As described under Assessment. Family Medical History Family History: Alcoholism Arthritis 19 MOTHER G8 BROTHER Cancer of mouth 19 FATHER (THROAT CANCER) Cardiovascular disease 19 MOTHER Completed stroke 19 MOTHER Diabetes mellitus 19 MOTHER FH: breast cancer Hypertension G8 BROTHER Thyroid disease 19 MOTHER No Family History of: AIDS Asthma Allergies and Home Medications Allergies Coded Allergies: hydrocodone (Verified Allergy, Intermediate, MAKES STOMACH VERY SICK, 12/29/21) promethazine (Verified Allergy, Unknown, 12/29/21) Patient Home Medication List Home Medication List Reviewed: Yes Alprazolam (Alprazolam) 1 Mg Tablet, 1 MG PO TID, (Reported) Entered as Reported by: CHRISTY SALDANA on 12/12/18 1351 Last Action: Reviewed Aspirin (Aspirin) 81 Mg Tab.chew, 81 MG PO DAILY, (Reported) Entered as Reported by: CHRISTY SALDANA on 12/12/18 1351 Last Action: Reviewed Cholecalciferol (Vitamin D3) (D3-50) 1,250 Mcg (51057 Unit) Capsule, 1,250 MCG PO WEEK, (Reported) Entered as Reported by: GO TEJADA on 02/16/22 1252 Last Action: Reviewed Clopidogrel Bisulfate (Clopidogrel) 75 Mg Tablet, 75 MG PO DAILY, (Reported) Entered as Reported by: GO TEJADA on 02/16/22 1252 Last Action: Reviewed Dexlansoprazole (Dexlansoprazole ) 60 Mg Cap.bp, 60 MG PO DAILY, (Reported) Entered as Reported by: GO TEJADA on 02/16/221251 Last Action: Reviewed Folic Acid (Folic Acid) 1 Mg Tablet, 1 MG PO DAILY, (Reported) Entered as Reported by: GO TEJADA on 02/16/221251 Last Action: Reviewed Gabapentin (Neurontin) 300 Mg Capsule, 300 MG PO BID, (Reported) Entered as Reported by: GO TEJADA on 02/16/221251 Last Action: Reviewed Hydroxychloroquine Sulfate (Hydroxychloroquine Sulfate) 200 Mg Tablet, 200 MG PO BID, (Reported) Entered as Reported by: CHRISTY SALDANA on 12/12/18 135 Last Action: Reviewed Meloxicam (Meloxicam) 15 Mg Tablet, 15 MG PO DAILY, (Reported) Entered as Reported by: GO TEJADA on 02/16/221251 Last Action: Reviewed Morphine Sulfate (Morphine Sulfate ER) 100 Mg Tablet.er, 100 MG PO Q12H, (Reported) Entered as Reported by: GO TEJADA on 02/16/221251 Last Action: Reviewed Nitroglycerin (Nitroglycerin) 0.4 Mg Tab.subl, 0.4 MG SL UD PRN for CHEST PAIN, (Reported) Entered as Reported by: CHRISTY SALDANA on 12/12/18 135 Last Action: Reviewed Ondansetron HCl (Ondansetron HCl) 8 Mg Tablet, 8 MG PO TID PRN for NAUSEA/VOMITING-1ST LINE, (Reported) Entered as Reported by: ISAMAR LINO on 10/14/21 1032 Last Action: Reviewed Oxycodone HCl (Oxycodone HCl) 10 Mg Tablet, 10 MG PO Q6H PRN for PAIN-SEVERE (8- 10), (Reported) Entered as Reported by: GO TEJADA on 02/16/221251 Last Action: Reviewed Pembrolizumab (Keytruda) 100 Mg/4 Ml (25 Mg/Ml) Vial, 200 MG IV EVERY 3 WEEKS, (Reported) Entered as Reported by: GO TEJADA on 02/16/221251 Last Action: Reviewed Polyethylene Glycol 3350 (Gavilax) 17 Gram/Dose Powder, 17 GM PO DAILY PRN for CONSTIPATION-2ND LINE, (Reported) Entered as Reported by: GO TEJADA on 02/16/22 1252 Last Action: Reviewed Potassium Chloride (Potassium Chloride) 10 Meq Tab.er.prt, 10 MEQ PO DAILY, (Reported) Entered as Reported by: ISAMAR LINO on 10/14/21 1032 Last Action: Reviewed Rivaroxaban (Xarelto) 20 Mg Tablet, 20 MG PO HS, (Reported) Entered as Reported by: GILDA BROUSSARD on 12/28/21 1556 Last Action: Reviewed Discontinued Medications Alendronate Sodium (Fosamax) 70 Mg Tablet, 70 MG PO WEEK, (Reported) Discontinued Reason: No Longer Taking Entered as Reported by: CHRISTY SALDANA on 12/12/18 1351 Last Action: Discontinued Clopidogrel Bisulfate (Clopidogrel) 75 Mg Tablet, 75 MG PO DAILY Discontinued Reason: No Longer Taking Prescribed by: JOAN MATHEW on 10/17/21 1745 Last Action: Discontinued Dexlansoprazole (Dexilant) 60 Mg Justin., 60 MG PO DAILY, (Reported) Discontinued Reason: Duplicate Order Entered as Reported by: CHRISTY SALDANA on 12/12/18 1351 Last Action: Discontinued Fluticasone Propionate (Flonase Allergy Relief) 9.9 Ml [place].susp, 2 SPRAY NS DAILY, (Reported) Discontinued Reason: No Longer Taking Entered as Reported by: CHRISTY SALDANA on 12/12/18 1351 Last Action: Discontinued Gabapentin (Neurontin) 300 Mg Capsule, 300 MG PO TID, (Reported) Discontinued Reason: No Longer Taking Entered as Reported by: GILDA BROUSSARD on 12/28/21 1556 Last Action: Discontinued Magnesium Oxide (Magnesium) 400 Mg Magnesium Tablet, 400 MG PO DAILY, (Reported) Discontinued Reason: No Longer Taking Entered as Reported by: ISAMAR LINO on 10/14/21 1032 Last Action: Discontinued Oxycodone HCl/Acetaminophen (Percocet 5-325 mg Tablet) 1 Each Tablet, 1 TAB PO Q4H Discontinued Reason: No Longer Taking Prescribed by: JEZ WATKINS on 03/26/21 1516 Last Action: Discontinued [morphine er] , 90 MG PO BID, (Reported) Discontinued Reason: No Longer Taking Entered as Reported by: GILDA BROUSSARD on 07/20/21 1607 Last Action: Discontinued Physical Exam-Cardiology Physical Exam Vital Signs/I&O 02/20/22 02/20/22 02/20/22 02/20/22 04:00 04:00 05:00 06:00 Pulse 62 78 68 Resp 20 23 15 B/P (MAP) 128/59 (82) 109/86 (94) 156/75 (102) Pulse Ox 97 97 94 95 O2 Delivery Nasal Cannula Nasal Cannula Nasal Cannula Nasal Cannula O2 Flow Rate 5.00 5.00 5.00 5.00 02/20/22 02/20/22 02/20/22 02/20/22 07:00 07:14 07:48 08:00 Temp 37.2 Pulse 71 64 76 Resp 8 11 B/P (MAP) 131/68 (89) 163/80 (107) Pulse Ox 90 94 O2 Delivery Nasal Cannula Nasal Cannula O2 Flow Rate 5.00 5.00 02/20/22 02/20/22 02/20/22 02/20/22 08:00 09:00 10:00 11:00 Pulse 73 82 82 Resp 18 13 11 B/P (MAP) 149/71 (97) 162/77 (105) 170/76 (107) Pulse Ox 98 96 96 99 O2 Delivery Nasal Cannula Nasal Cannula Nasal Cannula Nasal Cannula O2 Flow Rate 5.00 5.00 5.00 5.00 02/20/22 02/20/22 02/20/22 02/20/22 11:35 12:06 12:41 13:00 Temp 37.8 Pulse 77 92 Resp 28 B/P (MAP) 182/97 (125) Pulse Ox 98 95 O2 Delivery Nasal Cannula Nasal Cannula O2 Flow Rate 5.00 5.00 02/20/22 02/20/22 14:00 15:23 Pulse 83 Resp 27 B/P (MAP) 117/87 (97) Pulse Ox 99 98 O2 Delivery Nasal Cannula Nasal Cannula O2 Flow Rate 5.00 5.00 02/20/22 00:00 Intake Total 970 ml Output Total 345 ml Balance 625 ml Capillary Refill : Less Than 3 Seconds Rectal: deferred Lymphatic: no adenopathy Data Review Labs Laboratory Tests 02/19/22 17:37: Glucometer 86 02/19/22 20:06: Glucometer 102 02/20/22 05:00: White Blood Count 13.9H, Red Blood Count 3.52L, Hemoglobin 9.9L, Hematocrit 29L, Mean Corpuscular Volume 83, Mean Corpuscular Hemoglobin 28, Mean Corpuscular Hemoglobin Concent 34, Red Cell Distribution Width 14.5, Platelet Count 226, Mean Platelet Volume 9.5, Immature Granulocyte % (Auto) 1, Neutrophils (%) (Auto) 90H, Lymphocytes (%) (Auto) 6L, Monocytes (%) (Auto) 4, Eosinophils (%) (Auto) 0, Basophils (%) (Auto) 0, Neutrophils # (Auto) 12.5H, Lymphocytes # (Auto) 0.8L, Monocytes # (Auto) 0.5, Eosinophils # (Auto) 0.0, Basophils # (Auto) 0.0, Immature Granulocyte # (Auto) 0.1, Sodium Level 134L, Potassium Level 3.1L, Chloride Level 96L, Carbon Dioxide Level 22, Anion Gap 16H, Blood Urea Nitrogen 19H, Creatinine 0.55L, Estimat Glomerular Filtration Rate 100, BUN/Creatinine Ratio 35, Glucose Level 90, Calcium Level 7.8L, Corrected Calcium 8.8, Phosphorus Level 2.3, Magnesium Level 1.8, Total Bilirubin 1.0, Aspartate Amino Transf (AST/SGOT) 24, Alanine Aminotransferase (ALT/SGPT) 19, Alkaline Phosphatase 56, Total Protein 5.1L, Albumin 2.8L 02/20/22 05:52: Glucometer 97 02/20/22 12:00: Glucometer 117H Microbiology 02/16/22 MRSA Screen - Final, Complete MRSA not isolated 02/16/22 Urine Culture - Final, Complete NO GROWTH 02/15/22 Blood Culture - Preliminary, Resulted No growth A/P-Cardiology Assessment/Admission Diagnosis S/p Exploratory laparotomy with Niles procedure (rectosigmoid resection with end colostomy) on 02/16/22 after presentation with bowel perf - post-op PAF with RVR seen on 02/20/22 Metastatic small cell lung cancer, h/o radiation therapy and chemotherapy. Coronary artery disease, - PTCA and stent of the left circumflex artery using bare-metal MultiLink vision 3.0 x 15 mm stent in 2006. Previously, she had stents to the RCA in 2003 using 2.75 x 8 mm Express stent. - stress test done in January 2019 showed breast attenuation with typical female pattern with no sig ischemia or infarction, ejection fraction 75 percent - Echocardiogram showed normal LV size and function, aortic valve sclerosis, PA 35 mmHg, test were done in January 2019. Planning to repeat stress test after next 6 month follow up. PAD - October 17, 2021: kissing iliac stents using Omnilink Elite 7 x 29 bilaterally - 21 December 2021: amputation to her right fourth toe Hypertension, by history Hyperlipidemia, by history Status post recent cholecystectomy Mild bilateral nonobstructive carotid artery stenosis, most recent carotid duplex done February 2020 COPD, followed by primary care physician. Tobaccoism, advised to quit H/o cutaneous lupus History of H. pylori, peptic ulcer disease Discussion and Recomendations * She is already on iv amiodarone at the time of my exam (ordered by ICU svce) * We recommend anticoag for stroke prophylaxis * Monitor labs closely DULCE SULLIVAN MD FACP FAC CCDS Feb 20, 2022 15:32
[2022-02-20] MEDS: AMIODARONE INJECTION 450 MG in NORMAL SALINE 250 ML IV SCH ×2 (17:49→23:15)
[2022-02-20] MEDS: FLUCONAZOLE 100 MG/50 ML IVPB IV SCH (20:37)
--- NOTE | 2022-02-20 20:41 | Progress Note-Post Operative ---
Post-Operative Progess Note Surgeon (s)/Warehouse Hand (s) Surgeon ROMARIO VALDIVIA DO Warehouse Hand: none Pre-Operative Diagnosis venous insufficiency Post-Operative Diagnosis same Procedure & Operative Findings Date of Procedure 02/20/22 Procedure Performed/Findings Central Line placement The patient was in their bed in the ICU, was prepped and draped in a sterile fashion. A surgical pause was performed. Ultrasound was used to locate the internal jugular vein. Once located anesthetic was infiltrated above it. Using an 18 gauge finder needle and watching with the US; the left internal jugular vein was accessed. Dark nonpulsatile blood was withdrawn. The wire was inserted; could see with US it was in the internal jugular vein. The needle was removed. A [#11] blade scalpel was used to make a stab incision along the guidewire. Dilator sheath was then advanced over the wire using Seldinger technique and the dilator was removed. The Groshong catheter was inserted over the guide wire using the Seldinger technique. The Groshong wire was removed. The catheter was then accessed in all three ports without difficulty. Good flash of blood was seen and it was then flushed with saline. The catheter was sutured in place with 3-0 silk. The areas were then washed and dried. Sterile dressing was placed over incision. The patient tolerated the procedure well without complication. Anesthesia Type Local lidocaine Estimated Blood Loss Estimated blood loss (mL): scant Specimens/Packing Specimens Removed ROMARIO Baker DO Feb 20, 2022 20:41
--- NOTE | 2022-02-20 23:39 | Tele-ICU Progress Note ---
Progress Note Called for acute tonic clonic seizure. Has never had one before. Per RN, has had increasing confusion, hallucinations over past couple days. Precedex and fentanyl stopped in response. Had been more agitated earlier today, pulling at lines and tubes. Then had acute onset seizure, lasted about 5 minutes, terminated just prior to my entering the room. Now post-ictal. Minimally responsive but is grumbling and opening eyes in response to loud voice. - seizure has resolved, no benzo at this time - CT head when able, currently would not be safe to leave unattended in scanner. As of September no brain mets on MRI. - seizure precautions - HR back up to 140s, amio stopped for a short time due to line kinking. Given very recent seizure activity, will give 15-20 min and reassess. If remains in RVR, will repeat amio bolus vs addition of beta anshu if BP still elevated (current 162/89) - will consider keppra vs dilatin loading if there is another seizure event. Focused Exam Height, Weight, BMI Height: 5'3.00" Weight: 126lbs. 0.0oz. [id number]; 23.35 BMI Method:Stated FAREED WILLSON MD Feb 20, 2022 23:39
[2022-02-21] MEDS ORDERED: DexMEDEtomidine 250 ML DRIP 250 ML IV SCH (00:45)
[2022-02-21] MEDS ORDERED: RT-ALBUTEROL/IPRATROPIUM 3 ML (DUONEB) VIAL INH SCH (02:00)
[2022-02-21] MEDS ORDERED: NS IV 500 ML 500 ML IV PRN (02:00)
[2022-02-21] MEDS ORDERED: RT-ALBUTEROL HFA 8.5 GM INHALER IH PRN (03:00)
[2022-02-21 03:23] LABS: BASOPHILS % (AUTO) 0 % (0-10); EOSINOPHILS % (AUTO) 0 % (0-10); HEMATOCRIT 30 % (35-52); HEMOGLOBIN 10.3 g/dL (11.5-16.0); LYMPHOCYTES # (AUTO) 0.7 10^3/uL (1.0-4.0); LYMPHOCYTES % (AUTO) 4 % (12-44); MEAN CORPUSCULAR HEMOGLOBIN 28 pg (25-34); MEAN CORPUSCULAR HGB CONC 34 g/dL (32-36); MEAN CORPUSCULAR VOLUME 81 fL (80-99); MONOCYTES # (AUTO) 0.7 10^3/uL (0.0-1.0); MONOCYTES % (AUTO) 4 % (0-12); NEUTROPHILS # (AUTO) 17.6 10^3/uL (1.8-7.8); NEUTROPHILS % (AUTO) 92 % (42-75); PLATELET COUNT 236 10^3/uL (130-400); WHITE BLOOD COUNT 19.2 10^3/uL (4.3-11.0)
[2022-02-21 03:35] LABS: POTASSIUM 2.8 MMOL/L (3.6-5.0)
[2022-02-21 03:36] LABS: CALCIUM 8.2 MG/DL (8.5-10.1)
[2022-02-21 03:37] LABS: TOTAL PROTEIN 5.4 GM/DL (6.4-8.2)
[2022-02-21 03:41] LABS: CREATININE SERUM 0.5 MG/DL (0.60-1.30)
[2022-02-21] MEDS: PIPERACILLIN SODIUM/TAZOBACTAM 4.5 GM in NS (IVPB) 100 ML IV SCH (03:43)
[2022-02-21 03:44] LABS: MAGNESIUM 1.6 MG/DL (1.6-2.4)
[2022-02-21] MEDS ORDERED: POTASSIUM CL 10MEQ/50ML IVPB 250 ML IV ONE (03:51)
[2022-02-21] MEDS: POTASSIUM CL 10MEQ/50ML IVPB 50 ML IV SCH ×6 (03:58→07:04)
[2022-02-21] MEDS: MAGNESIUM 1 GM/100 ML IVPB 100 ML IV SCH ×3 (04:13→05:08)
[2022-02-21] MEDS: KCL 20 MEQ TAB (K-DUR) PO SCH (04:14)
[2022-02-21] MEDS: LACTATED RINGERS 1,000 ML IV SCH (05:09)
[2022-02-21 06:25] LABS: POTASSIUM 3.2 MMOL/L (3.6-5.0)
[2022-02-21 06:30] LABS: CREATININE SERUM 0.49 MG/DL (0.60-1.30)
--- NOTE | 2022-02-21 06:39 | Diagnostic Imaging Report ---
PROCEDURE: CT head without contrast. TECHNIQUE: Multiple contiguous axial images were obtained through the brain without the use of intravenous contrast. Auto Exposure Controls were utilized during the CT exam to meet ALARA standards for radiation dose reduction. INDICATION: 66-year-old female, new onset seizure. History of metastatic lung cancer CORRELATION: 11/22/2013 FINDINGS: There is no midline shift or mass effect. The ventricles and sulci are unremarkable. No evidence for acute intracranial hemorrhage, abnormal extra-axial fluid collections or cerebral edema is present. The basilar cisterns are unremarkable. The bony calvarium is intact. The visualized paranasal sinuses and mastoid air cells are clear. IMPRESSION: Negative appearing noncontrast CT of the head. Initial report was provided by [facility]. . Dictated by: Dictated on workstation # [id number]
--- NOTE | 2022-02-21 06:49 | Progress Note - Surgery ---
MICHAEL MUNIZ 02/21/22 0649: Subjective Date Seen by a Provider: Feb 21, 2022 Time Seen by a Provider: 06:44 Subjective/Events-last exam Patient is awake and alert this morning. Patient seems slightly disoriented and continuously mutters, but answers questions appropriately. Per RN, she has started to have solid fecal matter in her colostomy bag. Per RN, the patient has been having hallucinations, seeing small animals in the room. Patient reports one mild episode of nausea yesterday and feeling some mild pain in her feet b/l. Patient had an acute tonic clonic seizure yesterday that lasted about 15 minutes. Patient was in a post-ictal state for about 45 minutes per RN. Review of Systems HEENT: No Head Aches, No Visual Changes Pulmonary: Dyspnea; No Pleuritic Chest Pain Cardiovascular: No: Chest Pain, Palpitations Gastrointestinal: No: Nausea, Vomiting Genitourinary: No Dysuria, No Frequency Musculoskeletal: foot pain (Pain in top of feet b/l.); No: neck pain, shoulder pain Neurological: Weakness; No: Numbness Objective Exam Vital Signs Date Time Temp Pulse Resp B/P (MAP) Pulse Ox O2 Delivery O2 Flow Rate FiO2 02/21/22 06:00 73 20 130/75 (93) 100 Nasal Cannula 5.00 02/21/22 05:00 68 20 111/61 (78) 99 Nasal Cannula 5.00 02/21/22 04:00 124 21 125/80 (95) 100 Nasal Cannula 5.00 02/21/22 03:23 98 Nasal Cannula 5.00 02/21/22 03:00 80 21 153/79 (103) 99 Nasal Cannula 5.00 02/21/22 02:00 83 20 124/87 (99) 99 Nasal Cannula 5.00 02/21/22 01:45 98 Nasal Cannula 5.00 02/21/22 01:00 81 02/21/22 01:00 81 20 138/69 (92) 97 Nasal Cannula 5.00 02/21/22 00:00 98 Nasal Cannula 5.00 02/21/22 00:00 152 25 137/97 (110) 98 Nasal Cannula 5.00 02/20/22 23:00 89 18 185/99 (127) 100 Nasal Cannula 5.00 02/20/22 22:00 106 18 100 Nasal Cannula 5.00 02/20/22 21:00 109 18 185/99 (127) 92 Nasal Cannula 5.00 02/20/22 20:00 113 18 151/74 (99) 92 Nasal Cannula 5.00 02/20/22 20:00 98 Nasal Cannula 5.00 02/20/22 19:34 37.6 02/20/22 19:11 Nasal Cannula 6.00 02/20/22 19:00 110 02/20/22 19:00 137 18 156/89 (111) 92 Nasal Cannula 5.00 02/20/22 18:25 103 11 126/115 (119) 94 Nasal Cannula 5.00 02/20/22 18:15 125 22 156/72 (100) Nasal Cannula 5.00 02/20/22 18:05 172 8 135/106 (116) Nasal Cannula 5.00 02/20/22 18:00 168 14 130/98 (109) Nasal Cannula 5.00 02/20/22 18:00 168 13 135/106 (116) 99 Nasal Cannula 5.00 02/20/22 17:55 161 21 149/106 (120) Nasal Cannula 5.00 02/20/22 17:50 101 20 166/106 (126) Nasal Cannula 5.00 02/20/22 17:45 168 10 149/106 (120) 99 Nasal Cannula 5.00 02/20/22 17:42 170 161/90 02/20/22 17:00 85 10 161/90 (113) 98 Nasal Cannula 5.00 02/20/22 16:00 87 14 168/81 (110) 99 Nasal Cannula 5.00 02/20/22 16:00 37.6 02/20/22 15:30 165 16 100 Nasal Cannula 5.00 02/20/22 15:23 98 Nasal Cannula 5.00 02/20/22 15:00 112 14 147/82 (103) 91 Nasal Cannula 5.00 02/20/22 14:00 83 27 117/87 (97) 99 Nasal Cannula 5.00 02/20/22 13:30 165 22 100 Nasal Cannula 5.00 02/20/22 13:00 92 28 182/97 (125) 95 Nasal Cannula 5.00 02/20/22 12:41 77 02/20/22 12:06 37.8 02/20/22 11:35 98 Nasal Cannula 5.00 02/20/22 11:00 82 11 170/76 (107) 99 Nasal Cannula 5.00 02/20/22 10:00 82 13 162/77 (105) 96 Nasal Cannula 5.00 02/20/22 09:00 73 18 149/71 (97) 96 Nasal Cannula 5.00 02/20/22 08:00 98 Nasal Cannula 5.00 02/20/22 08:00 76 11 163/80 (107) 94 Nasal Cannula 5.00 02/20/22 07:48 37.2 02/20/22 07:14 64 02/20/22 07:00 71 8 131/68 (89) 90 Nasal Cannula 5.00 I & O 02/21/22 07:00 Intake Total 3002 ml Output Total 3295 ml Balance -293 ml Capillary Refill : Less Than 3 Seconds General Appearance: Anxious, Chronically ill, Mild Distress HEENT: PERRL/EOMI, Normal ENT Inspection; No Pale Conjunctivae (L), No Pale Conjunctivae (R) Neck: Non Tender, Supple Respiratory: No Accessory Muscle Use, No Respiratory Distress, Decreased Breath Sounds Cardiovascular: Regular Rate, Rhythm, No Edema Peripheral Pulses: 2+ Dorsalis Pedis (R), 2+ Left Dors-Pedis (L), 2+ Radial Pulses (R), 2+ Radial Pulses (L) Gastrointestinal: non tender, soft, other (ostomy viable, minimal fluid in ostomy this AM, no flatus or fecal material. Incision c/d/I) Extremity: Non Tender, No Calf Tenderness, No Pedal Edema Neurologic/Psychiatric: Alert, Disoriented Skin: Cool, Other (dark brown lesion on right anterior chest wall near clavicle) Lymphatic: No Adenopathy Results Lab Laboratory Tests 02/20/22 12:00: Glucometer 117H 02/21/22 03:15: White Blood Count 19.2H, Red Blood Count 3.71L, Hemoglobin 10.3L, Hematocrit 30L , Mean Corpuscular Volume 81, Mean Corpuscular Hemoglobin 28, Mean Corpuscular Hemoglobin Concent 34, Red Cell Distribution Width 14.4, Platelet Count 236, Mean Platelet Volume 9.0, Immature Granulocyte % (Auto) 1, Neutrophils (%) (Auto) 92H, Lymphocytes (%) (Auto) 4L, Monocytes (%) (Auto) 4, Eosinophils (%) (Auto) 0, Basophils (%) (Auto) 0, Neutrophils # (Auto) 17.6H, Lymphocytes # (Auto) 0.7L, Monocytes # (Auto) 0.7, Eosinophils # (Auto) 0.0, Basophils # (Auto) 0.0, Immature Granulocyte # (Auto) 0.2H, Sodium Level 132L, Potassium Level 2.8L, Chloride Level 94L, Carbon Dioxide Level 22, Anion Gap 16H, Blood Urea Nitrogen 7, Creatinine 0.50L, Estimat Glomerular Filtration Rate 103, BUN/Creatinine Ratio 14, Glucose Level 115H, Calcium Level 8.2L, Corrected Calcium 9.0, Phosphorus Level 2.0L, Magnesium Level 1.6, Total Bilirubin 1.0, Aspartate Amino Transf (AST/SGOT) 31, Alanine Aminotransferase (ALT/SGPT) 20, Alkaline Phosphatase 68, Total Protein 5.4L, Albumin 3.0L, Procalcitonin 0.99H 02/21/22 06:00: Sodium Level 131L, Potassium Level 3.2L, Chloride Level 93L, Carbon Dioxide Level 24, Anion Gap 14, Blood Urea Nitrogen 7, Creatinine 0.49L, Estimat Glomerular Filtration Rate 103, BUN/Creatinine Ratio 14, Glucose Level 135H, Calcium Level 8.0L Microbiology 02/16/22 MRSA Screen - Final, Complete MRSA not isolated 02/16/22 Urine Culture - Final, Complete NO GROWTH 02/15/22 Blood Culture - Preliminary, Resulted No growth Assessment/Plan Assessment/Plan Assessment/Plan S/P ex lap with blackmon procedure pod #4 Hypokalemia Nausea Tonic clonic seizure. Patient is tolerating soft diet well and passing solid fecal matter into her colostomy bag. Scopalamine patch for nausea, continue as needed. Continue IV zosyn. Continue IV morphine for control of back pain. Leave ramos in to monitor I&O. Encouraged pt to ambulate and use IS. Lasix was discontinued and 50meq KCl was given for potassium replacement and is up to 3.2 today. Repeat labs in AM. CT was ordered after seizure yesterday which was unremarkable. NESTOR BLANCAS DO 02/21/222021: Subjective Subjective/Events-last exam Patient with some confusion. She had seizure last night. Some hallucinations. Having stool. Increasing WBC. Tolerating clears. Denies n/v fever sweats chills shortness of breath or chest pain. Pain controlled. Objective Exam General Appearance: No Apparent Distress, Anxious, Chronically ill HEENT: PERRL/EOMI, Normal ENT Inspection Neck: Non Tender, Supple Respiratory: Chest Non Tender, No Accessory Muscle Use, No Respiratory Distress Cardiovascular: Regular Rate, Rhythm, No JVD Gastrointestinal: non tender, soft, other (ostomy viable, fecal material in bag. Incisions c/d/I) Extremity: Non Tender, No Calf Tenderness Neurologic/Psychiatric: Alert, Disoriented Skin: Normal Color, Warm/Dry Lymphatic: No Adenopathy Assessment/Plan Assessment/Plan Assessment/Plan S/P ex lap with blackmon procedure Hypokalemia Nausea Tonic clonic seizure. Anemia Patient is tolerating diet, advance as tolerates Elevation of wbc will get ct scan abd/pelvis to make sure no abscess. Will start Levaquin and Flagyl Pain control Leave ramos in to monitor I&O. Encouraged pt use IS. Lasix was discontinued and 50meq KCl was given for potassium replacement and is up to 3.2 today. Repeat labs in AM. CT was ordered after seizure yesterday which was unremarkable Anemia will follow hgb and transfuse as needed Nader serosang now where it was more sanguineous. Will avoid anticoagulation at this time. Supervisory-Addendum Brief Verification & Attestation Participated in pt care: history, MDM, physical Personally performed: exam, history, MDM, supervision of care Care discussed with: Medical Student Procedures: n/a Results interpretation: Verified all documentation Verification and Attestation of Medical Student E/M Service A medical student performed and documented this service in my presence. I reviewed and verified all information documented by the medical student and made modifications to such information, when appropriate. I personally performed the physical exam and medical decision making. Nestor Blancas, Feb 21, 2022,20:24 MICHAEL MUNIZ Feb 21, 2022 06:49 NESTOR BLANCAS DO Feb 21, 2022 20:22
--- NOTE | 2022-02-21 07:04 | Progress Note - Hospitalist ---
Subjective HPI/CC On Admission Date Seen by Provider: Feb 21, 2022 Time Seen by Provider: 09:30 Subjective/Events-last exam Patient declining Had seizure last night Hallucinations were still occurring before the seizures No pain appearance Review of Systems General: Fatigue, Malaise Objective Exam Vital Signs Vital Signs Date Time Temp Pulse Resp B/P (MAP) Pulse Ox O2 Delivery O2 Flow Rate FiO2 02/21/22 18:00 81 19 161/79 (106) 88 Room Air 02/21/22 16:00 37.0 02/21/22 08:00 02/17/22 08:00 40 Capillary Refill : Less Than 3 Seconds General Appearance: No Apparent Distress, WD/WN, Chronically ill, Thin, Other (cachectic, semi-comatose) Respiratory: Lungs Clear, Normal Breath Sounds, Decreased Breath Sounds Cardiovascular: Regular Rate, Rhythm Neurologic/Psychiatric: Disoriented, Other (semi-comatose) Results/Procedures Lab Laboratory Tests 02/21/22 03:15 02/21/22 06:00 Patient resulted labs reviewed. Assessment/Plan Assessment and Plan Assess & Plan/Chief Complaint Assessment: Perforated intestinal s/p repair COVID Hypoxia Poor reserve Episode of SVT Hallucinations Chronic pain as outpatient New onset seizure Plan: Pain control DNR Prognosis poor Critical Care Critically Ill Patient FORTINO TRAYLOR DO Feb 21, 2022 07:04
--- NOTE | 2022-02-21 08:36 | Cardiology Progress Note ---
Subjective Date Seen by Provider: Feb 21, 2022 Time Seen by Provider: 08:33 Subjective/Events-last exam Patient was seen at bedside, laying down comfortably Currently in isolation secondary to COVID 19 infection Does not appear to be in distress Objective-Cardiology Exam Last Set of Vital Signs Vital Signs 02/17/22 02/21/22 02/21/22 08:00 07:47 08:00 Temp 37.4 Pulse 73 Resp 19 B/P (MAP) 139/74 (95) Pulse Ox 99 O2 Delivery Nasal Cannula O2 Flow Rate 5.00 FiO2 40 I&O Intake and Output 02/21/22 00:00 Intake Total 1902 ml Output Total 2580 ml Balance -678 ml Intake Oral 540 ml IV Total 1362 ml Output Urine Total 2425 ml Drainage Total 155 ml General: Alert, Cooperative HEENT: Atraumatic Neck: Supple Heart: Regular Rate Extremities: No Clubbing, No Cyanosis Skin: No Rashes Psych/Mental Status: Mood NL Results Lab Laboratory Tests 02/21/22 03:15 02/21/22 06:00 A/P-Cardiology Admission Diagnosis Perforated bowel Coronary artery disease Peripheral arterial disease COVID-19 infection Assessment/Plan S/p Exploratory laparotomy with Niles procedure (rectosigmoid resection with end colostomy) on 02/16/22 after presentation with bowel perf - post-op PAF with RVR seen on 02/20/22 Metastatic small cell lung cancer, h/o radiation therapy and chemotherapy. Coronary artery disease, - PTCA and stent of the left circumflex artery using bare-metal MultiLink vision 3.0 x 15 mm stent in 2007. Previously, she had stents to the RCA in 2003 using 2.75 x 8 mm Express stent. - stress test done in January 2019 showed breast attenuation with typical female pattern with no sig ischemia or infarction, ejection fraction 75 percent - Echocardiogram showed normal LV size and function, aortic valve sclerosis, PA 35 mmHg, test were done in January 2019. Planning to repeat stress test after next 6 month follow up. 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 CT of the head did not show any acute abnormality Managed by primary care team COVID-19 infection. Not in acute distress at this time. Maintained in isolation. Hypertension, monitor blood pressure Hyperlipidemia, by history Status post recent cholecystectomy Mild bilateral nonobstructive carotid artery stenosis, most recent carotid duplex done February 2020 COPD, followed by primary care physician. Tobaccoism, advised to quit H/o cutaneous lupus History of H. pylori, peptic ulcer disease JOAN SEVERINO MD Feb 21, 2022 08:36
--- NOTE | 2022-02-21 08:54 | Diagnostic Imaging Report ---
INDICATION: Possible aspiration. TECHNIQUE: Single view chest 2:27 AM. CORRELATION STUDY: 02/19/2022 FINDINGS: Gastric tube has been removed. Right IJ port remains in place with the left IJ central line having been placed since prior. Tip projects over the central aspect the right atrium. Heart size and mediastinum are stable. Coarse bilateral pulmonary infiltrate-like opacities do persist. Overall generally stable. More focal coarse-like density in lateral right mid lung field. No definitive new infiltrate. IMPRESSION: 1. Rather pronounced coarse interstitial and airspace opacities throughout both lung glass overall appear without significant interval change. Question more scarlike density lateral right mid lung field. Possibly mass in this area is not excluded. 2. Interval placement left IJ central line tip projecting over the central aspect right atrium. Consideration for retraction of approximately 4 cm. Report was called to [facility] ICU [facility], nurse by ashlee at 8:54am. Dictated by: Dictated on workstation # [id number]
[2022-02-21] MEDS ORDERED: MAGNESIUM 1 GM/100 ML IVPB 100 ML IV NR (09:00)
--- NOTE | 2022-02-21 09:03 | Tele-ICU Progress Note ---
Subjective Date Seen by a Provider: Feb 21, 2022 Time Seen by a Provider: 09:01 Subjective/Events-last exam (Tele-ICU Physician , Progress Note ) Available chart/ vitals / labs / Images reviewed Video assessment done using teleICU camera, rest of exam as per RN Discussed with RN Events overnight : Afebrile hemodynamically stable Respiratory - 5L I/O = 40 LR Drips: Pressors- no Consultants: sx Hospital course: (02/16) 66yr old female admitted with Covid 19, n/v, bowel perf, and urinary retention. s/p Emergent Ex Laparotomy, Munoz's Procedure. Intubated from OR. (02/17) Extubated. 02/18 -hb drop to 6.5 from 8.8 - transfusion 2 U pRBC 02/18 02/18 - Hypoxia , responded to diuresis , did not tolerated BIPAP 02/20 - 5 L o2, SVT/a flatter - amio gtt 02/21 - seizure , on RA , low grade fever A/P Perforated viscus/ free air on abd CT ( " likely at the level of the mid to distal small bowel" - s/p Emergent Ex Laparotomy, Munoz's Procedure 02/16 - abx started Zosyn 02/16- OFF NOW - low grade fever and incr WBC - ? new infection - CONSIDER LEVOFLOXACIN ( if or with cards - QT 450 ) or aztreonam - to decrease chance of antibiotic-related symptomatic seizures ) Acute resp failure -with VO on 02/18 - Hypoxia , responded to diuresis , did not tolerated BIPAP - on 5 L now Confusion - most likely TME , trying to keep off opioids and WEAN precedex , IF _ WILL TRY SEROQUEL A flatter - new 02/20 - in sinus now - still on amio gtt - as per cards - follow lytes Seizure 02/20 ( ? was on Zosyn - new onset x 1 CTH negative - might need MRI - change ABX Anemia - hb drop to 6.5 from 8.8 - transfusion 2 U pRBC 02/18 - stable 02/19- PAIN - fentanyl / morphine - STOPPED due to confusion Covid + - vaccinated ( moderna x2 + booster ECHO 01/24/22 -EF 60% -Pulm htrn -RVSP 60 mmHg Lung CA , reportedly stage 4 - oncololy is in other hospital PAD - s/p stenting right - on plavix - ON HOLD - as per cards Lines : port right , (Central Line Necessity Reviewed) Roca: + OG: Nutrition: npo d 3 Analgesia: Anxiety/ delirium VTE Prophylaxis: SCD for now , high risk with h/o CA - WILL START LOVENOX IF HB STABLE Stress Ulcer Prophylaxis: ppi Plans in collaboration with bedside consultants and IM MDs. Discussed with RN to reach out if any questions or concerns A total of 35 minutes of critical care time was devoted to this patient today, required to treat and/or prevent further deterioration of critical care condition ( as above ) . Sepsis Event Evaluation Height, Weight, BMI Height: 5'3.00" Weight: 126lbs. 0.0oz. [id number]; 21.05 BMI Method:Stated Exam Exam Patient acknowledged, consented, and participated in this virtual visit which was conducted using real time audio/video Vital Signs Date Time Temp Pulse Resp B/P (MAP) Pulse Ox O2 Delivery O2 Flow Rate FiO2 02/21/22 08:00 73 19 139/74 (95) 99 Nasal Cannula 5.00 02/21/22 07:48 97 Room Air 02/21/22 07:47 37.4 75 12 133/77 (95) 100 Room Air 02/21/22 07:12 73 02/21/22 07:00 75 9 133/77 (95) 100 Nasal Cannula 5.00 02/21/22 06:00 73 20 130/75 (93) 100 Nasal Cannula 5.00 02/21/22 05:00 68 20 111/61 (78) 99 Nasal Cannula 5.00 02/21/22 04:00 124 21 125/80 (95) 100 Nasal Cannula 5.00 02/21/22 03:23 98 Nasal Cannula 5.00 02/21/22 03:00 80 21 153/79 (103) 99 Nasal Cannula 5.00 02/21/22 02:00 83 20 124/87 (99) 99 Nasal Cannula 5.00 02/21/22 01:45 98 Nasal Cannula 5.00 02/21/22 01:00 81 02/21/22 01:00 81 20 138/69 (92) 97 Nasal Cannula 5.00 02/21/22 00:00 98 Nasal Cannula 5.00 02/21/22 00:00 152 25 137/97 (110) 98 Nasal Cannula 5.00 02/20/22 23:00 89 18 185/99 (127) 100 Nasal Cannula 5.00 02/20/22 22:00 106 18 100 Nasal Cannula 5.00 02/20/22 21:00 109 18 185/99 (127) 92 Nasal Cannula 5.00 02/20/22 20:00 113 18 151/74 (99) 92 Nasal Cannula 5.00 02/20/22 20:00 98 Nasal Cannula 5.00 02/20/22 19:34 37.6 02/20/22 19:11 Nasal Cannula 6.00 02/20/22 19:00 110 02/20/22 19:00 137 18 156/89 (111) 92 Nasal Cannula 5.00 02/20/22 18:25 103 11 126/115 (119) 94 Nasal Cannula 5.00 02/20/22 18:15 125 22 156/72 (100) Nasal Cannula 5.00 02/20/22 18:05 172 8 135/106 (116) Nasal Cannula 5.00 02/20/22 18:00 168 14 130/98 (109) Nasal Cannula 5.00 02/20/22 18:00 168 13 135/106 (116) 99 Nasal Cannula 5.00 02/20/22 17:55 161 21 149/106 (120) Nasal Cannula 5.00 02/20/22 17:50 101 20 166/106 (126) Nasal Cannula 5.00 02/20/22 17:45 168 10 149/106 (120) 99 Nasal Cannula 5.00 02/20/22 17:42 170 161/90 02/20/22 17:00 85 10 161/90 (113) 98 Nasal Cannula 5.00 02/20/22 16:00 87 14 168/81 (110) 99 Nasal Cannula 5.00 02/20/22 16:00 37.6 02/20/22 15:30 165 16 100 Nasal Cannula 5.00 02/20/22 15:23 98 Nasal Cannula 5.00 02/20/22 15:00 112 14 147/82 (103) 91 Nasal Cannula 5.00 02/20/22 14:00 83 27 117/87 (97) 99 Nasal Cannula 5.00 02/20/22 13:30 165 22 100 Nasal Cannula 5.00 02/20/22 13:00 92 28 182/97 (125) 95 Nasal Cannula 5.00 02/20/22 12:41 77 02/20/22 12:06 37.8 02/20/22 11:35 98 Nasal Cannula 5.00 02/20/22 11:00 82 11 170/76 (107) 99 Nasal Cannula 5.00 02/20/22 10:00 82 13 162/77 (105) 96 Nasal Cannula 5.00 I & O 02/21/22 07:00 Intake Total 3002 ml Output Total 3295 ml Balance -293 ml Height & Weight Height: 5'3.00" Weight: 126lbs. 0.0oz. [id number]; 21.05 BMI Method:Stated General Appearance: Anxious, Chronically ill, Mild Distress HEENT: PERRL/EOMI, Normal ENT Inspection; No Pale Conjunctivae (L), No Pale Conjunctivae (R) Neck: Non Tender, Supple Respiratory: No Accessory Muscle Use, No Respiratory Distress, Decreased Breath Sounds Cardiovascular: Regular Rate, Rhythm, No Edema Capillary Refill: Less Than 3 Seconds Peripheral Pulses: 2+ Dorsalis Pedis (R), 2+ Left Dors-Pedis (L), 2+ Radial Pulses (R), 2+ Radial Pulses (L) Gastrointestinal: non tender, soft, other (ostomy viable, minimal fluid in ostomy this AM, no flatus or fecal material. Incision c/d/I) Extremity: Non Tender, No Calf Tenderness, No Pedal Edema Neurologic/Psychiatric: Alert, Disoriented Skin: Cool, Other (dark brown lesion on right anterior chest wall near clavicle) Lymphatic: No Adenopathy Results Lab Laboratory Tests 02/20/22 05:00 02/21/22 03:15 02/21/22 06:00 Assessment/Plan Assessment/Plan 1 ROSALIE HUNG MD Feb 21, 2022 09:03
[2022-02-21] MEDS: PANTOPRAZOLE 40 MG (PROTONIX) VIAL IV SCH (09:24)
[2022-02-21 09:48] LABS: BILIRUBIN,URINE NEGATIVE (NEGATIVE); CLARITY,URINE CLEAR; COLOR,URINE YELLOW; GLUCOSE, URINE (UA) NEGATIVE (NEGATIVE); KETONES,URINE 3+ (NEGATIVE); LEUKOCYTE ESTERASE ,URINE NEGATIVE (NEGATIVE); NITRITE,URINE NEGATIVE (NEGATIVE); PROTEIN,URINE NEGATIVE (NEGATIVE)
[2022-02-21 09:57] LABS: BACTERIA,URINE NEGATIVE /HPF; RBC,URINE RARE /HPF
[2022-02-21] MEDS ORDERED: IOHEXOL 350 MG/ML 100 ML (OMNIPAQUE 350) VIAL IV ONE (10:45)
[2022-02-21] MEDS ORDERED: NS 100 ML (IVPB) BAG IV ONE (10:45)
[2022-02-21] MEDS ORDERED: HOLD METFORMIN - RECEIVED CONTRAST 20 ML VIAL IV SCH (10:45)
[2022-02-21] MEDS ORDERED: PATCH REMOVAL TP SCH (11:15)
[2022-02-21] MEDS: AMIODARONE INJECTION 450 MG in NORMAL SALINE 250 ML IV SCH (13:11)
[2022-02-21] MEDS: CATHETER FLUSH 10 ML SYR IV PRN ×2 (13:49→23:00)
--- NOTE | 2022-02-21 14:11 | Physical Therapy Progress Note ---
Therapy Progress Note Patient refuses physical therapy this afternoon, says "not today". Patient also refuses to perform exercises in bed. Patient was shown exercises she can do on her own in bed but I don't think she understood it, seemed fairly confused. JOSE ARNOLD PT Feb 21, 2022 14:11
--- NOTE | 2022-02-21 14:15 | Diagnostic Imaging Report ---
PROCEDURE: CT abdomen and pelvis with contrast. TECHNIQUE: Multiple contiguous axial images were obtained through the abdomen and pelvis after administration of intravenous contrast. Auto Exposure Controls were utilized during the CT exam to meet ALARA standards for radiation dose reduction. All CT scans use one or more of the following dose optimizing techniques: automated exposure control, MA and/or KvP adjustment based on patient size and exam type or iterative reconstruction. INDICATION: Metastatic lung cancer, elevated white blood cell count. FINDINGS: The lung bases and basilar pleura are nonacute. Low-density lesion in the lateral margin in the right hepatic lobe of 2.4 x 2.0 cm again noted. No new liver mass and at today's exam, there is no pathological dilatation of the biliary ducts. Spleen and adrenals are negative. The pancreas is nonacute. There is no hydroureteronephrosis. Simple left lower pole renal cortical cysts noted. There is a left lower quadrant ostomy. There is decreased and essential near resolution of pelvic free fluid. There are multiple unopacified fluid-containing pelvic bowel loops which could confound detection of a pathological extraluminal fluid collection. No definite abscess or drainable collection is found today. There is thickening and edematous changes to the colon, most notable at its ascending and descending segments, consistent with nonspecific colitis. No pneumatosis. There may be a few bubbles of residual extraluminal peritoneal gas but this is substantially improved from prior with an interval bowel resection with a left lower quadrant stoma. There are aortoiliac atherosclerotic vascular calcifications which are severe and chronic. No aneurysm. There is a surgical drain in the pelvis. Urinary bladder is decompressed by Roca. IMPRESSION: Resolving peritoneal fluid. No definite abscess, however unopacified pelvic small bowel limits detail. Interval bowel resection and ostomy with findings consistent with nonspecific colitis. No pneumatosis. Decreased if not resolved free air. No biliary or urinary tract dilatation or obstruction. Dictated by: Dictated on workstation # [id number]
[2022-02-21] MEDS: metroNIDAZOLE 500MG/100ML IVPB 100 ML IV SCH ×2 (14:30→23:01)
[2022-02-21] MEDS: ONDANSETRON 4 MG/2 ML (SDV) Z0FRAN IV PRN ×2 (18:31→20:52)
[2022-02-21] MEDS: fentaNYL INJ 100 MCG/2 ML AMP IV PRN (20:11)
[2022-02-22 03:51] LABS: BASOPHILS % (AUTO) 0 % (0-10); EOSINOPHILS % (AUTO) 0 % (0-10); HEMATOCRIT 30 % (35-52); HEMOGLOBIN 10.3 g/dL (11.5-16.0); LYMPHOCYTES # (AUTO) 0.8 10^3/uL (1.0-4.0); LYMPHOCYTES % (AUTO) 7 % (12-44); MEAN CORPUSCULAR HEMOGLOBIN 28 pg (25-34); MEAN CORPUSCULAR HGB CONC 34 g/dL (32-36); MEAN CORPUSCULAR VOLUME 82 fL (80-99); MEAN PLATELET VOLUME 9.1 fL (9.0-12.2); MONOCYTES # (AUTO) 0.7 10^3/uL (0.0-1.0); MONOCYTES % (AUTO) 5 % (0-12); NEUTROPHILS # (AUTO) 10.7 10^3/uL (1.8-7.8); NEUTROPHILS % (AUTO) 87 % (42-75); PLATELET COUNT 235 10^3/uL (130-400); WHITE BLOOD COUNT 12.3 10^3/uL (4.3-11.0)
[2022-02-22 04:03] LABS: CALCIUM 8.1 MG/DL (8.5-10.1)
[2022-02-22 04:04] LABS: TOTAL PROTEIN 5.3 GM/DL (6.4-8.2)
[2022-02-22 04:06] LABS: BILIRUBIN,TOTAL 0.7 MG/DL (0.1-1.0)
[2022-02-22 04:08] LABS: CREATININE SERUM 0.55 MG/DL (0.60-1.30)
[2022-02-22 04:10] LABS: MAGNESIUM 1.6 MG/DL (1.6-2.4)
[2022-02-22 04:19] LABS: POTASSIUM 2.5 MMOL/L (3.6-5.0)
[2022-02-22] MEDS ORDERED: POTASSIUM CL 10MEQ/50ML IVPB 50 ML IV SCH (05:15)
[2022-02-22] MEDS ORDERED: NS IV 500 ML 500 ML IV PRN (05:15)
[2022-02-22] MEDS ORDERED: MAGNESIUM 1 GM/100 ML IVPB 200 ML IV ONE (05:15)
[2022-02-22] MEDS ORDERED: POTASSIUM CL 10MEQ/50ML IVPB 300 ML IV ONE (05:15)
[2022-02-22] MEDS: POTASSIUM CL 10MEQ/50ML IVPB 50 ML IV SCH ×11 (05:22→12:30)
[2022-02-22] MEDS: MAGNESIUM 1 GM/100 ML IVPB 100 ML IV SCH ×3 (05:23→05:44)
[2022-02-22] MEDS: KCL 20 MEQ TAB (K-DUR) PO SCH (05:23)
[2022-02-22] MEDS: metroNIDAZOLE 500MG/100ML IVPB 100 ML IV SCH ×3 (05:25→21:07)
[2022-02-22] MEDS ORDERED: MAGNESIUM 1 GM/100 ML IVPB 100 ML IV SCH (06:00)
[2022-02-22] MEDS ORDERED: KCL 20 MEQ TAB (K-DUR) PO SCH (06:00)
[2022-02-22] MEDS: ONDANSETRON 4 MG/2 ML (SDV) Z0FRAN IV PRN ×2 (06:27→21:15)
[2022-02-22] MEDS: fentaNYL INJ 100 MCG/2 ML AMP IV PRN (06:28)
--- NOTE | 2022-02-22 07:05 | Progress Note - Surgery ---
MICHAEL MUNIZ 02/22/22 0705: Subjective Date Seen by a Provider: Feb 22, 2022 Time Seen by a Provider: 07:00 Subjective/Events-last exam Patient is awake and alert but disoriented this morning. Patient complains of some incisional abdominal pain and nausea. Review of Systems General: No Chills, No Night Sweats HEENT: No Head Aches, No Visual Changes Pulmonary: No Dyspnea, No Cough Cardiovascular: No: Chest Pain, Palpitations Gastrointestinal: Nausea, Abdominal Pain (Incisional) Genitourinary: No Dysuria, No Frequency Musculoskeletal: No: neck pain, shoulder pain Neurological: Confusion; No: Numbness Objective Exam Vital Signs Date Time Temp Pulse Resp B/P (MAP) Pulse Ox O2 Delivery O2 Flow Rate FiO2 02/22/22 03:52 98 Room Air 02/22/22 03:28 158 02/22/22 02:38 121 19 155/78 (103) 96 Room Air 02/22/22 02:00 82 22 95 Room Air 02/22/22 01:00 96 18 94 Room Air 02/22/22 01:00 86 02/22/22 00:39 101 28 166/87 (113) 96 Room Air 02/22/22 00:00 96 Room Air 02/22/22 00:00 37.4 02/21/22 23:39 Nasal Cannula 6.00 02/21/22 23:08 76 29 144/72 (91) 97 Room Air 02/21/22 22:00 78 16 136/79 (84) 96 Room Air 02/21/22 21:00 78 20 137/76 (99) 97 Room Air 02/21/22 20:00 37.6 02/21/22 20:00 89 28 146/67 (92) 96 Room Air 02/21/22 20:00 96 Room Air 02/21/22 19:00 82 02/21/22 19:00 82 9 136/115 (123) 96 Room Air 02/21/22 18:00 81 19 161/79 (106) 88 Room Air 02/21/22 17:00 71 24 153/76 (101) 87 Room Air 02/21/22 16:00 97 Room Air 02/21/22 16:00 71 24 148/72 (97) 97 Room Air 02/21/22 16:00 37.0 02/21/22 15:00 68 23 154/74 (100) 97 Room Air 02/21/22 14:00 65 16 143/73 (96) 94 Room Air 02/21/22 13:01 71 02/21/22 13:00 77 24 132/63 (86) 96 Room Air 02/21/22 12:15 98 Room Air 02/21/22 12:00 66 21 144/80 (101) 96 Room Air 02/21/22 11:52 36.4 02/21/22 11:00 67 24 128/74 (92) 99 Room Air 02/21/22 10:00 57 16 116/65 (82) 97 Room Air 02/21/22 09:00 68 17 141/68 (92) 99 Room Air 02/21/22 08:00 73 19 139/74 (95) 99 Room Air 02/21/22 07:48 97 Room Air 02/21/22 07:47 37.4 75 12 133/77 (95) 100 Room Air 02/21/22 07:12 73 I & O 02/22/22 07:00 Intake Total 380 ml Output Total 2370 ml Balance -1990 ml Capillary Refill : Less Than 3 Seconds General Appearance: No Apparent Distress, Anxious, Chronically ill HEENT: PERRL/EOMI, Normal ENT Inspection Neck: Non Tender, Supple Respiratory: Chest Non Tender, No Accessory Muscle Use, No Respiratory Distress Cardiovascular: No JVD, Tachycardia Peripheral Pulses: 2+ Dorsalis Pedis (R), 2+ Left Dors-Pedis (L), 2+ Radial Pulses (R), 2+ Radial Pulses (L) Gastrointestinal: normal bowel sounds, soft Extremity: Non Tender, No Calf Tenderness Neurologic/Psychiatric: Alert, Disoriented Skin: Normal Color, Warm/Dry Lymphatic: No Adenopathy Results Lab Laboratory Tests 02/21/22 09:40: Urine Color YELLOW, Urine Clarity CLEAR, Urine pH 6.0, Urine Specific [place] 1.020, Urine Protein NEGATIVE, Urine Glucose (UA) NEGATIVE, Urine Ketones 3+H, Urine Nitrite NEGATIVE, Urine Bilirubin NEGATIVE, Urine Urobilinogen 0.2, Urine Leukocyte Esterase NEGATIVE, Urine RBC (Auto) NEGATIVE, Urine RBC RARE, Urine WBC NONE, Urine Crystals NONE, Urine Bacteria NEGATIVE, Urine Casts NONE, Urine Mucus NEGATIVE, Urine Culture Indicated NO 02/22/22 03:45: White Blood Count 12.3H, Red Blood Count 3.72L, Hemoglobin 10.3L, Hematocrit 30L , Mean Corpuscular Volume 82, Mean Corpuscular Hemoglobin 28, Mean Corpuscular Hemoglobin Concent 34, Red Cell Distribution Width 14.6H, Platelet Count 235, Mean Platelet Volume 9.1, Immature Granulocyte % (Auto) 1, Neutrophils (%) (Auto) 87H, Lymphocytes (%) (Auto) 7L, Monocytes (%) (Auto) 5, Eosinophils (%) (Auto) 0, Basophils (%) (Auto) 0, Neutrophils # (Auto) 10.7H, Lymphocytes # (Auto) 0.8L, Monocytes # (Auto) 0.7, Eosinophils # (Auto) 0.0, Basophils # (Auto) 0.0, Immature Granulocyte # (Auto) 0.1, Sodium Level 137, Potassium Level 2.5*L, Chloride Level 96L, Carbon Dioxide Level 22, Anion Gap 19H, Blood Urea Nitrogen 8, Creatinine 0.55L, Estimat Glomerular Filtration Rate 100, BUN/Creatinine Ratio 15, Glucose Level 87, Calcium Level 8.1L, Corrected Calcium 8.9, Phosphorus Level 2.5, Magnesium Level 1.6, Total Bilirubin 0.7, Aspartate Amino Transf (AST/SGOT) 30, Alanine Aminotransferase (ALT/SGPT) 25, Alkaline Phosphatase 55, Total Protein 5.3L, Albumin 3.0L Microbiology 02/16/22 MRSA Screen - Final, Complete MRSA not isolated 02/16/22 Urine Culture - Final, Complete NO GROWTH 02/15/22 Blood Culture - Preliminary, Resulted No growth Assessment/Plan Assessment/Plan Assessment/Plan S/P ex lap with blackmon procedure Hypokalemia Nausea Tonic clonic seizure. Anemia Patient is tolerating diet, advance as tolerates Elevation of wbc, continue Levaquin and Flagyl Continue pain control Leave ramos in to monitor I&O. Encouraged pt to use IS. Follow hgb and transfuse as needed. Continue magnesium sulfate for seizure prophylaxis. Continue potassium replacement Will avoid anticoagulation at this time. SOCO BLANCAS DO 02/22/22 1536: Subjective Subjective/Events-last exam Patient feeling better today. Has bowel function. Wanting to go home. Food tastes bad she states. Pain controlled. Denies n/v fever sweats chills shortness of breath or chest pain at this time. WBC improving. HGb stable. Objective Exam General Appearance: No Apparent Distress, Anxious, Chronically ill HEENT: PERRL/EOMI, Normal ENT Inspection Neck: Non Tender, Supple Respiratory: Chest Non Tender, No Accessory Muscle Use, No Respiratory Distress Cardiovascular: Regular Rate, Rhythm, No JVD Gastrointestinal: normal bowel sounds, soft Extremity: Non Tender, No Calf Tenderness Neurologic/Psychiatric: Alert, Oriented x3 Skin: Normal Color, Warm/Dry Lymphatic: No Adenopathy Assessment/Plan Assessment/Plan Assessment/Plan S/P ex lap with blackmon procedure Hypokalemia Nausea Tonic clonic seizure. Anemia Patient is tolerating diet, advance as tolerates Elevation of wbc, continue Levaquin and Flagyl Continue pain control DC ramos Encouraged pt to use IS. Follow hgb and transfuse as needed. Continue electrolyte replacement Supervisory-Addendum Brief Verification & Attestation Participated in pt care: history, MDM, physical Personally performed: exam, history, MDM, supervision of care Care discussed with: Medical Student Procedures: n/a Results interpretation: Verified all documentation Verification and Attestation of Medical Student E/M Service A medical student performed and documented this service in my presence. I reviewed and verified all information documented by the medical student and made modifications to such information, when appropriate. I personally performed the physical exam and medical decision making. Soco Blancas, Feb 22, 2022,15:36 MICHAEL MUNIZ Feb 22, 2022 07:05 SOCO BLANCAS DO Feb 22, 2022 15:36
[2022-02-22] MEDS: PANTOPRAZOLE 40 MG (PROTONIX) VIAL IV SCH (08:09)
[2022-02-22] MEDS ORDERED: ALPRAZolam 0.5 MG (XANAX) TAB PO PRN (09:15)
--- NOTE | 2022-02-22 09:26 | Physical Therapy Daily Note ---
PT Daily Note-Current Subjective Patient in bed pre tx, agrees to PT, has severe but unrated pain in abdomen. Appearance Patient in recliner post tx with nurse call, phone, tray, chair alarm on. Mental Status Patient Orientation: Person, Place, Situation Attachments: Oxygen, Roca Catheter, IV Transfers SCALE: Activities may be completed with or without assistive devices. 9-Lgtbwgfhtd-mwfsylf completes the activity by him/herself with no assistance from a helper. 5-Set-up or Clean-up Assistance-helper sets up or cleans up; patient completes activity. [place] assists only prior to or following the activity. 4-Supervision or Touching Assistance-helper provides verbal cues and/or touching/steadying and/or contact guard assistance as patient completes activity. Assistance may be provided throughout the activity or intermittently. 3-Partial/Moderate Assistance-helper does LESS THAN HALF the effort. [place] lifts, holds or supports trunk or limbs, but provides less than half the effort. 2-Substantial/Maximal Assistance-helper does MORE THAN HALF the effort. [place] lifts or holds trunk or limbs and provides more than half the effort. 1-Ounuruywb-woanjp does ALL the effort. Patient does none of the effort to complete the activity. Or, the assistance of 2 or more helpers is required for the patient to complete the activity. If activity was not attempted, code reason: 7-Patient Refused. 9-Not Applicable-not attempted and the patient did not perform the activity before the current illness, exacerbation or injury. 10-Not Attempted due to Environmental Limitations-(lack of equipment, weather restraints, etc.). 88-Not Attempted due to Medical Conditions or Safety Concerns. Roll Left & Right (QC): 3 Lying to Sitting/Side of Bed(Q: 3 Sit to Stand (QC): 3 Chair/[place] Xfer(QC): 4 Weight Bearing Right Lower Extremity: Right Partial Weight Bearing Left Lower Extremity: Left Partial Weight Bearing weight bearing as tolerated Gait Training Distance: 5' Gait Persons Needed: 1 Gait Assistive Device: FWW slightly unsteady but no LOB Exercises Seated Therapy Exercises: Ankle pumps, Long arc quads Seated Reps: 20 Treatments bed mobility and transfers, ambulation, LE ROM Assessment Current Status: Poor Progress no change in mobility, patient has been refusing therapy the last few days PT Care Home Goals Stiff Leg Derrick Operator Goals PT Care Home Goals Time Frame: Mar 11, 2022 Roll Left & Right (QC): 6 Sit to Lying (QC): 6 Lying-Sitting on Side/Bed(QC): 6 Sit to Stand (QC): 6 Chair/Dtx-hs-Hjzen Xfer(QC): 6 Toilet Transfer (QC): 6 Walk 10 feet (QC): 6 Walk 50ft with 2 Turns (QC): 6 Walk 150 ft (QC): 6 PT Plan Problem List Problem List: Activity Tolerance, Functional Strength, Safety, Balance, Gait, Transfer, Bed Mobility, ROM Treatment/Plan Treatment Plan: Continue Plan of Care Treatment Plan: Bed Mobility, Education, Functional Activity Marco A, Functional Strength, Gait, Safety, Therapeutic Exercise, Transfers Treatment Duration: Mar 11, 2022 Frequency: 6 times per week Estimated Hrs Per Day: .25 hour per day Patient and/or Family Agrees t: Yes Safety Risks/Education Patient Education: Gait Training, Transfer Techniques, Correct Positioning, Safety Issues Teaching Recipient: Patient Teaching Methods: Demonstration, Discussion Response to Teaching: Reinforcement Needed Time/GCodes Time In: 24 Time Out: 0840 Total Billed Treatment Time: 16 Total Billed Treatment 1 visit FA 16JOSE CUMMINGS PT Feb 22, 2022 09:26
[2022-02-22] MEDS: GABAPENTIN 300 MG (NEURONTIN) CAP PO SCH ×2 (09:44→21:07)
[2022-02-22] MEDS: AMIODARONE 200 MG (CORDARONE) TAB PO SCH ×2 (09:44→21:07)
--- NOTE | 2022-02-22 09:47 | Tele-ICU Progress Note ---
Subjective Date Seen by a Provider: Feb 22, 2022 Time Seen by a Provider: 09:42 Subjective/Events-last exam (Tele-ICU Physician , Progress Note ) Available chart/ vitals / labs / Images reviewed Video assessment done using teleICU camera, rest of exam as per RN Discussed with RN Events overnight : received giodan Afebrile hemodynamically stable Respiratory - RA Drips: OFF precedex OFF amio Pressors- no Consultants: sx Hospital course: (02/16) 66yr old female admitted with Covid 19, n/v, bowel perf, and urinary retention. s/p Emergent Ex Laparotomy, Munoz's Procedure. Intubated from OR. (02/17) Extubated. 02/18 -hb drop to 6.5 from 8.8 - transfusion 2 U pRBC 02/18 02/18 - Hypoxia , responded to diuresis , did not tolerated BIPAP 02/20 - 5 L o2, SVT/a flatter - amio gtt 02/21 - seizure , on RA , low grade fever - STARTDED LEVOQUIN< FLAGYL , CT abd - ?nonspecofied colitis A/P Perforated viscus/ free air on abd CT ( " likely at the level of the mid to distal small bowel" - s/p Emergent Ex Laparotomy, Munoz's Procedure 02/16 - abx started Zosyn 02/16-5 OFF NOW02/21 started LEVOFLOXACIN and FLAGYL ( - QT 450 ) to decrease chance of antibiotic-related symptomatic seizures Acute resp failure -with VO on 02/18 - Hypoxia , responded to diuresis , did not tolerated BIPAP - on RA now Confusion - most likely TME , trying to keep off opioids and WEANED OFF precedex, -resume home xanax , IF SUNDOWN consider TRY SEROQUEL ( as report - was worse after receivign geodon A flatter - new 02/20 - in sinus now - OFF amio gtt 02/21 as per cards - follow / replace lytes Hypokalemia '- has large stool outoput - follow Seizure 02/20 ( ? was on Zosyn - new onset x 1 CTH negative - might need MRI - change ABX Anemia - hb drop to 6.5 from 8.8 - transfusion 2 U pRBC 02/18 - stable 02/19- PAIN - fentanyl / morphine - STOPPED due to confusion - on chronic opioids - ? to resume dosing as per PCP Covid + - vaccinated ( moderna x2 + booster ECHO 01/24/22 -EF 60% -Pulm htrn -RVSP 60 mmHg Lung CA , reportedly stage 4 - oncololy is in other hospital PAD - s/p stenting right - on plavix - ON HOLD - as per cards Lines : port right , (Central Line Necessity Reviewed) Roca: + OG: Nutrition: npo d 3 Analgesia: Anxiety/ delirium VTE Prophylaxis: SCD for now , high risk with h/o CA - WILL START LOVENOX IF HB STABLE if OK with SX Stress Ulcer Prophylaxis: ppi Plans in collaboration with bedside consultants and IM MDs. Discussed with RN to reach out if any questions or concerns A total of 35 minutes of critical care time was devoted to this patient today, required to treat and/or prevent further deterioration of critical care condition ( as above ) . Sepsis Event Evaluation Height, Weight, BMI Height: 5'3.00" Weight: 126lbs. 0.0oz. 57.670284ma; 21.60 BMI Method:Stated Exam Exam Patient acknowledged, consented, and participated in this virtual visit which was conducted using real time audio/video Vital Signs Date Time Temp Pulse Resp B/P (MAP) Pulse Ox O2 Delivery O2 Flow Rate FiO2 02/22/22 08:00 80 22 156/87 (110) 96 Room Air 02/22/22 08:00 36.9 02/22/22 07:39 81 02/22/22 03:52 98 Room Air 02/22/22 03:28 158 02/22/22 02:38 121 19 155/78 (103) 96 Room Air 02/22/22 02:00 82 22 95 Room Air 02/22/22 01:00 96 18 94 Room Air 02/22/22 01:00 86 02/22/22 00:39 101 28 166/87 (113) 96 Room Air 02/22/22 00:00 96 Room Air 02/22/22 00:00 37.4 02/21/22 23:39 Nasal Cannula 6.00 02/21/22 23:08 76 29 144/72 (91) 97 Room Air 02/21/22 22:00 78 16 136/79 (84) 96 Room Air 02/21/22 21:00 78 20 137/76 (99) 97 Room Air 02/21/22 20:00 37.6 02/21/22 20:00 89 28 146/67 (92) 96 Room Air 02/21/22 20:00 96 Room Air 02/21/22 19:00 82 02/21/22 19:00 82 9 136/115 (123) 96 Room Air 02/21/22 18:00 81 19 161/79 (106) 88 Room Air 02/21/22 17:00 71 24 153/76 (101) 87 Room Air 02/21/22 16:00 97 Room Air 02/21/22 16:00 71 24 148/72 (97) 97 Room Air 02/21/22 16:00 37.0 02/21/22 15:00 68 23 154/74 (100) 97 Room Air 02/21/22 14:00 65 16 143/73 (96) 94 Room Air 02/21/22 13:01 71 02/21/22 13:00 77 24 132/63 (86) 96 Room Air 02/21/22 12:15 98 Room Air 02/21/22 12:00 66 21 144/80 (101) 96 Room Air 02/21/22 11:52 36.4 02/21/22 11:00 67 24 128/74 (92) 99 Room Air 02/21/22 10:00 57 16 116/65 (82) 97 Room Air I & O 02/22/22 07:00 Intake Total 380 ml Output Total 2370 ml Balance -1990 ml Height & Weight Height: 5'3.00" Weight: 126lbs. 0.0oz. 57.634230jt; 21.60 BMI Method:Stated General Appearance: No Apparent Distress, Anxious, Chronically ill HEENT: PERRL/EOMI, Normal ENT Inspection Neck: Non Tender, Supple Respiratory: Chest Non Tender, No Accessory Muscle Use, No Respiratory Distress Cardiovascular: No JVD, Tachycardia Capillary Refill: Less Than 3 Seconds Peripheral Pulses: 2+ Dorsalis Pedis (R), 2+ Left Dors-Pedis (L), 2+ Radial Pulses (R), 2+ Radial Pulses (L) Gastrointestinal: normal bowel sounds, soft Extremity: Non Tender, No Calf Tenderness Neurologic/Psychiatric: Alert, Disoriented Skin: Normal Color, Warm/Dry Lymphatic: No Adenopathy Results Lab Laboratory Tests 02/21/22 03:15 02/21/22 06:00 02/22/22 03:45 Assessment/Plan Assessment/Plan 1 ROSALIE HUNG MD Feb 22, 2022 09:47
[2022-02-22 10:42] LABS: POTASSIUM 3.2 MMOL/L (3.6-5.0)
[2022-02-22 10:43] LABS: CALCIUM 8.1 MG/DL (8.5-10.1)
[2022-02-22 10:48] LABS: CREATININE SERUM 0.56 MG/DL (0.60-1.30)
[2022-02-22] MEDS ORDERED: HALOPERIDOL 5 MG/ML (HALDOL) VIAL IM PRN (14:00)
[2022-02-22] MEDS ORDERED: NITROGLYCERIN 0.4 MG SL TABS BTL 25'S SL PRN (14:00)
[2022-02-22] MEDS ORDERED: ENOXAPARIN 40 MG/0.4 ML (LOVENOX) SYR SC SCH (14:15)
[2022-02-22] MEDS ORDERED: ONDANSETRON 4 MG (ZOFRAN) ORAL DISSOLVE TAB PO PRN (14:45)
[2022-02-22] MEDS ORDERED: polyethylene glycoL POWDER 17 GM (MIRALAX) PACK PO PRN (15:00)
--- NOTE | 2022-02-22 15:11 | Progress Note - Hospitalist ---
NELSON INGRAM 02/22/22 1511: Subjective HPI/CC On Admission Date Seen by Provider: Feb 22, 2022 Time Seen by Provider: 15:07 Subjective/Events-last exam Patient declining Had hallucinations this morning per nursing staff, does not remember. She describes it as an "episode", and does not remember anything from this morning before 5:30 A.M. Precedex was held, and Xanax was started to help with patients anxiety. No seizure overnight Patient is mildly agitated and would like to go home. She is not sleeping well. Labs reviewed Objective Exam Vital Signs Vital Signs Date Time Temp Pulse Resp B/P (MAP) Pulse Ox O2 Delivery O2 Flow Rate FiO2 02/22/22 13:20 94 02/22/22 12:15 95 Room Air 02/22/22 11:00 28 154/85 (108) 02/22/22 08:00 36.9 02/21/22 23:39 6.00 02/17/22 08:00 40 Capillary Refill : Less Than 3 Seconds General Appearance: Anxious, Mild Distress HEENT: PERRL/EOMI; No Scleral Icterus (L), No Scleral Icterus (R) Neck: Full Range of Motion, Normal Inspection, Non Tender Respiratory: Chest Non Tender, Lungs Clear Cardiovascular: Regular Rate, Rhythm, No Edema, No Gallop Gastrointestinal: Non Tender, Soft Rectal: Deferred Back: Normal Inspection; No CVA Tenderness (L), No CVA Tenderness (R) Extremity: Normal Capillary Refill, Normal Inspection, Normal Range of Motion Neurologic/Psychiatric: Alert, Oriented x3 Skin: Normal Color, Warm/Dry Lymphatic: No Adenopathy Results/Procedures Lab Laboratory Tests 02/22/22 03:45 02/22/22 10:20 Patient resulted labs reviewed. Assessment/Plan Assessment and Plan Assess & Plan/Chief Complaint Assessment: Perforated intestinal S/P repair COVID Poor reserve Hallucinations Chronic Pain Anxiety Hypokalemia- 2.5 Plan: Pain Management DNR Prognosis Poor Xanax started Monitor and replace potassium TYESHA TRAYLOR DO 02/22/223: Subjective Subjective/Events-last exam Pt is doing a lot better Agitated and hallucinations still continue Precedex off giving Ativan instead Potassium of 2.5, will be supplemented Chest x-ray reviewed Abdominal CT shows ascites Assessment/Plan Assessment and Plan Assess & Plan/Chief Complaint Move to 4th DNR Supervisory-Addendum Brief Verification & Attestation Participated in pt care: history, MDM, physical Personally performed: exam, history, MDM, supervision of care Care discussed with: Medical Student Procedures: n/a Results interpretation: Verified all documentation Verification and Attestation of Medical Student E/M Service A medical student performed and documented this service in my presence. I reviewed and verified all information documented by the medical student and made modifications to such information, when appropriate. I personally performed the physical exam and medical decision making. Tyesha Traylor, Feb 22, 2022,21:13 NELSON INGRAM Feb 22, 2022 15:11 TYESHA TRAYLOR DO Feb 22, 2022 21:13
--- NOTE | 2022-02-22 15:49 | Cardiology Progress Note ---
Subjective Date Seen by Provider: Feb 22, 2022 Time Seen by Provider: 08:00 Subjective/Events-last exam Patient was seen at bedside, sitting comfortably Asking to go home Still in sinus rhythm with breakthrough atrial fibrillation Review of Systems General: No Chills, No Night Sweats; Fatigue; No Malaise, No Appetite, No Other HEENT: No Head Aches, No Visual Changes, No Eye Pain, No Ear Pain, No Dysphasia, No Sinus Congestion, No Post Nasal Drip, No Sore Throat, No Other Pulmonary: No Dyspnea, No Cough, No Pleuritic Chest Pain, No Other Cardiovascular: No: Chest Pain, Palpitations, Orthopnea, Paroxysmal Noc. Dyspnea, Edema, Lt Headedness, Other Objective-Cardiology Exam Last Set of Vital Signs Vital Signs 02/17/22 02/21/22 02/22/22 02/22/22 02/22/22 02/22/22 08:00 23:39 08:00 11:00 12:15 13:20 Temp 36.9 Pulse 94 Resp 28 B/P (MAP) 154/85 (108) Pulse Ox 95 O2 Delivery Room Air O2 Flow Rate 6.00 FiO2 40 I&O Intake and Output 02/22/22 00:00 Intake Total 1930 ml Output Total 2470 ml Balance -540 ml Intake Oral 80 ml IV Total 1850 ml Output Urine Total 2100 ml Stool Total 270 ml Drainage Total 100 ml # Bowel Movements 1 General: Alert, Cooperative HEENT: Atraumatic Neck: Supple Heart: Regular Rate, Normal S1, Normal S2 Extremities: No Clubbing, No Cyanosis Skin: No Rashes Neuro: Normal Speech Psych/Mental Status: Mental Status NL, Mood NL Results Lab Laboratory Tests 02/22/22 03:45 02/22/22 10:20 A/P-Cardiology Admission Diagnosis Perforated bowel Coronary artery disease Peripheral arterial disease COVID-19 infection Assessment/Plan S/p Exploratory laparotomy with Niles procedure (rectosigmoid resection with end colostomy) on 02/16/22 after presentation with bowel perf - post-op PAF with RVR seen on 02/20/22 She responded to IV loading dose of amiodarone Currently in sinus rhythm with few breakthrough of atrial fibrillation, I will start oral amiodarone Continue on current medication and monitor Metastatic small cell lung cancer, h/o radiation therapy and chemotherapy. Coronary artery disease, - PTCA and stent of the left circumflex artery using bare-metal MultiLink vision 3.0 x 15 mm stent in 2007. Previously, she had stents to the RCA in 2003 using 2.75 x 8 mm Express stent. - stress test done in January 2019 showed breast attenuation with typical female pattern with no sig ischemia or infarction, ejection fraction 75 percent - Echocardiogram showed normal LV size and function, aortic valve sclerosis, PA 35 mmHg, test were done in January 2019. Planning to repeat stress test after next 6 month follow up. 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 CT of the head did not show any acute abnormality Managed by primary care team COVID-19 infection. Not in acute distress at this time. Maintained in isolation. Hypertension, monitor blood pressure Hyperlipidemia, by history Status post recent cholecystectomy Mild bilateral nonobstructive carotid artery stenosis, most recent carotid duplex done February 2020 COPD, followed by primary care physician. Tobaccoism, advised to quit H/o cutaneous lupus History of H. pylori, peptic ulcer disease JOAN SEVERINO MD Feb 22, 2022 15:49
--- NOTE | 2022-02-22 16:00 | Occupational Therapy Eval ---
OT Evaluation-General/PLF Medical Diagnosis Admission Date Feb 16, 2022 at 01:30 Medical Diagnosis: Covid/bowel perforation Onset Date: Feb 16, 2022 Therapy Diagnosis Therapy Diagnosis: decreased ADL status, weakness Height/Weight Height (Feet): 5 Height (Inches): 3.00 Weight (Pounds): 126 Weight (Ounces): 0.0 Precautions Precautions/Isolations: Airborne Isolation, Droplet Isolation, Seizure, Fall Prevention Referral Physician: Darian Referral Reason: Evaluation/Treatment Medical History Pertinent Medical History: CAD, COPD, [place], Smoking Additional Medical History Tobacco use, R port placement, R shoulder surgery x2, finger surgery, bilateral foot surgery, hiatal hernia repair, Current History Per H&P: "66 yo F that presented with severe abdominal pain that started suddenly yesterday. She is currently in treatment for stage 4 small cell lung ca with mets. Last treatment was 02/09. States that she has never had a pain like this before. She tested positive for covid on this admission. Denies any cough or shortness of breath. She has had normal bowel movements. Some N/V. No recent sick contacts." Social History Home: Single Level Current Living Status: Significant Other ADL-Prior Level of Function SCALE: Activities may be completed with or without assistive devices. 5-Qlcyujkbqr-kahmbsg completes the activity by him/herself with no assistance from a helper. 5-Set-up or Clean-up Assistance-helper sets up or cleans up; patient completes activity. Sedan assists only prior to or following the activity. 4-Supervision or Touching Assistance-helper provides verbal cues and/or touching/steadying and/or contact guard assistance as patient completes activity. Assistance may be provided throughout the activity or intermittently. 3-Partial/Moderate Assistance-helper does LESS THAN HALF the effort. Sedan lifts, holds or supports trunk or limbs, but provides less than half the effort. 2-Substantial/Maximal Assistance-helper does MORE THAN HALF the effort. Sedan lifts or holds trunk or limbs and provides more than half the effort. 8-Lrysmkupc-ecurwu does ALL the effort. Patient does none of the effort to complete the activity. Or, the assistance of 2 or more helpers is required for the patient to complete the activity. If activity was not attempted, code reason: 7-Patient Refused. 9-Not Applicable-not attempted and the patient did not perform the activity before the current illness, exacerbation or injury. 10-Not Attempted due to Environmental Limitations-(lack of equipment, weather restraints, etc.). 88-Not Attempted due to Medical Conditions or Safety Concerns. ADL PLOF Comments Pt reports able to complete dressing and showering at PLOF with supervision, she used a walker and w/c for functional mobility depending on fatigue level. Self Care: Needed Some Help Functional Cognition: Independent DME/Equipment: Bath Bench, Bath Chair, Shower Hose Environmental Scientist, Tub/Shower OT Current Status Subjective Pt in recliner, agreeable to OT tx. Mental Status/Objective Patient Orientation: Person, Place, Situation Current Upper Extremity ROM WFL Upper Extremity Strength grossly 3/5 ADL-Treatment Eating (QC): 6 (Per pt/nursing report.) Oral Hygiene (QC): 5 (per clinical judgment.) On/Off Footwear (QC): 6 (IND at recliner.) Other Treatments pt in recliner, states she just had catheter removed, declined needing to toilet. Pt provided information about PLOF and home set up. She was able to don/doff gripper sock independently. Pt reports feeling weaker but she is hopeful she will be able to return home in a few days. OT educated pt on POC with focus on increasing BUE strength and activity tolerance and increasing safety/independence with ADLs and functional mobility, she verbalized agreement. Post tx, pt in recliner, call light in reach and all needs met. Education OT Patient Education: Correct positioning, Modified ADL techniques, Progress toward Goal/Update tx plan, Purpose of tx/functional activities, Rehab process Teaching Recipient: Patient Teaching Methods: Discussion Response to Teaching: Verbalize Understanding OT Guard Museum Goals Guard Museum Goals Time Frame: Mar 03, 2022 Eating (QC): 6 Oral Hygiene (QC): 6 Toileting Hygiene (QC): 4 Shower/Bathe Self (QC): 4 Upper Body Dressing (QC): 5 Lower Body Dressing (QC): 4 Additional Goals: 1-Demonstrate ADL Tasks, 2-Verbalize Understanding, 3- ImproveStrength/Marco A 1=Demonstrate adherence to instructed precautions during ADL tasks. 2=Patient will verbalize/demonstrate understanding of assistive devices/modifications for ADL. 3=Patient will improve strength/tolerance for activity to enable patient to perform ADL's. OT Education/Plan Problem List/Assessment Assessment: Decreased Activ Tolerance, Decreased UE Strength, Impaired Funct Balance, Impaired I ADL's Pt would benefit from skilled OT Services to focus on increasing BUE strength and activity tolerance and maximize IND with ADLs and functional mobility for safe discharge home. Discharge Recommendations Plan/Recommendations: Continue POC Treatment Plan/Plan of Care Patient would benefit from OT for education, treatment and training to promote independence in ADL's, mobility, safety and/or upper extremity function for ADL's. Plan of Care: ADL Retraining, Functional Mobility, UE Funct Exercise/Act Treatment Duration: Mar 03, 2022 Frequency: 3 times per week (3-5 times per week) Rehab Potential: Guarded Time/GCodes Start Time: 15:35 Stop Time: 15:48 Total Time Billed (hr/min): 13 Billed Treatment Time 1, MARY SEGUNDO OT Feb 22, 2022 16:00
[2022-02-22 17:15] VITALS: BP 177/77
[2022-02-22] MEDS: HYDROXYCHLOROQUINE 200 MG (PLAQUENIL) TAB PO SCH (17:41)
[2022-02-22] MEDS: RIVAROXABAN 20 MG TABLET (XARELTO) PO SCH (17:42)
[2022-02-22] MEDS: morphine ER 100 MG (MS CONTIN) TAB PO SCH (17:43)
[2022-02-22 19:38] VITALS: BP 161/83
[2022-02-22] MEDS ORDERED: HYPOCHLOROUS ACID/NaCl (VASHE) 250 ML IR SCH (21:00)
[2022-02-22] MEDS: ALPRAZolam 1 MG (XANAX) TAB PO SCH (21:07)
[2022-02-23 00:02] VITALS: BP 122/62
[2022-02-23 04:40] VITALS: BP 117/63
[2022-02-23] MEDS: metroNIDAZOLE 500MG/100ML IVPB 100 ML IV SCH ×3 (05:14→22:06)
[2022-02-23] MEDS: morphine ER 100 MG (MS CONTIN) TAB PO SCH ×2 (05:14→17:50)
[2022-02-23 05:47] LABS: BASOPHILS % (AUTO) 0 % (0-10); EOSINOPHILS # (AUTO) 0.2 10^3/uL (0.0-0.3); EOSINOPHILS % (AUTO) 2 % (0-10); HEMATOCRIT 29 % (35-52); HEMOGLOBIN 9.8 g/dL (11.5-16.0); LYMPHOCYTES % (AUTO) 10 % (12-44); MEAN CORPUSCULAR HEMOGLOBIN 28 pg (25-34); MEAN CORPUSCULAR HGB CONC 33 g/dL (32-36); MEAN CORPUSCULAR VOLUME 83 fL (80-99); MEAN PLATELET VOLUME 9.5 fL (9.0-12.2); MONOCYTES # (AUTO) 0.6 10^3/uL (0.0-1.0); MONOCYTES % (AUTO) 6 % (0-12); NEUTROPHILS # (AUTO) 8.2 10^3/uL (1.8-7.8); NEUTROPHILS % (AUTO) 82 % (42-75); PLATELET COUNT 225 10^3/uL (130-400)
[2022-02-23 06:05] LABS: ALBUMIN 2.7 GM/DL (3.2-4.5); POTASSIUM 3.4 MMOL/L (3.6-5.0)
[2022-02-23 06:06] LABS: CALCIUM 7.9 MG/DL (8.5-10.1)
[2022-02-23 06:07] LABS: TOTAL PROTEIN 4.7 GM/DL (6.4-8.2)
[2022-02-23 06:09] LABS: BILIRUBIN,TOTAL 0.5 MG/DL (0.1-1.0)
[2022-02-23 06:11] LABS: CREATININE SERUM 0.58 MG/DL (0.60-1.30)
[2022-02-23 06:14] LABS: MAGNESIUM 1.7 MG/DL (1.6-2.4)
--- NOTE | 2022-02-23 06:38 | Progress Note - Surgery ---
MICHAEL MUNIZ 02/23/22 0638: Subjective Date Seen by a Provider: Feb 23, 2022 Time Seen by a Provider: 06:32 Subjective/Events-last exam Patient is awake and alert in her bed this morning. Patient reports that she has not been having any more nausea and that her pain is well-controlled. Patient has now new complaints. Review of Systems General: No Chills, No Night Sweats HEENT: No Head Aches, No Visual Changes Pulmonary: No Dyspnea, No Cough Cardiovascular: No: Chest Pain, Palpitations Gastrointestinal: No: Nausea, Vomiting Genitourinary: No Dysuria, No Frequency Musculoskeletal: No: neck pain, shoulder pain Neurological: No: Numbness, Incoordination Objective Exam Vital Signs Date Time Temp Pulse Resp B/P (MAP) Pulse Ox O2 Delivery O2 Flow Rate FiO2 02/23/22 04:40 36.3 86 18 117/63 (81) 93 Room Air 02/23/22 00:02 37.2 96 18 122/62 (82) 94 Room Air 02/22/22 20:15 94 Room Air 02/22/22 19:38 36.9 97 17 161/83 (109) 95 Room Air 02/22/22 17:15 36.8 86 18 177/77 (110) 96 Room Air 02/22/22 16:00 95 Room Air 02/22/22 13:20 94 02/22/22 12:15 95 Room Air 02/22/22 11:00 89 28 154/85 (108) 98 Room Air 02/22/22 10:00 98 26 159/128 (138) 100 Room Air 02/22/22 09:00 108 29 170/91 (117) 98 Room Air 02/22/22 08:15 97 Room Air 02/22/22 08:00 80 22 156/87 (110) 96 Room Air 02/22/22 08:00 36.9 02/22/22 07:39 81 I & O 02/23/22 07:00 Intake Total 1490 ml Output Total 992 ml Balance 498 ml Capillary Refill : Less Than 3 Seconds General Appearance: No Apparent Distress, Chronically ill HEENT: PERRL/EOMI, Normal ENT Inspection Neck: Non Tender, Supple Respiratory: Chest Non Tender, No Accessory Muscle Use, No Respiratory Distress Cardiovascular: Regular Rate, Rhythm, No JVD Peripheral Pulses: 2+ Dorsalis Pedis (R), 2+ Left Dors-Pedis (L), 2+ Radial Pulses (R), 2+ Radial Pulses (L) Gastrointestinal: normal bowel sounds, soft Extremity: Non Tender, No Calf Tenderness Neurologic/Psychiatric: Alert, Oriented x3 Skin: Normal Color, Warm/Dry Lymphatic: No Adenopathy Results Lab Laboratory Tests 02/22/22 10:20: Sodium Level 135, Potassium Level 3.2L, Chloride Level 97L, Carbon Dioxide Level 24, Anion Gap 14, Blood Urea Nitrogen 9, Creatinine 0.56L, Estimat Glomerular Filtration Rate 100, BUN/Creatinine Ratio 16, Glucose Level 102, Calcium Level 8.1L 02/23/22 05:17: Sodium Level 133L, Potassium Level 3.4L, Chloride Level 99, Carbon Dioxide Level 25, Anion Gap 9, Blood Urea Nitrogen 15, Creatinine 0.58L, Estimat Glomerular Filtration Rate 99, BUN/Creatinine Ratio 26, Glucose Level 105, Calcium Level 7.9L, White Blood Count 10.0, Red Blood Count 3.55L, Hemoglobin 9.8L, Hematocrit 29L, Mean Corpuscular Volume 83, Mean Corpuscular Hemoglobin 28, Mean Corpuscular Hemoglobin Concent 33, Red Cell Distribution Width 14.8H, Platelet Count 225, Mean Platelet Volume 9.5, Immature Granulocyte % (Auto) 1, Neutrophils (%) (Auto) 82H, Lymphocytes (%) (Auto) 10L, Monocytes (%) (Auto) 6, Eosinophils (%) (Auto) 2, Basophils (%) (Auto) 0, Neutrophils # (Auto) 8.2H, Lymphocytes # (Auto) 1.0, Monocytes # (Auto) 0.6, Eosinophils # (Auto) 0.2, Basophils # (Auto) 0.0, Immature Granulocyte # (Auto) 0.1, Corrected Calcium 8.9, Magnesium Level 1.7, Total Bilirubin 0.5, Aspartate Amino Transf (AST/SGOT) 20, Alanine Aminotransferase (ALT/SGPT) 21, Alkaline Phosphatase 46, Total Protein 4.7L, Albumin 2.7L Microbiology 02/16/22 MRSA Screen - Final, Complete MRSA not isolated 02/16/22 Urine Culture - Final, Complete NO GROWTH 02/15/22 Blood Culture - Final, Complete No growth Assessment/Plan Assessment/Plan Assessment/Plan S/P ex lap with blackmon procedure Hypokalemia Nausea Tonic clonic seizure. Anemia Patient is tolerating diet, advance as tolerates WBC down to 10.0, continue Levaquin and Flagyl Continue pain control Encouraged pt to use IS and continue to ambulate. Follow hgb and transfuse as needed. Continue electrolyte replacement SOCO OZUNA DO 02/23/22 1615: Subjective Subjective/Events-last exam Patient wanting to go home. Tolerating diet. Having ostomy output. Just weak. Chronic pain, but under control. Denies n/v fever sweats chills shortness of breath or chest pain. Objective Exam General Appearance: No Apparent Distress, Chronically ill HEENT: PERRL/EOMI, Normal ENT Inspection Neck: Non Tender, Supple Respiratory: Chest Non Tender, No Accessory Muscle Use, No Respiratory Distress Cardiovascular: Regular Rate, Rhythm, No JVD Gastrointestinal: soft, other (colostomy pink and productive) Extremity: Non Tender, No Calf Tenderness Neurologic/Psychiatric: Alert, Oriented x3 Skin: Normal Color, Warm/Dry Lymphatic: No Adenopathy Assessment/Plan Assessment/Plan Assessment/Plan S/P ex lap with blackmon procedure Hypokalemia Nausea Tonic clonic seizure. Anemia Covid + Patient is tolerating diet, advance as tolerates WBC down to 10.0, continue Levaquin and Flagyl Continue pain control Encouraged pt to use IS and continue to ambulate. Follow hgb and transfuse as needed. Continue electrolyte replacement Possibly home tomorrow. Supervisory-Addendum Brief Verification & Attestation Participated in pt care: history, MDM, physical Personally performed: exam, history, MDM, supervision of care Care discussed with: Medical Student Procedures: n/a Results interpretation: Verified all documentation Verification and Attestation of Medical Student E/M Service A medical student performed and documented this service in my presence. I review ed and verified all information documented by the medical student and made modifications to such information, when appropriate. I personally performed the physical exam and medical decision making. Soco Ozuna, Feb 23, 2022,16:14 MICHAEL MUNIZ Feb 23, 2022 06:38 SOCO OZUNA DO Feb 23, 2022 16:15
[2022-02-23 07:34] VITALS: BP 99/56
--- NOTE | 2022-02-23 08:19 | Cardiology Progress Note ---
Subjective Date Seen by Provider: Feb 23, 2022 Time Seen by Provider: 08:19 Subjective/Events-last exam Patient was seen at bedside Laying down comfortably, no new complaint. Review of Systems General: No Chills, No Night Sweats, No Fatigue, No Malaise, No Appetite, No Other HEENT: No Head Aches, No Visual Changes, No Eye Pain, No Ear Pain, No Dysphasia, No Sinus Congestion, No Post Nasal Drip, No Sore Throat, No Other Pulmonary: No Dyspnea, No Cough, No Pleuritic Chest Pain, No Other Cardiovascular: No: Chest Pain, Palpitations, Orthopnea, Paroxysmal Noc. Dyspnea, Edema, Lt Headedness, Other Objective-Cardiology Exam Last Set of Vital Signs Vital Signs 02/17/22 02/21/22 02/23/22 08:00 23:39 07:34 Temp 37.1 Pulse 85 Resp 18 B/P (MAP) 99/56 (70) Pulse Ox 95 O2 Delivery Room Air O2 Flow Rate 6.00 FiO2 40 I&O Intake and Output 02/23/22 00:00 Intake Total 1130 ml Output Total 1725 ml Balance -595 ml Intake Oral 530 ml IV Total 600 ml Output Urine Total 1650 ml Drainage Total 75 ml # Bowel Movements 1 General: Alert, Cooperative HEENT: Atraumatic Neck: Supple Heart: Regular Rate, Normal S1, Normal S2 Extremities: No Clubbing, No Cyanosis Skin: No Rashes Neuro: Normal Speech Psych/Mental Status: Mental Status NL, Mood NL Results Lab Laboratory Tests 02/22/22 10:20 02/23/22 05:17 A/P-Cardiology Admission Diagnosis Perforated bowel Coronary artery disease Peripheral arterial disease COVID-19 infection Assessment/Plan S/p Exploratory laparotomy with Niles procedure (rectosigmoid resection with end colostomy) on 02/16/22 after presentation with bowel perf Post-op PAF with RVR seen on 02/20/22 She responded to IV loading dose of amiodarone Currently in sinus rhythm with few breakthrough of atrial fibrillation Started on oral amiodarone and tolerating it well. Continue on current medication and monitor Metastatic small cell lung cancer, h/o radiation therapy and chemotherapy. Coronary artery disease, - PTCA and stent of the left circumflex artery using bare-metal MultiLink vision 3.0 x 15 mm stent in 2006. Previously, she had stents to the RCA in 2003 using 2.75 x 8 mm Express stent. - stress test done in January 2019 showed breast attenuation with typical female pattern with no sig ischemia or infarction, ejection fraction 75 percent - Echocardiogram showed normal LV size and function, aortic valve sclerosis, PA 35 mmHg, test were done in January 2019. Planning to repeat stress test after next 6 month follow up. 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 CT of the head did not show any acute abnormality Managed by primary care team COVID-19 infection. Not in acute distress at this time. Maintained in isolation. Hypertension, monitor blood pressure Hyperlipidemia, by history Status post recent cholecystectomy Mild bilateral nonobstructive carotid artery stenosis, most recent carotid duplex done February 2020 COPD, followed by primary care physician. Tobaccoism, advised to quit H/o cutaneous lupus History of H. pylori, peptic ulcer disease JOAN SEVERINO MD Feb 23, 2022 08:19
[2022-02-23] MEDS: PANTOPRAZOLE 40 MG (PROTONIX) TAB PO SCH (08:42)
[2022-02-23] MEDS: KCL 10 MEQ TAB (MICRO K) PO SCH (08:42)
[2022-02-23] MEDS: CLOPIDOGREL 75 MG (PLAVIX) TABLET PO SCH (08:43)
[2022-02-23] MEDS: GABAPENTIN 300 MG (NEURONTIN) CAP PO SCH ×2 (08:43→20:44)
[2022-02-23] MEDS: HYDROXYCHLOROQUINE 200 MG (PLAQUENIL) TAB PO SCH ×2 (08:43→17:50)
[2022-02-23] MEDS: ASPIRIN 81 MG CHEW (CHILDREN'S ASA) PO SCH (08:43)
[2022-02-23] MEDS: ALPRAZolam 1 MG (XANAX) TAB PO SCH ×3 (08:43→20:44)
[2022-02-23] MEDS: AMIODARONE 200 MG (CORDARONE) TAB PO SCH ×2 (08:43→20:45)
[2022-02-23] MEDS: FOLIC ACID 1 MG TAB PO SCH (08:43)
[2022-02-23] MEDS ORDERED: NON-FORMULARY MEDICATION 1 EA EA (Dexlansoprazole (Dexlansoprazole Dr) 60 MG) PO SCH (09:00)
--- NOTE | 2022-02-23 10:05 | Physical Therapy Daily Note ---
PT Daily Note-Current Subjective Patient in bed pre tx, agrees to PT, has no complaints of pain at rest. Appearance Patient in recliner post tx with nurse call, phone, tray, all needs met. Mental Status Patient Orientation: Person, Place, Situation Attachments: IV Transfers SCALE: Activities may be completed with or without assistive devices. 6-Onklczsace-aqbnxmk completes the activity by him/herself with no assistance from a helper. 5-Set-up or Clean-up Assistance-helper sets up or cleans up; patient completes activity. [place] assists only prior to or following the activity. 4-Supervision or Touching Assistance-helper provides verbal cues and/or touching/steadying and/or contact guard assistance as patient completes activity. Assistance may be provided throughout the activity or intermittently. 3-Partial/Moderate Assistance-helper does LESS THAN HALF the effort. [place] lifts, holds or supports trunk or limbs, but provides less than half the effort. 2-Substantial/Maximal Assistance-helper does MORE THAN HALF the effort. [place] lifts or holds trunk or limbs and provides more than half the effort. 3-Swnqznorr-didykc does ALL the effort. Patient does none of the effort to complete the activity. Or, the assistance of 2 or more helpers is required for the patient to complete the activity. If activity was not attempted, code reason: 7-Patient Refused. 9-Not Applicable-not attempted and the patient did not perform the activity before the current illness, exacerbation or injury. 10-Not Attempted due to Environmental Limitations-(lack of equipment, weather restraints, etc.). 88-Not Attempted due to Medical Conditions or Safety Concerns. Roll Left & Right (QC): 6 Lying to Sitting/Side of Bed(Q: 6 Sit to Stand (QC): 3 Chair/Btv-so-Xukbm Xfer(QC): 4 min assist to stand from the bed Weight Bearing Right Lower Extremity: Right Partial Weight Bearing Left Lower Extremity: Left Partial Weight Bearing weight bearing as tolerated Gait Training Distance: 20' Walk 10 feet (QC): 4 Gait Persons Needed: 1 Gait Assistive Device: FWW slow but steady ambulation Exercises Seated Therapy Exercises: Ankle pumps, Long arc quads Seated Reps: 20 Treatments bed mobility and transfers, ambulation, LE ROM Assessment Current Status: Fair Progress poor endurance PT [employer] Goals Alf Goals PT Alf Goals Time Frame: Mar 11, 2022 Roll Left & Right (QC): 6 Sit to Lying (QC): 6 Lying-Sitting on Side/Bed(QC): 6 Sit to Stand (QC): 6 Chair/Nxg-dh-Dekap Xfer(QC): 6 Toilet Transfer (QC): 6 Walk 10 feet (QC): 6 Walk 50ft with 2 Turns (QC): 6 Walk 150 ft (QC): 6 PT Plan Problem List Problem List: Activity Tolerance, Functional Strength, Safety, Balance, Gait, Transfer, Bed Mobility, ROM Treatment/Plan Treatment Plan: Continue Plan of Care Treatment Plan: Bed Mobility, Education, Functional Activity Marco A, Functional Strength, Gait, Safety, Therapeutic Exercise, Transfers Treatment Duration: Mar 11, 2022 Frequency: 6 times per week Estimated Hrs Per Day: .25 hour per day Patient and/or Family Agrees t: Yes Safety Risks/Education Patient Education: Gait Training, Transfer Techniques, Correct Positioning, Safety Issues Teaching Recipient: Patient Teaching Methods: Demonstration, Discussion Response to Teaching: Reinforcement Needed Time/GCodes Time In: 928 Time Out: 941 Total Billed Treatment Time: 13 Total Billed Treatment 1 visit FA JOSE العراقي PT Feb 23, 2022 10:05
--- NOTE | 2022-02-23 10:11 | Occupational Ther Daily Note ---
OT Current Status-Daily Note Subjective Pt in bed, agreeable to OT tx. ADL-Treatment Therapy Code Descriptions/Definitions Functional [place] Measure: 0=Not Assessed/NA 4=Minimal Assistance 1=Total Assistance 5=Supervision or Setup 2=Maximal Assistance 6=Modified [place] 3=Moderate Assistance 7=Complete IndependenceSCALE: Activities may be completed with or without assistive devices. 3-Cmngpfdyka-atnuani completes the activity by him/herself with no assistance from a helper. 5-Set-up or Clean-up Assistance-helper sets up or cleans up; patient completes activity. [place] assists only prior to or following the activity. 4-Supervision or Touching Assistance-helper provides verbal cues and/or touching/steadying and/or contact guard assistance as patient completes activity. Assistance may be provided throughout the activity or intermittently. 3-Partial/Moderate Assistance-helper does LESS THAN HALF the effort. [place] lifts, holds or supports trunk or limbs, but provides less than half the effort. 2-Substantial/Maximal Assistance-helper does MORE THAN HALF the effort. [place] lifts or holds trunk or limbs and provides more than half the effort. 9-Jrroteoxf-mbqgdo does ALL the effort. Patient does none of the effort to complete the activity. Or, the assistance of 2 or more helpers is required for the patient to complete the activity. If activity was not attempted, code reason: 7-Patient Refused. 9-Not Applicable-not attempted and the patient did not perform the activity befo re the current illness, exacerbation or injury. 10-Not Attempted due to Environmental Limitations-(lack of equipment, weather re straints, etc.). 88-Not Attempted due to Medical Conditions or Safety Concerns. Eating (QC): 5 On/Off Footwear: 5 Other Treatment Pt transferred supine to sit EOB, independently, then donned slippers with set up. Pt stood from bed, min A, then used FWW to transfer to recliner, [facility]. OT educated pt on UE exercises in order to increase UE strength and activity tolerance, including shoulder flexion, front punch and finger pumps, pt verbalized and demo'd understanding, completing x10 reps each. Post tx, pt in recliner, call light in reach and all needs met, chair alarm activated. Education OT Patient Education: Correct positioning, Energy conservation, Exercise pro gram, Modified ADL techniques, Progress toward Goal/Update tx plan, Purpose of tx/functional activities, Rehab process Teaching Recipient: Patient Teaching Methods: Discussion Response to Teaching: Verbalize Understanding OT Group Home Goals County Agent Goals Time Frame: Mar 03, 2022 Eating (QC): 6 Oral Hygiene (QC): 6 Toileting Hygiene (QC): 4 Shower/Bathe Self (QC): 4 Upper Body Dressing (QC): 5 Lower Body Dressing (QC): 4 Additional Goals: 1-Demonstrate ADL Tasks, 2-Verbalize Understanding, 3-Impr oveStrength/Marco A 1=Demonstrate adherence to instructed precautions during ADL tasks. 2=Patient will verbalize/demonstrate understanding of assistive devices/modifications for ADL. 3=Patient will improve strength/tolerance for activity to enable patient to perform ADL's. OT Education/Plan Problem List/Assessment Assessment: Decreased Activ Tolerance, Decreased UE Strength, Impaired Funct Balance, Impaired I ADL's, Impaired Self-Care Skills Pt would benefit from skilled OT Services to focus on increasing BUE strength and activity tolerance and maximize IND with ADLs and functional mobility for safe discharge home. Discharge Recommendations Plan/Recommendations: Continue POC Treatment Plan/Plan of Care Patient would benefit from OT for education, treatment and training to promote independence in ADL's, mobility, safety and/or upper extremity function for ADL's. Plan of Care: ADL Retraining, Functional Mobility, UE Funct Exercise/Act Treatment Duration: Mar 03, 2022 Frequency: 3 times per week (3-5 times per week) Rehab Potential: Guarded Time/GCodes Start Time: 09:32 Stop Time: 09:44 Total Time Billed (hr/min): 12 Billed Treatment Time 1, MARY HARRIS OT Feb 23, 2022 10:11
[2022-02-23 11:16] VITALS: BP 100/57
[2022-02-23] MEDS: ONDANSETRON 4 MG/2 ML (SDV) Z0FRAN IV PRN (13:37)
[2022-02-23] MEDS: fentaNYL INJ 100 MCG/2 ML AMP IV PRN (13:37)
--- NOTE | 2022-02-23 14:36 | Progress Note - Hospitalist ---
CELINA MCKEON 02/23/22 1436: Subjective HPI/CC On Admission Date Seen by Provider: Feb 23, 2022 Time Seen by Provider: 09:44 Subjective/Events-last exam Pt was sitting up eating breakfast when i visited with her this morning. She reports feeling well today and her pain is controlled. She has not had any nausea or vomiting and only has some mild RLQ aching. She reports tolerating her solid diet okay. She denies any sweats/chills or chest pain. Review of Systems General: No Chills, No Night Sweats Pulmonary: No Cough Gastrointestinal: Abdominal Pain (minimal RLQ); No: Nausea, Vomiting Objective Exam Vital Signs Vital Signs Date Time Temp Pulse Resp B/P (MAP) Pulse Ox O2 Delivery O2 Flow Rate FiO2 02/23/22 11:16 36.8 91 18 100/57 (71) 93 Room Air 02/23/22 09:53 0.00 02/17/22 08:00 40 Capillary Refill : Less Than 3 Seconds General Appearance: No Apparent Distress, Chronically ill, Thin HEENT: PERRL/EOMI Neck: Non Tender, Supple Respiratory: Lungs Clear, Normal Breath Sounds, No Accessory Muscle Use, No Respiratory Distress Cardiovascular: Regular Rate, Rhythm, Normal Peripheral Pulses Gastrointestinal: Normal Bowel Sounds, Soft, Tenderness (RLQ) Extremity: Normal Capillary Refill, No Pedal Edema Neurologic/Psychiatric: Alert, Oriented x3 Skin: Normal Color, Warm/Dry Results/Procedures Lab Laboratory Tests 02/23/22 05:17 Patient resulted labs reviewed. Assessment/Plan Assessment and Plan Assess & Plan/Chief Complaint Assessment: Perforated intestinal S/P repair COVID Poor reserve Hallucinations Chronic Pain Anxiety Hypokalemia Plan: Pt doing better today, tolerating solid diet just fine Surgery is still following her as well Pain Management - currently well controlled DNR Monitor and replace potassium as needed TYESHA TRAYLOR DO 02/24/22 0539: Subjective Subjective/Events-last exam Much improved status No pain at bedside No falls Possible DC tomorrow Review of Systems General: Fatigue, Malaise Objective Exam General Appearance: Chronically ill, Thin Respiratory: Lungs Clear, Normal Breath Sounds Cardiovascular: Regular Rate, Rhythm Neurologic/Psychiatric: Alert, Oriented x3, No Motor/Sensory Deficits, Normal Mood/Affect Assessment/Plan Assessment and Plan Assess & Plan/Chief Complaint Monitor closely DC tomorrow Supervisory-Addendum Brief Verification & Attestation Participated in pt care: history, MDM, physical Personally performed: exam, history, MDM, supervision of care Care discussed with: Medical Student Procedures: n/a Results interpretation: Verified all documentation Verification and Attestation of Medical Student E/M Service A medical student performed and documented this service in my presence. I revie wed and verified all information documented by the medical student and made modifications to such information, when appropriate. I personally performed the physical exam and medical decision making. Tyesha Traylor, Feb 24, 2022,05:38 CELINA MCKEON Feb 23, 2022 14:36 TYESHA TRAYLOR DO Feb 24, 2022 05:39
[2022-02-23 15:42] VITALS: BP 102/57
--- NOTE | 2022-02-23 17:42 | Physician Query Clarification ---
Physician Query-General Query to Physician: The medical record reflects the following clinical scenario: The patient, in the setting of History/Risk factors, Lung cancer with mets on chemo, Bowel perforation Clinical Findings Admission VS/Labs: HR 109, RR 20, BP 139/69, SpO2 96% sat on room air T 36.4, WBC 11.1 increased to 23.2 in 2 days, lactic acid 1.89, "murky fluid within the abdomen". BC from 02/15/2022 pos for Staph coag neg Treatment Treatment on day of admission: LR 2L, 500 mls NS, Zosyn IV, Vancomycin IV to OR for management of bowel perforation Question: Do you agree with the impression of Sepsis per Dr. Rj Contreras? 1. Yes; will document Sepsis, Present on admission in the Progress Notes 2. No; will continue current documentation in the Progress Notes 3. Other; will document explanation of clinical findings 4. Clinically undetermined; no explanation for clinical findings Please clarify and document your clinical opinion in the Progress Notes and Discharge Summary including the definitive and/or presumptive diagnosis, (suspected or probable), related to the above clinical findings. Please include clinical findings supporting your diagnosis. In responding to this query, please exercise your independent professional judgment. The purpose of this communication is to more accurately reflect the complexity of your patients condition. The fact that a question is asked does not imply that any particular answer is desired or expected. Thank you for timely response to this clarification. Verenice Mora RN, MSN Clinical Agricultural Systems Specialist [phone] PHYSICIAN RESPONSE: Based on the clinical findings in the record, please respond to the query above on this document as an addendum. Physician Response: Physician Response 1 If you have questions please contact: Windows Server Support Technician: Ext: Thank you for your time and cooperation. Clinical Agricultural Systems Specialist/Windows Server Support Technician This is a permanent part of the medical record VERENICE MORA Feb 23, 2022 17:42 FORTINO TRAYLOR DO Feb 23, 2022 18:20
[2022-02-23] MEDS: RIVAROXABAN 20 MG TABLET (XARELTO) PO SCH (17:50)
[2022-02-23 19:34] VITALS: BP 109/63
[2022-02-24 00:01] VITALS: BP 103/59
[2022-02-24 04:32] VITALS: BP 117/65
[2022-02-24] MEDS: morphine ER 100 MG (MS CONTIN) TAB PO SCH (04:34)
--- NOTE | 2022-02-24 06:07 | Progress Note - Surgery ---
MICHAEL MUNIZ 02/24/22 0607: Subjective Date Seen by a Provider: Feb 24, 2022 Time Seen by a Provider: 06:02 Subjective/Events-last exam Patient is awake and alert in her bed this morning. Patient reports that her nausea and pain are well controlled. Patient has been tolerating solid foods. Patient reports that they have been having some mild reflux. Patient states that they have been ambulating at least to the restroom and have been using their IS. Review of Systems General: No Chills, No Night Sweats HEENT: No Head Aches, No Visual Changes Pulmonary: No Dyspnea, No Cough Cardiovascular: No: Chest Pain, Palpitations Gastrointestinal: No: Vomiting, Abdominal Pain Genitourinary: No Dysuria, No Frequency Musculoskeletal: No: neck pain, shoulder pain Neurological: No: Numbness, Incoordination Objective Exam Vital Signs Date Time Temp Pulse Resp B/P (MAP) Pulse Ox O2 Delivery O2 Flow Rate FiO2 02/24/22 04:32 36.5 103 20 117/65 (82) 93 Room Air 02/24/22 00:01 36.7 103 18 103/59 (74) 93 Room Air 02/23/22 20:45 Room Air 02/23/22 20:18 Room Air 02/23/22 19:34 36.4 109 18 109/63 (78) 92 Room Air 02/23/22 15:42 36.4 88 18 102/57 (72) 92 Room Air 02/23/22 11:16 36.8 91 18 100/57 (71) 93 Room Air 02/23/22 09:53 95 Room Air 0.00 02/23/22 08:00 95 Room Air 02/23/22 07:34 37.1 85 18 99/56 (70) 95 Room Air I & O 02/24/22 07:00 Intake Total 1260 ml Output Total 400 ml Balance 860 ml Capillary Refill : Less Than 3 Seconds General Appearance: Chronically ill, Thin HEENT: PERRL/EOMI, Normal ENT Inspection Neck: Non Tender, Supple Respiratory: Lungs Clear, Normal Breath Sounds Cardiovascular: Regular Rate, Rhythm Peripheral Pulses: 2+ Dorsalis Pedis (R), 2+ Left Dors-Pedis (L), 2+ Radial Pulses (R), 2+ Radial Pulses (L) Gastrointestinal: soft, other (colostomy pink and productive) Extremity: Non Tender, No Calf Tenderness Neurologic/Psychiatric: Alert, Oriented x3, No Motor/Sensory Deficits, Normal Mood/Affect Skin: Normal Color, Warm/Dry Lymphatic: No Adenopathy Results Lab Microbiology 02/16/22 MRSA Screen - Final, Complete MRSA not isolated 02/16/22 Urine Culture - Final, Complete NO GROWTH 02/15/22 Blood Culture - Final, Complete No growth Assessment/Plan Assessment/Plan Assessment/Plan S/P ex lap with blackmon procedure Hypokalemia Nausea Tonic clonic seizure. Anemia Covid + GERD Patient is tolerating solid foods Continue Levaquin and Flagyl Continue pain control Continue protonix. Encouraged pt to use IS and continue to ambulate. Follow hgb and transfuse as needed. Continue electrolyte replacement Possibly home today. SOCO BLANCAS DO 02/24/22 2103: Subjective Subjective/Events-last exam Patient discharged prior to seen. Supervisory-Addendum Brief Verification & Attestation Participated in pt care: other (Patient discharged prior to seen.) Personally performed: other (Patient discharged prior to seen.) Care discussed with: Medical Student Procedures: n/a Results interpretation: Verified all documentation Patient discharged prior to being seen by me. MICHAEL MUNIZ Feb 24, 2022 06:07 SOCO BLANCAS DO Feb 24, 2022 21:03
[2022-02-24] MEDS: metroNIDAZOLE 500MG/100ML IVPB 100 ML IV SCH (06:08)
[2022-02-24 06:28] LABS: BASOPHILS % (AUTO) 0 % (0-10); EOSINOPHILS # (AUTO) 0.1 10^3/uL (0.0-0.3); EOSINOPHILS % (AUTO) 1 % (0-10); HEMATOCRIT 32 % (35-52); HEMOGLOBIN 10.4 g/dL (11.5-16.0); LYMPHOCYTES # (AUTO) 1.3 10^3/uL (1.0-4.0); LYMPHOCYTES % (AUTO) 11 % (12-44); MEAN CORPUSCULAR HEMOGLOBIN 27 pg (25-34); MEAN CORPUSCULAR HGB CONC 33 g/dL (32-36); MEAN CORPUSCULAR VOLUME 84 fL (80-99); MEAN PLATELET VOLUME 9.3 fL (9.0-12.2); MONOCYTES # (AUTO) 0.6 10^3/uL (0.0-1.0); MONOCYTES % (AUTO) 5 % (0-12); NEUTROPHILS # (AUTO) 9.4 10^3/uL (1.8-7.8); NEUTROPHILS % (AUTO) 81 % (42-75); PLATELET COUNT 252 10^3/uL (130-400); WHITE BLOOD COUNT 11.6 10^3/uL (4.3-11.0)
[2022-02-24 06:48] LABS: ALBUMIN 2.9 GM/DL (3.2-4.5); POTASSIUM 3.7 MMOL/L (3.6-5.0)
[2022-02-24 06:50] LABS: CALCIUM 8.3 MG/DL (8.5-10.1)
[2022-02-24 06:51] LABS: TOTAL PROTEIN 5.3 GM/DL (6.4-8.2)
[2022-02-24 06:52] LABS: BILIRUBIN,TOTAL 0.4 MG/DL (0.1-1.0)
[2022-02-24 06:54] LABS: CREATININE SERUM 0.91 MG/DL (0.60-1.30)
[2022-02-24 06:57] LABS: MAGNESIUM 1.4 MG/DL (1.6-2.4)
[2022-02-24 07:46] VITALS: BP 116/54
[2022-02-24] MEDS: GABAPENTIN 300 MG (NEURONTIN) CAP PO SCH (09:20)
[2022-02-24] MEDS: ASPIRIN 81 MG CHEW (CHILDREN'S ASA) PO SCH (09:20)
[2022-02-24] MEDS: HYDROXYCHLOROQUINE 200 MG (PLAQUENIL) TAB PO SCH (09:21)
[2022-02-24] MEDS: AMIODARONE 200 MG (CORDARONE) TAB PO SCH (09:21)
[2022-02-24] MEDS: FOLIC ACID 1 MG TAB PO SCH (09:21)
[2022-02-24] MEDS: ALPRAZolam 1 MG (XANAX) TAB PO SCH ×2 (09:21→15:41)
[2022-02-24] MEDS: PANTOPRAZOLE 40 MG (PROTONIX) TAB PO SCH (09:21)
[2022-02-24] MEDS: CLOPIDOGREL 75 MG (PLAVIX) TABLET PO SCH (09:21)
[2022-02-24] MEDS: KCL 10 MEQ TAB (MICRO K) PO SCH (09:21)
[2022-02-24 11:02] VITALS: BP 111/55
--- NOTE | 2022-02-24 11:34 | Occupational Ther Daily Note ---
OT Current Status-Daily Note Subjective Pt up in bed, daughter present. Pt agreeable to OT tx. Mental Status/Objective Patient Orientation: Person, Place, Situation Attachments: Drains, IV ADL-Treatment Therapy Code Descriptions/Definitions Functional [place] Measure: 0=Not Assessed/NA 4=Minimal Assistance 1=Total Assistance 5=Supervision or Setup 2=Maximal Assistance 6=Modified [place] 3=Moderate Assistance 7=Complete IndependenceSCALE: Activities may be completed with or without assistive devices. 1-Teovopbokz-sicavbj completes the activity by him/herself with no assistance from a helper. 5-Set-up or Clean-up Assistance-helper sets up or cleans up; patient completes activity. [place] assists only prior to or following the activity. 4-Supervision or Touching Assistance-helper provides verbal cues and/or touching/steadying and/or contact guard assistance as patient completes activity. Assistance may be provided throughout the activity or intermittently. 3-Partial/Moderate Assistance-helper does LESS THAN HALF the effort. [place] lifts, holds or supports trunk or limbs, but provides less than half the effort. 2-Substantial/Maximal Assistance-helper does MORE THAN HALF the effort. [place] lifts or holds trunk or limbs and provides more than half the effort. 3-Rquselfrs-tokuzt does ALL the effort. Patient does none of the effort to complete the activity. Or, the assistance of 2 or more helpers is required for the patient to complete the activity. If activity was not attempted, code reason: 7-Patient Refused. 9-Not Applicable-not attempted and the patient did not perform the activity before the current illness, exacerbation or injury. 10-Not Attempted due to Environmental Limitations-(lack of equipment, weather restraints, etc.). 88-Not Attempted due to Medical Conditions or Safety Concerns. Eating (QC): 6 (Per pt report) On/Off Footwear: 5 (slippers) Other Treatment Pt in bed, transferred supine to sit EOB, SBA. Pt donned slippers at EOB, then used 4WW to perform functional mobility around bed and to recliner, SBA. OT assisted with managing IV pole during mobility. Pt transferred to recliner, SBA. Pt then able to comb hair and pull back into pony tail independently. Post tx, pt in recliner, call light in reach and all needs met. Education OT Patient Education: Correct positioning, Energy conservation, Modified ADL techniques, Progress toward Goal/Update tx plan, Purpose of tx/functional activities, Rehab process Teaching Recipient: Patient Teaching Methods: Discussion Response to Teaching: Verbalize Understanding OT Gem Technician Goals [facility] Goals Time Frame: Mar 03, 2022 Eating (QC): 6 Oral Hygiene (QC): 6 Toileting Hygiene (QC): 4 Shower/Bathe Self (QC): 4 Upper Body Dressing (QC): 5 Lower Body Dressing (QC): 4 Additional Goals: 1-Demonstrate ADL Tasks, 2-Verbalize Understanding, 3- ImproveStrength/Marco A 1=Demonstrate adherence to instructed precautions during ADL tasks. 2=Patient will verbalize/demonstrate understanding of assistive devic es/modifications for ADL. 3=Patient will improve strength/tolerance for activity to enable patient to perform ADL's. OT Education/Plan Problem List/Assessment Assessment: Decreased Activ Tolerance, Decreased UE Strength, Impaired I ADL's Pt would benefit from skilled OT Services to focus on increasing BUE strength and activity tolerance and maximize IND with ADLs and functional mobility for safe discharge home. Discharge Recommendations Plan/Recommendations: Continue POC Treatment Plan/Plan of Care Patient would benefit from OT for education, treatment and training to promote independence in ADL's, mobility, safety and/or upper extremity function for ADL's. Plan of Care: ADL Retraining, Functional Mobility, UE Funct Exercise/Act Treatment Duration: Mar 03, 2022 Frequency: 3 times per week (3-5 times per week) Rehab Potential: Guarded Time/GCodes Start Time: 11:03 Stop Time: 11:20 Total Time Billed (hr/min): 17 Billed Treatment Time 1MICAELA ADDISON OT Feb 24, 2022 11:34
[2022-02-24] MEDS ORDERED: OXYC10TA7 PO (12:20)
[2022-02-24] MEDS ORDERED: ALPR1TAB7 PO (12:20)
[2022-02-24] MEDS ORDERED: AMIO200T65 PO (12:20)
[2022-02-24] MEDS ORDERED: MORP100T47 PO (12:20)
--- NOTE | 2022-02-24 12:21 | D/C HH Face to Face Order ---
D/C Face to Face Orders Reconcile Patient Problems Problems Reviewed?: Yes Instructions for Patient Sissy Patient Instructions/FollowUp: PCP 1 week Cardiology 2 weeks Physician to follow Patient: [facility] Discharge Diet for Home: No Restrictions Patient Problems: Bowel perforation Patient Data-Allergies,Ht & Wt Patient Allergies: Coded Allergies: hydrocodone (Verified Allergy, Intermediate, MAKES STOMACH VERY SICK; tolerated oxycodone, 02/22/22) promethazine (Verified Allergy, Unknown, 12/29/21) Height (Feet): 5 Height (Inches): 3.00 Weight (Pounds): 126 Weight (Ounces): 0.0 Home Health Need/Face to Face Date of Face to Face: Feb 24, 2022 Clinical Findings: Generalized weakness and fatigue, Instability, Muscle weakness, Shortness of breath, Unsteady gait I have seen Pt [id number]: Yes Discharged To: Home Diagnosis/Conditions: Debility Patient is Homebound due to: Anayeli fall risk due to instabilty, Muscle weakness Homebound Status Due to the above stated illness, injury or surgical procedure (medical condition or diagnosis) and associated clinical findings, the patient is homebound because of his/her inability to leave home except with aid of a supportive device and/or person AND leaving the home requires a considerable and taxing effort or is medically contraindicated. Pt req the following assistanc: [facility] Nursing Orders Home Health Services Order: Nursing Services, Oxygen System Tester-Evaluate & Treat, Physical Therapy-Evaluate & Treat, Wound Care-Eval/Treat Home Health Infusion Therapy Line Start Date: Feb 16, 2022 Certify Stmt I certify that this patient is under my care and that I, a nurse practitioner or a physician; a credit control assistant working with me, had a face to face encounter that - meets the physician face to face encounter requirements with this patient as dated. FORTINO TRAYLOR DO Feb 24, 2022 12:21
--- NOTE | 2022-02-24 12:22 | Discharge Summary ---
Discharge Summary Hospital Course Was the Problem List Reviewed?: Yes Problems/Dx: (1) COVID-19 Status: Acute (2) Large bowel perforation Status: Acute (3) Bladder outlet obstruction Status: Acute (4) Lung cancer Qualifiers: Qualified Codes: C34.90 - Malignant neoplasm of unspecified part of unspecified bronchus or lung (5) Mild dehydration Status: Acute (6) Nausea & vomiting Status: Acute Qualifiers: Qualified Codes: R11.2 - Nausea with vomiting, unspecified (7) Constipation Status: Acute Qualifiers: Qualified Codes: K59.03 - Drug induced constipation (8) Pain of metastatic malignancy Status: Acute Hospital Course Date of Admission: Feb 16, 2022 at 01:30 Admission Diagnosis : Family Physician/Provider: Cody Love DO Date of Discharge: 02/24/22 Discharge Diagnosis:bowel perforation, lung cancer with mets, hallucinations, CO VID-19 Hospital Course: Denise is a 66yo female w/PMH of Small cell cancer of the lung who presented to the ER on 02/16 with severe abdominal pain. She tested positive for COVID but was not having any signifcant respiratory symptoms. She was taken to the OR for urgent laparotomy, where the surgeons performed a rectosigmoid resection with end-colostomy. She stayed in the hospital for a total of 8 days following the surgery, during which she received O2 supplementation, IV fluids, abx and pain medication. Cardiology was also consulted due to her CAD disease and checked in on her multiple times throughout the stay. She was delirious for a few days following the surgery and received some antipsychotics as well. She was on bowel rest for the first few days and at this point she is tolerating a full diet with good output from the colostomy. She has made a very good recovery considering her condition on arrival and comorbidities, and is stable to be discharged from the hospital at this time. CELINA MCKEON Labs and Pending Lab Test: Laboratory Tests 02/24/22 06:17: White Blood Count 11.6H, Red Blood Count 3.79L, Hemoglobin 10.4L, Hematocrit 32L , Mean Corpuscular Volume 84, Mean Corpuscular Hemoglobin 27, Mean Corpuscular Hemoglobin Concent 33, Red Cell Distribution Width 15.6H, Platelet Count 252, Mean Platelet Volume 9.3, Immature Granulocyte % (Auto) 1, Neutrophils (%) (Auto) 81H, Lymphocytes (%) (Auto) 11L, Monocytes (%) (Auto) 5, Eosinophils (%) (Auto) 1, Basophils (%) (Auto) 0, Neutrophils # (Auto) 9.4H, Lymphocytes # (Auto) 1.3, Monocytes # (Auto) 0.6, Eosinophils # (Auto) 0.1, Basophils # (Auto) 0.0, Immature Granulocyte # (Auto) 0.1, Sodium Level 132L, Potassium Level 3.7, Chloride Level 97L, Carbon Dioxide Level 22, Anion Gap 13, Blood Urea Nitrogen 20H, Creatinine 0.91, Estimat Glomerular Filtration Rate 69, BUN/Creatinine Ratio 22, Glucose Level 114H, Calcium Level 8.3L, Corrected Calcium 9.2, Magnesium Level 1.4L, Total Bilirubin 0.4, Aspartate Amino Transf (AST/SGOT) 19, Alanine Aminotransferase (ALT/SGPT) 20, Alkaline Phosphatase 54, Total Protein 5.3L, Albumin 2.9L Microbiology 02/16/22 MRSA Screen - Final, Complete MRSA not isolated 02/16/22 Urine Culture - Final, Complete NO GROWTH 02/15/22 Blood Culture - Final, Complete No growth Home Meds Active Amiodarone HCl 200 Mg Tablet 400 Mg PO BID Oxycodone HCl 10 Mg Tablet 10 Mg PO Q6H PRN Morphine Sulfate ER (Morphine Sulfate) 100 Mg Tablet.er 100 Mg PO Q12H Alprazolam 1 Mg Tablet 1 Mg PO TID Reported Keytruda (Pembrolizumab) 100 Mg/4 Ml (25 Mg/Ml) Vial 200 Mg IV EVERY 3 WEEKS Gavilax (Polyethylene Glycol 3350) 17 Gram/Dose Powder 17 Gm PO DAILY PRN Folic Acid 1 Mg Tablet 1 Mg PO DAILY Dexlansoprazole Dr (Dexlansoprazole) 60 Mg Cap.dr.bp 60 Mg PO DAILY Clopidogrel (Clopidogrel Bisulfate) 75 Mg Tablet 75 Mg PO DAILY Meloxicam 15 Mg Tablet 15 Mg PO DAILY Neurontin (Gabapentin) 300 Mg Capsule 300 Mg PO BID D3-50 (Cholecalciferol (Vitamin D3)) 1,250 Mcg (30588 Unit) Capsule 1,250 Mcg PO WEEK Xarelto (Rivaroxaban) 20 Mg Tablet 20 Mg PO HS Potassium Chloride 10 Meq Tab.er.prt 10 Meq PO DAILY Ondansetron HCl 8 Mg Tablet 8 Mg PO TID PRN Hydroxychloroquine Sulfate 200 Mg Tablet 200 Mg PO BID Aspirin 81 Mg Tab.chew 81 Mg PO DAILY Nitroglycerin 0.4 Mg Tab.subl 0.4 Mg SL UD PRN Assessment/Pt Instructions PCP 1 week Discharge Planning: <30 minutes discharge planning Discharge Instructions Discharge Diet: No Restrictions Discharge Physical Examination Vital Signs Vital Signs Date Time Temp Pulse Resp B/P (MAP) Pulse Ox O2 Delivery O2 Flow Rate FiO2 02/24/22 11:02 36.9 98 18 111/55 (73) 97 Room Air 02/23/22 09:53 0.00 General Appearance: No Apparent Distress, WD/WN, Chronically ill Respiratory: Lungs Clear, Normal Breath Sounds Cardiovascular: Regular Rate, Rhythm Neurologic/Psychiatric: Alert, Oriented x3 Allergies: Coded Allergies: hydrocodone (Verified Allergy, Intermediate, MAKES STOMACH VERY SICK; tolerated oxycodone, 02/22/22) promethazine (Verified Allergy, Unknown, 12/29/21) Discharge Summary Date of Admission Feb 16, 2022 at 01:30 Date of Discharge Discharge Date: Feb 24, 2022 Discharge Diagnosis Monitor closely DC tomorrow FORTINO TRAYLOR DO Feb 24, 2022 12:22
--- NOTE | 2022-02-24 14:01 | Cardiology Progress Note ---
Subjective Date Seen by Provider: Feb 24, 2022 Time Seen by Provider: 13:00 Subjective/Events-last exam Patient is still in quarantine, no change in underlying condition Tolerating diet Objective-Cardiology Exam Last Set of Vital Signs Vital Signs 02/23/22 02/24/22 09:53 11:02 Temp 36.9 Pulse 98 Resp 18 B/P (MAP) 111/55 (73) Pulse Ox 97 O2 Delivery Room Air O2 Flow Rate 0.00 I&O Intake and Output 02/24/22 00:00 Intake Total 1620 ml Output Total 612 ml Balance 1008 ml Intake Oral 1520 ml IV Total 100 ml Output Urine Total 540 ml Stool Total 0 ml Drainage Total 72 ml General: Alert, Cooperative HEENT: Atraumatic Neck: Supple Heart: Regular Rate, Normal S1, Normal S2 Extremities: No Clubbing, No Cyanosis Skin: No Rashes Neuro: Normal Speech Psych/Mental Status: Mental Status NL, Mood NL Results Lab Laboratory Tests 02/24/22 06:17 A/P-Cardiology Admission Diagnosis Perforated bowel Coronary artery disease Peripheral arterial disease COVID-19 infection Assessment/Plan S/p Exploratory laparotomy with Niles procedure (rectosigmoid resection with end colostomy) on 02/16/22 after presentation with bowel perf Post-op PAF with RVR seen on 02/20/22 She responded to IV loading dose of amiodarone Currently in sinus rhythm with few breakthrough of atrial fibrillation Started on oral amiodarone and tolerating it well. Continue on current medication and monitor Metastatic small cell lung cancer, h/o radiation therapy and chemotherapy. Coronary artery disease, - PTCA and stent of the left circumflex artery using bare-metal MultiLink vision 3.0 x 15 mm stent in 2007. Previously, she had stents to the RCA in 2004 using 2.75 x 8 mm Express stent. - stress test done in January 2019 showed breast attenuation with typical female pattern with no sig ischemia or infarction, ejection fraction 75 percent - Echocardiogram showed normal LV size and function, aortic valve sclerosis, PA 35 mmHg, test were done in January 2019. Planning to repeat stress test after next 6 month follow up. 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 CT of the head did not show any acute abnormality Managed by primary care team COVID-19 infection. Not in acute distress at this time. Maintained in isolation. Hypertension, monitor blood pressure Hyperlipidemia, by history Status post recent cholecystectomy Mild bilateral nonobstructive carotid artery stenosis, most recent carotid duplex done February 2020 COPD, followed by primary care physician. Tobaccoism, advised to quit H/o cutaneous lupus History of H. pylori, peptic ulcer disease JOAN SEVERINO MD Feb 24, 2022 14:01
--- NOTE | 2022-02-24 14:07 | Physical Therapy Progress Note ---
Therapy Progress Note Physical therapy treatment held in the pm. Pt was having elevated HR 126bpm. Nursing was pursing EKG with concern of AFib. Will follow up 02/25/22 GIOVANNY MARADIAGA PT Feb 24, 2022 14:07
[2022-02-24] MEDS: fentaNYL INJ 100 MCG/2 ML AMP IV PRN (15:41)
--- NOTE | 2022-02-24 16:32 | Progress Note ---
CELINA MCKEON 02/24/22 1632: Progress Note Denise is a 66yo female w/PMH of Small cell cancer of the lung who presented to the ER on 02/16 with severe abdominal pain. She tested positive for COVID but was not having any signifcant respiratory symptoms. She was taken to the OR for urgent laparotomy, where the surgeons performed a rectosigmoid resection with end-colostomy. She stayed in the hospital for a total of 8 days following the surgery, during which she received O2 supplementation, IV fluids, abx and pain medication. Cardiology was also consulted due to her CAD disease and checked in on her multiple times throughout the stay. She was delirious for a few days following the surgery and received some antipsychotics as well. She was on bowel rest for the first few days and at this point she is tolerating a full diet with good output from the colostomy. She has made a very good recovery considering her condition on arrival and comorbidities, and is stable to be discharged from the hospital at this time. TYESHA TRAYLOR DO 02/25/22 0615: Supervisory-Addendum Brief Verification & Attestation Participated in pt care: history, MDM, physical Personally performed: exam, history, MDM, supervision of care Care discussed with: Medical Student Procedures: n/a Results interpretation: Verified all documentation Verification and Attestation of Medical Student E/M Service A medical student performed and documented this service in my presence. I reviewed and verified all information documented by the medical student and made modifications to such information, when appropriate. I personally performed the physical exam and medical decision making. Tyesha Traylor Feb 25, 2022,06:15 CELINA MCKEON Feb 24, 2022 16:32 TYESHA TRAYLOR DO Feb 25, 2022 06:15
[2022-02-24] MEDS ORDERED: RIVAROXABAN 15 MG TABLET (XARELTO) PO SCH (17:00)
== END 2022-02-24 16:23 | disposition home health service (06) | DRG 853 ==
LOC: EDUNIT# 22:41 → ER 22:42 → ICU 02-16 01:30 → EDLOC 02-16 01:30 → ICU 02-17 15:54 → 4TH 02-22 15:55
PROVIDERS: ADMIT Family Medicine; ATTEND Internal Medicine
PROC: 0DBP0ZZ Excision of Rectum, Open Approach (ICD-10-PCS; 2022-02-16)
PROC: 0D1N0Z4 Bypass Sigmoid Colon to Cutaneous, Open Approach (ICD-10-PCS; 2022-02-16)
PROC: 8E0ZXY6 Isolation (ICD-10-PCS; 2022-02-16)
PROC: 0DBN0ZZ Excision of Sigmoid Colon, Open Approach (ICD-10-PCS; principal; 2022-02-16 15:25)
DX: A41.9 Sepsis, unspecified organism (principal); U07.1 COVID-19; J96.01 Acute respiratory failure with hypoxia; K57.20 Diverticulitis of large intestine with perforation and abscess without bleeding; C34.90 Malignant neoplasm of unspecified part of unspecified bronchus or lung; C79.9 Secondary malignant neoplasm of unspecified site; I47.1 Supraventricular tachycardia; I48.92 Unspecified atrial flutter; R44.3 Hallucinations, unspecified; Z66 Do not resuscitate; N32.0 Bladder-neck obstruction; E86.0 Dehydration; K59.00 Constipation, unspecified; J44.9 Chronic obstructive pulmonary disease, unspecified; E87.6 Hypokalemia; I25.10 Atherosclerotic heart disease of native coronary artery without angina pectoris; R33.9 Retention of urine, unspecified; I48.0 Paroxysmal atrial fibrillation; R56.9 Unspecified convulsions; M79.7 Fibromyalgia; F41.9 Anxiety disorder, unspecified; F32.A Depression, unspecified; K21.9 Gastro-esophageal reflux disease without esophagitis; G89.3 Neoplasm related pain (acute) (chronic); M81.0 Age-related osteoporosis without current pathological fracture; M19.91 Primary osteoarthritis, unspecified site; D64.9 Anemia, unspecified; F17.210 Nicotine dependence, cigarettes, uncomplicated; I27.20 Pulmonary hypertension, unspecified; I73.9 Peripheral vascular disease, unspecified; Z79.82 Long term (current) use of aspirin; Z79.01 Long term (current) use of anticoagulants; Z88.5 Allergy status to narcotic agent; Z88.8 Allergy status to other drugs, medicaments and biological substances; Z82.61 Family history of arthritis; Z83.3 Family history of diabetes mellitus; Z82.49 Family history of ischemic heart disease and other diseases of the circulatory system; Z95.5 Presence of coronary angioplasty implant and graft; Z95.820 Peripheral vascular angioplasty status with implants and grafts
CPT/HCPCS: 36415; 51702; 70450; 71045; 74177; 80048; 80053; 81000; 82805; 82947; 83605; 83690; 83735; 84100; 84145; 84478; 85007; 85025; 85027; 85610; 85730; 86141; 86850; 86900; 86901; 86920; 87040; 87081; 87088; 87636; 93005; 94002; 94003; 94660; 94760; 94761; 94799; 96361; 96374; 96375; 96376

== ENCOUNTER 2022-03-19 15:13 | Emergency (ER) | payer MEDICARE, MEDICAID ==
[~2022-03-19] VITALS: Ht 160 cm; Wt 45.0 kg
[~2022-03-19 15:13] MED LIST changes: -ALEN70TA2 PO; +ALEN70TA85 PO; +AMIO200T65 PO; +CHOL50005 PO; +DEXL60CA6 PO; +FOLI1TAB33 PO; +MELO15TA39 PO; +MORP100T47 PO; +OXYC10TA7 PO; +PEMB100V IV; +POLY238P10 PO
--- NOTE | 2022-03-19 16:06 | ED General ---
General Chief Complaint: Rect Problems Stated Complaint: ANAL BLEEDING Nursing Triage Note: PT HAD A COLOSTOMY PLACED ON 02/16/22, NO ISSUES UP TO THIS MORNING WHEN SHE WOKE WITH BLOOD COMING FROM HER RECTUM. PT IS WEAK BUT IS ALWAYS WEAK, HX OF STAGE 4 LUNG CA WITH METS Source of Information: Patient, Family () Exam Limitations: No Limitations History of Present Illness Date Seen by Provider: Mar 19, 2022 Time Seen by Provider: 15:45 Initial Comments Patient is a 67-year-old female with a history of metastatic lung cancer who presents to the emergency department with her chief complaint of concern for rectal bleeding. Patient was seen approximately 1 month ago, diagnosed with COVID and subsequently found to have perforated viscus. She underwent emergency colectomy with colostomy placement. She was in the hospital for about 2 weeks. She has been doing well. Has a history of coronary artery disease and peripheral vascular disease on Plavix and Xarelto. She is still taking his medications. She denies any complaints of illness such as fever, chills, cough or congestion. No shortness of breath. No nausea or vomiting. She has been having normal stool output from her ostomy site. Her states that when he woke her up this morning there was a large "pool of blood" underneath her and he witnessed blood coming out of her "anus." Allergies and Home Medications Allergies Coded Allergies: hydrocodone (Verified Allergy, Intermediate, MAKES STOMACH VERY SICK; tolerated oxycodone, 02/22/22) promethazine (Verified Allergy, Unknown, 12/29/21) Patient Home Medication List Home Medication List Reviewed: Yes Alprazolam (Alprazolam) 1 Mg Tablet, 1 MG PO TID Prescribed by: FORTINO TRAYLOR on 02/24/22 1220 Amiodarone HCl (Amiodarone HCl) 200 Mg Tablet, 400 MG PO BID Prescribed by: FORTINO TRAYLOR on 02/24/22 1220 Aspirin (Aspirin) 81 Mg Tab.chew, 81 MG PO DAILY, (Reported) Entered as Reported by: CHRISTY SALDANA on 12/12/18 1351 Cholecalciferol (Vitamin D3) (D3-50) 1,250 Mcg (73548 Unit) Capsule, 1,250 MCG PO WEEK, (Reported) Entered as Reported by: GO TEJADA on 02/16/22 1252 Clopidogrel Bisulfate (Clopidogrel) 75 Mg Tablet, 75 MG PO DAILY, (Reported) Entered as Reported by: GO TEJADA on 02/16/22 1252 Dexlansoprazole (Dexlansoprazole Dr) 60 Mg Cap.dr.bp, 60 MG PO DAILY, (Reported) Entered as Reported by: GO TEJADA on 02/16/22 1252 Folic Acid (Folic Acid) 1 Mg Tablet, 1 MG PO DAILY, (Reported) Entered as Reported by: GO TEJADA on 02/16/22 1252 Gabapentin (Neurontin) 300 Mg Capsule, 300 MG PO BID, (Reported) Entered as Reported by: GO TEJADA on 02/16/22 1252 Hydroxychloroquine Sulfate (Hydroxychloroquine Sulfate) 200 Mg Tablet, 200 MG PO BID, (Reported) Entered as Reported by: CHRISTY SALDANA on 12/12/18 1351 Morphine Sulfate (Morphine Sulfate ER) 100 Mg Tablet.er, 100 MG PO Q12H Prescribed by: FORTINO TRAYLOR on 02/24/22 1220 Nitroglycerin (Nitroglycerin) 0.4 Mg Tab.subl, 0.4 MG SL UD PRN for CHEST PAIN, (Reported) Entered as Reported by: CHRISTY SALADNA on 12/12/18 1351 Ondansetron HCl (Ondansetron HCl) 8 Mg Tablet, 8 MG PO TID PRN for NAUSEA/VOMITING-1ST LINE, (Reported) Entered as Reported by: ISAMAR LINO on 10/14/21 1032 Oxycodone HCl (Oxycodone HCl) 10 Mg Tablet, 10 MG PO Q6H PRN for PAIN-SEVERE (8- 10) Prescribed by: FORTINO TRAYLOR on 02/24/22 1220 Polyethylene Glycol 3350 (Gavilax) 17 Gram/Dose Powder, 17 GM PO DAILY PRN for CONSTIPATION-2ND LINE, (Reported) Entered as Reported by: GO TEJADA on 02/16/22 1252 Potassium Chloride (Potassium Chloride) 10 Meq Tab.er.prt, 10 MEQ PO DAILY, (Reported) Entered as Reported by: ISAMAR LINO on 10/14/21 1032 Rivaroxaban (Xarelto) 20 Mg Tablet, 20 MG PO HS, (Reported) Entered as Reported by: GILDA BROUSSARD on 12/28/21 1556 Review of Systems Review of Systems Constitutional: see HPI, malaise, weakness EENTM: no symptoms reported Respiratory: no symptoms reported Cardiovascular: no symptoms reported Gastrointestinal: other (rectal bleeding) Genitourinary: no symptoms reported Musculoskeletal: no symptoms reported Skin: other (ulcers bilateral hips) Psychiatric/Neurological: No Symptoms Reported All Other Systems Reviewed Negative Unless Noted: Yes Past Kifqtfj-Vizddh-Lpwhlb Hx Patient Social History Tobacco Use?: Yes Tobacco type used: Cigarettes Smoking Status: Current Everyday Smoker Substance use?: No Alcohol Use?: No Immunizations Up To Date First/Initial COVID19 Vaccinat: 07/2020 Second COVID19 Vaccination Bogdan: 08/2020 Third COVID19 Vaccination Date: 04/2022 Seasonal Allergies Seasonal Allergies: Yes Past Medical History Surgery/Hospitalization HX: Significant history please see h and p, COLOSTOMY, STAGE 4 LUNG CA WITH METS, CAD WITH 4 STENTS, STENTS IN LEGS, APPENDECTOMY, GALLBLADDER, HYSTERECTOMY, TOE REMOVED ON RT FOOT. Surgeries: Yes (BILAT FEET, RIGHT SHOULDER X2, LAP GRAZYNA, BLADDER TIE UP ;STENTS X 4) Appendectomy, Gallbladder, Hysterectomy, Orthopedic Respiratory: Yes (METASTATIC LUNG CANCER) COPD Currently Using CPAP: No Currently Using BIPAP: No Cardiac: Yes (ME X 2 2001/2006, WITH STENTS X 4 ) Coronary Artery Disease Neurological: No 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 Disorders: Yes Female 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 Disorders: Denies [employer] History: Hysterectomy, Menopausal Sexually Transmitted Disease: No HIV/AIDS: No Genitourinary: No Gastrointestinal: Yes Gastroesophageal Reflux Musculoskeletal: Yes (WOUND RIGHT TOE) Osteoporosis, Arthritis, Fibromyalgia, Chronic Back Pain Endocrine: No HEENT: Yes (READING GLASSES) Cataract Loss of Vision: Denies Hearing Impairment: Denies Cancer: Yes Lung Did You Recieve Any Treatments: Yes What Type of Treatment Did You: Chemotherapy Psychosocial: Yes Anxiety, Depression Integumentary: No Blood Disorders: No Adverse Reaction/Blood Tranf: No (N/A) Family Medical History Alcoholism Arthritis 19 MOTHER G8 BROTHER Cancer of mouth 19 FATHER (THROAT CANCER) Cardiovascular disease 19 MOTHER Completed stroke 19 MOTHER Diabetes mellitus 19 MOTHER FH: breast cancer Hypertension G8 BROTHER Thyroid disease 19 MOTHER No Family History of: AIDS Asthma No Pertinent Family Hx SOCIAL HISTORY: -SMOKES 1 1/2 PPD -ETOH--RARELY USES -DRUGS--DENIES USE PAST SURGICAL HISTORY: -PORT RIGHT CHEST 07/21/[address] BLANCAS -RIGHT ILIAC BONE BIOPSY 07/07/21 -RIGHT SHOULDER SURGERY X 2 -FINGER SURGERY -BILATERAL FOOT SURGERY -HIATAL HERNIA REPAIR -CARDIAC CATHS--STENTS X 3 -EGD/COLONOSCOPY/POLYPECTOMY -CHOLECYSTECTOMY 12/[address] BLANCAS -HYSTERECTOMY/BILATERAL SALPINGO-OOPHORECTOMY Physical Exam Vital Signs Vital Signs - First Documented 03/19/22 15:24 Temp 37.2 Pulse 99 Resp 16 B/P (MAP) 123/68 (86) Pulse Ox 92 O2 Delivery Room Air Capillary Refill : Less Than 3 Seconds Height, Weight, BMI Height: 5'3.00" Weight: 126lbs. 0.0oz. 57.521946zm; 17.00 BMI Method:Stated General Appearance: No Apparent Distress, Chronically ill, Thin Eyes: Bilateral Eye Conjunctivae Pale HEENT: PERRL/EOMI Respiratory: No Accessory Muscle Use, No Respiratory Distress Cardiovascular: Regular Rate, Rhythm, Tachycardia (99) Gastrointestinal: Non Tender, Soft, Abnormal Bowel Sounds (slightly hyperactive), Other (ostomy left upper quadrant - brown stool noted in the bag; no blood or melena) Rectal: Other (HECTOR performed; soft nonthrombosed hemorrhoids present - small. No gross blood on HECTOR - some debris palpated in vault) Extremity: Normal Range of Motion Neurologic/Psychiatric: Alert, Oriented x3, No Motor/Sensory Deficits, Normal Mood/Affect Skin: Warm/Dry, Pallor Procedures/Interventions Date of ETT Placement: Feb 16, 2022 Progress/Results/Core Measures Suspected Sepsis SIRS Temperature: Pulse: 99 Respiratory Rate: 16 Laboratory Tests 03/19/22 16:10: White Blood Count 15.3H Blood Pressure 123 /68 Mean: 86 Laboratory Tests 03/19/22 16:10: Platelet Count 284 Results/Orders Lab Results Laboratory Tests Test 03/19/22 16:10 Range/Units White Blood Count 15.3 H 4.3-11.0 10^3/uL Red Blood Count 3.31 L 3.80-5.11 10^6/uL Hemoglobin 8.9 L 11.5-16.0 g/dL Hematocrit 28 L 35-52 % Mean Corpuscular Volume 85 80-99 fL Mean Corpuscular Hemoglobin 27 25-34 pg Mean Corpuscular Hemoglobin Concent 32 32-36 g/dL Red Cell Distribution Width 17.2 H 10.0-14.5 % Platelet Count 284 130-400 10^3/uL Mean Platelet Volume 9.5 9.0-12.2 fL Immature Granulocyte % (Auto) 1 % Neutrophils (%) (Auto) 89 H 42-75 % Lymphocytes (%) (Auto) 3 L 12-44 % Monocytes (%) (Auto) 7 0-12 % Eosinophils (%) (Auto) 0 0-10 % Basophils (%) (Auto) 0 0-10 % Neutrophils # (Auto) 13.6 H 1.8-7.8 10^3/uL Lymphocytes # (Auto) 0.5 L 1.0-4.0 10^3/uL Monocytes # (Auto) 1.1 H 0.0-1.0 10^3/uL Eosinophils # (Auto) 0.0 0.0-0.3 10^3/uL Basophils # (Auto) 0.0 0.0-0.1 10^3/uL Immature Granulocyte # (Auto) 0.1 0.0-0.1 10^3/uL Neutrophils % (Manual) 93 % Lymphocytes % (Manual) 3 % Monocytes % (Manual) 4 % Hypersegmented Neutrophils SLIGHT Toxic Granulation 2+ Polychromasia SLIGHT Caio Cells MODERATE Elliptocytes SLIGHT My Orders Orders - ZHANNA BRYAN MD Ed Iv/Invasive Line Start (03/19/22 15:53) Cbc With Automated Diff (03/19/22 15:53) Manual Differential (03/19/22 16:10) Vital Signs/I&O 03/19/22 15:24 Temp 37.2 Pulse 99 Resp 16 B/P (MAP) 123/68 (86) Pulse Ox 92 O2 Delivery Room Air Capillary Refill : Less Than 3 Seconds Blood Pressure Mean: 86 Progress Note : Time: 17:05 Progress Note Patient is slightly anemic with a hemoglobin of 9. She has a mild leukocytosis. No concerns for infection or other complaints other than the blood at the rectum which the states that he saw. Again digital rectal exam showed no evidence of bleeding, melena/bright red blood on rectal exam. I did discuss the case with Dr. Contreras he stated that if she has no findings on digital rectal exam that she is completely safe to follow-up with Dr. Blancas as an outpatient. Will recommend to the if he has further concerns to call Dr. Blancas's office in the morning for a follow-up appointment in the office she is scheduled for her Keytruda this week at the oncology center. She will have repeat blood work done at that time. Return precautions discussed with the . All questions are sought and answered. Departure Impression Primary Impression: concern for rectal bleeding Additional Impressions: Anemia Qualified Codes: D64.9 - Anemia, unspecified Metastatic lung cancer (metastasis from lung to other site) Qualified Codes: C34.90 - Malignant neoplasm of unspecified part of unspecified bronchus or lung Disposition: HOME, SELF-CARE Condition: Stable Departure-Patient Inst. Decision time for Depature: 17:06 Referrals: SOCO BLANCAS CASEY V DO (PCP/Family) Primary Care Physician OSEI RAMSEY Patient Instructions: Colostomy Care Add. Discharge Instructions: Continue daily medications as prescribed by your primary care doctor. Drink plenty of fluids to stay well-hydrated. Try and eat frequent small meals throughout the day. If you have a return of blood out of the rectum, abdominal pain, fever, vomiting please come back to the emergency room for reevaluation. Please call Dr. Blancas's office tomorrow for further evaluation as needed. Copy Copies To 1: SOCO BLANCAS DO Copies To 2: GO BLOUNT DO; JYOTSNA COLON MD, KATHRYN M MD Mar 19, 2022 16:06
[2022-03-19 16:18] LABS: BASOPHILS % (AUTO) 0 % (0-10); EOSINOPHILS % (AUTO) 0 % (0-10); HEMATOCRIT 28 % (35-52); HEMOGLOBIN 8.9 g/dL (11.5-16.0); LYMPHOCYTES # (AUTO) 0.5 10^3/uL (1.0-4.0); LYMPHOCYTES % (AUTO) 3 % (12-44); MEAN CORPUSCULAR HEMOGLOBIN 27 pg (25-34); MEAN CORPUSCULAR HGB CONC 32 g/dL (32-36); MEAN CORPUSCULAR VOLUME 85 fL (80-99); MEAN PLATELET VOLUME 9.5 fL (9.0-12.2); MONOCYTES # (AUTO) 1.1 10^3/uL (0.0-1.0); MONOCYTES % (AUTO) 7 % (0-12); NEUTROPHILS # (AUTO) 13.6 10^3/uL (1.8-7.8); NEUTROPHILS % (AUTO) 89 % (42-75); PLATELET COUNT 284 10^3/uL (130-400); WHITE BLOOD COUNT 15.3 10^3/uL (4.3-11.0)
[2022-03-19 16:53] LABS: ELLIPT/OVALOCYTES SLIGHT; LYMPHOCYTES % (MANUAL) 3 %; MONOCYTES % (MANUAL) 4 %; NEUTROPHILS % (MANUAL) 93 %; POLYCHROMASIA SLIGHT; TOXIC GRANULATION/VACUOLAZATIO 2+
[2022-03-19 16:54] LABS: BURR CELLS MODERATE; HYPERSEGMENTED NEUT SLIGHT
[2022-03-19 17:20] VITALS: BP 123/68
== END 2022-03-19 17:20 | disposition home or self-care (01) ==
LOC: EDUNIT# 15:13 → ER 15:15
DX: D64.9 Anemia, unspecified (principal); C78.00 Secondary malignant neoplasm of unspecified lung; F17.210 Nicotine dependence, cigarettes, uncomplicated
CPT/HCPCS: 36415; 85007; 85027

== ENCOUNTER → 2022-03-28 | Outpatient (CLI) | payer MEDICARE, MEDICAID | LOC: WOUNDCARE 11:48 | PROVIDERS: ATTEND Family Medicine | DX: L89.210 Pressure ulcer of right hip, unstageable (principal); L89.220 Pressure ulcer of left hip, unstageable; E43 Unspecified severe protein-calorie malnutrition; D46.4 Refractory anemia, unspecified; T65.292A Toxic effect of other tobacco and nicotine, intentional self-harm, initial encounter; R64 Cachexia; Z92.25 Personal history of immunosuppression therapy | CPT/HCPCS: 11042; 87070; 87077; 87205; A6212; A6260; G0463 ==

== ENCOUNTER → 2022-04-04 | Outpatient (CLI) | payer MEDICARE, MEDICAID | LOC: WOUNDCARE 12:52 | PROVIDERS: ATTEND Family Medicine | DX: I96 Gangrene, not elsewhere classified (principal); L89.223 Pressure ulcer of left hip, stage 3; L89.210 Pressure ulcer of right hip, unstageable; E43 Unspecified severe protein-calorie malnutrition; D46.4 Refractory anemia, unspecified; T65.292A Toxic effect of other tobacco and nicotine, intentional self-harm, initial encounter; B96.20 Unspecified Escherichia coli [E. coli] as the cause of diseases classified elsewhere; R64 Cachexia; Z92.25 Personal history of immunosuppression therapy; Z68.1 Body mass index [BMI] 19.9 or less, adult | CPT/HCPCS: 11042; G0463 ==

== ENCOUNTER → 2022-04-12 | Outpatient (CLI) | payer MEDICARE, MEDICAID | LOC: WOUNDCARE 12:48 | PROVIDERS: ATTEND Family Medicine | DX: L89.224 Pressure ulcer of left hip, stage 4 (principal); E43 Unspecified severe protein-calorie malnutrition; D46.4 Refractory anemia, unspecified; T65.292A Toxic effect of other tobacco and nicotine, intentional self-harm, initial encounter; B96.20 Unspecified Escherichia coli [E. coli] as the cause of diseases classified elsewhere; L89.213 Pressure ulcer of right hip, stage 3; C34.11 Malignant neoplasm of upper lobe, right bronchus or lung; C78.7 Secondary malignant neoplasm of liver and intrahepatic bile duct; C79.51 Secondary malignant neoplasm of bone; I96 Gangrene, not elsewhere classified; R64 Cachexia; Z92.25 Personal history of immunosuppression therapy; Z68.1 Body mass index [BMI] 19.9 or less, adult | CPT/HCPCS: 11042; 11043; G0463 ==

== ENCOUNTER → 2022-04-26 | Outpatient (CLI) | payer MEDICARE, MEDICAID | LOC: WOUNDCARE 12:47 | PROVIDERS: ATTEND Family Medicine | DX: L89.213 Pressure ulcer of right hip, stage 3 (principal); D46.4 Refractory anemia, unspecified; Z92.25 Personal history of immunosuppression therapy; R64 Cachexia; T65.292A Toxic effect of other tobacco and nicotine, intentional self-harm, initial encounter; B96.20 Unspecified Escherichia coli [E. coli] as the cause of diseases classified elsewhere; L89.223 Pressure ulcer of left hip, stage 3; C34.11 Malignant neoplasm of upper lobe, right bronchus or lung; C78.7 Secondary malignant neoplasm of liver and intrahepatic bile duct; C79.51 Secondary malignant neoplasm of bone; I96 Gangrene, not elsewhere classified | CPT/HCPCS: 11042; G0463 ==

== ENCOUNTER → 2022-05-26 | Outpatient (CLI) | payer MEDICARE, MEDICAID | LOC: WOUNDCARE 11:24 | PROVIDERS: ATTEND Family Medicine | DX: L89.313 Pressure ulcer of right buttock, stage 3 (principal); L89.224 Pressure ulcer of left hip, stage 4; E43 Unspecified severe protein-calorie malnutrition; D46.4 Refractory anemia, unspecified; Z92.25 Personal history of immunosuppression therapy; R64 Cachexia; T65.222A Toxic effect of tobacco cigarettes, intentional self-harm, initial encounter; B96.20 Unspecified Escherichia coli [E. coli] as the cause of diseases classified elsewhere; C34.11 Malignant neoplasm of upper lobe, right bronchus or lung; C78.7 Secondary malignant neoplasm of liver and intrahepatic bile duct; C79.51 Secondary malignant neoplasm of bone; I96 Gangrene, not elsewhere classified | CPT/HCPCS: 87070; 87077; 87186; 87205; A6253; G0463; 99213 ==